=== PATIENT | female | born 1965 | race Two or more races ===

== ENCOUNTER 2021-08-06 06:59 | Emergency (ER) | payer OTHER, SELFPAY ==
--- NOTE | ~2021-08-06 | XR_ITS ---
EXAMINATION: XR CHEST CLINICAL INFORMATION: Cough and shortness of breath COMPARISON: Previous chest x-ray September 2017 TECHNIQUE: 2 views of the chest were obtained. FINDINGS: No significant abnormality is noted involving the heart, lungs, mediastinum, bony thorax or soft tissues. XR/XR chest 2V IMPRESSION: Unremarkable examination.
[2021-08-06 07:11] VITALS: BP 133/72; PULSE 100; RESP 18; TEMP 35.8; O2SAT 97
[2021-08-06 07:25] VITALS: BP 129/88; PULSE 112; RESP 21; TEMP 37.1; O2SAT 96; BMI 36.3
--- NOTE | 2021-08-06 07:28 | ED.GENADULT ---
HPI - General Adult General Chief complaint: General Medical Stated complaint: fever chills sore throat sob Time Seen by Provider: 08/06/21 07:28 Source: patient Mode of arrival: ambulatory Limitations: no limitations History of Present Illness HPI narrative: Cough, headache, myalgias for 3 days. Patient is not vaccinated. Onset (ago): day(s) Severity: mild Relieving factors: none Exacerbating factors: none Associated symptoms: chest pain, cough, fever/chills, malaise, shortness of breath and weakness Related Data Previous Rx's Medication Instructions Recorded arptsibpgfhzm-OM-ghcjflqxnvs 5 10 ml PO Q4H PRN #237 ml 08/06/21 mg-10 mg-100 mg/5 mL oral liquid Allergies Allergy/AdvReac Type Severity Reaction Status Date / Time No Known Allergies Allergy Unverified 05/21/20 17:53 [No Known Allergies*] Review of Systems Constitutional: Constitutional: Reports no additional constitutional complaints Eyes: Eyes: Reports no additional eye complaints ENT: Denies dizziness Cardiovascular: Cardiovascular: Reports no additional cardiovascular complaints Respiratory: Respiratory: Reports as per HPI Gastrointestinal: Gastrointestinal: Reports no additional gastrointestinal complaints Genitourinary: Genitourinary: Reports no additional female genitourinary complaints Musculoskeletal: Musculoskeletal: Reports no additional musculoskeletal complaints Integumentary/Breasts: Skin/Breast: Denies rash Neurologic: Reports system reviewed and no additional complaints, except as documented, Denies dizziness and Denies Sensory deficit (Neuro) Psychiatric: Psychiatric: Denies anxiety [facility] Social History Social History Advance Directives: No Advance Directives Information Provided: Yes Patient : No Physical Exam Vital Signs: Vital Signs: Last Vital Signs Temp 98.2 F 08/06/21 09:35 Pulse 84 08/06/21 09:35 Resp 15 08/06/21 09:35 BP 145/86 H 08/06/21 09:35 Pulse Ox 97 08/06/21 09:35 BMI result Body Mass Index 36.3 Const: Other: female looking uncomfortable, occaisional coughing Nutritional Appearance: obese Orientation/consciousness: oriented to person and patient oriented x3 Limitations: no limitations HENMT: Head: Yes normal to inspection Ears: external ears normal General nose exam: Normal external nose present Mouth: Normal oral and palatal mucosa present and oropharynx normal Throat: Yes posterior oropharynx normal Eyes: General: appearance normal, both eyes and all related structures Neck: Other: supple Neck: Yes normal visual inspection Chest: Chest palpation & inspection: normal inspection of the chest Resp: Auscultation: clear to auscultation bilaterally Cardio: Jugular venous distension: no JVD Rate: regular rate Rhythm: regular rhythm Heart sounds: S1 normal heart sound present and S2 normal heart sound present GI: Inspection: Yes normal to inspection Palpation (GI): Soft to palpation, nontender and No hepatosplenomegaly present Auscultation: normal bowel sounds : General: Yes no CVA tenderness Back/Spine/Pelvis: Back: no CVA tenderness Skin: General skin exam: no rashes or lesions noted Neuro: General: oriented to person and patient oriented x3 Cranial nerves: Yes CN's II-XII intact bilaterally Motor exam (neuro): 5/5 motor strength present throughout Sensory Exam: No Sensory deficit (Neuro) Extrem: General: Yes normal to inspection Psych: Appearance: grossly normal Course Reevaluation(s) Reevaluation #1: patinet with viral illness, will dc home Time: 10:44 Medical Decision Making Lab Data Result diagrams: 08/06/21 07:35 08/06/21 07:35 Labs: Lab Results 08/06/21 08/06/21 08/06/21 Range/Units 07:35 07:35 07:35 WBC 5.0 (4.8-10.8) X10*3/uL RBC 4.00 L (4.20-5.50) X10*6/uL Hgb 12.1 (12.0-16.0) g/dl Hct 35.6 L (37.0-47.0) % MCV 89.0 (80.0-98.0) fL MCH 30.3 (27.0-33.0) pg MCHC 34.0 (31.0-35.0) g/dl RDW 13.8 (11.0-16.0) % Plt Count 94 L (160-400) X10*3/uL MPV 11.8 (9.4-12.3) fL Immature Gran % (Auto) 0.6 H (0.0-0.4) % Neut % (Auto) 67.2 (45-73) % Lymph % (Auto) 17.8 L (20-40) % [place] % (Auto) 9.8 (2-11) % Eos % (Auto) 4.4 H (0-4) % Baso % (Auto) 0.2 (0-2) % Lymph # (Auto) 0.9 L (1.2-4.9) X10*3/uL [place] # (Auto) 0.5 (0.1-1.2) X10*3/uL Eos # (Auto) 0.2 (0.0-0.4) X10*3/uL Baso # (Auto) 0.0 (0.0-0.2) X10*3/uL Abs Immat Gran (auto) 0.03 (0.00-0.03) X10*3/uL Absolute Neuts (auto) 3.4 (2.0-8.3) x10*3/uL Absolute Nucleated RBC 0.000 (0.0-0.012) X10*3/uL Nucleated RBC % (auto) 0.0 (0.0-0.2) /100WBC Sodium 139 (135-145) mmol/L Potassium 3.9 (3.3-5.1) mmol/L Chloride 109 H (96-108) mmol/L Carbon Dioxide 25 (22-29) mmol/L Anion Gap 9 L (12-20) BUN 4 L (9-16) mg/dL Creatinine 0.67 (0.5-1.4) mg/dL Estim Creat Clear Calc 88.7 Estimated GFR > 60 Random Glucose 114 (60-115) mg/dL Calcium 8.4 (8.4-10.2) mg/dL Influenza Type A (PCR) NEGATIVE (Negative) Influenza Type B (PCR) NEGATIVE (Negative) RSV RNA Qual (PCR) NEGATIVE (Negative) SARS-CoV-2 RNA (RT-PCR) NEGATIVE (Negative) Imaging Data Chest x-ray: Attestation: I personally reviewed and interpreted this imaging study as follows: My impression: no infiltrate Discharge Plan Discharge Clinical Impression: Upper respiratory infection Qualifiers: URI type: unspecified viral URI Qualified Code(s): J06.9 - Acute upper respiratory infection, unspecified Patient Disposition: Home, Self-Care Instructions: Upper Respiratory Infection (ED), Viral Syndrome (ED) Prescriptions: New nirmdahcjwskw-TC-kmynthhyofd 5-10-100 mg/5 mL liquid 10 ml PO Q4H PRN (Reason: cough) Qty: 237 RF: 0 Referrals: Shanta Busch MD [Primary Care Provider] - 1 week
[2021-08-06] MEDS: 0.9 % Sodium Chloride 1,000 ML 999 ML IVCONT ×2 (07:36→09:30)
[2021-08-06 07:40] LABS: MANUAL DIFF FLAG NO
[2021-08-06 07:42] LABS: Basophils Percent Auto 0.2 % (0-2); Eosinophils Absolute Auto 0.2 X10*3/uL (0.0-0.4); Eosinophils Percent Auto 4.4 % (0-4); Hematocrit 35.6 % (37.0-47.0); Hemoglobin 12.1 g/dl (12.0-16.0); Imm Gran Abs Auto 0.03 X10*3/uL (0.00-0.03); Imm Gran Pct Auto 0.6 % (0.0-0.4); Lymphocytes Absolute Auto 0.9 X10*3/uL (1.2-4.9); Lymphocytes Percent Auto 17.8 % (20-40); Mean Corpuscular Hemoglobin 30.3 pg (27.0-33.0); Mean Platelet Volume 11.8 fL (9.4-12.3); Monocytes Absolute Auto 0.5 X10*3/uL (0.1-1.2); Monocytes Percent Auto 9.8 % (2-11); Neutrophils Absolute Auto 3.4 x10*3/uL (2.0-8.3); Neutrophils Percent Auto 67.2 % (45-73); Platelet Count 94 X10*3/uL (160-400); Red Cell Distribution Width 13.8 % (11.0-16.0)
[2021-08-06 07:59] LABS: Anion Gap 9 (12-20); Blood Urea Nitrogen 4 mg/dL (9-16); Calcium 8.4 mg/dL (8.4-10.2); Carbon Dioxide 25 mmol/L (22-29); Chloride 109 mmol/L (96-108); Creatinine Clr Calc Pharmacy 88.7; Estimated Glomerular Filt Rate > 60; Glucose Random 114 mg/dL (60-115); Potassium 3.9 mmol/L (3.3-5.1); Sodium 139 mmol/L (135-145)
[2021-08-06 08:27] LABS: Influenza A PCR NEGATIVE (Negative); Influenza B PCR NEGATIVE (Negative); Resp Syncy Virus RNA Qual PCR NEGATIVE (Negative); SARS COV2 PCR INHOUSE NEGATIVE (Negative)
[2021-08-06 09:35] VITALS: BP 145/86; PULSE 84; RESP 15; TEMP 36.8; O2SAT 97
== END 2021-08-06 11:20 | disposition home or self-care (01) ==
PROVIDERS: Emergency Provider Emergency Medicine; PCP Internal Medicine
DX: J06.9 Acute upper respiratory infection, unspecified (principal); Z20.822 Contact with and (suspected) exposure to COVID-19
CPT/HCPCS: 0241U; 36415; 71046; 80048; 85025; 96360; 99284

== ENCOUNTER 2021-09-09 11:27 | Outpatient (REF) | payer OTHER, SELFPAY ==
[2021-09-09 13:25] LABS: Binax Internal Control QC Valid; Binax Now Covid-19 Ag Negative (Negative)
== END 2021-09-09 11:28 | disposition home or self-care (01) ==
LOC: HO.LAB 11:27
PROVIDERS: Visit Provider Internal Medicine
DX: Z20.822 Contact with and (suspected) exposure to COVID-19 (principal)
CPT/HCPCS: 36415; C9803

== ENCOUNTER 2021-11-22 09:03 | Outpatient (REF) | payer OTHER, SELFPAY ==
[2021-11-22 09:32] LABS: COVID-19 Test Negative (Negative)
== END 2021-11-22 09:04 | disposition home or self-care (01) ==
LOC: HO.LAB 09:03
PROVIDERS: Visit Provider Internal Medicine
DX: Z20.822 Contact with and (suspected) exposure to COVID-19 (principal)
CPT/HCPCS: 87635; C9803

== ENCOUNTER 2023-02-02 06:07 | Emergency (ER) | payer OTHER, SELFPAY ==
--- NOTE | ~2023-02-02 | CT_ITS ---
EXAMINATION: CT ABDOMEN AND PELVIS WITH CONTRAST CLINICAL INFORMATION: Right lower quadrant pain COMPARISON: Abdominal MRI 07/04/2018, abdominal ultrasound 07/04/[address] chest chest, abdomen and pelvis 09/24/2017 TECHNIQUE: Multidetector volumetric images were obtained from the superior aspect of the liver through the pubic symphysis following administration 85 mL of Omnipaque 350 intravenous contrast. Sagittal and coronal reformatted images were obtained on the technologist's workstation. This CT examination was performed using dose optimization techniques as appropriate, variously including the following: *Automated exposure control *Adjustment of mA and/or kV according to patient size (this includes techniques or standardized protocols for targeted exams where dose is matched to indication/reason for exam; i.e. extremities or head) *Use of iterative reconstruction technique DLP: 546 mGy-cm FINDINGS: Visualized lung bases demonstrate mild dependent atelectasis. Cirrhotic appearing liver. Gallstones are noted within an otherwise unremarkable appearing gallbladder. The pancreas is normal in appearance. The spleen is again noted to be prominently enlarged. The adrenal glands are unremarkable. Symmetrically enhancing kidneys. There is no hydronephrosis of either kidney. The stomach is decompressed. Normal caliber loops of small and large bowel. Normal appendix. Mild colonic diverticulosis without CT evidence to suggest active diverticulitis. Normal caliber abdominal aorta. Extensive GE junction and splenic varices are noted.. Several prominent/mildly enlarged periportal lymph nodes again demonstrated. The bladder is normally distended. Similar prominent appearing uterus. There is no gross free pelvic fluid. No inguinal lymphadenopathy. Mild to moderate degenerative changes of the spine. CT/CT abdomen pelvis w IV con IMPRESSION: 1. Cirrhotic appearing liver with prominent splenomegaly and varices consistent with portal venous hypertension. 2. Cholelithiasis. 3. Mild colonic diverticulosis without CT evidence to suggest active diverticulitis. Fleischner guidelines were followed.
[2023-02-02 06:20] VITALS: BP 119/86; PULSE 119; RESP 20; TEMP 37.1; O2SAT 96; BMI 32.0
[2023-02-02 07:35] LABS: Appearance Urine Cloudy; Color Urine Dark Yellow; Glucose Urine UA Negative (Negative); Leukocyte Esterase Urine Moderate (2+) (Negative); Nitrite Urine Negative (Negative); Specific Gravity - Urine 1.025 (1.005-1.025); UMIC TRIGGER UACC YES; Urine Blood Negative (Negative); Urine Ketones 15 mg/dL (Negative); Urine Protein 30 (1+) mg/dL (Neg-Trace)
[2023-02-02 07:44] LABS: Bacteria Urine 4+ (None Seen); Hyaline Casts Urine 0-2 /LPF (0-2); RBC Urine 0-2 /HPF (0-2); Squamous Epithelial Cell Urine >20 /HPF (0-2); UACC Culture Trigger YES; WBC Urine >50 /HPF (0-5)
[2023-02-02 08:03] LABS: MANUAL DIFF FLAG NO
--- NOTE | 2023-02-02 08:18 | ED_ITS ---
HPI - Abdominal Pain General Chief Complaint: Abdominal Pain Stated Complaint: fever, stomach pain Time Seen by Provider: 02/02/23 07:39 Source: patient Mode of arrival: ambulatory Limitations: language barrier (Patient's 1st language is German, she speaks and understands some Indian, wilton weaver was used) History of Present Illness HPI narrative: 57-year-old female who presents emergency department for evaluation of abdominal pain, nausea, vomiting, diarrhea and fever. Patient states that yesterday she developed a fever as high as 101 degrees F. She also developed abdominal pain which she states came on gradually. She points to her right upper quadrant, epigastric and right lower quadrant area when asked to localize the pain. She describes the pain is an intermittent cramping sensation which is 8 to 9/10 at its worst. She states she had similar pain approximately 1 year prior and it was caused by Stokes liver problem cheese vague in describing the problem. She states that today she was scheduled for an endoscopy to evaluate her liver but was unable to go secondary to feeling ill. She states she has not been able to eat or drink over the past 2 days secondary to nausea and vomiting. Review of systems was positive for fever, chills, nausea, vomiting and diarrhea. She states she had greater than 10 episodes of diarrhea per day with no blood or dark black stool. Related Data Home Medications Medication Instructions Recorded Confirmed azathioprine 50 mg tablet 50 mg PO DAILY 09/17/21 04/22/22 omeprazole 20 mg capsule,delayed 40 mg PO DAILY 09/17/21 04/22/22 release Previous Rx's Medication Instructions Recorded nystatin 100,000 unit/gram topical 1 appl topical DAILY PRN 09/17/21 powder (Nystop) candidiasis #30 grams albuterol sulfate 90 mcg/actuation 2 puff inhalation Q6H PRN for 11/08/21 aerosol inhaler wheezing #8.5 ea naproxen 500 mg tablet 500 mg PO BID PRN pain #20 tabs 04/22/22 diclofenac sodium 1 % topical gel 2 g topical QID PRN pain #100 grams 05/17/22 (Arthritis Pain (diclofenac)) amitriptyline 10 mg tablet 10 mg PO BEDTIME #30 tabs 06/29/22 morphine 15 mg immediate release 15 mg PO Q4-6H PRN pain #10 tabs 02/02/23 tablet ondansetron 4 mg disintegrating 4 mg PO Q6-8H PRN nausea and 02/02/23 tablet vomiting #14 tabs Allergies Allergy/AdvReac Type Severity Reaction Status Date / Time trazadone AdvReac Mild Abdominal Uncoded 02/02/23 06:20 Pain Review of Systems Review of Systems Yes all other systems are reviewed and are negative [facility] Past Medical History [facility] Narrative: Past medical history: Sleep difficulty, anxiety, depression, liver disorder on azathioprine, chronic back pain, GERD, intermittent asthma. Past medical hi story: Ovarian cyst surgery. Social history: She denies tobacco, alcohol and drug use. Medical History Asthma Surgical History Hx of tubal ligation Family History Family History Mother Lung cancer Social History Social History Household Members: None Housing: House Alcohol intake: former Patient Tobacco Use Status: Former Tobacco user Tobacco use type: Cigarette e-Cigarette/Vaping Use: Never Used Advance Directives: No Advance Directives Information Provided: Yes service: No Current occupational status: disabled Current occupational exposures/hazards: No Cognitive needs: No Hearing needs: No Vision needs: Yes Physical Exam ED Vital Signs: Vital Signs - 24 hr 02/02/23 06:20 02/02/23 08:31 Temperature 98.8 F 99.1 F Pulse Rate 119 H 99 Respiratory Rate 20 16 Blood Pressure 119/86 133/79 Pulse Oximetry 96 96 Oxygen Delivery Method Room Air Room Air BMI result Body Mass Index 32.0 Const General: cooperative and no acute distress Orientation/consciousness: oriented to person and oriented to place Limitations: no limitations HENMT Head: Yes normal to inspection, Yes normocephalic and Yes atraumatic Ears: external ears normal General nose exam: Normal external nose present Face and sinus: Yes normal facial exam Mouth: Normal oral and palatal mucosa present Throat: Yes posterior oropharynx normal Eyes General: appearance normal, both eyes and all related structures Pupils: Equal, round and reactive pupils present Neck Neck: Yes normal visual inspection, Yes no lymphadenopathy, Yes trachea midline and Yes supple Chest Chest palpation & inspection: normal inspection of the chest and normal palpation of entire chest wall Resp Effort & Inspection: normal respiratory effort and able to speak in complete sentences Auscultation: clear to auscultation bilaterally Cardio Rate: regular rate Rhythm: regular rhythm Heart sounds: S1 normal heart sound present, S2 normal heart sound present and no murmurs GI Inspection: Yes normal to inspection Palpation (GI): Soft to palpation, Tenderness to palpation present (GI) in the epigastrum (My), in the RLQ (Moderate) and in the RUQ (Moderate) and no guarding Auscultation: normal bowel sounds General: Yes no CVA tenderness Back/Spine/Pelvis Back: no CVA tenderness Skin General skin exam: no rashes or lesions noted Neuro General: oriented to person and oriented to place Cranial nerves: Yes CN's II-XII intact bilaterally and Yes Equal, round and reactive pupils present Cognition (Neuro): normal cognition Motor exam (neuro): 5/5 motor strength present throughout Extrem General: Yes normal to inspection Psych Appearance: grossly normal Speech and movement: Normal speech and movement present Affect: normal affect Attitude: cooperative Thought process: Normal thought process present Thought content: Normal thought content present Medical Decision Making Medical Decision Making MDM Narrative: 57-year-old female who presents emergency department for evaluation of fever, abdominal pain, nausea, vomiting, diarrhea with poor food and fluid intake x2 days. Vital signs did reveal an elevated heart rate of 119. Patient does have right upper quadrant, right lower quadrant and epigastric tenderness on her exam. The patient states that she has a liver problem but cannot tell me her diagnosis which she takes azathroprine for. I did order an evaluation to CBC, BMP, liver panel, lipase, urinalysis, CT scan of the abdomen pelvis with IV contrast. Patient was ordered to get Toradol 15 mg IV, Zofran 4 mg IV and normal saline 1 L IV. 1025: My interpretation patient's laboratory evaluation as follows: WBC low 3700- chronic. CMP was normal except for bilirubin 1.5. Lipase was normal. Urinalysis was positive for leukocytes, microscopic revealed greater than 50 WBCs, 4+ bacteria and greater than 20 squamous cells. This is consistent with a non midstream catch, patient has no dysuria or frequent therefore I will not treat her for urinary tract infection at this time. CT scan of the abdomen pelvis did not reveal any acute findings. Patient has a cirrhotic appearing liver with splenomegaly and varices consistent with portal hypertension but she has known liver disease and is on immunosuppressant. Patient is feeling better after the above treatment. Patient most likely has a viral syndrome. Patient will be treated with Zofran and morphine. She was given printed and verbal instructions discharged home. Differential Diagnosis Differential diagnosis includes but is not limited to biliary disease, gastritis, appendicitis, C difficile colitis, viral syndrome, viral colitis Admission/Observation Consideration of admission/observation: Escalation of care including admission/observation considered Lab Data MDM Lab Attestation statement: I reviewed the patient's lab results. 02/02/23 07:14 02/02/23 07:14 Labs: Lab Results 02/02/23 02/02/23 02/02/23 Range/Units 07:14 07:14 07:27 WBC 3.7 L (4.8-10.8) X10*3/uL RBC 4.04 L (4.20-5.50) X10*6/uL Hgb 12.0 (12.0-16.0) g/dl Hct 35.6 L (37.0-47.0) % MCV 88.1 (80.0-98.0) fL MCH 29.7 (27.0-33.0) pg MCHC 33.7 (31.0-35.0) g/dl RDW 13.9 (11.0-16.0) % Plt Count 83 L (160-400) X10*3/uL MPV 12.0 (9.4-12.3) fL Immature Gran % (Auto) 0.3 (0.0-0.4) % Neut % (Auto) 67.3 (45-73) % Lymph % (Auto) 18.2 L (20-40) % [place] % (Auto) 13.1 H (2-11) % Eos % (Auto) 0.8 (0-4) % Baso % (Auto) 0.3 (0-2) % Lymph # (Auto) 0.7 L (1.2-4.9) X10*3/uL [place] # (Auto) 0.5 (0.1-1.2) X10*3/uL Eos # (Auto) 0.0 (0.0-0.4) X10*3/uL Baso # (Auto) 0.0 (0.0-0.2) X10*3/uL Abs Immat Gran (auto) 0.01 (0.00-0.03) X10*3/uL Absolute Neuts (auto) 2.5 (2.0-8.3) x10*3/uL Absolute Nucleated RBC 0.000 (0.0-0.012) X10*3/uL Nucleated RBC % (auto) 0.0 (0.0-0.2) /100WBC Sodium 137 (135-145) mmol/L Potassium 3.7 (3.3-5.1) mmol/L Chloride 107 (96-108) mmol/L Carbon Dioxide 24 (22-29) mmol/L Anion Gap 10 L (12-20) BUN 8 L (9-16) mg/dL Creatinine 0.66 (0.5-1.4) mg/dL Estim Creat Clear Calc 85.7 Estimated GFR > 60 Random Glucose 100 (60-115) mg/dL Calcium 8.4 (8.4-10.2) mg/dL Total Bilirubin 1.5 H (0.0-1.0) mg/dL Direct Bilirubin 0.5 (0.0-0.5) mg/dL AST 67 H (5-31) U/L ALT 30 (0-31) U/L Alkaline Phosphatase 95 (39-117) U/L Total Protein 7.3 (6.5-8.0) g/dL Albumin 2.9 L (3.5-5.0) g/dL Lipase 23 (8-78) U/L Urine Color Dark Yellow Urine Appearance Cloudy Urine pH 6.0 (5.0-9.0) Ur Specific [place] 1.025 (1.005-1.025) Urine Protein 30 (1+) H (Neg-Trace) mg/dL Urine Glucose (UA) Negative (Negative) mg/dL Urine Ketones 15 (Negative) mg/dL Urine Blood Negative (Negative) Urine Nitrite Negative (Negative) Ur Leukocyte Esterase Moderate (2+) H (Negative) Urine RBC 0-2 (0-2) /HPF Urine WBC >50 H (0-5) /HPF Ur Squamous Epith Cells >20 (0-2) /HPF Urine Bacteria 4+ (None Seen) Hyaline Casts 0-2 (0-2) /LPF Urine Yeast Present Radiology Impression Discussion of test interpretation with radiology: I have reviewed the radiologist's reading. Radiologist Impression: CT abdomen pelvis w IV con IMPRESSION: 1. Cirrhotic appearing liver with prominent splenomegaly and varices consistent with portal venous hypertension. 2. Cholelithiasis. 3. Mild colonic diverticulosis without CT evidence to suggest active diverticulitis. Fleischner guidelines were followed. Dictated By:Rich Brandon MD Medications Administered Discontinued Medications Generic Name Dose Route Start Last Admin Trade Name Freq PRN Reason Stop Dose Admin Sodium Chloride 1,000 mls @ 999 mls/hr 02/02/23 08:18 02/02/23 08:40 Ns IV 02/02/23 09:18 999 mls/hr .Q1H1M STA Administration Iohexol 100 ml 02/02/23 09:09 02/02/23 09:09 Iohexol 350 Mg/Ml 100 Ml Infus..Btl IV 02/02/23 09:10 85 ml ONCE ONE Administration Ketorolac Tromethamine 15 mg 02/02/23 08:18 02/02/23 08:40 Ketorolac Tromethamine 15 Mg/Ml Vial IVPUSH 02/02/23 08:19 15 mg ONCE STA Administration Ondansetron HCl 4 mg 02/02/23 08:18 02/02/23 08:40 Ondansetron Hcl 4 Mg/2 Ml Vial IVPUSH 02/02/23 08:19 4 mg ONCE ONE Administration Discharge Plan Discharge Clinical Impression: Viral syndrome Abdominal pain Qualifiers: Abdominal location: right upper quadrant Qualified Code(s): R10.11 - Right upper quadrant pain Vomiting Qualifiers: Vomiting type: unspecified Nausea presence: with nausea Qualified Code(s): R11.2 - Nausea with vomiting, unspecified Diarrhea Qualifiers: Diarrhea type: unspecified type Qualified Code(s): R19.7 - Diarrhea, unspecified Patient Disposition: Home, Self-Care Instructions: Viral Syndrome (ED) Additional Instructions: Your blood work was unremarkable. The CT scan of your abdomen pelvis did reveal cirrhosis of the liver with enlargement of your spleen-this is consistent with your chronic liver disease and does not explain your pain. Given your symptoms, I suspect that you have a viral infection. Take Zofran ODT 4 mg pills, 1 pill dissolved in your mouth every 8 hours as needed for nausea and vomiting. Rest, increase your fluid intake, stay on a basic diet (is bananas, rice, applesauce, tea and toast) until your able to eat regular food. Take morphine 15 mg pills, 1 pill every 6 hours as needed for pain. This is a narcotic medication and can be addicting. If you are concerned about addiction, do not get the prescription filled or you can ask the pharmacist for less pills than prescribed. This medication will make you sleepy, do not drive or work while taking this medication. Follow-up with your doctor in 2 days. Please return to the emergency department if your symptoms get worse or if you develop any symptoms that are concerning to you. Prescriptions: New morphine 15 mg tablet 15 mg PO Q4-6H PRN (Reason: pain) Qty: 10 0RF Rx Instructions: The patient may ask for partial fill; Partial Fill upon patient request. ondansetron 4 mg tablet,disintegrating 4 mg PO Q6-8H PRN (Reason: nausea and vomiting) Qty: 14 0RF No Action albuterol sulfate 90 mcg/actuation HFA aerosol inhaler 2 puff inhalation Q6H PRN (Reason: for wheezing) Qty: 8.5 1RF diclofenac sodium [Arthritis Pain (diclofenac)] 1 % gel 2 g topical QID PRN (Reason: pain) Qty: 100 0RF Rx Instructions: apply to single elbow, wrist or hand; for hand includes palm/fingers/back of hand amitriptyline 10 mg tablet 10 mg PO BEDTIME Qty: 30 0RF omeprazole 20 mg capsule,delayed release(DR/EC) 40 mg PO DAILY azathioprine 50 mg tablet 50 mg PO DAILY nystatin [Nystop] 100,000 unit/gram powder 1 appl topical DAILY PRN (Reason: candidiasis) Qty: 30 1RF naproxen 500 mg tablet 500 mg PO BID PRN (Reason: pain) Qty: 20 0RF Print Language: German
[2023-02-02 08:19] LABS: Basophils Percent Auto 0.3 % (0-2); Eosinophils Percent Auto 0.8 % (0-4); Hematocrit 35.6 % (37.0-47.0); Imm Gran Abs Auto 0.01 X10*3/uL (0.00-0.03); Imm Gran Pct Auto 0.3 % (0.0-0.4); Lymphocytes Absolute Auto 0.7 X10*3/uL (1.2-4.9); Lymphocytes Percent Auto 18.2 % (20-40); Mean Corpuscular HGB Conc 33.7 g/dl (31.0-35.0); Mean Corpuscular Hemoglobin 29.7 pg (27.0-33.0); Mean Corpuscular Volume 88.1 fL (80.0-98.0); Monocytes Absolute Auto 0.5 X10*3/uL (0.1-1.2); Monocytes Percent Auto 13.1 % (2-11); Neutrophils Absolute Auto 2.5 x10*3/uL (2.0-8.3); Neutrophils Percent Auto 67.3 % (45-73); Platelet Count 83 X10*3/uL (160-400); Red Blood Count 4.04 X10*6/uL (4.20-5.50); Red Cell Distribution Width 13.9 % (11.0-16.0); White Blood Count 3.7 X10*3/uL (4.8-10.8)
[2023-02-02 08:24] LABS: Alanine Aminotransferase 30 U/L (0-31); Albumin Level 2.9 g/dL (3.5-5.0); Alkaline Phosphatase 95 U/L (39-117); Anion Gap 10 (12-20); Aspartate Amino Transferase 67 U/L (5-31); Bilirubin Direct 0.5 mg/dL (0.0-0.5); Bilirubin Total 1.5 mg/dL (0.0-1.0); Blood Urea Nitrogen 8 mg/dL (9-16); Calcium 8.4 mg/dL (8.4-10.2); Carbon Dioxide 24 mmol/L (22-29); Chloride 107 mmol/L (96-108); Creatinine Clr Calc Pharmacy 85.7; Estimated Glomerular Filt Rate > 60; Glucose Random 100 mg/dL (60-115); Lipase 23 U/L (8-78); Potassium 3.7 mmol/L (3.3-5.1); Sodium 137 mmol/L (135-145); Total Protein 7.3 g/dL (6.5-8.0)
[2023-02-02 08:31] VITALS: BP 133/79; PULSE 99; RESP 16; TEMP 37.3; O2SAT 96
[2023-02-02] MEDS: 0.9 % Sodium Chloride 1,000 ML 999 ML IV (08:40)
[2023-02-02] MEDS: ondansetron HCL 4 MG/2 ML VIAL IVPUSH (08:40)
[2023-02-02] MEDS: Ketorolac Tromethamine 15 MG/ML VIAL IVPUSH (08:40)
[2023-02-02] MEDS: iohexoL 350 MG/ML 100 ML INFUS..BTL IV (09:09)
== END 2023-02-02 10:56 | disposition home or self-care (01) ==
PROVIDERS: Emergency Provider Emergency Medicine Emergency Medical Services
DX: B34.9 Viral infection, unspecified (principal); R50.9 Fever, unspecified; R10.13 Epigastric pain; R10.31 Right lower quadrant pain; R19.7 Diarrhea, unspecified; Z87.891 Personal history of nicotine dependence; Z20.822 Contact with and (suspected) exposure to COVID-19; Z20.828 Contact with and (suspected) exposure to other viral communicable diseases; Z79.899 Other long term (current) drug therapy
CPT/HCPCS: 36415; 74177; 80048; 80076; 81001; 83690; 85025; 87086; 96374; 96375; 99284; 99285; J1885; J2405; Q9967

== ENCOUNTER 2023-03-26 16:29 | Inpatient (IN) | payer OTHER, SELFPAY ==
--- NOTE | ~2023-03-26 | MR_ITS ---
EXAMINATION: MR ABDOMEN WITHOUT CONTRAST CLINICAL INFORMATION: Rule out pancreatic lesion COMPARISON: Ultrasound from 03/26/[address] scan of the abdomen from 02/02/2023. MRI of the abdomen from 07/04/2018. TECHNIQUE: MR abdomen is performed without gadolinium contrast utilizing MRCP technique FINDINGS: LUNG BASES: The visualized lung bases are unremarkable. LIVER, GALLBLADDER, AND BILIARY TREE: Liver demonstrate irregular nodular contour consistent with the appearance of cirrhotic liver without focal lesions identified on noncontrast MRI and of low signal intensity. Gallbladder is partially contracted with numerous small stones. No pericholecystic fluid collection in the wall is not thickened. CBD is nondilated and revealed no evidence of choledocholithiasis. PANCREAS: Pancreas is unremarkable without focal lesions and ductal dilatation is not seen. SPLEEN: The spleen is enlarged, measured 13.2 cm, stable since previous study ADRENAL GLANDS: There is no adrenomegaly or nodularity seen. KIDNEYS AND URETERS: The kidneys are normal in size and shape. No hydronephrosis. No perinephric stranding. GASTROINTESTINAL TRACT: No bowel obstruction. No ascites or fluid collection. ABDOMINAL WALL: No significant hernia is appreciated. LYMPH NODES: There is no obvious lymphadenopathy seen on noncontrast study. VASCULAR: There is stable varicosity surrounding gastric cardia and gastroesophageal junction. OSSEOUS STRUCTURES: Marrow signal normal. MR/MR MRCP IMPRESSION: 1. Cirrhotic liver without focal lesion identified on noncontrast MRI. 2. Cholelithiasis. 3. Stable splenomegaly. 4. Stable varicosity surrounding gastric cardia and gastroesophageal junction.
--- NOTE | ~2023-03-26 | US_ITS ---
EXAMINATION: US ABDOMEN LIMITED CLINICAL INFORMATION: Right upper quadrant pain, jaundice. COMPARISON: CT abdomen/pelvis 02/02/2023. TECHNIQUE: Real-time imaging of the right upper quadrant abdominal viscera. FINDINGS: PANCREAS: There is a 1.5 x 1.2 x 1.9 cm hypoechoic lesion adjacent to the pancreatic head, nonspecific but possibly associated with peripancreatic lymphadenopathy noted on CT from 02/02/2023. LIVER: Cirrhotic liver morphology. No discrete liver mass or intrahepatic biliary ductal dilatation. GALLBLADDER: Cholelithiasis. No significant wall thickening or pericholecystic free fluid. Negative Shea's sign. COMMON BILE DUCT: Normal in caliber measuring 0.3 cm in diameter. RIGHT KIDNEY: Trace pelvic fullness. No hydronephrosis. No renal calculi or focal parenchymal lesions. The kidney measures 10 cm in maximum dimension. FREE FLUID: None. US/US abdomen limited IMPRESSION: 1. Cholelithiasis but no sonographic evidence of acute cholecystitis. 2. Cirrhotic liver morphology. 3. Nonspecific hypoechoic lesion adjacent to the pancreatic head, possibly associated with peripancreatic lymphadenopathy noted on CT from 02/02/2023. Recommend a short-term follow-up ultrasound or MRI for reevaluation.
[2023-03-26 16:44] VITALS: BP 136/72; PULSE 101; RESP 17; TEMP 36.8; O2SAT 97; BMI 32.3
--- NOTE | 2023-03-26 16:45 | ED.ABDPAIN ---
HPI - Abdominal Pain General Chief Complaint: Abdominal Pain Stated Complaint: abdominal pain Time Seen by Provider: 03/26/23 18:06 Source: patient Mode of arrival: ambulatory Limitations: no limitations History of Present Illness HPI narrative: Patient comes emergency room complaining of right upper quadrant pain and jaundice/icterus for the last 2 days. Patient states that she has been unable to eat for 2 days due to pain. Patient denies nausea vomiting diarrhea. Patient states that she is known to have ?a liver condition? for which she takes azathioprine. Related Data Home Medications Medication Instructions Recorded Confirmed azathioprine 50 mg tablet 50 mg PO DAILY 09/17/21 04/22/22 omeprazole 20 mg capsule,delayed 40 mg PO DAILY 09/17/21 04/22/22 release Previous Rx's Medication Instructions Recorded nystatin 100,000 unit/gram topical 1 appl topical DAILY PRN 09/17/21 powder (Nystop) candidiasis #30 grams albuterol sulfate 90 mcg/actuation 2 puff inhalation Q6H PRN for 11/08/21 aerosol inhaler wheezing #8.5 ea naproxen 500 mg tablet 500 mg PO BID PRN pain #20 tabs 04/22/22 diclofenac sodium 1 % topical gel 2 g topical QID PRN pain #100 grams 05/17/22 (Arthritis Pain (diclofenac)) amitriptyline 10 mg tablet 10 mg PO BEDTIME #30 tabs 06/29/22 morphine 15 mg immediate release 15 mg PO Q4-6H PRN pain #10 tabs 02/02/23 tablet ondansetron 4 mg disintegrating 4 mg PO Q6-8H PRN nausea and 02/02/23 tablet vomiting #14 tabs Allergies Allergy/AdvReac Type Severity Reaction Status Date / Time trazadone AdvReac Mild Abdominal Uncoded 02/02/23 06:20 Pain Review of Systems Review of Systems Constitutional : No Weight loss, No Fever, No Chills, No Night Sweats, No Fatigue, No Malaise ENT/Mouth : No Hearing loss, No Ear Pain, No Nasal Congestion, No Sinus Pain, No Hoarseness, No sore throat, No Rhinorrhea, No Swallowing Difficulty Eyes: Complaining of icterus No Eye Pain, No Swelling, No Redness, No Foreign Body, No Discharge, No Vision Changes Cardiovascular : No Chest Pain, No SOB, No Dyspnea on Exertion, No Orthopnea, No Edema, No Palpitations Respiratory : No Cough, No Sputum, No Wheezing, No Smoke Exposure, No Dyspnea Gastrointestinal : No Nausea, No Vomiting, No Diarrhea, No Constipation, complaining of right upper quadrant pain Genitourinary : no irregular bleeding, No Dysuria, No Urinary Frequency, No Hematuria, No Urinary Incontinence, No Urgency, No Flank Pain, No Urinary Flow Changes, No Hesitancy Musculoskeletal : No joint pain, No Myalgias, No Joint Swelling Skin : Complaining of jaundice No Skin Lesions, No rash Neuro : No Weakness, No Numbness, No Paresthesias, No Loss of Consciousness, No Dizziness, No Headache Psych : No Anxiety/Panic, No Depression, No SI/HI/AH/VH, No Social Issues, Heme/Lymph: No Bruising, No Bleeding,No Lymphadenopathy Endocrine : No Polyuria, No Polydipsia, No Temperature Intolerance [facility] Past Medical History Medical History Asthma Surgical History Hx of tubal ligation Family History Family History Mother Lung cancer Social History Social History Household Members: None Housing: House Alcohol intake: never Patient Tobacco Use Status: Former Tobacco user Tobacco use type: Cigarette Smoked in Last 30 Days: No e-Cigarette/Vaping Use: Never Used Use of substances other than those prescribed or required for medical reasons: No Advance Directives: No Advance Directives Information Provided: No service: No Current occupational status: disabled Current occupational exposures/hazards: No Cognitive needs: No Hearing needs: No Vision needs: Yes Physical Exam ED Vital Signs: Vital Signs - 24 hr 03/26/23 16:44 03/26/23 18:52 Temperature 98.2 F 98.5 F Pulse Rate 101 H 91 Respiratory Rate 17 18 Blood Pressure 136/72 123/79 Pulse Oximetry 97 98 Oxygen Delivery Method Room Air Room Air BMI result Body Mass Index 32.3 Const Other: Appearance: Alert. Oriented X3. No acute distress. Eyes: Pupils equal, round and reactive to light. Sclerae icterus ENT: Pharynx normal. Neck: Normal inspection. Neck supple. No lymph nodes noted. No crepitus CVS: Normal heart rate and rhythm. Pulses normal. Normal S1 and S2 Respiratory: No respiratory distress. Breath sounds normal. No Wheezing. No rales Abdomen: Soft , pain to palpation the right upper quadrant No rigidity. No distention. Skin: Skin warm and dry. Patient has diffuse jaundice, Normal skin turgor. Extremities: No lower extremity edema. No Lacerations. No Rash Neuro: Oriented X 3. No motor deficit. No sensory deficit. Moving all extremities. No slurred speech. CN 2 through 12 grossly intact Psych: calm, cooperative, normal affect Course Course Course Narrative: This is an RME: Additional HPI, ROS, PE not included below will be deferred to primary provider. Patient is a 57-year-old female who presents emergency department for evaluation of right upper abdominal pain, yellowing of the eyes and skin, and nausea symptom onset 3 days ago. Denies vomiting, diarrhea, fevers, chills, genitourinary symptoms Plan: Labs, ultrasound Medical Decision Making Medical Decision Making [facility] Narrative: -my interpretation of labs, patient has markedly elevated LFTs. Patient has had elevation in LFTs in the past, but not this high. Patient does not know what her diagnosis is for her ?liver condition?. Patient states that she has been taking azathioprine for many years -unclear why patient's LFTs are very elevated this time, admission considered -I discussed the labs and imaging with Dr. Prabhakar. In the morning, patient will need an MRCP and an MRI. To be afforded CEA and CA 19-9, hepatitis panel pending. Patient has history of autoimmune hepatitis. Patient states that she has been compliant with azathioprine -I discussed the patient with Dr. Veloz, patient being admitted -patient initially unwilling to stay in the hospital, states she has a dog at home and would like to be discharged. Patient's daughter is at bedside, convinced the patient to stay. Differential Diagnosis Differential Diagnoses: The differential diagnosis associated with the presentation includes (Azathioprine hepatotoxicity, cholecystitis, choledocholithiasis, pancreatic mass. ) Admission/Observation Consideration of admission/observation: Escalation of care including admission/observation considered Consult Healthcare Provider Management of the patient was discussed with: Hospitalist and Labor Economist Lab Data [facility] Lab Attestation statement: I reviewed the patient's lab results. 03/26/23 17:06 07/23/23 17:06 Labs: Lab Results 03/26/23 03/26/23 03/26/23 Range/Units 17:06 17:06 17:06 WBC 3.0 L (4.8-10.8) X10*3/uL RBC 4.14 L (4.20-5.50) X10*6/uL Hgb 12.3 (12.0-16.0) g/dl Hct 36.5 L (37.0-47.0) % MCV 88.2 (80.0-98.0) fL MCH 29.7 (27.0-33.0) pg MCHC 33.7 (31.0-35.0) g/dl RDW 14.8 (11.0-16.0) % Plt Count 84 L (160-400) X10*3/uL MPV 12.1 (9.4-12.3) fL Immature Gran % (Auto) 0.3 (0.0-0.4) % Neut % (Auto) 53.0 (45-73) % Lymph % (Auto) 26.8 (20-40) % [place] % (Auto) 14.6 H (2-11) % Eos % (Auto) 5.0 H (0-4) % Baso % (Auto) 0.3 (0-2) % Lymph # (Auto) 0.8 L (1.2-4.9) X10*3/uL [place] # (Auto) 0.4 (0.1-1.2) X10*3/uL Eos # (Auto) 0.2 (0.0-0.4) X10*3/uL Baso # (Auto) 0.0 (0.0-0.2) X10*3/uL Abs Immat Gran (auto) 0.01 (0.00-0.03) X10*3/uL Absolute Neuts (auto) 1.6 L (2.0-8.3) x10*3/uL Absolute Nucleated RBC 0.000 (0.0-0.012) X10*3/uL Nucleated RBC % (auto) 0.0 (0.0-0.2) /100WBC Sodium 136 (135-145) mmol/L Potassium 3.5 (3.3-5.1) mmol/L Chloride 108 (96-108) mmol/L Carbon Dioxide 23 (22-29) mmol/L Anion Gap 9 L (12-20) BUN 5 L (9-16) mg/dL Creatinine 0.66 (0.5-1.4) mg/dL Estim Creat Clear Calc 82.5 Estimated GFR > 60 Random Glucose 100 (60-115) mg/dL Lactic Acid (0.5-2.0) mmol/L Calcium 8.5 (8.4-10.2) mg/dL Total Bilirubin 10.8 H (0.0-1.0) mg/dL Direct Bilirubin 8.2 H (0.0-0.5) mg/dL AST 1718 H (5-31) U/L ALT 662 H (0-31) U/L Alkaline Phosphatase 177 H (39-117) U/L Ammonia 69 H (13-55) umol/L Total Protein 8.0 (6.5-8.0) g/dL Albumin 2.6 L (3.5-5.0) g/dL Lipase 39 (8-78) U/L Urine Color Urine Appearance Urine pH (5.0-9.0) Ur Specific [place] (1.005-1.025) Urine Protein (Neg-Trace) mg/dL Urine Glucose (UA) (Negative) mg/dL Urine Ketones (Negative) mg/dL Urine Blood (Negative) Urine Nitrite (Negative) Ur Leukocyte Esterase (Negative) Urine RBC (0-2) /HPF Urine WBC (0-5) /HPF Ur Squamous Epith Cells (0-2) /HPF Urine Bacteria (None Seen) Hyaline Casts (0-2) /LPF 03/26/23 03/26/23 Range/Units 17:06 18:35 WBC (4.8-10.8) X10*3/uL RBC (4.20-5.50) X10*6/uL Hgb (12.0-16.0) g/dl Hct (37.0-47.0) % MCV (80.0-98.0) fL MCH (27.0-33.0) pg MCHC (31.0-35.0) g/dl RDW (11.0-16.0) % Plt Count (160-400) X10*3/uL MPV (9.4-12.3) fL Immature Gran % (Auto) (0.0-0.4) % Neut % (Auto) (45-73) % Lymph % (Auto) (20-40) % [place] % (Auto) (2-11) % Eos % (Auto) (0-4) % Baso % (Auto) (0-2) % Lymph # (Auto) (1.2-4.9) X10*3/uL [place] # (Auto) (0.1-1.2) X10*3/uL Eos # (Auto) (0.0-0.4) X10*3/uL Baso # (Auto) (0.0-0.2) X10*3/uL Abs Immat Gran (auto) (0.00-0.03) X10*3/uL Absolute Neuts (auto) (2.0-8.3) x10*3/uL Absolute Nucleated RBC (0.0-0.012) X10*3/uL Nucleated RBC % (auto) (0.0-0.2) /100WBC Sodium (135-145) mmol/L Potassium (3.3-5.1) mmol/L Chloride (96-108) mmol/L Carbon Dioxide (22-29) mmol/L Anion Gap (12-20) BUN (9-16) mg/dL Creatinine (0.5-1.4) mg/dL Estim Creat Clear Calc Estimated GFR Random Glucose (60-115) mg/dL Lactic Acid 1.1 (0.5-2.0) mmol/L Calcium (8.4-10.2) mg/dL Total Bilirubin (0.0-1.0) mg/dL Direct Bilirubin (0.0-0.5) mg/dL AST (5-31) U/L ALT (0-31) U/L Alkaline Phosphatase (39-117) U/L Ammonia (13-55) umol/L Total Protein (6.5-8.0) g/dL Albumin (3.5-5.0) g/dL Lipase (8-78) U/L Urine Color Dark Yellow Urine Appearance Clear Urine pH 6.0 (5.0-9.0) Ur Specific [place] 1.010 (1.005-1.025) Urine Protein Negative (Neg-Trace) mg/dL Urine Glucose (UA) Negative (Negative) mg/dL Urine Ketones Negative (Negative) mg/dL Urine Blood Negative (Negative) Urine Nitrite Negative (Negative) Ur Leukocyte Esterase Trace H (Negative) Urine RBC 0-2 (0-2) /HPF Urine WBC 0-5 (0-5) /HPF Ur Squamous Epith Cells 0-2 (0-2) /HPF Urine Bacteria None Seen (None Seen) Hyaline Casts 0-2 (0-2) /LPF Radiology Impression Discussion of test interpretation with radiology: I have reviewed the radiologist's reading. Radiologist Impression: FINDINGS: PANCREAS: There is a 1.5 x 1.2 x 1.9 cm hypoechoic lesion adjacent to the pancreatic head, nonspecific but possibly associated with peripancreatic lymphadenopathy noted on CT from 02/02/2023. LIVER: Cirrhotic liver morphology. No discrete liver mass or intrahepatic biliary ductal dilatation. GALLBLADDER: Cholelithiasis. No significant wall thickening or pericholecystic free fluid. Negative Shea's sign. COMMON BILE DUCT: Normal in caliber measuring 0.3 cm in diameter. RIGHT KIDNEY: Trace pelvic fullness. No hydronephrosis. No renal calculi or focal parenchymal lesions. The kidney measures 10 cm in maximum dimension. FREE FLUID: None. US/US abdomen limited IMPRESSION: 1.? Cholelithiasis but no sonographic evidence of acute cholecystitis. 2.? Cirrhotic liver morphology. 3.? Nonspecific hypoechoic lesion adjacent to the pancreatic head, possibly associated with peripancreatic lymphadenopathy noted on CT from 02/02/2023. Recommend a short-term follow-up ultrasound or MRI for reevaluation. ? Independent Historian Clinical information obtained from an independent historian. History obtained from or confirmed by: Other (Daughter) External Record Review External record reviewed: Prior outpatient labs Chronic Conditions Patient?s care impacted by: Other (Autoimmune hepatitis) Critical Care Time Critical Care Time Critical Care Time: Yes Total Critical Care Time: 60 Attestation: I have personally provided critical care time. Time includes review of lab data, radiology results, discussion with consultants, and monitoring for potential decompensation. Intervention performed as documented. Discharge Plan Discharge Clinical Impression: Autoimmune hepatitis Prescriptions: No Action albuterol sulfate 90 mcg/actuation HFA aerosol inhaler 2 puff inhalation Q6H PRN (Reason: for wheezing) Qty: 8.5 1RF diclofenac sodium [Arthritis Pain (diclofenac)] 1 % gel 2 g topical QID PRN (Reason: pain) Qty: 100 0RF Rx Instructions: apply to single elbow, wrist or hand; for hand includes palm/fingers/back of hand amitriptyline 10 mg tablet 10 mg PO BEDTIME Qty: 30 0RF morphine 15 mg tablet 15 mg PO Q4-6H PRN (Reason: pain) Qty: 10 0RF Rx Instructions: The patient may ask for partial fill; Partial Fill upon patient request. ondansetron 4 mg tablet,disintegrating 4 mg PO Q6-8H PRN (Reason: nausea and vomiting) Qty: 14 0RF omeprazole 20 mg capsule,delayed release(DR/EC) 40 mg PO DAILY azathioprine 50 mg tablet 50 mg PO DAILY nystatin [Nystop] 100,000 unit/gram powder 1 appl topical DAILY PRN (Reason: candidiasis) Qty: 30 1RF naproxen 500 mg tablet 500 mg PO BID PRN (Reason: pain) Qty: 20 0RF
[2023-03-26 17:11] LABS: MANUAL DIFF FLAG NO
[2023-03-26 17:13] LABS: Basophils Percent Auto 0.3 % (0-2); Eosinophils Absolute Auto 0.2 X10*3/uL (0.0-0.4); Hematocrit 36.5 % (37.0-47.0); Hemoglobin 12.3 g/dl (12.0-16.0); Imm Gran Abs Auto 0.01 X10*3/uL (0.00-0.03); Imm Gran Pct Auto 0.3 % (0.0-0.4); Lymphocytes Absolute Auto 0.8 X10*3/uL (1.2-4.9); Lymphocytes Percent Auto 26.8 % (20-40); Mean Corpuscular HGB Conc 33.7 g/dl (31.0-35.0); Mean Corpuscular Hemoglobin 29.7 pg (27.0-33.0); Mean Corpuscular Volume 88.2 fL (80.0-98.0); Mean Platelet Volume 12.1 fL (9.4-12.3); Monocytes Absolute Auto 0.4 X10*3/uL (0.1-1.2); Monocytes Percent Auto 14.6 % (2-11); Neutrophils Absolute Auto 1.6 x10*3/uL (2.0-8.3); Red Blood Count 4.14 X10*6/uL (4.20-5.50); Red Cell Distribution Width 14.8 % (11.0-16.0)
[2023-03-26 17:19] LABS: Ammonia 69 umol/L (13-55); Platelet Count 84 X10*3/uL (160-400)
[2023-03-26 17:22] LABS: Lactic Acid 1.1 mmol/L (0.5-2.0)
[2023-03-26 17:31] LABS: Alanine Aminotransferase 662 U/L (0-31); Albumin Level 2.6 g/dL (3.5-5.0); Alkaline Phosphatase 177 U/L (39-117); Anion Gap 9 (12-20); Aspartate Amino Transferase 1718 U/L (5-31); Bilirubin Total 10.8 mg/dL (0.0-1.0); Blood Urea Nitrogen 5 mg/dL (9-16); Calcium 8.5 mg/dL (8.4-10.2); Carbon Dioxide 23 mmol/L (22-29); Chloride 108 mmol/L (96-108); Creatinine Clr Calc Pharmacy 82.5; Estimated Glomerular Filt Rate > 60; Glucose Random 100 mg/dL (60-115); Lipase 39 U/L (8-78); Potassium 3.5 mmol/L (3.3-5.1); Sodium 136 mmol/L (135-145)
[2023-03-26 18:35] LABS: Bilirubin Direct 8.2 mg/dL (0.0-0.5)
[2023-03-26 18:41] LABS: Appearance Urine Clear; Color Urine Dark Yellow; Glucose Urine UA Negative (Negative); Leukocyte Esterase Urine Trace (Negative); Nitrite Urine Negative (Negative); UMIC TRIGGER UACC YES; Urine Blood Negative (Negative); Urine Ketones Negative (Negative); Urine Protein Negative (Neg-Trace)
[2023-03-26 18:52] VITALS: BP 123/79; PULSE 91; RESP 18; TEMP 36.9; O2SAT 98
[2023-03-26 19:01] LABS: Bacteria Urine None Seen (None Seen); Hyaline Casts Urine 0-2 /LPF (0-2); RBC Urine 0-2 /HPF (0-2); Squamous Epithelial Cell Urine 0-2 /HPF (0-2); WBC Urine 0-5 /HPF (0-5)
--- NOTE | 2023-03-26 21:49 | PM.IMHP ---
History of Present Illness Date of Service: 03/26/23 Chief Complaint: Abdominal pain This is a 57-year-old female with pertinent history of autoimmune hepatitis, mood disorder, gastroesophageal reflux disease who presents to the emergency department for evaluation of right-sided abdominal pain. Patient states it has been ongoing for the last 2 days, progressive in onset, nonradiating and constant. Patient is unable to tolerate p.o. intake due to the pain. She also noticed yellowing of eyes on the day of presentation. Patient denies fever, chills, nausea, vomiting or diarrhea. Denies history of cancer. Former smoker, quit 10 years ago. Patient denies chest discomfort, palpitations, shortness of breath, changes in urinary habits In the emergency department, imaging with possible mass adjacent to pancreatic head. GI was consulted who requested admission Review of Systems Constitutional: Constitutional: Reports fatigue, Reports lethargy and Reports malaise Cardiovascular: Cardiovascular: Reports no additional cardiovascular complaints Respiratory: Respiratory: Reports no additional respiratory complaints Gastrointestinal: Gastrointestinal: Reports abdominal pain Genitourinary: Genitourinary: Reports no additional female genitourinary complaints Endocrine: Endocrine: Reports fatigue PMFSH Medical History Anxiety and depression Asthma Autoimmune hepatitis Chronic low back pain GERD (gastroesophageal reflux disease) Family History Mother Lung cancer Surgical History Hx of tubal ligation Social History Household Members: None Housing: House Alcohol intake: never Patient Tobacco Use Status: Former Tobacco user Tobacco use type: Cigarette Smoked in Last 30 Days: No e-Cigarette/Vaping Use: Never Used Use of substances other than those prescribed or required for medical reasons: No Advance Directives: No Advance Directives Information Provided: No service: No Current occupational status: disabled Current occupational exposures/hazards: No Cognitive needs: No Hearing needs: No Vision needs: Yes Meds Allergies Allergy/AdvReac Type Severity Reaction Status Date / Time trazadone AdvReac Mild Abdominal Uncoded 02/02/23 06:20 Pain Active Medications: Current Medications Pharmacy Consult (Consult Rx Perform Med Rec) 1 each MISCELLANE ONCE PRN PRN Reason: Consult order Home Medications Medication Instructions Recorded Confirmed Last Taken Type azathioprine 50 mg tablet 50 mg PO DAILY 09/17/21 04/22/22 Unknown History omeprazole 20 mg capsule,delayed 40 mg PO DAILY 09/17/21 04/22/22 Unknown History release Physical Exam Vital Signs and Narrative: Vital Signs: Last Vital Signs Temp 98.5 F 03/26/23 18:52 Pulse 91 03/26/23 18:52 Resp 18 03/26/23 18:52 BP 123/79 03/26/23 18:52 Pulse Ox 98 03/26/23 18:52 O2 Del Method Room Air 03/26/23 18:52 BMI result Body Mass Index 32.3 Middle-aged female lying in bed in no distress Icterus present Regular rate and rhythm, S1-S2 heard Regular breath sounds bilaterally, no wheezing or crackles appreciated Abdomen with right upper quadrant tenderness on deep palpation, no guarding, no rebound tenderness, no rigidity Patient is awake, alert and oriented to self, place, time and person ; no focal motor deficit Psych: Normal mood No pedal edema Results Labs 03/26/23 17:06 03/26/23 17:06 Labs: Laboratory Results - last 24 hr 03/26/23 03/26/23 03/26/23 17:06 17:06 17:06 MCV 88.2 MCH 29.7 MCHC 33.7 RDW 14.8 Plt Count 84 L MPV 12.1 Immature Gran % (Auto) 0.3 Neut % (Auto) 53.0 Lymph % (Auto) 26.8 [place] % (Auto) 14.6 H Eos % (Auto) 5.0 H Baso % (Auto) 0.3 Lymph # (Auto) 0.8 L [place] # (Auto) 0.4 Eos # (Auto) 0.2 Baso # (Auto) 0.0 Abs Immat Gran (auto) 0.01 Absolute Neuts (auto) 1.6 L Absolute Nucleated RBC 0.000 Nucleated RBC % (auto) 0.0 Anion Gap 9 L Estim Creat Clear Calc 82.5 Estimated GFR > 60 Random Glucose 100 Lactic Acid Calcium 8.5 Total Bilirubin 10.8 H Direct Bilirubin 8.2 H AST 1718 H ALT 662 H Alkaline Phosphatase 177 H Ammonia 69 H Total Protein 8.0 Albumin 2.6 L Lipase 39 Urine Color Urine Appearance Urine pH Ur Specific [place] Urine Protein Urine Glucose (UA) Urine Ketones Urine Blood Urine Nitrite Ur Leukocyte Esterase Urine RBC Urine WBC Ur Squamous Epith Cells Urine Bacteria Hyaline Casts 03/26/23 03/26/23 17:06 18:35 MCV MCH MCHC RDW Plt Count MPV Immature Gran % (Auto) Neut % (Auto) Lymph % (Auto) [place] % (Auto) Eos % (Auto) Baso % (Auto) Lymph # (Auto) [place] # (Auto) Eos # (Auto) Baso # (Auto) Abs Immat Gran (auto) Absolute Neuts (auto) Absolute Nucleated RBC Nucleated RBC % (auto) Anion Gap Estim Creat Clear Calc Estimated GFR Random Glucose Lactic Acid 1.1 Calcium Total Bilirubin Direct Bilirubin AST ALT Alkaline Phosphatase Ammonia Total Protein Albumin Lipase Urine Color Dark Yellow Urine Appearance Clear Urine pH 6.0 Ur Specific [place] 1.010 Urine Protein Negative Urine Glucose (UA) Negative Urine Ketones Negative Urine Blood Negative Urine Nitrite Negative Ur Leukocyte Esterase Trace H Urine RBC 0-2 Urine WBC 0-5 Ur Squamous Epith Cells 0-2 Urine Bacteria None Seen Hyaline Casts 0-2 Imaging Radiologist's Impressions: Impressions Abdomen Ultrasound 03/26/23 18:02 IMPRESSION: 1. Cholelithiasis but no sonographic evidence of acute cholecystitis. 2. Cirrhotic liver morphology. 3. Nonspecific hypoechoic lesion adjacent to the pancreatic head, possibly associated with peripancreatic lymphadenopathy noted on CT from 02/02/2023. Recommend a short-term follow-up ultrasound or MRI for reevaluation. Assessment and Plan (1) Jaundice: Status: Acute Plan This is a 57-year-old female with pertinent history of autoimmune hepatitis, mood disorder, gastroesophageal reflux disease who presents to the emergency department for evaluation of right-sided abdominal pain. #. Possible peripancreatic mass with conjugated hyperbilirubinemia. Will admit patient and obtain MRCP. GI was consulted from the ER, appreciate assistance. P.r.n. analgesics for symptomatic treatment. Tumor markers pending #. Autoimmune hepatitis on azathioprine #. Mood disorder. Continue home mood stabilizers #. Gastroesophageal reflux disease: On PPI Med rec pending DVT prophylaxis: Mechanical Full code Time Spent With Patient Time: Total time managing care of this patient today ____ minutes. Quality Stroke Does the patient have a stroke diagnosis?: No VTE Prior VTE?: No VTE Risk Level:: Medical - moderate - high VTE Device Contraindication: N/A - Device Ordered VTE Drug Contraindication: Treatment Not Indicated
[2023-03-27 00:17] VITALS: BP 128/80; PULSE 97; RESP 16; TEMP 37; O2SAT 96
[2023-03-27] MEDS: Acetaminophen 325 MG TABLET 650 MG PO (00:27)
[2023-03-27] MEDS: 0.9 % Sodium Chloride Flush 3 ML SYRINGE IVFLUSH ×3 (01:30→16:16)
[2023-03-27 05:40] LABS: MANUAL DIFF FLAG NO
[2023-03-27 05:42] LABS: Basophils Percent Auto 0.4 % (0-2); Eosinophils Absolute Auto 0.2 X10*3/uL (0.0-0.4); Eosinophils Percent Auto 5.9 % (0-4); Hematocrit 35.4 % (37.0-47.0); Hemoglobin 11.7 g/dl (12.0-16.0); Imm Gran Abs Auto 0.01 X10*3/uL (0.00-0.03); Imm Gran Pct Auto 0.4 % (0.0-0.4); Lymphocytes Absolute Auto 0.8 X10*3/uL (1.2-4.9); Lymphocytes Percent Auto 27.6 % (20-40); Mean Corpuscular HGB Conc 33.1 g/dl (31.0-35.0); Mean Corpuscular Hemoglobin 29.3 pg (27.0-33.0); Mean Corpuscular Volume 88.7 fL (80.0-98.0); Mean Platelet Volume 12.3 fL (9.4-12.3); Monocytes Absolute Auto 0.5 X10*3/uL (0.1-1.2); Monocytes Percent Auto 17.3 % (2-11); Neutrophils Absolute Auto 1.3 x10*3/uL (2.0-8.3); Neutrophils Percent Auto 48.4 % (45-73); Red Blood Count 3.99 X10*6/uL (4.20-5.50); Red Cell Distribution Width 14.9 % (11.0-16.0); White Blood Count 2.7 X10*3/uL (4.8-10.8)
[2023-03-27 05:44] LABS: Platelet Count 75 X10*3/uL (160-400)
--- NOTE | 2023-03-27 05:59 | PC.NURSE ---
Patient alert and oriented. Daughter at bedside. Pt unsure if she wanted to be admitted as she was worried about her dog. PtT ultimately decided to agree to admission. VSS, skin warm pink and dry, yellow sclera noted. 22 gauge placed in right hand. Patient reports 9/10 pain administered Tylenol as per nov.
[2023-03-27 06:12] LABS: Alanine Aminotransferase 611 U/L (0-31); Albumin Level 2.4 g/dL (3.5-5.0); Alkaline Phosphatase 159 U/L (39-117); Anion Gap 10 (12-20); Aspartate Amino Transferase 1611 U/L (5-31); Bilirubin Total 11.2 mg/dL (0.0-1.0); Blood Urea Nitrogen 6 mg/dL (9-16); Calcium 8.3 mg/dL (8.4-10.2); Carbon Dioxide 22 mmol/L (22-29); Chloride 109 mmol/L (96-108); Creatinine Clr Calc Pharmacy 100.9; Estimated Glomerular Filt Rate > 60; Glucose Random 70 mg/dL (60-115); Sodium 137 mmol/L (135-145); Total Protein 7.5 g/dL (6.5-8.0)
--- NOTE | 2023-03-27 07:12 | PHA.MEDREC ---
Med rec complete, just missing name of a second inhaler, will call [facility] when open to see if there is history of another inhaler Pharmacy Consult ? Medication Reconciliation Pharmacy has completed the medication reconciliation.
--- NOTE | 2023-03-27 07:14 | P.PNIM_ITS ---
Subjective Subjective Date of Service: 03/27/23 Interval History: f/u on jaundice, peripancreatic mass, has 9/10 pain Physical Exam Vital Signs: Vital Signs: Last Vital Signs Temp 98.6 F 03/27/23 00:17 Pulse 97 03/27/23 00:17 Resp 16 03/27/23 00:17 BP 128/80 03/27/23 00:17 Pulse Ox 96 03/27/23 00:17 O2 Del Method Room Air 03/27/23 00:17 BMI result Body Mass Index 32.3 Const: Other: General: AO X 3, no acute distress sclera icteris Resp: CTA bilateral CVS: S1,S2,RRR GI: +BS, Tender, no distention Skin: No rash Neuro: motor grossly intact Psych: appropriate affect Objective Data Active Medications Acetaminophen (Acetaminophen Supp 650 Mg Supp.Rect) 650 mg [place] Q6H PRN PRN Reason: Pain, Mild (Pain Scale 1-3) Acetaminophen (Acetaminophen 325 Mg Tablet) 650 mg PO Q6H PRN PRN Reason: Pain, Mild (Pain Scale 1-3) Last Admin: 03/27/23 00:27 Dose: 650 mg Documented By: GHADA Melatonin (Melatonin 3 Mg Tablet) 6 mg PO BEDTIME PRN PRN Reason: Insomnia Ondansetron HCl (Ondansetron Hcl 4 Mg/2 Ml Vial) 4 mg IVPUSH Q8H PRN PRN Reason: Nausea and Vomiting Pharmacy Consult (Consult Rx Perform Med Rec) 1 each MISCELLANE ONCE PRN PRN Reason: Consult order Sodium Chloride (0.9 % Sodium Chloride Flush 3 Ml Syringe) 3 ml [facility] Last Admin: 03/27/23 01:30 Dose: 3 ml Documented By: GHADA Labs 03/27/23 05:30 03/27/23 05:30 Labs: Laboratory Results - last 24 hr 03/26/23 03/26/23 03/26/23 17:06 17:06 17:06 MCV 88.2 MCH 29.7 MCHC 33.7 RDW 14.8 Plt Count 84 L MPV 12.1 Immature Gran % (Auto) 0.3 Neut % (Auto) 53.0 Lymph % (Auto) 26.8 Isabella % (Auto) 14.6 H Eos % (Auto) 5.0 H Baso % (Auto) 0.3 Lymph # (Auto) 0.8 L Isabella # (Auto) 0.4 Eos # (Auto) 0.2 Baso # (Auto) 0.0 Abs Immat Gran (auto) 0.01 Absolute Neuts (auto) 1.6 L Absolute Nucleated RBC 0.000 Nucleated RBC % (auto) 0.0 Anion Gap 9 L Estim Creat Clear Calc 82.5 Estimated GFR > 60 Random Glucose 100 Lactic Acid Calcium 8.5 Total Bilirubin 10.8 H Direct Bilirubin 8.2 H AST 1718 H ALT 662 H Alkaline Phosphatase 177 H Ammonia 69 H Total Protein 8.0 Albumin 2.6 L Lipase 39 Carcinoembryonic Ag Urine Color Urine Appearance Urine pH Ur Specific [place] Urine Protein Urine Glucose (UA) Urine Ketones Urine Blood Urine Nitrite Ur Leukocyte Esterase Urine RBC Urine WBC Ur Squamous Epith Cells Urine Bacteria Hyaline Casts 03/26/23 03/26/23 03/26/23 17:06 18:35 22:25 MCV MCH MCHC RDW Plt Count MPV Immature Gran % (Auto) Neut % (Auto) Lymph % (Auto) Isabella % (Auto) Eos % (Auto) Baso % (Auto) Lymph # (Auto) Isabella # (Auto) Eos # (Auto) Baso # (Auto) Abs Immat Gran (auto) Absolute Neuts (auto) Absolute Nucleated RBC Nucleated RBC % (auto) Anion Gap Estim Creat Clear Calc Estimated GFR Random Glucose Lactic Acid 1.1 Calcium Total Bilirubin Direct Bilirubin AST ALT Alkaline Phosphatase Ammonia Total Protein Albumin Lipase Carcinoembryonic Ag 3.90 Urine Color Dark Yellow Urine Appearance Clear Urine pH 6.0 Ur Specific [place] 1.010 Urine Protein Negative Urine Glucose (UA) Negative Urine Ketones Negative Urine Blood Negative Urine Nitrite Negative Ur Leukocyte Esterase Trace H Urine RBC 0-2 Urine WBC 0-5 Ur Squamous Epith Cells 0-2 Urine Bacteria None Seen Hyaline Casts 0-2 03/27/23 03/27/23 05:30 05:30 MCV 88.7 MCH 29.3 MCHC 33.1 RDW 14.9 Plt Count 75 L MPV 12.3 Immature Gran % (Auto) 0.4 Neut % (Auto) 48.4 Lymph % (Auto) 27.6 Isabella % (Auto) 17.3 H Eos % (Auto) 5.9 H Baso % (Auto) 0.4 Lymph # (Auto) 0.8 L Isabella # (Auto) 0.5 Eos # (Auto) 0.2 Baso # (Auto) 0.0 Abs Immat Gran (auto) 0.01 Absolute Neuts (auto) 1.3 L Absolute Nucleated RBC 0.000 Nucleated RBC % (auto) 0.0 Anion Gap 10 L Estim Creat Clear Calc 100.9 Estimated GFR > 60 Random Glucose 70 Lactic Acid Calcium 8.3 L Total Bilirubin 11.2 H Direct Bilirubin AST 1611 H ALT 611 H Alkaline Phosphatase 159 H Ammonia Total Protein 7.5 Albumin 2.4 L Lipase Carcinoembryonic Ag Urine Color Urine Appearance Urine pH Ur Specific [place] Urine Protein Urine Glucose (UA) Urine Ketones Urine Blood Urine Nitrite Ur Leukocyte Esterase Urine RBC Urine WBC Ur Squamous Epith Cells Urine Bacteria Hyaline Casts Assessment and Plan (1) Jaundice: Status: Acute Plan This is a 57-year-old female with pertinent history of autoimmune hepatitis, mood disorder, gastroesophageal reflux disease who presents to the emergency department for evaluation of right-sided abdominal pain. #.? Possible peripancreatic mass with conjugated hyperbilirubinemia, tbili going up.? -Workup with MRCP, GI consult, check INR, follow LFTs. Morphine for pain #.? Autoimmune hepatitis on azathioprine, hold as can affect LFTs #.? Mood disorder.? Continue home mood stabilizers #.? Gastroesophageal reflux disease:? On PPI DVT prophylaxis:? Mechanical Full code Need for inpt: obstructive jaundice, peripancreatic mass Time Spent With Patient Time: Total time managing care of this patient today ____ minutes. Quality Stroke Does the patient have a stroke diagnosis?: No VTE Prior VTE?: No VTE Risk Level:: Medical - moderate - high VTE Device Contraindication: N/A - Device Ordered VTE Drug Contraindication: Treatment Not Indicated
[2023-03-27 07:23] VITALS: BP 112/63; PULSE 101; RESP 14; O2SAT 97
--- NOTE | 2023-03-27 07:28 | PC.NURSE ---
patient resting in bed, no signs of distress. patient resp equal and unlabored, MRI screening form completed with pt at bedside.
--- NOTE | 2023-03-27 07:52 | PM.GICN ---
History of Present Illness Data of Consult Service Date: 03/27/23 Requesting physician: Kunal Veloz Primary Care Provider: Unknown Physician HPI Reason for consult: Jaundice, elevated LFTs 57 year old Belgian-speaking female with autoimmune hepatitis, mood disorder, gastroesophageal reflux disease seen at [facility] on 03/26/23 for right-sided abdominal pain.? Patient stated it has been ongoing for the last 2 days, progressive in onset, nonradiating and constant.? Patient is unable to tolerate p.o. intake due to the pain.? Patient notes improvement in abdominal pain with IV pain medications. She also noticed yellowing of eyes on the day of presentation.? Pt reports symptoms of fatigue for the past few days. Pt denies starting any new medications. She takes Advil two tab (200 mg) prn for back pain and denies taking acetaminophen or Tylenol. Patient denies ETOH use and quitted smoking in 2008. Patient denies fever, chills, nausea, vomiting or diarrhea.? Denies history of cancer.? Former smoker, quit 10 years ago.? Patient denies chest discomfort, palpitations, shortness of breath, changes in urinary habits Pt reports she was diagnosed with Autoimmune Hepatitis and was followed by Dr Bobby and now sees DANICA Holley at [facility] Her last visit was in December, She being treated with Azathioprine 50 mg daily and reports she has been compliant in taking the medication. She was also taking prednisone which she dicontinued in December, after she ran out of the prescription. In the emergency department, imaging with possible mass adjacent to pancreatic head. Patient denies family history of liver disease, colon polyps or colon cancer. Her mom and maternal grandfather with lung cancer and a maternal aunt has stomach cancer. 03/26/23 ABD US SHOWED: 1.? Cholelithiasis but no sonographic evidence of acute cholecystitis. 2.? Cirrhotic liver morphology. 3.? Nonspecific hypoechoic lesion adjacent to the pancreatic head, possibly associated with peripancreatic lymphadenopathy noted on CT from 02/02/2023. Recommend a short-term follow-up ultrasound or MRI for reevaluation. 03/27/23 ABD MRI SHOWED: 1.? Cirrhotic liver without focal lesion identified on noncontrast MRI. 2.? Cholelithiasis. 3.? Stable splenomegaly. 4.? Stable varicosity surrounding gastric cardia and gastroesophageal junction. PAST MEDICAL HISTORY BY REVIEW OF MEDICAL RECORDS: Her last Gi clinic note was reviewed: Patient is followed in the GI clinic for autoimmune hepatitis, cirrhosis and GERD. Patient was advised to continue with azathioprine and schedule an EGD for follow-up of esophageal varices. EGD in Oct, 2019 showed gastric varices without bleeding. Labs revealed WBC 3.6, hemoglobin 12.7, hematocrit 39, platelet count 105. LFTs showed total bilirubin of 0.9, AST 83, ALT 46 and alkaline phosphatase 118, albumin 3.1 CRP was less than 0.29, ferritin 43 06/25 ABD US SHOWED; Cholelithiasis, hepatocellular disease, splenomegaly. Stable probable hemangioma of the liver Review of Systems Constitutional: Constitutional: Reports fatigue, Reports lethargy and Reports malaise Cardiovascular: Cardiovascular: Reports no additional cardiovascular complaints Respiratory: Respiratory: Reports no additional respiratory complaints Gastrointestinal: Gastrointestinal: Reports abdominal pain Genitourinary: Genitourinary: Reports no additional female genitourinary complaints Endocrine: Endocrine: Reports fatigue [facility] Past Medical History Medical History (Updated 09/04/23 @ 20:47 by DANICA Mcclellan) Gallstone pancreatitis GERD (gastroesophageal reflux disease) Cirrhosis of liver without ascites Jaundice Autoimmune hepatitis Anxiety and depression Chronic low back pain Asthma Family History Family History Mother Lung cancer Surgical History Surgical History (Updated 09/04/23 @ 20:46 by DANICA Mcclellan) S/P cholecystectomy Hx of tubal ligation Social History Social History Household Members: None Housing: Apartment Do you presently have visiting nurse or other home services: Yes Alcohol intake: never Patient Tobacco Use Status: Former Tobacco user Quit Date: 2009 Tobacco use type: Cigarette e-Cigarette/Vaping Use: Never Used service: No Current occupational status: disabled Current occupational exposures/hazards: No Cognitive needs: No Hearing needs: No Vision needs: Yes Meds Allergies Allergy/AdvReac Type Severity Reaction Status Date / Time trazadone AdvReac Mild Abdominal Uncoded 08/30/23 08:42 Pain Active Medications: Current Medications Acetaminophen (Acetaminophen Supp 650 Mg Supp.Rect) 650 mg [place] Q6H PRN PRN Reason: Pain, Mild (Pain Scale 1-3) Acetaminophen (Acetaminophen 325 Mg Tablet) 650 mg PO Q6H PRN PRN Reason: Pain, Mild (Pain Scale 1-3) Last Admin: 03/27/23 00:27 Dose: 650 mg Albuterol Sulfate (Albuterol Sulfate 90 Mcg 8 Gm Inhaler) 2 puff INHALE RQ6H PRN PRN Reason: for wheezing Amitriptyline HCl (Amitriptyline Hcl 10 Mg Tablet) 10 mg PO BEDTIME [facility] Melatonin (Melatonin 3 Mg Tablet) 6 mg PO BEDTIME PRN PRN Reason: Insomnia Omeprazole (Omeprazole 20 Mg Capsule.Dr) 20 mg PO DAILY@0630 [facility] Ondansetron HCl (Ondansetron Hcl 4 Mg/2 Ml Vial) 4 mg IVPUSH Q8H PRN PRN Reason: Nausea and Vomiting Pharmacy Consult (Consult Rx Perform Med Rec) 1 each MISCELLANE ONCE PRN PRN Reason: Consult order Sodium Chloride (0.9 % Sodium Chloride Flush 3 Ml Syringe) [facility] Last Admin: 03/27/23 01:30 Dose: 3 ml Physical Exam Vital Signs: Vital Signs: Last Vital Signs Temp 98.6 F 03/27/23 00:17 Pulse 101 H 03/27/23 07:23 Resp 14 03/27/23 07:23 BP 112/63 03/27/23 07:23 Pulse Ox 97 03/27/23 07:23 O2 Del Method Room Air 03/27/23 07:23 BMI result Body Mass Index 32.3 Const: General: healthy appearing and no acute distress Nutritional Appearance: obese Orientation/consciousness: patient oriented x3 Limitations: language barrier HEENT: Head: Yes normal to inspection Ears: hearing grossly normal bilaterally Mouth: Normal oral and palatal mucosa present Eyes: Sclerae: sclerae normal Pupils: Equal, round and reactive pupils present Neck: Neck: Yes normal visual inspection Chest: Chest palpation & inspection: normal inspection of the chest Resp: Effort & Inspection: normal respiratory effort Auscultation: clear to auscultation bilaterally Cardio: Palpation: normal PMI Rate: regular rate Rhythm: regular rhythm Heart sounds: S1 normal heart sound present, S2 normal heart sound present and no murmurs GI: Palpation (GI): Soft to palpation, Tenderness to palpation present (GI) (Mild RUQ tenderness without rebound) and No hepatosplenomegaly present Auscultation: normal bowel sounds Rectal Exam - Female: deferred Skin: General skin exam: no rashes or lesions noted and spider nevi (a few spider nevi on anterior chest) Neuro: General: patient oriented x3, gait normal and moves all extremities Cranial nerves: Yes Equal, round and reactive pupils present Psych: Appearance: grossly normal Mental Status: mental status grossly normal Results Labs 03/28/23 05:19 03/29/23 05:51 Labs: Short CBC 03/26/23 03/27/23 Range/Units 17:06 05:30 WBC 3.0 L 2.7 L (4.8-10.8) X10*3/uL Hgb 12.3 11.7 L (12.0-16.0) g/dl Hct 36.5 L 35.4 L (37.0-47.0) % Plt Count 84 L 75 L (160-400) X10*3/uL BMP 03/26/23 03/27/23 17:06 05:30 Sodium 136 137 Potassium 3.5 4.0 Chloride 108 109 H Carbon Dioxide 23 22 BUN 5 L 6 L Creatinine 0.66 0.54 Calcium 8.5 8.3 L Liver Function 03/26/23 03/27/23 Range/Units 17:06 05:30 Total Bilirubin 10.8 H 11.2 H (0.0-1.0) mg/dL Direct Bilirubin 8.2 H (0.0-0.5) mg/dL AST 1718 H 1611 H (5-31) U/L ALT 662 H 611 H (0-31) U/L Alkaline Phosphatase 177 H 159 H (39-117) U/L Albumin 2.6 L 2.4 L (3.5-5.0) g/dL Urine 03/26/23 Range/Units 18:35 Urine Color Dark Yellow Urine Appearance Clear Urine pH 6.0 (5.0-9.0) Ur Specific [place] 1.010 (1.005-1.025) Urine Protein Negative (Neg-Trace) mg/dL Urine Glucose (UA) Negative (Negative) mg/dL Assessment and Plan (1) Autoimmune hepatitis: Status: Acute (2) Cirrhosis of liver without ascites: Status: Acute (3) GERD (gastroesophageal reflux disease): Status: Acute (4) Jaundice: Status: Inactive Plan 57 year old Belgian-speaking female (understands and speaks some Congolese) with autoimmune hepatitis (diagnosed in 2015), mood disorder, gastroesophageal reflux disease seen at [facility] on 03/26/23 for right-sided abdominal pain.? She also noticed yellowing of eyes on the day of presentation.? She takes Advil two tab (200 mg) prn for back pain and denies taking acetaminophen or Tylenol. Patient denies ETOH use and quit did smoking in 2008. Pt reports she was diagnosed with Autoimmune Hepatitis in 2015 and treated with Azathioprine and Prednisone)- followed by Dr Bobby in the past and now sees DANICA Holley at [facility] ( last visit was in December,). She being treated with Azathioprine 50 mg daily and reports she has been compliant in taking the medication. She was also taking prednisone which she dicontinued in December, after she ran out of the prescription. Pt was diagnosed with Cirrhosis in 2017 - attributed to a combination of AIH and RAMIREZ. Labs showed elevated bilirubin and transaminase levels - likely due to flare of AIH and less likely superimposed viral hepatitis or drug induced hepatitis MELD score is 21. RECOMMENDATIONS: 1. Check autoimmune markers and CRP and Thiopurine metabolites (to rule out azathioprine toxicity) - added to am labs. 2. If Hep A, B and C serologies are negative, pt can be started on Prednisone 40 mg daily for AIH flare. She will need to have LFTs checked every week and ensure transaminases decrease by 50% in 4 weeks. To taper by 5 mg every week and then continue at 10 mg daily Azathioprine 50 mg can be added if labs do not reveal toxic levels Time Spent With Patient Time: Total time managing care of this patient today ____ minutes. Procedures Date of Service Date of Service: 09/14/23
[2023-03-27 08:00] VITALS: BP 112/56; PULSE 98; RESP 16; TEMP 36; O2SAT 96
[2023-03-27] MEDS: Morphine Sulfate 4 MG/ML CARTRIDGE 3 MG IVPUSH ×2 (08:39→19:28)
[2023-03-27 08:54] LABS: HBc Num1 0.89 S/CO (0.00-0.79); HBsAGNum1 0.52 S/CO (0.00-0.99); Hepatitis A Antibody IgM 0.18 Index (0-0.79); Hepatitis B Surface Antigen Negative (Negative); ~HepC Num1 0.41 S/CO (0.00-0.79); ~Hepatitis A Antibody IgM Nonreactive (Nonreactive); ~Hepatitis B Surface Antibody NONREACTIVE (Nonreactive); ~Hepatitis C Antibody Nonreactive (Nonreactive)
[2023-03-27 10:09] LABS: INTERNATIONAL NORM RATIO 1.7 (0.9-1.1)
[2023-03-27 10:15] LABS: HBc Num2 0.57 S/CO; HBc Num3 0.59 S/CO; Hepatitis B Core Antibody Nonreactive (Nonreactive)
--- NOTE | 2023-03-27 11:33 | MHC.CM.PN ---
pt lives alone has [employer] [address] herself home when dcd dc plan home with [employer]
[2023-03-27 11:57] VITALS: BP 106/67; PULSE 97; RESP 16; TEMP 36.3; O2SAT 97
--- NOTE | 2023-03-27 12:25 | MHC.CM.PN ---
pt now inpt imm placed on chart
[2023-03-27 15:27] VITALS: BP 118/62; PULSE 108; RESP 18; TEMP 36.1; O2SAT 95
[2023-03-27] MEDS: Lactated Ringers 1,000 ML 100 ML IVCONT (16:15)
[2023-03-27] MEDS: Amitriptyline HCl 10 MG TABLET PO (19:28)
[2023-03-27 20:00] VITALS: BP 119/68; PULSE 109; RESP 18; TEMP 36.2; O2SAT 95
[2023-03-28] MEDS: Lactated Ringers 1,000 ML 100 ML IVCONT ×2 (02:14→15:05)
[2023-03-28 04:00] VITALS: BP 116/59; PULSE 80; RESP 16; TEMP 36.3; O2SAT 94
[2023-03-28 05:41] LABS: Hematocrit 34.5 % (37.0-47.0); Hemoglobin 11.6 g/dl (12.0-16.0); Mean Corpuscular HGB Conc 33.6 g/dl (31.0-35.0); Mean Corpuscular Hemoglobin 29.4 pg (27.0-33.0); Mean Corpuscular Volume 87.3 fL (80.0-98.0); Mean Platelet Volume 12.4 fL (9.4-12.3); Red Blood Count 3.95 X10*6/uL (4.20-5.50); Red Cell Distribution Width 14.8 % (11.0-16.0); White Blood Count 3.2 X10*3/uL (4.8-10.8)
[2023-03-28 05:42] LABS: Platelet Count 95 X10*3/uL (160-400)
[2023-03-28] MEDS: Omeprazole 20 MG CAPSULE.DR PO (06:11)
[2023-03-28 06:40] LABS: Alanine Aminotransferase 542 U/L (0-31); Albumin Level 2.1 g/dL (3.5-5.0); Alkaline Phosphatase 125 U/L (39-117); Aspartate Amino Transferase 1363 U/L (5-31); Bilirubin Total 10.7 mg/dL (0.0-1.0); C Reactive Protein 0.86 mg/dL (< or = 0.50); Total Protein 6.9 g/dL (6.5-8.0)
[2023-03-28 07:37] VITALS: BP 112/64; PULSE 82; RESP 16; TEMP 36; O2SAT 96
[2023-03-28] MEDS: prednisoLONE sodium phosphate 15 MG/5 ML SOLUTION 40 MG PO (08:30)
[2023-03-28 08:37] VITALS: RESP 19
[2023-03-28] MEDS: Morphine Sulfate 4 MG/ML CARTRIDGE 3 MG IVPUSH (08:37)
--- NOTE | 2023-03-28 12:29 | P.PNIM_ITS ---
Subjective Subjective Date of Service: 03/28/23 Interval History: seen and vevaluated Feels better overall but still having pain LFT trending down No masses on MRCP tolerating diet Review of Systems Review of Systems: Yes all other systems are reviewed and are negative Physical Exam Vital Signs: Vital Signs: Last Vital Signs Temp 96.8 F 03/28/23 07:37 Pulse 82 03/28/23 07:37 Resp 19 03/28/23 08:37 BP 112/64 03/28/23 07:37 Pulse Ox 96 03/28/23 07:37 O2 Del Method Room Air 03/28/23 07:37 BMI result Body Mass Index 32.3 Const: Other: General: AO X 3, no acute distress sclera icteris Resp: CTA bilateral CVS: S1,S2,RRR GI: +BS, mildly RUQ Tender, no distention Skin: No rash Neuro: motor grossly intact Psych: appropriate affect Objective Data Active Medications Acetaminophen (Acetaminophen 325 Mg Tablet) 650 mg PO Q6H PRN PRN Reason: Pain, Mild (Pain Scale 1-3) Last Admin: 03/27/23 00:27 Dose: 650 mg Documented By: MONTEMILENA Albuterol Sulfate (Albuterol Sulfate 90 Mcg 8 Gm Inhaler) 2 puff INHALE RQ6H PRN PRN Reason: for wheezing Amitriptyline HCl (Amitriptyline Hcl 10 Mg Tablet) 10 mg PO BEDTIME [facility] Last Admin: 03/27/23 19:28 Dose: 10 mg Documented By: LIDIA Lactated Ringer's (Lr) 1,000 mls @ 100 mls/hr IVCONT .Q10H [facility] Stop: 03/28/23 16:00 Last Admin: 03/28/23 02:14 Dose: 100 mls/hr Documented By: LIDIA Melatonin (Melatonin 3 Mg Tablet) 6 mg PO BEDTIME PRN PRN Reason: Insomnia Morphine Sulfate (Morphine Sulfate 4 Mg/Ml Cartridge) 3 mg IVPUSH Q4H PRN; Protocol PRN Reason: Pain, Severe (Pain Scale 7-10) Last Admin: 03/28/23 08:37 Dose: 3 mg Documented By: COTEMA Omeprazole (Omeprazole 20 Mg Capsule.) 20 mg PO DAILY@0630 [facility] Last Admin: 03/28/23 06:11 Dose: 20 mg Documented By: LIDIA Ondansetron HCl (Ondansetron Hcl 4 Mg/2 Ml Vial) 4 mg IVPUSH Q8H PRN PRN Reason: Nausea and Vomiting Pharmacy Consult (Consult Rx Perform Med Rec) 1 each MISCELLANE ONCE PRN PRN Reason: Consult order Prednisolone Sodium Phosphate (Prednisolone Sodium Phosphate 15 Mg/5 Ml Solution) 40 mg PO DAILY [facility] Last Admin: 03/28/23 08:30 Dose: 40 mg Documented By: GABRIELLE Sodium Chloride (0.9 % Sodium Chloride Flush 3 Ml Syringe) 3 ml IVFLUSH QSHIFT [facility] Last Admin: 03/28/23 07:10 Dose: Not Given Documented By: COTEMA Non-Admin Reason: IV Running Labs 03/28/23 05:19 03/27/23 05:30 Labs: Laboratory Results - last 24 hr 03/28/23 03/28/23 05:19 05:19 MCV 87.3 MCH 29.4 MCHC 33.6 RDW 14.8 Plt Count 95 L D MPV 12.4 H Absolute Nucleated RBC 0.000 Nucleated RBC % (auto) 0.0 Total Bilirubin 10.7 H Direct Bilirubin 8.0 H AST 1363 H ALT 542 H Alkaline Phosphatase 125 H C-Reactive Protein 0.86 H Total Protein 6.9 Albumin 2.1 L Assessment and Plan (1) Cirrhosis of liver without ascites: Status: Acute (2) Jaundice: Status: Acute (3) Autoimmune hepatitis: Status: Acute Plan This is a 57-year-old female with pertinent history of autoimmune hepatitis, mood disorder, gastroesophageal reflux disease who presents to the emergency department for evaluation of right-sided abdominal pain. # Autoimmune hepatitis? Negative MRCP for masses, has GBS and cirrhosis GI input appreciated follow INR, LFTs. negative hepatitis screening pending autoimmune markers, CRP , level of azathioprine: can be restarted if within normal Morphine for pain Prednisone tapering dose by 5 mg weekly then continue with 10 mg daily follow LFT weekly # Mood disorder.? Continue home mood stabilizers # Gastroesophageal reflux disease On PPI DVT prophylaxis:? Mechanical Full code Need for inpt: jaundice, autoimmune hepatitis Time Spent With Patient Time: Total time managing care of this patient today ____ minutes. Quality Stroke Does the patient have a stroke diagnosis?: No VTE Prior VTE?: No VTE Risk Level:: Medical - moderate - high VTE Device Contraindication: N/A - Device Ordered VTE Drug Contraindication: Treatment Not Indicated
[2023-03-28 15:31] VITALS: BP 126/68; PULSE 80; RESP 18; TEMP 36; O2SAT 93
[2023-03-28 19:05] VITALS: BP 115/80; PULSE 78; RESP 16; TEMP 37; O2SAT 94
[2023-03-28] MEDS: 0.9 % Sodium Chloride Flush 3 ML SYRINGE IVFLUSH (20:29)
[2023-03-28] MEDS: Amitriptyline HCl 10 MG TABLET PO (20:29)
[2023-03-29 04:00] VITALS: BP 124/69; PULSE 68; RESP 14; TEMP 36.6; O2SAT 94
[2023-03-29] MEDS: Omeprazole 20 MG CAPSULE.DR PO (05:50)
[2023-03-29 06:48] LABS: Alanine Aminotransferase 466 U/L (0-31); Albumin Level 2.1 g/dL (3.5-5.0); Alkaline Phosphatase 119 U/L (39-117); Anion Gap 8 (12-20); Aspartate Amino Transferase 1001 U/L (5-31); Bilirubin Direct 7.4 mg/dL (0.0-0.5); Bilirubin Total 9.7 mg/dL (0.0-1.0); Blood Urea Nitrogen 3 mg/dL (9-16); Calcium 8.1 mg/dL (8.4-10.2); Carbon Dioxide 27 mmol/L (22-29); Chloride 110 mmol/L (96-108); Creatinine Clr Calc Pharmacy 97.2; Estimated Glomerular Filt Rate > 60; Glucose Random 85 mg/dL (60-115); Potassium 3.5 mmol/L (3.3-5.1); Sodium 141 mmol/L (135-145); Total Protein 6.9 g/dL (6.5-8.0)
[2023-03-29] MEDS: Morphine Sulfate 4 MG/ML CARTRIDGE 3 MG IVPUSH (07:37)
[2023-03-29] MEDS: 0.9 % Sodium Chloride Flush 3 ML SYRINGE IVFLUSH (07:37)
[2023-03-29] MEDS: prednisoLONE sodium phosphate 15 MG/5 ML SOLUTION 40 MG PO (07:40)
[2023-03-29 07:52] VITALS: BP 126/71; PULSE 73; RESP 16; TEMP 36.7; O2SAT 95
[2023-03-29 10:24] LABS: Carbohydrate Antigen 19-9 28 U/mL (<34)
--- NOTE | 2023-03-29 10:47 | MHC.CM.PN ---
pt dcd home no gisel has own ride home
[2023-03-29] MEDS: oxyCODONE HCl Immed Release 5 MG TABLET PO ×2 (11:17→14:49)
--- NOTE | 2023-03-29 11:18 | PM.DS ---
DS: Providers Provider Date of Service: 03/29/23 Date of admission: 03/27/23 11:26 Primary care physician: Unknown Physician Consults: 03/26/23 22:24 Consult to Gastroenterology Routine Consulting Provider: Kaylene Prabhakar Reason for consultation: conjugated jaundice DS: Diagnosis Discharge Diagnosis (1) Cirrhosis of liver without ascites: Status: Acute (2) Jaundice: Status: Acute (3) Autoimmune hepatitis: Status: Acute DS: Summary Hospital Course Hospital Course: Admission note HPI This is a 57-year-old female with pertinent history of autoimmune hepatitis, mood disorder, gastroesophageal reflux disease who presents to the emergency department for evaluation of right-sided abdominal pain.? Patient states it has been ongoing for the last 2 days, progressive in onset, nonradiating and constant.? Patient is unable to tolerate p.o. intake due to the pain.? She also noticed yellowing of eyes on the day of presentation.? Patient denies fever, chills, nausea, vomiting or diarrhea.? Denies history of cancer.? Former smoker, quit 10 years ago.? Patient denies chest discomfort, palpitations, shortness of breath, changes in urinary habits In the emergency department, imaging with possible mass adjacent to pancreatic head.? GI was consulted who requested admission Hospital course The patient was treated for presumed Autoimmune hepatitis?as studies including Negative MRCP for masses, showed GBS and cirrhosis with no obstruction. negative hepatitis profile. evaluated by GI dr Prabhakar who recommended tapering dose of steroid over the next two months. Prednisone tapering dose by 5 mg weekly then continue with 10 mg daily Still pending autoimmune markers, level of azathioprine: can be restarted if within normal by PCP\GI follow LFT weekly as outpatient. Continue Prednisone tapering dose as prescribed To stay on 10 mg Prednisolone daily after finishing the tapering course repeat Liver function test weekly To follow with GI as outpatient. Time Spent with Patient Time attestation: Total time managing care of this patient today ____ minutes. Discharge coordination time: Greater than 30 minutes Quality: Safe Use of Opioids Does Pt have an Active Cancer Diagnosis on the Problem List?: No Quality: Stroke Does the patient have a stroke diagnosis?: No Physical Exam Vital Signs: Vital Signs: Last Vital Signs Temp 98.1 F 03/29/23 07:52 Pulse 73 03/29/23 07:52 Resp 16 03/29/23 07:52 BP 126/71 03/29/23 07:52 Pulse Ox 95 03/29/23 07:52 O2 Del Method Room Air 03/29/23 07:52 BMI result Body Mass Index 32.3 Const: Other: General: AO X 3, no acute distress sclera icteris Resp: CTA bilateral CVS: S1,S2,RRR GI: +BS, no significant RUQ Tender, no distention Skin: No rash Neuro: motor grossly intact Psych: appropriate affect DS: Data Data Completed and Pending Labs on day of discharge: Laboratory Results - last 24 hr 03/26/23 03/29/23 03/29/23 22:25 05:51 05:51 Sodium 141 Potassium 3.5 Chloride 110 H Carbon Dioxide 27 Anion Gap 8 L BUN 3 L Creatinine 0.56 Estim Creat Clear Calc 97.2 Estimated GFR > 60 Random Glucose 85 Calcium 8.1 L Total Bilirubin 9.7 H Direct Bilirubin 7.4 H AST 1001 H ALT 466 H Alkaline Phosphatase 119 H Total Protein 6.9 Albumin 2.1 L CA 19-9 Antigen 28 Imaging MRI - abdomen: Radiologist's impression: ITS Impressions Abdomen Ultrasound 03/26/23 18:02 IMPRESSION: 1. Cholelithiasis but no sonographic evidence of acute cholecystitis. 2. Cirrhotic liver morphology. 3. Nonspecific hypoechoic lesion adjacent to the pancreatic head, possibly associated with peripancreatic lymphadenopathy noted on CT from 02/02/2023. Recommend a short-term follow-up ultrasound or MRI for reevaluation. Cholangiopancreatography MRI 03/27/23 08:13 IMPRESSION: 1. Cirrhotic liver without focal lesion identified on noncontrast MRI. 2. Cholelithiasis. 3. Stable splenomegaly. 4. Stable varicosity surrounding gastric cardia and gastroesophageal junction. Discharge Plan Discharge Anticipated Discharge Date/Time: 03/29/23 11:11 Patient Disposition: Home, Self-Care Discharge Diagnosis: Autoimmune hepatitis Referrals: Physician,Unknown J [Primary Care Provider] - 1 Week Discharge Medications: New oxycodone 5 mg Tablet 5 mg PO Q4H PRN (Reason: Pain, Severe (Pain Scale 7-10)) Qty: 12 0RF Rx Instructions: Partial Fill upon patient request. prednisolone 5 mg tablet See Taper PO DAILY Qty: 300 0RF Taper: Prednisone 40 mg daily for 7 Days and 0 Hour 35 mg daily for 7 Days and 0 Hour 30 mg daily for 7 Days and 0 Hour 25 mg daily for 7 Days and 0 Hour 20 mg daily for 7 Days 15 mg daily for 7 Days 10 mg daily for 30 Days Continued albuterol sulfate 90 mcg/actuation HFA aerosol inhaler 2 puff inhalation Q6H PRN (Reason: for wheezing) Qty: 8.5 1RF amitriptyline 10 mg tablet 10 mg PO BEDTIME Qty: 30 0RF omeprazole 20 mg capsule,delayed release(DR/EC) 20 mg PO DAILY Held azathioprine 50 mg tablet 50 mg PO DAILY Hold Instructions: Hold until drug level available. 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 Discharge Orders: Discharge Order (Routine); Ordered 03/29/23 Ordered By: Andres Zavala Diet: Low salt diet Activity on Discharge: As tolerated Stand Alone Forms: Patient Portal Discharge page Other Ambulatory Orders: Liver Panel (Routine) Timeframe: 1 Week Facility: [facility] - Location: Laboratory Ordered By: Andres Zavala Care Plan Goals: Read below Health Concerns: Read below Plan of Treatment: Read below Assessment: You were admitted for evaluation of abdominal pain and elevated liver enzymes. evaluated by gastroenterology as images did not show any masses but evidence of autoimmune hepatitis. started on treatment with steroids which will need to be tapered down as outpatient. Continue Prednisone tapering dose as prescribed To stay on 10 mg Prednisolone daily after finishing the tapering course repeat Liver function test weekly Hold Azathioprine until the drug level result is available, discuss when to restart with PCP\GI To follow with GI as outpatient. Discharge Date/Time: 03/29/23 14:51
[2023-03-30 22:58] LABS: Prot Elec - Albumin 2.5 g/dL (3.8-4.8); Prot Elec - Alpha1 0.2 g/dL (0.2-0.3); Prot Elec - Alpha2 0.5 g/dL (0.5-0.9); Prot Elec - Beta 1 0.3 g/dL (0.4-0.6); Prot Elec - Beta 2 0.3 g/dL (0.2-0.5); Prot Elec - Total Protein 6.8 g/dL (6.1-8.1)
[2023-04-04 10:38] LABS: Anti Nuclear Antibody Screen NEGATIVE (NEGATIVE)
[2023-04-04 15:09] LABS: DNAds, Crithidia Antibody Positive (Negative)
[2023-04-04 17:08] LABS: 6-MMPN 703 (<5700); 6-TGN 103 (235-400)
[2023-04-05 22:49] LABS: Smooth Muscle Antibody 67 U (<20)
== END 2023-03-29 14:51 | disposition home or self-care (01) | DRG 443 ==
LOC: HO.ED 19:00 → HO.EDOVER 22:36 → HO.S3 03-27 07:20
PROVIDERS: Internal Medicine; Internal Medicine Gastroenterology; Nurse Practitioner Family; Admitting Provider Student in an Organized Health Care Education/Training Program; Emergency Provider Emergency Medicine; Visit Provider Student in an Organized Health Care Education/Training Program
DX: K75.4 Autoimmune hepatitis (principal); K74.60 Unspecified cirrhosis of liver; E80.6 Other disorders of bilirubin metabolism; J45.909 Unspecified asthma, uncomplicated; K21.9 Gastro-esophageal reflux disease without esophagitis; F32.A Depression, unspecified; F41.9 Anxiety disorder, unspecified; Z87.891 Personal history of nicotine dependence; Z79.899 Other long term (current) drug therapy
CPT/HCPCS: 36415; 74181; 76705; 80048; 80053; 80076; 80299; 81001; 82140; 82248; 82378; 83605; 83690; 84165; 85025; 85027; 85610; 86015; 86038; 86140; 86255; 86301; 86704; 86706; 86709; 86803; 87340; 99285; J2270

== ENCOUNTER → 2023-03-26 21:47 | Outpatient (BNV) | payer OTHER, SELFPAY | PROVIDERS: Admitting Provider Student in an Organized Health Care Education/Training Program; Emergency Provider Emergency Medicine; Visit Provider Student in an Organized Health Care Education/Training Program | DX: K74.60 Unspecified cirrhosis of liver (principal); K75.4 Autoimmune hepatitis | CPT/HCPCS: 99222; 99232; 99239 ==

== ENCOUNTER → 2023-03-27 11:26 | Outpatient (BNV) | payer OTHER, SELFPAY | PROVIDERS: Admitting Provider Student in an Organized Health Care Education/Training Program; Emergency Provider Emergency Medicine; Visit Provider Internal Medicine Gastroenterology | DX: K75.4 Autoimmune hepatitis (principal); K74.60 Unspecified cirrhosis of liver; K21.9 Gastro-esophageal reflux disease without esophagitis | CPT/HCPCS: 99222 ==

== ENCOUNTER 2023-04-05 06:04 | Inpatient (IN) | payer OTHER, SELFPAY ==
--- NOTE | ~2023-04-05 | US_ITS ---
EXAMINATION: US ABDOMEN LIMITED CLINICAL INFORMATION: Abdominal pain, rule out gallbladder abnormality. COMPARISON: 03/26/[address] scan of the abdomen and pelvis performed earlier today. TECHNIQUE: Real-time imaging of the right upper quadrant abdominal viscera. FINDINGS: PANCREAS: Visualized portions unremarkable. LIVER: Hepatic cirrhosis without focal abnormality. GALLBLADDER: Multiple dependent gallstones are again seen within the gallbladder lumen. Mild mural thickening is seen with minimal pericholecystic fluid. Color Doppler showed mild increased vascularity. COMMON BILE DUCT: Normal in caliber measuring 0.4 cm in diameter. FREE FLUID: None. US/US abdomen limited IMPRESSION: Gallbladder findings coupled with earlier CT findings most consistent with acute cholecystitis. Cholelithiasis.
--- NOTE | ~2023-04-05 | CT_ITS ---
EXAMINATION: CT ABDOMEN AND PELVIS WITH CONTRAST CLINICAL INFORMATION: Epigastric and upper abdominal pain with elevated lipase COMPARISON: MRCP dated 03/27/[address] abdomen and pelvis dated 02/02/2023 TECHNIQUE: Multidetector volumetric images were obtained from the superior aspect of the liver through the pubic symphysis following administration 85 mL of Omnipaque 350 intravenous contrast. Sagittal and coronal reformatted images were obtained on the technologist's workstation. Oral contrast: No This CT examination was performed using dose optimization techniques as appropriate, variously including the following: *Automated exposure control *Adjustment of mA and/or kV according to patient size (this includes techniques or standardized protocols for targeted exams where dose is matched to indication/reason for exam; i.e. extremities or head) *Use of iterative reconstruction technique DLP: 619 mGy-cm FINDINGS: LUNG BASES: The visualized lung bases are unremarkable. LIVER, GALLBLADDER, AND BILIARY TREE: Mild hepatic steatosis. Cirrhotic appearing liver. No focal hepatic lesion. No intrahepatic biliary dilatation. Multiple gallstones with a fair amount of pericholecystic fluid. PANCREAS: Unremarkable. SPLEEN: Prominent spleen but no focal splenic lesions or perisplenic fluid. ADRENAL GLANDS: Unremarkable. KIDNEYS AND URETERS: The kidneys are normal in size, shape, and attenuation. No hydronephrosis, hydroureter, or calculi seen. No perinephric stranding. BLADDER: Unremarkable. GASTROINTESTINAL TRACT: Slight thickening of the distal esophagus. Decompressed thick walled stomach. No bowel obstruction or right or left lower quadrant inflammatory change. Appendix normal. ABDOMINAL WALL: Small fat-containing umbilical hernia. LYMPH NODES: Normal. VASCULAR: Aorta atherosclerotic but nonaneurysmal. Multiple varices are seen in the periesophageal, and perisplenic region compatible with portal venous hypertension. The portal vein still appears patent. PELVIC VISCERA: Prominent uterus. Trace ascites in the cul-de-sac. Adnexa unremarkable. OSSEOUS STRUCTURES: Degenerative change at the lumbosacral junction. CT/CT abdomen pelvis w IV con IMPRESSION: Cirrhotic liver. Splenomegaly. Gallstones with pericholecystic fluid. Sequela of portal venous hypertension. No significant peripancreatic inflammatory change. Fleischner guidelines were followed.
[2023-04-05 06:05] VITALS: BP 147/93; PULSE 116; RESP 20; TEMP 35.9; O2SAT 97; BMI 33.9
--- NOTE | 2023-04-05 06:23 | PC.NURSE ---
patient received in the unit in a standing position patient stated it hurts to sit or lay down patient stated the pain is hurting across the upper diaphragm area patient stated it all happened during the night patient vitals are stable at this time patient was changed into a gown and placed on the monitor patient was given a urine cup to give a specimen when able patient is waiting to see the doctor for pending orders patient will continue to be monitored for safety
--- NOTE | 2023-04-05 06:28 | ED_ITS ---
HPI - General Adult General Chief complaint: Abdominal Pain Stated complaint: Liver issues Time Seen by Provider: 04/05/23 06:27 Source: patient, RN notes reviewed and old records reviewed History of Present Illness HPI narrative: 57-year-old female past medical history of autoimmune hepatitis, mood disorder, GERD, recently discharged from our facility on 03/29/23 for cirrhosis, jaundice/autoimmune hepatitis currently on prednisone taper presenting to the ED today complaining epigastric abdominal pain radiating to RUQ with associated nausea worsening since night. pain described as tightening /knot with mild SOB. Reports pain was present upon prior admission however worsened last night. Denies fever/chills, vomiting, diarrhea, dysuria /hematuria Onset (ago): hour(s) Related Data Home Medications Medication Instructions Recorded Confirmed omeprazole 20 mg capsule,delayed 20 mg PO DAILY 09/17/21 04/05/23 release Previous Rx's Medication Instructions Recorded albuterol sulfate 90 mcg/actuation 2 puff inhalation Q6H PRN for 11/08/21 aerosol inhaler wheezing #8.5 ea amitriptyline 10 mg tablet 10 mg PO BEDTIME #30 tabs 06/29/22 prednisolone 5 mg tablet See Taper PO DAILY #300 tabs 03/29/23 Allergies Allergy/AdvReac Type Severity Reaction Status Date / Time trazadone AdvReac Mild Abdominal Uncoded 02/02/23 06:20 Pain Review of Systems Review of Systems: Constitutional: No Fever, No Chills, No Fatigue, No Malaise ENT/Mouth: No Ear Pain, No Nasal Congestion, No sore throat, No Rhinorrhea, No Swallowing Difficulty Eyes: No Eye Pain, No Swelling, No Redness, No Vision Changes Cardiovascular: + Chest Pain, + SOB, No Dyspnea on Exertion, No Palpitations Respiratory: No Cough, No Sputum, No Dyspnea Gastrointestinal: + Nausea, No Vomiting, No Diarrhea, No Constipation, + Abdominal pain Genitourinary: No irregular bleeding, No Dysuria, No Urinary Frequency, No Hematuria, No Flank Pain Musculoskeletal: No joint pain, No Myalgias, No Joint Swelling Skin: No Skin Lesions, No rash Neuro: No Weakness, No Loss of Consciousness, No Dizziness, No Headache Yes all other systems are reviewed and are negative Constitutional: Constitutional: Reports as per [facility] Past Medical History Attestation statement: The following information was validated with the patient. Source: old records reviewed Medical History Anxiety and depression Asthma Autoimmune hepatitis Chronic low back pain GERD (gastroesophageal reflux disease) Surgical History Hx of tubal ligation Family History Family History Mother Lung cancer Social History Social History Household Members: None Housing: Apartment Do you presently have visiting nurse or other home services: Yes ([employer]) Alcohol intake: never Patient Tobacco Use Status: Former Tobacco user Quit Date: 13 years Tobacco use type: Cigarette Smoked in Last 30 Days: No e-Cigarette/Vaping Use: Never Used Use of substances other than those prescribed or required for medical reasons: No Advance Directives: No Nutrition Risks: No Nutritional Risk Patient : No service: No Current occupational status: disabled Current occupational exposures/hazards: No Cognitive needs: No Hearing needs: No Vision needs: Yes Physical Exam ED Vital Signs: Vital Signs - 24 hr 04/05/23 06:05 04/05/23 06:55 04/05/23 08:21 Temperature 96.7 F L 98.3 F Pulse Rate 116 H 109 H Respiratory Rate 20 16 14 Blood Pressure 147/93 H 128/78 Pulse Oximetry 97 97 Oxygen Delivery Method Room Air Room Air BMI result Body Mass Index 33.9 Const Other: uncomfortably, tearful General: cooperative Orientation/consciousness: patient oriented x3 Limitations: no limitations HENMT Head: Yes normal to inspection and Yes atraumatic Ears: hearing grossly normal bilaterally General nose exam: Normal external nose present Face and sinus: Yes normal facial exam Eyes General: appearance normal, both eyes and all related structures EOM: EOMs intact bilaterally Neck Neck: Yes normal visual inspection and Yes no meningeal signs Resp Effort & Inspection: normal respiratory effort and no respiratory distress Auscultation: clear to auscultation bilaterally, no rhonchi and no wheezes Cardio Rate: regular rate Heart sounds: S1 normal heart sound present and S2 normal heart sound present GI Inspection: Yes normal to inspection Palpation (GI): Soft to palpation, Tenderness to palpation present (GI) in the epigastrum and in the RUQ; with no rebound tenderness, no guarding and not rigid General: Yes CVA tenderness on the right Back/Spine/Pelvis Back: CVA tenderness Skin Rashes: no rashes Wounds: no wounds Neuro General: patient oriented x3, tone normal and no meningeal signs Gait exam (Neuro): Normal gait present Extrem General: Yes normal to inspection Course Course Course Narrative: -741-- No leukocytosis. H&H stable. Chronic transaminitis, improved from prior admission. Lipase significantly elevated greater than 3000 > ultrasound c anceled and change to CT/AP 904--CT abdomen pelvis w IV con IMPRESSION: Cirrhotic liver. Splenomegaly. Gallstones with pericholecystic fluid. Sequela of portal venous hypertension. No significant peripancreatic inflammatory change. ? Fleischner guidelines were followed. > will obtain US to r/o acute cholecystitis 957--US abdomen limited IMPRESSION: Gallbladder findings coupled with earlier CT findings most consistent with acute cholecystitis. Cholelithiasis. > Will consult General surgery, Dr. Silverio > patient not surgical candidate, will admit to medicine for further management Medications Administered Generic Name Dose Route Start Last Admin Trade Name Freq PRN Reason Stop Dose Admin Dextrose/Lactated Ringer's 1,000 mls @ 125 mls/hr 04/05/23 12:00 04/05/23 1 2:59 D5lr IVCONT 04/09/23 11:59 125 mls/hr .Q8H HAFSA Administration Omeprazole 20 mg 04/05/23 12:00 04/05/23 13:00 Omeprazole 20 Mg Capsule. PO 20 mg DAILY@0630 HAFSA Administration Sodium Chloride 3 ml 04/05/23 16:00 04/05/23 15:22 0.9 % Sodium Chloride Flush 3 Ml Syringe IVFLUSH Not Given QSHIFT HAFSA Discontinued Medications Generic Name Dose Route Start Last Admin Trade Name Freq PRN Reason Stop Dose Admin Hydromorphone HCl 0.5 mg 04/05/23 11:48 04/05/23 13:00 Hydromorphone Hcl 0.5 Mg/0.5 Ml Syringe IVPUSH 0.5 mg Q4H PRN Administration Pain, Severe (Pain Scale 7-10) Protocol Sodium Chloride 1,000 mls @ 999 mls/hr 04/05/23 06:45 04/05/23 08:07 Ns IV 04/05/23 07:45 Infused .Q1H1M HAFSA Infusion Lactated Ringer's 1,000 mls @ 999 mls/hr 04/05/23 07:45 04/05/23 14:15 Lr IV 04/05/23 08:45 Infused .Q1H1M HAFSA Infusion Iohexol 100 ml 04/05/23 08:29 04/05/23 08:30 Iohexol 350 Mg/Ml 100 Ml Infus..Btl IV 04/05/23 08:30 85 ml ONCE ONE Administration Morphine Sulfate 2 mg 04/05/23 06:43 04/05/23 06:55 Morphine Sulfate 2 Mg/Ml Cartridge IVPUSH 04/05/23 06:44 2 mg ONCE ONE Administration Protocol Ondansetron HCl 4 mg 04/05/23 06:34 04/05/23 06:51 Ondansetron Hcl 4 Mg/2 Ml Vial IVPUSH 04/05/23 06:35 4 mg ONCE ONE Administration Medical Decision Making Medical Decision Making MDM Narrative: 57-year-old female past medical history of autoimmune hepatitis, mood disorder, GERD, recently discharged from our facility on 03/29/23 for cirrhosis, jaundice/autoimmune hepatitis currently on prednisone taper presenting to the ED today complaining epigastric abdominal pain radiating to RUQ with associated nausea worsening since night. Exam appears uncomfortable, tearful, tachycardic from pain, afebrile, abdomen soft with epigastric/ RUQ and right CVAT, no rebound or guarding. Concern for continued hepatitis vs pancreatitis vs acute cholecystitis/ lithiasis or renal stone. Lower suspicion for appendic itis/diverticulitis. rule out ACS. Lower suspicion for PE Upon lab review patient's JENNIFER titers positive for anti ds DNA titer plan: EKG, labs, UA, abdomen ultrasound, IVF, pain control Please refer to course for remaining clinical decision making, interpretation of labs/imaging results, and discussions with consultants and/or family members. Differential Diagnosis Differential Diagnoses: The differential diagnosis associated with the presentation includes As above Admission/Observation Consideration of admission/observation: Escalation of care including admission/observation considered Consult Healthcare Provider Management of the patient was discussed with: Hospitalist and Area Sales Manager ( general surgery) Lab Data MDM Lab Attestation statement: I reviewed the patient's lab results. 04/05/23 06:59 04/05/23 06:59 Labs: Lab Results 08/10/2704/05/23 04/05/23 Range/Units 06:59 06:59 06:59 WBC 6.2 (4.8-10.8) X10*3/uL RBC 4.56 (4.20-5.50) X10*6/uL Hgb 13.2 (12.0-16.0) g/dl Hct 40.4 (37.0-47.0) % MCV 88.6 (80.0-98.0) fL MCH 28.9 (27.0-33.0) pg MCHC 32.7 (31.0-35.0) g/dl RDW 15.9 (11.0-16.0) % Plt Count 120 L D (160-400) X10*3/uL MPV 12.7 H (9.4-12.3) fL Immature Gran % (Auto) 1.4 H (0.0-0.4) % Neut % (Auto) 71.0 (45-73) % Lymph % (Auto) 15.7 L (20-40) % Dickenson % (Auto) 9.8 (2-11) % Eos % (Auto) 1.8 (0-4) % Baso % (Auto) 0.3 (0-2) % Lymph # (Auto) 1.0 L (1.2-4.9) X10*3/uL Dickenson # (Auto) 0.6 (0.1-1.2) X10*3/uL Eos # (Auto) 0.1 (0.0-0.4) X10*3/uL Baso # (Auto) 0.0 (0.0-0.2) X10*3/uL Abs Immat Gran (auto) 0.09 H (0.00-0.03) X10*3/uL Absolute Neuts (auto) 4.4 (2.0-8.3) x10*3/uL Absolute Nucleated RBC 0.000 (0.0-0.012) X10*3/uL Nucleated RBC % (auto) 0.0 (0.0-0.2) /100WBC PT 15.1 H (11.1-13.3) SEC INR 1.2 H (0.9-1.1) Sodium 139 (135-145) mmol/L Potassium 3.4 (3.3-5.1) mmol/L Chloride 107 (96-108) mmol/L Carbon Dioxide 24 (22-29) mmol/L Anion Gap 11 L (12-20) BUN 5 L (9-16) mg/dL Creatinine 0.60 (0.5-1.4) mg/dL Estim Creat Clear Calc 93.2 Estimated GFR > 60 Random Glucose 105 (60-115) mg/dL Lactic Acid (0.5-2.0) mmol/L Calcium 8.2 L (8.4-10.2) mg/dL Magnesium 2.0 (1.6-2.6) mg/dL Total Bilirubin 10.3 H (0.0-1.0) mg/dL Direct Bilirubin 7.5 H (0.0-0.5) mg/dL AST 218 H (5-31) U/L ALT 180 H (0-31) U/L Alkaline Phosphatase 195 H (39-117) U/L Troponin I High Sens (<3.5-17.0) ng/L Total Protein 8.2 H (6.5-8.0) g/dL Albumin 2.7 L (3.5-5.0) g/dL Lipase > 3000 H (8-78) U/L Acetaminophen (<30) mcg/mL 04/05/23 04/05/23 04/05/23 Range/Units 06:59 06:59 06:59 WBC (4.8-10.8) X10*3/uL RBC (4.20-5.50) X10*6/uL Hgb (12.0-16.0) g/dl Hct (37.0-47.0) % MCV (80.0-98.0) fL MCH (27.0-33.0) pg MCHC (31.0-35.0) g/dl RDW (11.0-16.0) % Plt Count (160-400) X10*3/uL MPV (9.4-12.3) fL Immature Gran % (Auto) (0.0-0.4) % Neut % (Auto) (45-73) % Lymph % (Auto) (20-40) % Dickenson % (Auto) (2-11) % Eos % (Auto) (0-4) % Baso % (Auto) (0-2) % Lymph # (Auto) (1.2-4.9) X10*3/uL Dickenson # (Auto) (0.1-1.2) X10*3/uL Eos # (Auto) (0.0-0.4) X10*3/uL Baso # (Auto) (0.0-0.2) X10*3/uL Abs Immat Gran (auto) (0.00-0.03) X10*3/uL Absolute Neuts (auto) (2.0-8.3) x10*3/uL Absolute Nucleated RBC (0.0-0.012) X10*3/uL Nucleated RBC % (auto) (0.0-0.2) /100WBC PT (11.1-13.3) SEC INR (0.9-1.1) Sodium (135-145) mmol/L Potassium (3.3-5.1) mmol/L Chloride (96-108) mmol/L Carbon Dioxide (22-29) mmol/L Anion Gap (12-20) BUN (9-16) mg/dL Creatinine (0.5-1.4) mg/dL Estim Creat Clear Calc Estimated GFR Random Glucose (60-115) mg/dL Lactic Acid 1.5 (0.5-2.0) mmol/L Calcium (8.4-10.2) mg/dL Magnesium (1.6-2.6) mg/dL Total Bilirubin (0.0-1.0) mg/dL Direct Bilirubin (0.0-0.5) mg/dL AST (5-31) U/L ALT (0-31) U/L Alkaline Phosphatase (39-117) U/L Troponin I High Sens < 2.7 (<3.5-17.0) ng/L Total Protein (6.5-8.0) g/dL Albumin (3.5-5.0) g/dL Lipase (8-78) U/L Acetaminophen < 17 (<30) mcg/mL Independent Interpretation I performed an independent interpretation of an: EKG (EKG sinus tachycardia rate of 102, VT interval 120. QTC 461. No STEMI.) Radiology Impression Discussion of test interpretation with radiology: I have reviewed the radiologist's reading. External Record Review External record reviewed: Inpatient record, Office record, Outpatient record, Prior outpatient labs, Prior outpatient radiology, Primary care record and Outside ED record Tests considered The following testing was considered but not selected: As above Prescription Management I considered prescription management with: Pain Medication and Antibiotic Critical Care Time Critical Care Time Critical Care Time: Yes Total Critical Care Time: 35 Attestation: I have personally provided critical care time exclusive of time spent on separately billable procedures. Time includes review of lab data, radiology results, discussion with consultants, and monitoring for potential decompensation. Intervention performed as documented. Discharge Plan Discharge Clinical Impression: Acute cholecystitis, Acute pancreatitis Patient Disposition: Admitted As Inpatient
--- NOTE | 2023-04-05 06:35 | ECG_ITS ---
Test Reason : ABDOMINAL PAIN Blood Pressure : / mmHG Vent. Rate : 102 BPM Atrial Rate : 102 BPM P-R Int : 120 ms QRS Dur : 072 ms QT Int : 354 ms P-R-T Axes : 051 010 024 degrees QTc Int : 461 ms Sinus tachycardia Minimal voltage criteria for LVH, may be normal variant ( R in aVL ) Borderline ECG No previous ECGs available Referred By: Madelin Comer Electronically Signed By:CROW DOYLE
[2023-04-05] MEDS: ondansetron HCL 4 MG/2 ML VIAL IVPUSH (06:51)
[2023-04-05 06:55] VITALS: RESP 16
[2023-04-05] MEDS: 0.9 % Sodium Chloride 1,000 ML 999 ML IV (06:55)
[2023-04-05] MEDS: Morphine Sulfate 2 MG/ML CARTRIDGE IVPUSH (06:55)
[2023-04-05 07:04] LABS: MANUAL DIFF FLAG NO
[2023-04-05 07:14] LABS: INTERNATIONAL NORM RATIO 1.2 (0.9-1.1); Prothrombin Time 15.1 SEC (11.1-13.3)
[2023-04-05 07:16] LABS: Basophils Percent Auto 0.3 % (0-2); Eosinophils Absolute Auto 0.1 X10*3/uL (0.0-0.4); Eosinophils Percent Auto 1.8 % (0-4); Hematocrit 40.4 % (37.0-47.0); Hemoglobin 13.2 g/dl (12.0-16.0); Imm Gran Abs Auto 0.09 X10*3/uL (0.00-0.03); Imm Gran Pct Auto 1.4 % (0.0-0.4); Lactic Acid 1.5 mmol/L (0.5-2.0); Lymphocytes Percent Auto 15.7 % (20-40); Mean Corpuscular HGB Conc 32.7 g/dl (31.0-35.0); Mean Corpuscular Hemoglobin 28.9 pg (27.0-33.0); Mean Corpuscular Volume 88.6 fL (80.0-98.0); Mean Platelet Volume 12.7 fL (9.4-12.3); Monocytes Absolute Auto 0.6 X10*3/uL (0.1-1.2); Monocytes Percent Auto 9.8 % (2-11); Neutrophils Absolute Auto 4.4 x10*3/uL (2.0-8.3); Platelet Count 120 X10*3/uL (160-400); Red Blood Count 4.56 X10*6/uL (4.20-5.50); Red Cell Distribution Width 15.9 % (11.0-16.0); White Blood Count 6.2 X10*3/uL (4.8-10.8)
[2023-04-05 07:22] LABS: Acetaminophen LAB < 17 mcg/mL (<30)
[2023-04-05 07:30] LABS: Troponin-I High Sensitivity < 2.7 ng/L (<3.5-17.0)
[2023-04-05 07:31] LABS: Alanine Aminotransferase 180 U/L (0-31); Albumin Level 2.7 g/dL (3.5-5.0); Alkaline Phosphatase 195 U/L (39-117); Anion Gap 11 (12-20); Aspartate Amino Transferase 218 U/L (5-31); Bilirubin Direct 7.5 mg/dL (0.0-0.5); Bilirubin Total 10.3 mg/dL (0.0-1.0); Blood Urea Nitrogen 5 mg/dL (9-16); Calcium 8.2 mg/dL (8.4-10.2); Carbon Dioxide 24 mmol/L (22-29); Chloride 107 mmol/L (96-108); Creatinine Clr Calc Pharmacy 93.2; Estimated Glomerular Filt Rate > 60; Glucose Random 105 mg/dL (60-115); Potassium 3.4 mmol/L (3.3-5.1); Sodium 139 mmol/L (135-145); Total Protein 8.2 g/dL (6.5-8.0)
[2023-04-05 07:34] LABS: Lipase > 3000 U/L (8-78)
[2023-04-05] MEDS: Lactated Ringers 1,000 ML 999 ML IV (07:57)
--- NOTE | 2023-04-05 08:00 | PHA.MEDREC ---
Pharmacy Consult ? Medication Reconciliation Pharmacy has completed the medication reconciliation. spoke with patient to confirm medications. Patient reports finishing the oxycodone that was given from previous discharge. Azathioprine is still on hold and patient has not been taking. No medications were taken today.
--- NOTE | 2023-04-05 08:04 | PC.NURSE ---
PT A/O X 4 NO SOB/MARQUISE NOTED SPEAKS IN FULL SENTENCES. LUNGS - CTA. HEART SOUNDS - REGULAR. SKIN APPEARS JAUNDICE WARM & DRY. NO ABD SOFT 3/10 ABD PAIN. NO EDEMA NOTED. PT OFF TO CT SCAN. PT AWARE OF PLAN OF CARE FOR ADMISSION.
[2023-04-05 08:21] VITALS: BP 128/78; PULSE 109; RESP 14; TEMP 36.8; O2SAT 97
[2023-04-05] MEDS: iohexoL 350 MG/ML 100 ML INFUS..BTL IV (08:30)
--- NOTE | 2023-04-05 11:32 | PM.IMHP ---
History of Present Illness Date of Service: 04/05/23 Chief Complaint: Abdominal pain 57-year-old female with pertinent history of autoimmune hepatitis, mood disorder, gastroesophageal reflux disease, recent hospitalization from 03/26 to 03/29 for autoimmune hepatitis and was discharged with Prednisone jese. He presents today with severe epigastric pain 10/10 since last night, not assocated with food, has no fever and nausea or vomitting, only got partial relief with IV morphine in ED. Work up in ED with showed acute cholecytis by CT and US finding, acute gallstone pancreatitis with Lipase > 3000, LFTs since last hospitalization are trending down but tbili remains high. Review of Systems Review of Systems: Gen: no fever Resp: no sob, no cough CV: no chest, no BARNES, no leg edema GI: No n/v, + abd pain Neuro: No confusion Yes all other systems are reviewed and are negative [facility] Medical History Anxiety and depression Asthma Autoimmune hepatitis Chronic low back pain GERD (gastroesophageal reflux disease) Family History Mother Lung cancer Surgical History Hx of tubal ligation Social History Household Members: None Housing: Apartment Do you presently have visiting nurse or other home services: Yes ([employer]) Alcohol intake: never Patient Tobacco Use Status: Former Tobacco user Quit Date: 13 years Tobacco use type: Cigarette Smoked in Last 30 Days: No e-Cigarette/Vaping Use: Never Used Use of substances other than those prescribed or required for medical reasons: No Advance Directives: No Patient : No service: No Current occupational status: disabled Current occupational exposures/hazards: No Cognitive needs: No Hearing needs: No Vision needs: Yes Meds Allergies Allergy/AdvReac Type Severity Reaction Status Date / Time trazadone AdvReac Mild Abdominal Uncoded 02/02/23 06:20 Pain Home Medications Medication Instructions Recorded Confirmed Last Taken Type omeprazole 20 mg capsule,delayed 20 mg PO DAILY 09/17/21 04/05/23 03/26/23 History release Physical Exam Vital Signs and Narrative: Vital Signs: Last Vital Signs Temp 98.3 F 04/05/23 08:21 Pulse 109 H 04/05/23 08:21 Resp 14 04/05/23 08:21 BP 128/78 04/05/23 08:21 Pulse Ox 97 04/05/23 08:21 O2 Del Method Room Air 04/05/23 08:21 BMI result Body Mass Index 33.9 Const: Other: General: AO X 3, no acute distress HEENT: Sclera icteris Resp: CTA bilateral CVS: S1,S2,RRR GI: +BS, epigastric tenderness Skin: No rash, sings of jaundice Neuro: motor grossly intact Psych: appropriate affect Results Labs 04/05/23 06:59 04/05/23 06:59 Labs: Laboratory Results - last 24 hr 04/05/23 04/05/23 04/05/23 06:59 06:59 06:59 MCV 88.6 MCH 28.9 MCHC 32.7 RDW 15.9 Plt Count 120 L D MPV 12.7 H Immature Gran % (Auto) 1.4 H Neut % (Auto) 71.0 Lymph % (Auto) 15.7 L [place] % (Auto) 9.8 Eos % (Auto) 1.8 Baso % (Auto) 0.3 Lymph # (Auto) 1.0 L [place] # (Auto) 0.6 Eos # (Auto) 0.1 Baso # (Auto) 0.0 Abs Immat Gran (auto) 0.09 H Absolute Neuts (auto) 4.4 Absolute Nucleated RBC 0.000 Nucleated RBC % (auto) 0.0 PT 15.1 H INR 1.2 H Anion Gap 11 L Estim Creat Clear Calc 93.2 Estimated GFR > 60 Random Glucose 105 Lactic Acid Calcium 8.2 L Magnesium 2.0 Total Bilirubin 10.3 H Direct Bilirubin 7.5 H AST 218 H ALT 180 H Alkaline Phosphatase 195 H Total Protein 8.2 H Albumin 2.7 L Lipase > 3000 H Acetaminophen 04/05/23 04/05/23 06:59 06:59 MCV MCH MCHC RDW Plt Count MPV Immature Gran % (Auto) Neut % (Auto) Lymph % (Auto) [place] % (Auto) Eos % (Auto) Baso % (Auto) Lymph # (Auto) [place] # (Auto) Eos # (Auto) Baso # (Auto) Abs Immat Gran (auto) Absolute Neuts (auto) Absolute Nucleated RBC Nucleated RBC % (auto) PT INR Anion Gap Estim Creat Clear Calc Estimated GFR Random Glucose Lactic Acid 1.5 Calcium Magnesium Total Bilirubin Direct Bilirubin AST ALT Alkaline Phosphatase Total Protein Albumin Lipase Acetaminophen < 17 Imaging Radiologist's Impressions: Impressions Abdomen/Pelvis CT 04/05/23 08:28 IMPRESSION: Cirrhotic liver. Splenomegaly. Gallstones with pericholecystic fluid. Sequela of portal venous hypertension. No significant peripancreatic inflammatory change. Fleischner guidelines were followed. Abdomen Ultrasound 04/05/23 09:22 IMPRESSION: Gallbladder findings coupled with earlier CT findings most consistent with acute cholecystitis. Cholelithiasis. Assessment and Plan (1) Acute cholecystitis: Status: Acute (2) Acute pancreatitis: Status: Acute (3) Cirrhosis of liver without ascites: Status: Acute (4) Jaundice: Status: Acute Plan 57-year-old female with history of autoimmune hepatitis, mood disorder, gastroesophageal reflux disease, recent hospitalization from 03/26 to 03/29 for autoimmune hepatitis and was discharged with Prednisone jese here with acute cholycsystitis, gallstone pancreaitis. Acute cholecytisis--Treat with IV Ceftriaxone, Galstone pancreatitis, conservative management with Pain meds, IVF, NPO for now Surgery to asses for need for cholecystectomy Acute autoimmune hepatitis, continue prednisone, gi eval if not improving mood desorder--Elavil DVT prophylaxis: compression device given plat trendind sown, and possiblly might need intervention at least 2 midnight stay for acute cholecystitis that need IV Abx, and further work and or intervention Time Spent With Patient Time: Total time managing care of this patient today ____ minutes. Quality Stroke Does the patient have a stroke diagnosis?: No VTE Prior VTE?: No VTE Risk Level:: Medical - moderate - high VTE Device Contraindication: Treatment Not Indicated VTE Drug Contraindication: N/A - Med Ordered
--- NOTE | 2023-04-05 12:35 | P.CONGS_ITS ---
History of Present Illness Consult details Consult date: 04/05/23 Narrative: 57F here in the ED for epigastric and right sided abdominal pain. She says this started early last night and has been persistent. She describes this as sharp and severe. She was actually just discharged from the hospital on March 30, 2023 for autoimmune hepatitis on Imuran. She had similar abdominal pain at that time bt this had resolved prior to discharge. She describes being nauseous. She denies any fever or chills Review of Systems Constitutional: Constitutional: Denies chills and Denies fever(s) Cardiovascular: Cardiovascular: Denies chest pain and Denies chest pain at rest Respiratory: Respiratory: Denies cough Gastrointestinal: Gastrointestinal: Reports abdominal pain, Denies melena, Denies coffee ground emesis and Denies constipation Genitourinary: Genitourinary: Denies dysuria Musculoskeletal: Musculoskeletal: Denies abnormal gait and Reports back pain Neurologic: Denies abnormal gait PMFSH Past Medical History Medical History (Updated 04/06/23 @ 18:52 by Kaylene Prabhakar MD) Anxiety and depression Asthma Autoimmune hepatitis Chronic low back pain Cirrhosis of liver without ascites GERD (gastroesophageal reflux disease) Jaundice Family History Family History Mother Lung cancer Surgical History Surgical History Hx of tubal ligation Social History Social History Household Members: None Housing: Apartment Do you presently have visiting nurse or other home services: Yes ([employer] 22 hrs a week) Alcohol intake: never Patient Tobacco Use Status: Former Tobacco user Quit Date: 13 years Tobacco use type: Cigarette e-Cigarette/Vaping Use: Never Used service: No Current occupational status: disabled Current occupational exposures/hazards: No Cognitive needs: No Hearing needs: No Vision needs: Yes Meds Allergies Allergy/AdvReac Type Severity Reaction Status Date / Time trazadone AdvReac Mild Abdominal Uncoded 02/02/23 06:20 Pain Active Medications: Current Medications Albuterol Sulfate (Albuterol Sulfate 90 Mcg 8 Gm Inhaler) 2 puff INHALE RQ6H PRN PRN Reason: for wheezing Amitriptyline HCl (Amitriptyline Hcl 10 Mg Tablet) 10 mg PO BEDTIME [facility] Hydromorphone HCl (Hydromorphone Hcl 0.5 Mg/0.5 Ml Syringe) 0.5 mg IVPUSH Q4H PRN; Protocol PRN Reason: Pain, Severe (Pain Scale 7-10) Dextrose/Lactated Ringer's (D5lr) 1,000 mls @ 125 mls/hr IVCONT .Q8H [facility] Stop: 04/09/23 11:59 Magnesium Hydroxide (Milk Of Magnesia 30 Ml Oral.Susp) 30 ml PO DAILY PRN PRN Reason: Constipation Melatonin (Melatonin 3 Mg Tablet) 6 mg PO BEDTIME PRN PRN Reason: Insomnia Omeprazole (Omeprazole 20 Mg Capsule.Dr) 20 mg PO DAILY@0630 [facility] Ondansetron HCl (Ondansetron Hcl 4 Mg/2 Ml Vial) 4 mg IVPUSH Q8H PRN PRN Reason: Nausea and Vomiting Sodium Chloride (0.9 % Sodium Chloride Flush 3 Ml Syringe) 3 ml IVFLUSH QSHIFT [facility] Home Medications Medication Instructions Recorded Confirmed Last Taken Type omeprazole 20 mg capsule,delayed 20 mg PO DAILY 09/17/21 04/05/23 03/26/23 History release Physical Exam Vital Signs: Vital Signs: Last Vital Signs Temp 98.3 F 04/05/23 08:21 Pulse 109 H 04/05/23 08:21 Resp 14 04/05/23 08:21 BP 128/78 04/05/23 08:21 Pulse Ox 97 04/05/23 08:21 O2 Del Method Room Air 04/05/23 08:21 BMI result Body Mass Index 33.9 Const: Other: appears uncomfortable General: no acute distress Resp: Effort & Inspection: normal respiratory effort Cardio: Rhythm: regular rhythm GI: Other: tender on epigastric area and RUQ Palpation (GI): Soft to palpation, not firm, Tenderness to palpation present (GI) and no guarding Extrem: General: No no pedal edema Results Labs 04/05/23 06:59 04/05/23 06:59 Labs: Abnormal lab results 04/05/23 04/05/23 04/05/23 Range/Units 06:59 06:59 06:59 Plt Count 120 L D (160-400) X10*3/uL MPV 12.7 H (9.4-12.3) fL Immature Gran % (Auto) 1.4 H (0.0-0.4) % Lymph % (Auto) 15.7 L (20-40) % Lymph # (Auto) 1.0 L (1.2-4.9) X10*3/uL Abs Immat Gran (auto) 0.09 H (0.00-0.03) X10*3/uL PT 15.1 H (11.1-13.3) SEC INR 1.2 H (0.9-1.1) Anion Gap 11 L (12-20) BUN 5 L (9-16) mg/dL Calcium 8.2 L (8.4-10.2) mg/dL Total Bilirubin 10.3 H (0.0-1.0) mg/dL Direct Bilirubin 7.5 H (0.0-0.5) mg/dL AST 218 H (5-31) U/L ALT 180 H (0-31) U/L Alkaline Phosphatase 195 H (39-117) U/L Total Protein 8.2 H (6.5-8.0) g/dL Albumin 2.7 L (3.5-5.0) g/dL Lipase > 3000 H (8-78) U/L Short CBC 04/05/23 Range/Units 06:59 WBC 6.2 (4.8-10.8) X10*3/uL Hgb 13.2 (12.0-16.0) g/dl Hct 40.4 (37.0-47.0) % Plt Count 120 L D (160-400) X10*3/uL BMP 04/05/23 06:59 Sodium 139 Potassium 3.4 Chloride 107 Carbon Dioxide 24 BUN 5 L Creatinine 0.60 Calcium 8.2 L Liver Function 04/05/23 Range/Units 06:59 Total Bilirubin 10.3 H (0.0-1.0) mg/dL Direct Bilirubin 7.5 H (0.0-0.5) mg/dL AST 218 H (5-31) U/L ALT 180 H (0-31) U/L Alkaline Phosphatase 195 H (39-117) U/L Albumin 2.7 L (3.5-5.0) g/dL All other labs normal. Laboratory Results WBC 6.2 X10*3/uL (4.8-10.8) 04/05/23 06:59 RBC 4.56 X10*6/uL (4.20-5.50) 04/05/23 06:59 Hgb 13.2 g/dl (12.0-16.0) 04/05/23 06:59 Hct 40.4 % (37.0-47.0) 04/05/23 06:59 MCV 88.6 fL (80.0-98.0) 04/05/23 06:59 MCH 28.9 pg (27.0-33.0) 04/05/23 06:59 MCHC 32.7 g/dl (31.0-35.0) 04/05/23 06:59 RDW 15.9 % (11.0-16.0) 04/05/23 06:59 Plt Count 120 X10*3/uL (160-400) L D 04/05/23 06:59 MPV 12.7 fL (9.4-12.3) H 04/05/23 06:59 Immature Gran % (Auto) 1.4 % (0.0-0.4) H 04/05/23 06:59 Neut % (Auto) 71.0 % (45-73) 04/05/23 06:59 Lymph % (Auto) 15.7 % (20-40) L 04/05/23 06:59 [place] % (Auto) 9.8 % (2-11) 04/05/23 06:59 Eos % (Auto) 1.8 % (0-4) 04/05/23 06:59 Baso % (Auto) 0.3 % (0-2) 04/05/23 06:59 Lymph # (Auto) 1.0 X10*3/uL (1.2-4.9) L 04/05/23 06:59 [place] # (Auto) 0.6 X10*3/uL (0.1-1.2) 04/05/23 06:59 Eos # (Auto) 0.1 X10*3/uL (0.0-0.4) 04/05/23 06:59 Baso # (Auto) 0.0 X10*3/uL (0.0-0.2) 04/05/23 06:59 Abs Immat Gran (auto) 0.09 X10*3/uL (0.00-0.03) H 04/05/23 06:59 Absolute Neuts (auto) 4.4 x10*3/uL (2.0-8.3) 04/05/23 06:59 Absolute Nucleated RBC 0.000 X10*3/uL (0.0-0.012) 04/05/23 06:59 Nucleated RBC % (auto) 0.0 /100WBC (0.0-0.2) 04/05/23 06:59 PT 15.1 SEC (11.1-13.3) H 04/05/23 06:59 INR 1.2 (0.9-1.1) H 04/05/23 06:59 Sodium 139 mmol/L (135-145) 04/05/23 06:59 Potassium 3.4 mmol/L (3.3-5.1) 04/05/23 06:59 Chloride 107 mmol/L (96-108) 04/05/23 06:59 Carbon Dioxide 24 mmol/L (22-29) 04/05/23 06:59 Anion Gap 11 (12-20) L 04/05/23 06:59 BUN 5 mg/dL (9-16) L 04/05/23 06:59 Creatinine 0.60 mg/dL (0.5-1.4) 04/05/23 06:59 Estim Creat Clear Calc 93.2 04/05/23 06:59 Estimated GFR > 60 04/05/23 06:59 Random Glucose 105 mg/dL (60-115) 04/05/23 06:59 Lactic Acid 1.5 mmol/L (0.5-2.0) 04/05/23 06:59 Calcium 8.2 mg/dL (8.4-10.2) L 04/05/23 06:59 Magnesium 2.0 mg/dL (1.6-2.6) 04/05/23 06:59 Total Bilirubin 10.3 mg/dL (0.0-1.0) H 04/05/23 06:59 Direct Bilirubin 7.5 mg/dL (0.0-0.5) H 04/05/23 06:59 AST 218 U/L (5-31) H 04/05/23 06:59 ALT 180 U/L (0-31) H 04/05/23 06:59 Alkaline Phosphatase 195 U/L (39-117) H 04/05/23 06:59 Troponin I High Sens < 2.7 ng/L (<3.5-17.0) 04/05/23 06:59 Total Protein 8.2 g/dL (6.5-8.0) H 04/05/23 06:59 Albumin 2.7 g/dL (3.5-5.0) L 04/05/23 06:59 Lipase > 3000 U/L (8-78) H 04/05/23 06:59 Acetaminophen < 17 mcg/mL (<30) 04/05/23 06:59 Impressions Abdomen/Pelvis CT 04/05/23 08:28 IMPRESSION: Cirrhotic liver. Splenomegaly. Gallstones with pericholecystic fluid. Sequela of portal venous hypertension. No significant peripancreatic inflammatory change. Fleischner guidelines were followed. Abdomen Ultrasound 04/05/23 09:22 IMPRESSION: Gallbladder findings coupled with earlier CT findings most consistent with acute cholecystitis. Cholelithiasis. Assessment and Plan (1) Acute pancreatitis: Status: Acute She has markedly elevated lipase as well as bilirubin. I have reviewed her CT scan, and the GB wall appears thickened suggestive of cholecystitis. She has known cirrhosis and splenomegaly. She is not a surgical candidate at this time, especially with her baseline cirrhosis, and acute pancreatitis with markely elevated LFTs c/w acute hepatitis. I would recommend consulting for possible ERCP, although this may not be done at this acute phase. She does have some thickening of her GB wall along with RUQ tenderness. We may consider sending her for IR cholecystostomy for this. I will follow along closely and if she continues to have RUQ pain, I will arrange for this cholecystostomy. Bowel rest and pain management tutu be part of her management. She should be on empiric abx. (2) Acute cholecystitis: Status: Acute Time Spent With Patient Time: Total time managing care of this patient today ____ minutes. Procedures Date of Service Date of Service: 04/11/23
[2023-04-05] MEDS: Dextrose 5 % and Lactated Ring 1,000 ML 125 ML IVCONT ×2 (12:59→21:23)
[2023-04-05] MEDS: HYDROmorphone HCl 0.5 MG/0.5 ML SYRINGE IVPUSH ×2 (13:00→21:26)
[2023-04-05] MEDS: Omeprazole 20 MG CAPSULE.DR PO (13:00)
[2023-04-05 14:19] VITALS: BP 113/63; PULSE 82; RESP 16; TEMP 37.6; O2SAT 96
--- NOTE | 2023-04-05 14:33 | PC.NURSE ---
assumed care of pt at 1400, pt resting quietly with eyes closed, pt pending bed assignment.
--- NOTE | 2023-04-05 16:09 | PC.NURSE ---
attempted to call in report to S3, RN on break, will call back.
--- NOTE | 2023-04-05 16:33 | PM.EVENT ---
Event Note Date of Service: 04/05/23 Event Note: seen on afernoon rounds says she is feeling better much less pain - given Dilaudid abd soft, tender on epi and RUQ quadrant follow LFTs and lipase GI consult ordered will follow closely IV hydration Time Spent With Patient Time: Total time managing care of this patient today ____ minutes.
--- NOTE | 2023-04-05 16:56 | PC.NURSE ---
RN-RN report given to S3
[2023-04-05 17:41] VITALS: BP 131/61; PULSE 82; RESP 17; TEMP 36.3; O2SAT 97; BMI 34.2
[2023-04-05 20:00] VITALS: BP 158/79; PULSE 78; RESP 20; TEMP 36.6; O2SAT 98
[2023-04-05] MEDS: 0.9 % Sodium Chloride Flush 3 ML SYRINGE IVFLUSH (21:25)
[2023-04-05] MEDS: Amitriptyline HCl 10 MG TABLET PO ×2 (21:25→21:27)
[2023-04-06 04:00] VITALS: BP 142/72; PULSE 98; RESP 16; TEMP 37.1; O2SAT 93
[2023-04-06] MEDS: HYDROmorphone HCl 0.5 MG/0.5 ML SYRINGE IVPUSH ×3 (04:31→21:40)
[2023-04-06] MEDS: Dextrose 5 % and Lactated Ring 1,000 ML 125 ML IVCONT ×3 (04:32→21:33)
[2023-04-06] MEDS: Omeprazole 20 MG CAPSULE.DR PO (05:48)
[2023-04-06 07:14] VITALS: BP 140/77; PULSE 90; RESP 16; TEMP 37.8; O2SAT 95
[2023-04-06 08:23] LABS: Alanine Aminotransferase 129 U/L (0-31); Alkaline Phosphatase 124 U/L (39-117); Aspartate Amino Transferase 199 U/L (5-31); Bilirubin Direct 4.9 mg/dL (0.0-0.5); Bilirubin Total 6.7 mg/dL (0.0-1.0); Lipase 83 U/L (8-78); Total Protein 6.3 g/dL (6.5-8.0)
--- NOTE | 2023-04-06 09:54 | P.PNIM_ITS ---
Subjective Subjective Date of Service: 04/06/23 Interval History: Follow-up on gallstone pancreatitis. Seems to have passed stone, has no pain, LFTs are trending down and so his bilirubin, lipase is down from greater than 3000 to only 80 now Review of Systems No abdominal pain Physical Exam Vital Signs: Vital Signs: Last Vital Signs Temp 100.0 F 04/06/23 07:14 Pulse 90 04/06/23 07:14 Resp 16 04/06/23 07:14 BP 140/77 H 04/06/23 07:14 Pulse Ox 95 04/06/23 07:14 O2 Del Method Room Air 04/06/23 07:14 BMI result Body Mass Index 34.2 Objective Data Active Medications Albuterol Sulfate (Albuterol Sulfate 90 Mcg 8 Gm Inhaler) 2 puff INHALE RQ6H PRN PRN Reason: for wheezing Amitriptyline HCl (Amitriptyline Hcl 10 Mg Tablet) 10 mg PO BEDTIME [facility] Last Admin: 04/05/23 21:27 Dose: 10 mg Documented By: IRWIN Hydromorphone HCl (Hydromorphone Hcl 0.5 Mg/0.5 Ml Syringe) 0.5 mg IVPUSH Q3H PRN; Protocol PRN Reason: Pain, Severe (Pain Scale 7-10) Last Admin: 04/06/23 04:31 Dose: 0.5 mg Documented By: IRWIN Dextrose/Lactated Ringer's (D5lr) 1,000 mls @ 125 mls/hr IVCONT .Q8H [facility] Stop: 04/09/23 11:59 Last Admin: 04/06/23 04:32 Dose: 125 mls/hr Documented By: IRWIN Magnesium Hydroxide (Milk Of Magnesia 30 Ml Oral.Susp) 30 ml PO DAILY PRN PRN Reason: Constipation Melatonin (Melatonin 3 Mg Tablet) 6 mg PO BEDTIME PRN PRN Reason: Insomnia Omeprazole (Omeprazole 20 Mg Capsule.Dr) 20 mg PO DAILY@0630 [facility] Last Admin: 04/06/23 05:48 Dose: 20 mg Documented By: IRWIN Ondansetron HCl (Ondansetron Hcl 4 Mg/2 Ml Vial) 4 mg IVPUSH Q8H PRN PRN Reason: Nausea and Vomiting Sodium Chloride (0.9 % Sodium Chloride Flush 3 Ml Syringe) 3 ml IVFLUSH QSHIFT [facility] Last Admin: 04/06/23 09:05 Dose: Not Given Documented By: LORE Non-Admin Reason: IV Running Labs 04/05/23 06:59 04/05/23 06:59 Labs: Laboratory Results - last 24 hr 04/06/23 07:54 Total Bilirubin 6.7 H Direct Bilirubin 4.9 H AST 199 H ALT 129 H Alkaline Phosphatase 124 H Total Protein 6.3 L Albumin 2.0 L Lipase 83 H Microbiology Microbiology Results: Microbiology 04/05/23 06:59 Blood Culture - Preliminary Blood - Venous No growth after 24 hours. 04/05/23 06:59 Blood Culture - Preliminary Blood - Venous No growth after 24 hours. Assessment and Plan (1) Acute pancreatitis: Status: Acute Plan 57-year-old female with history of autoimmune hepatitis, mood disorder, gastroesophageal reflux disease, recent hospitalization from 03/26 to 03/29 for autoimmune hepatitis and was discharged with Prednisone jese here with acute cholycsystitis, gallstone pancreaitis.? Acute cholecytisis--Treat with IV Ceftriaxone, Galstone pancreatitis, no pain, marked drop in lipase and lfts and bili droping, clincal picture consistent with passed stone, she probably need CCY, start liquid diet if no ERCP planned Acute autoimmune hepatitis,? continue prednisone, gi eval if not improving mood desorder--Elavil DVT prophylaxis: compression device given plat trendind sown, and possiblly might need intervention at least 2 midnight stay for acute cholecystitis that need IV Abx, and further w ork and or intervention Time Spent With Patient Time: Total time managing care of this patient today ____ minutes. Quality Stroke Does the patient have a stroke diagnosis?: No VTE Prior VTE?: No VTE Risk Level:: Medical - moderate - high VTE Device Contraindication: Treatment Not Indicated VTE Drug Contraindication: N/A - Med Ordered
--- NOTE | 2023-04-06 11:41 | P.PNGS_ITS ---
Subjective Subjective Date of Service: 04/06/23 Interval history: Feels much better Says abdominal pain has improved significantly Hungry and wants to eat Physical Exam Vital Signs: Vital Signs: Last Vital Signs Temp 100.0 F 04/06/23 07:14 Pulse 90 04/06/23 07:14 Resp 16 04/06/23 07:14 BP 140/77 H 04/06/23 07:14 Pulse Ox 95 04/06/23 07:14 O2 Del Method Room Air 04/06/23 07:14 BMI result Body Mass Index 34.2 Const: General: comfortable and no acute distress Eyes: Other: Sclerae still icteric Resp: Effort & Inspection: normal respiratory effort GI: Other: Soft, distended, no guarding, no rebound, minimal tenderness on the epigastric area and right upper quadrant Objective Data Active Medications Albuterol Sulfate (Albuterol Sulfate 90 Mcg 8 Gm Inhaler) 2 puff INHALE RQ6H PRN PRN Reason: for wheezing Amitriptyline HCl (Amitriptyline Hcl 10 Mg Tablet) 10 mg PO BEDTIME [facility] Last Admin: 04/05/23 21:27 Dose: 10 mg Documented By: IRWIN Hydromorphone HCl (Hydromorphone Hcl 0.5 Mg/0.5 Ml Syringe) 0.5 mg IVPUSH Q3H PRN; Protocol PRN Reason: Pain, Severe (Pain Scale 7-10) Last Admin: 04/06/23 04:31 Dose: 0.5 mg Documented By: IRWIN Dextrose/Lactated Ringer's (D5lr) 1,000 mls @ 125 mls/hr IVCONT .Q8H [facility] Stop: 04/09/23 11:59 Last Admin: 04/06/23 04:32 Dose: 125 mls/hr Documented By: IRWIN Magnesium Hydroxide (Milk Of Magnesia 30 Ml Oral.Susp) 30 ml PO DAILY PRN PRN Reason: Constipation Melatonin (Melatonin 3 Mg Tablet) 6 mg PO BEDTIME PRN PRN Reason: Insomnia Omeprazole (Omeprazole 20 Mg Capsule.Dr) 20 mg PO DAILY@0630 [facility] Last Admin: 04/06/23 05:48 Dose: 20 mg Documented By: IRWIN Ondansetron HCl (Ondansetron Hcl 4 Mg/2 Ml Vial) 4 mg IVPUSH Q8H PRN PRN Reason: Nausea and Vomiting Sodium Chloride (0.9 % Sodium Chloride Flush 3 Ml Syringe) 3 ml IVFLUSH QSHIFT [facility] Last Admin: 04/06/23 09:05 Dose: Not Given Documented By: LORE Non-Admin Reason: IV Running Labs 04/05/23 06:59 04/05/23 06:59 Labs: Laboratory Results - last 24 hr 04/06/23 07:54 Total Bilirubin 6.7 H Direct Bilirubin 4.9 H AST 199 H ALT 129 H Alkaline Phosphatase 124 H Total Protein 6.3 L Albumin 2.0 L Lipase 83 H Microbiology Microbiology Results: Microbiology 04/05/23 06:59 Blood Culture - Preliminary Blood - Venous No growth after 24 hours. 04/05/23 06:59 Blood Culture - Preliminary Blood - Venous No growth after 24 hours. Procedures Date of Service Date of Service: 04/06/23 Progress Note: A&P Assessment and plan (1) Acute pancreatitis: Status: Acute Assessment and Plan: Lipase has gone down to normal Bilirubin still markedly limited although trending down Changes on the gallbladder wall may be related to her pancreatitis She does have gallstones She however has history of elevated liver tests with question of autoimmune hepatitis She has cirrhosis of the liver as well and splenic vein thrombosis I would recommend further workup for her liver because of this for any surgery She may benefit from referral to tertiary center cause of her perioperative risks for gallbladder surgery Her daughter says that she usually goes to [place] The understand the plan well Okay for clear liquids today Follow LFTs Time Spent With Patient Time: Total time managing care of this patient today ____ minutes. Quality Stroke Does the patient have a stroke diagnosis?: No VTE Prior VTE?: No VTE Risk Level:: Medical - moderate - high VTE Device Contraindication: Treatment Not Indicated VTE Drug Contraindication: N/A - Med Ordered
--- NOTE | 2023-04-06 14:20 | P.CNGI_ITS ---
History of Present Illness Data of Consult Service Date: 04/06/23 Requesting physician: Hank Valdes Primary Care Provider: Unknown Physician HPI Reason for consult: Gallstone pancreatitis, ERCP? 57 YF with autoimmune hepatitis, mood disorder, gastroesophageal reflux disease, hospitalized at [facility] from 03/26 to 03/29 for autoimmune hepatitis and was discharged with Prednisone jese. Pt presented to [facility] ED on 04/05/23 with severe epigastric pain? 10/10 since last night, not assocated with food, has no fever and nausea or vomitting, only got partial relief with IV morphine in ED. Work up in ED with showed acute cholecystitis by CT and US finding, acute gallstone pancreatitis with Lipase > 3000, LFTs since last hospitalization are trending down but tbili remains high. Pt reports she was diagnosed with Autoimmune Hepatitis and was followed by Dr Bobby and now sees DANICA Holley at [facility] Her last visit was in December, She being treated with Azathioprine 50 mg daily and reports she has been compliant in taking the medication. She was also taking prednisone which she dicontinued in December, after she ran out of the prescription. Patient denies family history of liver disease, colon polyps or colon cancer.? Her mom and maternal grandfather with lung cancer and a maternal aunt has stomach cancer. 04/05/[address] SCAN SHOWED: Cirrhotic liver. Splenomegaly. Gallstones with pericholecystic fluid. Sequela of portal venous hypertension. No significant peripancreatic inflammatory change. 04/05/23 ABD US SHOWED: PANCREAS: Visualized portions unremarkable. LIVER: Hepatic cirrhosis without focal abnormality. GALLBLADDER: Multiple dependent gallstones are again seen within the gallbladder lumen. Mild mural thickening is seen with minimal pericholecystic fluid. Color Doppler showed mild increased vascularity. COMMON BILE DUCT: Normal in caliber measuring 0.4 cm in diameter. Review of Systems 2 Review of Systems: Yes all other systems are reviewed and are negative [facility] Past Medical History Medical History (Updated 09/04/23 @ 20:47 by DANICA Mcclellan) Gallstone pancreatitis GERD (gastroesophageal reflux disease) Cirrhosis of liver without ascites Jaundice Autoimmune hepatitis Anxiety and depression Chronic low back pain Asthma Family History Family History Mother Lung cancer Surgical History Surgical History (Updated 09/04/23 @ 20:46 by DANICA Mcclellan) S/P cholecystectomy Hx of tubal ligation Social History Social History Household Members: None Housing: Apartment Do you presently have visiting nurse or other home services: Yes Alcohol intake: never Patient Tobacco Use Status: Former Tobacco user Quit Date: 2009 Tobacco use type: Cigarette e-Cigarette/Vaping Use: Never Used service: No Current occupational status: disabled Current occupational exposures/hazards: No Cognitive needs: No Hearing needs: No Vision needs: Yes Meds Allergies Allergy/AdvReac Type Severity Reaction Status Date / Time trazadone AdvReac Mild Abdominal Uncoded 08/30/23 08:42 Pain Active Medications: Current Medications Albuterol Sulfate (Albuterol Sulfate 90 Mcg 8 Gm Inhaler) 2 puff INHALE RQ6H PRN PRN Reason: for wheezing Amitriptyline HCl (Amitriptyline Hcl 10 Mg Tablet) 10 mg PO BEDTIME [facility] Last Admin: 04/05/23 21:27 Dose: 10 mg Hydromorphone HCl (Hydromorphone Hcl 0.5 Mg/0.5 Ml Syringe) 0.5 mg IVPUSH Q3H PRN; Protocol PRN Reason: Pain, Severe (Pain Scale 7-10) Last Admin: 04/06/23 13:30 Dose: 0.5 mg Dextrose/Lactated Ringer's (D5lr) 1,000 mls @ 125 mls/hr IVCONT .Q8H [facility] Stop: 04/09/23 11:59 Last Admin: 04/06/23 13:30 Dose: 125 mls/hr Magnesium Hydroxide (Milk Of Magnesia 30 Ml Oral.Susp) 30 ml PO DAILY PRN PRN Reason: Constipation Melatonin (Melatonin 3 Mg Tablet) 6 mg PO BEDTIME PRN PRN Reason: Insomnia Omeprazole (Omeprazole 20 Mg Capsule.Dr) 20 mg PO DAILY@0630 [facility] Last Admin: 04/06/23 05:48 Dose: 20 mg Ondansetron HCl (Ondansetron Hcl 4 Mg/2 Ml Vial) 4 mg IVPUSH Q8H PRN PRN Reason: Nausea and Vomiting Sodium Chloride (0.9 % Sodium Chloride Flush 3 Ml Syringe) 3 ml IVFLUSH QSHIFT [facility] Last Admin: 04/06/23 09:05 Dose: Not Given Physical Exam 2 Vital Signs: Vital Signs: Last Vital Signs Temp 100.0 F 04/06/23 07:14 Pulse 90 04/06/23 07:14 Resp 16 04/06/23 07:14 BP 140/77 H 04/06/23 07:14 Pulse Ox 95 04/06/23 07:14 O2 Del Method Room Air 04/06/23 07:14 BMI result Body Mass Index 34.2 Const: General: healthy appearing and no acute distress Nutritional Appearance: obese Orientation/consciousness: patient oriented x3 L imitations: language barrier HEENT: Head: Yes normal to inspection Ears: hearing grossly normal bilaterally Eyes: Sclerae: sclerae normal Pupils: Equal, round and reactive pupils present Neck: Neck: Yes normal visual inspection Chest: Chest palpation & inspection: normal inspection of the chest Resp: Effort & Inspection: normal respiratory effort Auscultation: clear to auscultation bilaterally Cardio: Palpation: normal PMI Rate: regular rate Rhythm: regular rhythm Heart sounds: S1 normal heart sound present, S2 normal heart sound present and no murmurs GI: Palpation (GI): Soft to palpation, nontender and No hepatosplenomegaly present Auscultation: normal bowel sounds Rectal Exam - Female: deferred Skin: General skin exam: no rashes or lesions noted Neuro: General: patient oriented x3, gait normal and moves all extremities Cranial nerves: Yes Equal, round and reactive pupils present Psych: Appearance: grossly normal Mental Status: mental status grossly normal Results Labs 04/05/23 06:59 04/05/23 06:59 Labs: Liver Function 04/06/23 Range/Units 07:54 Total Bilirubin 6.7 H (0.0-1.0) mg/dL Direct Bilirubin 4.9 H (0.0-0.5) mg/dL AST 199 H (5-31) U/L ALT 129 H (0-31) U/L Alkaline Phosphatase 124 H (39-117) U/L Albumin 2.0 L (3.5-5.0) g/dL Microbiology Microbiology Results: Microbiology 04/05/23 06:59 Blood - Venous Blood Culture - Preliminary No growth after 24 hours. 04/05/23 06:59 Blood - Venous Blood Culture - Preliminary No growth after 24 hours. Assessment and Plan (1) Acute pancreatitis: Status: Resolved (2) Autoimmune hepatitis: Status: Acute (3) Cirrhosis of liver without ascites: Status: Acute Plan 57 year old Yi-speaking female (understands and speaks some [place]) with autoimmune hepatitis (diagnosed in 2015), mood disorder, gastroesophageal reflux disease admitted to [facility] 04/05/23 with severe epigastric pain 10/10 since last night, not assocated with food, Jaundice and elevated LFTs.? Pt was hospitalized at [facility] from 03/26 to 03/29 for autoimmune hepatitis and was discharged with Prednisone jese. Work up in ED with showed acute cholecystitis by CT and US finding, acute gallstone pancreatitis with Lipase > 3000, Pt reports she was diagnosed with Autoimmune Hepatitis in 2015 and treated with Azathioprine and Prednisone)-? followed by Dr Bobby in the past and now sees DANICA Holley at [facility] ( last visit was in December,).? She being treated with Azathioprine 50 mg daily and reports she has been compliant in taking the medication. Thiopurine metabolites did not reveal azathioprine toxicity) Pt was diagnosed with Cirrhosis in 2017 - attributed to a combination of AIH and RAMIREZ) - MELD score is 21. Pt notes improvement in abdominal pain and FU labs today show a decrease in LFTs - likely due sludge/CBD stone which passed spontaneously RECOMMENDATIONS: 1.? Repeat LFTs in the am. If continued improvement in LFTs, pt can be re- evaluated for Lap phi to prevent future episodes of pancreatitis/biliary obstruction 2.? Pt can resume azathioprine 50 mg once a day for AIH since Thiopurine metabolites were not in the toxic range Time Spent With Patient Time: Total time managing care of this patient today ____ minutes. Procedures Date of Service Date of Service: 09/14/23
[2023-04-06 15:10] VITALS: BP 140/75; PULSE 74; RESP 16; TEMP 37.6; O2SAT 95
[2023-04-06] MEDS: predniSONE 20 MG TABLET 40 MG PO (15:51)
--- NOTE | 2023-04-06 16:24 | MHC.CM.PN ---
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
--- NOTE | 2023-04-06 17:50 | PC.NURSE ---
Md Toribio made aware pts temp 100.0 this AM, other VSS, no intervention at this time.
[2023-04-06 19:47] VITALS: BP 136/74; PULSE 88; RESP 16; TEMP 36.3; O2SAT 96
[2023-04-06] MEDS: Amitriptyline HCl 10 MG TABLET PO (21:32)
[2023-04-06] MEDS: 0.9 % Sodium Chloride Flush 3 ML SYRINGE IVFLUSH (21:33)
[2023-04-07 04:00] VITALS: BP 141/77; PULSE 71; RESP 16; TEMP 36.4; O2SAT 94
[2023-04-07] MEDS: Dextrose 5 % and Lactated Ring 1,000 ML 125 ML IVCONT (04:46)
[2023-04-07] MEDS: Omeprazole 20 MG CAPSULE.DR PO (06:03)
[2023-04-07 07:09] LABS: Alanine Aminotransferase 121 U/L (0-31); Alkaline Phosphatase 116 U/L (39-117); Aspartate Amino Transferase 196 U/L (5-31); Bilirubin Direct 4.1 mg/dL (0.0-0.5); Total Protein 6.5 g/dL (6.5-8.0)
[2023-04-07 07:20] LABS: Bilirubin Total 5.7 mg/dL (0.0-1.0)
[2023-04-07 07:33] VITALS: BP 131/59; PULSE 76; RESP 16; TEMP 36.4; O2SAT 96
[2023-04-07] MEDS: predniSONE 20 MG TABLET 40 MG PO (08:49)
[2023-04-07] MEDS: 0.9 % Sodium Chloride Flush 3 ML SYRINGE IVFLUSH (08:50)
--- NOTE | 2023-04-07 09:40 | PM.DS ---
DS: Providers Provider Date of Service: 04/07/23 Date of admission: 04/05/23 11:51 Primary care physician: Unknown Physician Consults: 04/05/23 11:47 Consult to General Surgery Routine Consulting Provider: [facility] Reason for consultation: acute gallstone pancreatitis, and cholecystitis Has provider been notified: No 04/05/23 16:16 Consult to Gastroenterology Routine Consulting Provider: Gary Yip Reason for consultation: elevated LFTs, pancreatitis, autoimmune hepatitis 04/06/23 07:52 Consult to Gastroenterology Routine Consulting Provider: Kaylene Prabhakar Reason for consultation: Gallstone pancreatitis, ERCP? Has provider been notified: No DS: Diagnosis Discharge Diagnosis (1) Acute pancreatitis: Status: Acute (2) Autoimmune hepatitis: Status: Acute (3) Cirrhosis of liver without ascites: Status: Acute DS: Summary Hospital Course Hospital Course: Chief Complaint: Abdominal pain 57-year-old female with pertinent history of autoimmune hepatitis, mood disorder, gastroesophageal reflux disease, recent hospitalization from 03/26 to 03/29 for autoimmune hepatitis and was discharged with Prednisone jese. He presents today with severe epigastric pain? 10/10 since last night, not assocated with food, has no fever and nausea or vomitting, only got partial relief with IV morphine in ED. Work up in ED with showed acute cholecytis by CT and US finding, acute gallstone pancreatitis with Lipase > 3000, LFTs since last hospitalization are trending down but tbili remains high. Hospital course: This patient with history of autoimmune hepatitis with recent hospitalization from 03/26 to 03/29 and discharged with Prednisone jese, she presented back again on 04/05 with abdominal elevated LFTs and bilirubin similar to when she was last discharged, however she had lipase level > 3000, CT and US suggest cholecystitis and cholelithias in addition and gallstone pancreatitis. She was admitted and made NPO, given IVF, the next day her lipase level dropped to 80, Tbili down to 6 from 10, AST and ALT both trending down, additionally her pain has resolved and started on liquid diet. Seen by GI with recommendation to continue Prednisone jese from prior hospitalization for autoimmune pancratitis. Seen by General Surgery and deemed high risk for surgery here and may need to have surgery to done but at a higher insitution, she is presently stable without pain and tolerating regular diet. Dr. Silverio will see in the off in a week, follow up with GI clinic and PCP Time Spent with Patient Time attestation: Total time managing care of this patient today ____ minutes. Discharge coordination time: Greater than 30 minutes Quality: Safe Use of Opioids Does Pt have an Active Cancer Diagnosis on the Problem List?: No Quality: Stroke Does the patient have a stroke diagnosis?: No Physical Exam Vital Signs: Vital Signs: Last Vital Signs Temp 97.6 F 04/07/23 07:33 Pulse 76 04/07/23 07:33 Resp 16 04/07/23 07:33 BP 131/59 L 04/07/23 07:33 Pulse Ox 96 04/07/23 07:33 O2 Del Method Room Air 04/07/23 07:33 BMI result Body Mass Index 34.2 Const: Other: General: AO X 3, no acute distress Resp: CTA bilateral CVS: S1,S2,RRR GI: +BS, NT, no distention Skin: No rash Neuro: motor grossly intact Psych: appropriate affect DS: Data Data Completed and Pending Labs on day of discharge: Laboratory Results - last 24 hr 04/07/23 05:42 Total Bilirubin 5.7 H Direct Bilirubin 4.1 H AST 196 H ALT 121 H Alkaline Phosphatase 116 Total Protein 6.5 Albumin 2.0 L Preliminary micro results at discharge 04/05/23 06:59 Blood Culture - Preliminary Blood - Venous No growth after 48 hours. 04/05/23 06:59 Blood Culture - Preliminary Blood - Venous No growth after 48 hours. Discharge Plan Discharge Anticipated Discharge Date/Time: 04/07/23 09:36 Patient Disposition: Home, Self-Care Discharge Diagnosis: Acute cholecystitis, gallstone pancreatis Referrals: Kaylene Prabhakar MD [Physician] - 1 Week Loyd Silverio MD [Physician] - 1 Week Physician,Unknown J [Primary Care Provider] - 1 Week Discharge Medications: New cefuroxime axetil 500 mg tablet 500 mg PO BID 5 Days Qty: 10 0RF Continued albuterol sulfate 90 mcg/actuation HFA aerosol inhaler 2 puff inhalation Q6H PRN (Reason: for wheezing) Qty: 8.5 1RF amitriptyline 10 mg tablet 10 mg PO BEDTIME Qty: 30 0RF prednisolone 5 mg tablet See Taper PO DAILY Qty: 300 0RF Taper: Prednisone 40 mg daily for 7 Days and 0 Hour 35 mg daily for 7 Days and 0 Hour 30 mg daily for 7 Days and 0 Hour 25 mg daily for 7 Days and 0 Hour 20 mg daily for 7 Days 15 mg daily for 7 Days 10 mg daily for 30 Days omeprazole 20 mg capsule,delayed release(DR/EC) 20 mg PO DAILY Discharge Orders: Discharge Order (Routine); Ordered 04/07/23 Ordered By: Hank Toribio Diet: Advance to usual diet Activity on Discharge: As tolerated Stand Alone Forms: Patient Portal Discharge page Other Ambulatory Orders: Liver Panel (Routine) Timeframe: 1 Week Facility: [facility] - Location: Laboratory Ordered By: Hank Toribio Care Plan Goals: Recovery from pancreatitis and Cholecystitis Health Concerns: Cholecytisitis, autoimmune hepatitis, cirhosis Plan of Treatment: Continue taking Prednisone as directed Take Ceftin for cholecystitis, follow up with your GI Doctor and Surgeon, you will eventually need your gallbladder taking out Follow up with Dr. Silverio , Dr. Prabhakar and your primary care provider Check liver labs in a week Assessment: as above
--- NOTE | 2023-04-07 13:54 | MHC.CM.PN ---
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
--- NOTE | 2023-04-07 14:24 | PM.PNGS ---
Subjective Subjective Date of Service: 04/07/23 Interval history: Continues to feel better Denies significant abdominal pain Tolerating oral intake Physical Exam Vital Signs: Vital Signs: Last Vital Signs Temp 97.6 F 04/07/23 07:33 Pulse 76 04/07/23 07:33 Resp 16 04/07/23 07:33 BP 131/59 L 04/07/23 07:33 Pulse Ox 96 04/07/23 07:33 O2 Del Method Room Air 04/07/23 07:33 BMI result Body Mass Index 34.2 Const: General: comfortable and no acute distress Resp: Effort & Inspection: normal respiratory effort Cardio: Rate: regular rate GI: Other: Minimal tenderness epigastric and right upper quadrant Palpation (GI): Soft to palpation, not firm and no guarding Objective Data Active Medications Albuterol Sulfate (Albuterol Sulfate 90 Mcg 8 Gm Inhaler) 2 puff INHALE RQ6H PRN PRN Reason: for wheezing Amitriptyline HCl (Amitriptyline Hcl 10 Mg Tablet) 10 mg PO BEDTIME [facility] Last Admin: 04/06/23 21:32 Dose: 10 mg Documented By: IRWIN Hydromorphone HCl (Hydromorphone Hcl 0.5 Mg/0.5 Ml Syringe) 0.5 mg IVPUSH Q3H PRN; Protocol PRN Reason: Pain, Severe (Pain Scale 7-10) Last Admin: 04/06/23 21:40 Dose: 0.5 mg Documented By: IRWIN Magnesium Hydroxide (Milk Of Magnesia 30 Ml Oral.Susp) 30 ml PO DAILY PRN PRN Reason: Constipation Melatonin (Melatonin 3 Mg Tablet) 6 mg PO BEDTIME PRN PRN Reason: Insomnia Omeprazole (Omeprazole 20 Mg Capsule.Dr) 20 mg PO DAILY@0630 [facility] Last Admin: 04/07/23 06:03 Dose: 20 mg Documented By: IRWIN Ondansetron HCl (Ondansetron Hcl 4 Mg/2 Ml Vial) 4 mg IVPUSH Q8H PRN PRN Reason: Nausea and Vomiting Prednisone (Prednisone 20 Mg Tablet) 40 mg PO DAILY [facility] Last Admin: 04/07/23 08:49 Dose: 40 mg Documented By: SANCHO Sodium Chloride (0.9 % Sodium Chloride Flush 3 Ml Syringe) 3 ml IVFLUSH QSHIFT [facility] Last Admin: 04/07/23 08:50 Dose: 3 ml Documented By: SANCHO Labs 04/05/23 06:59 04/05/23 06:59 Labs: Laboratory Results - last 24 hr 04/07/23 05:42 Total Bilirubin 5.7 H Direct Bilirubin 4.1 H AST 196 H ALT 121 H Alkaline Phosphatase 116 Total Protein 6.5 Albumin 2.0 L Microbiology Microbiology Results: Microbiology 04/05/23 06:59 Blood Culture - Preliminary Blood - Venous No growth after 48 hours. 04/05/23 06:59 Blood Culture - Preliminary Blood - Venous No growth after 48 hours. Procedures Date of Service Date of Service: 04/07/23 Progress Note: A&P Assessment and plan (1) Cirrhosis of liver without ascites: Status: Acute Assessment and Plan: Symptoms practically resolved Bilirubin still markedly elevated although has trended down LFTs elevated Diet as tolerated Follow LFTs Patient with significant cirrhosis - will hold off on cholecystectomy for now persistently elevated bilirubin The patient and her family are aware of plan and understands (2) Acute pancreatitis: Status: Acute Time Spent With Patient Time: Total time managing care of this patient today ____ minutes. Quality Stroke Does the patient have a stroke diagnosis?: No VTE Prior VTE?: No VTE Risk Level:: Medical - moderate - high VTE Device Contraindication: Treatment Not Indicated VTE Drug Contraindication: N/A - Med Ordered
== END 2023-04-07 15:00 | disposition home or self-care (01) | DRG 444 ==
LOC: HO.ED 10:46 → HO.EDOVER 12:00 → HO.S3 15:56
PROVIDERS: Physician Assistant; Admitting Provider Internal Medicine; Emergency Provider Emergency Medicine; PCP Nurse Practitioner Family; Visit Provider Internal Medicine
DX: K81.0 Acute cholecystitis (principal); K85.10 Biliary acute pancreatitis without necrosis or infection; I82.890 Acute embolism and thrombosis of other specified veins; K74.60 Unspecified cirrhosis of liver; K75.81 Nonalcoholic steatohepatitis (NASH); F41.9 Anxiety disorder, unspecified; F32.A Depression, unspecified; K75.4 Autoimmune hepatitis; K21.9 Gastro-esophageal reflux disease without esophagitis; Z87.891 Personal history of nicotine dependence; Z79.899 Other long term (current) drug therapy
CPT/HCPCS: 36415; 74177; 76705; 80048; 80076; 80143; 83605; 83690; 83735; 84484; 85025; 85610; 87040; 93005; 99285; J1170; J2270; J2405; Q9967

== ENCOUNTER → 2023-04-05 06:21 | Outpatient (BNV) | payer OTHER, SELFPAY | PROVIDERS: Emergency Provider Emergency Medicine; Visit Provider Internal Medicine | DX: K85.90 Acute pancreatitis without necrosis or infection, unspecified (principal); K75.4 Autoimmune hepatitis; K74.60 Unspecified cirrhosis of liver | CPT/HCPCS: 99222; 99232; 99239 ==

== ENCOUNTER → 2023-04-05 06:35 | Outpatient (BNV) | payer OTHER, SELFPAY | PROVIDERS: Admitting Provider Internal Medicine; Emergency Provider Emergency Medicine; Visit Provider Internal Medicine | DX: R00.0 Tachycardia, unspecified (principal) | CPT/HCPCS: 93010 ==

== ENCOUNTER → 2023-04-05 11:51 | Outpatient (BNV) | payer OTHER, SELFPAY | PROVIDERS: Admitting Provider Internal Medicine; Emergency Provider Emergency Medicine; Visit Provider Surgery | DX: K85.90 Acute pancreatitis without necrosis or infection, unspecified (principal); K81.0 Acute cholecystitis | CPT/HCPCS: 99222; 99232; 99499 ==

== ENCOUNTER → 2023-04-05 11:51 | Outpatient (BNV) | payer OTHER, SELFPAY | PROVIDERS: Admitting Provider Internal Medicine; Emergency Provider Emergency Medicine; PCP Nurse Practitioner Family; Visit Provider Internal Medicine Gastroenterology | DX: K85.90 Acute pancreatitis without necrosis or infection, unspecified (principal); K75.4 Autoimmune hepatitis; K74.60 Unspecified cirrhosis of liver | CPT/HCPCS: 99222 ==

== ENCOUNTER 2023-04-12 14:53 | Outpatient (AMB) | payer OTHER, SELFPAY ==
[2023-04-12 15:03] VITALS: BP 116/82; PULSE 119; O2SAT 97; BMI 33.0
--- NOTE | 2023-04-12 15:03 | MHC.PC.OV ---
Vital Signs 04/12/23 15:03 Height 4 ft 11 in Weight 74.162 kg BMI 33.0 BP 116/82 Blood Pressure Location Lt brachial Position Sitting Pulse 119 H Pulse Source Pulse Oximeter Pulse Oximetry (%) 97 Oxygen Delivery Method Room Air Intake Visit Reasons: [facility] 03[place]26 for abdominal pain Assistant Laboratory Director Required: No Accompanied by: Self / Same As Patient Allergies trazadone Adverse Reaction (Mild, Uncoded 02/02/23 06:20) Abdominal Pain Tobacco use date assessed: 04/12/23 Dental Screening Dental Screen Date: 04/12/23 Did you have a dental visit in the last 12 months?: No Did you have a dental problem in the last 6 months where you did not have access to dental care?: No Was dental information given to patient?: Patient has dentist HPI HPI Comments History of Present Illness Details 57-year-old female with history of autoimmune hepatitis, mood disorder, GERD presents to the office for hospital discharge follow-up. She was admitted from 03/23 3- for autoimmune hepatitis and was discharged with prednisone taper. She presented again to the ED on 04/05 with severe epigastric pain with poor p.o. intake. In the ED, workup showed acute cholecystitis by CT and ultrasound finding with acute gallstone pancreatitis with lipase greater than 3000. LFTs were noted to be trending down but total bili remained high. She was admitted and made NPO and given IV fluid resuscitation with great improvement in her lipase level to 80. Total bilirubin dropped to 6 from 10 an AST and ALT were both trending down. There is also great improvement in pain and she was able to tolerate diet. She was advised by Gastroenterology to continue prednisone taper. She was also evaluated by General surgery while admitted but deemed high risk for surgery here and felt to need surgery at a tertiary care facility. On discharge she was stable without pain and tolerating regular diet. She was advised to follow up with GI, General surgery and PCP. Today she was reporting your improvement in her pain there was having difficulty sleeping likely related to her prednisone. She is tolerating diet without nausea or vomiting. Total bilirubin on discharge was 5.7, direct bilirubin 4.1. 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 1. Little interest or pleasure in doing things: not at all ( 1 month ago) 2. Feeling down, depressed, or hopeless: not at all 3. Trouble falling or staying asleep, or sleeping too much: not at all 4. Feeling tired or having little energy: not at all 5. Poor appetite or overeating: not at all 6. Feeling bad about yourself - or that you are a failure or have let yourself or your family down: not at all 7. Trouble concentrating on things, such as reading the newspaper or watching television: not at all 8. Moving or speaking so slowly that other people could have noticed. Or the opposite - being so fidgety or restless that you have been moving around a lot more than usual: not at all 9. Thoughts that you would be better off or of hurting yourself in some way: not at all Total score: 0 Depression Screening Interpretation: Negative Source: Developed by Drs. Gary Luke, Sabina House, Jack Sprague and colleagues, with an educational sinan from [employer]. Thrive Questionnaire Date Thrive assessed: 04/12/23 I am a: Patient What is your living situation today?: I have a steady place to live Within the past 12 months, did the food you bought not last and you didn't have the money to get more?: Never true Within the past 12 months, did you worry whether your food would run out before you got money to buy more?: Never true Do you have trouble paying for medicines?: No Do you have trouble getting transportation to medical appointments?: No Do you have trouble paying your heating and electricity bill?: No Do you have trouble taking care of your child, family member or friend?: No Do you have trouble with day-to-day activities such as bathing, preparing meals, shopping, managing finances, etc.?: No Are you currently unemployed and looking for a job?: No Are you interested in more education?: No Please select the resources that you would like help with: None Currently or been in a relationship where the following occur: no concerns reported AUDIT C Alcohol Use Questionnaire (AUDIT-C) 1. How often do you have a drink containing alcohol?: Never Total Score: 0 Score Reviewed/Action Taken: No RUDI-7 AMB Questionnaire RUDI-7 Date RUDI - 7 assessed: 04/12/23 Feeling nervous, anxious, or on edge: 1 = Several days ( passed 1 month ago) Not being able to stop or control worryin = Several days Worrying too much about different things: 1 = Several days Trouble relaxin = Not at all Being so restless that it is hard to sit still: 0 = Not at all Becoming easily annoyed or irritable: 0 = Not at all Feeling afraid as if something awful might happen: 0 = Not at all Total RUDI-7 score (0-4 normal; 5-9 mild; 10-14 moderate; 15-21 severe): 3 Source: Developed by Drs. Gary Luke, Sabina House, Jack Sprague and colleagues, with an educational sinan from [employer]. RUDI-7 Assessment Billing RUDI-7 Assessment Tool: RUDI-7 Assessment 04238 Review of Systems Const All systems reviewed & are unremarkable except as noted in HPI and below Physical exam (Primary Care) Vital Signs: Last Vital Signs Pulse 119 H 04/12/23 15:03 BP 116/82 04/12/23 15:03 Pulse Ox 97 04/12/23 15:03 Oxygen Delivery Method Room Air 04/12/23 15:03 BMI result Body Mass Index 33.0 Tobacco/Smoking Status: Tobacco use Status Tobacco use date assessed 04/12/23 04/12/23 15:11 Patient Tobacco Use Status Former Tobacco user 04/12/23 15:11 Tobacco use type Cigarette 04/12/23 15:11 e-Cigarette/Vaping Use Never Used 04/12/23 15:11 PHQ-9: PHQ-9 Score PHQ-9: Total score 0 04/12/23 15:29 Depression Screening Interpretation: Negative Thrive Assessment: Date of Thrive Assessment Date Thrive assessed 04/12/23 04/12/23 15:11 Currently or been in a relationship where the following occur: no concerns reported Const Other: Constitutional - Awake and Alert, No apparent distress Eyes - PERRLA, EOMI Cardiovascular - S1S2, RRR, No edema Respiratory - Normal lung expansion, Normal respiratory effort, No respiratory distress, CTA bilaterally Gastrointestinal - NT / ND; +BS; No rebound or guarding Extremities - no calf tenderness bilaterally, no swelling Skin - Warm/Dry Neurological - Alert & oriented x3 Psychological - Appropriate affect Assessment and Plan Assessment & Plan (1) Gallstone pancreatitis: Code(s): K85.10 - Biliary acute pancreatitis without necrosis or infection Plan: Pt currently asymptomatic. Initial lipase greater than 3000 improved to 80 with conservative measures. Likely passed gallstone. However patient did have radiographic evidence on CT and ultrasound of gallstones and cholecystitis and is recommended for consideration for cholecystectomy at tertiary care facility given her high risk with autoimmune hepatitis and cirrhosis. As a result, will refer to [facility] general surgery for further evaluation and management. (2) Autoimmune hepatitis: Code(s): K75.4 - Autoimmune hepatitis Plan: Total bilirubin trending down. Continue prednisone taper. (3) Cirrhosis of liver without ascites: Code(s): K74.60 - Unspecified cirrhosis of liver Plan Non alcoholic related. LFTs trending down. Will continue monitoring LFTs. Avoid hepatotoxins. Orders: Orders PT Evaluation and Treatment 04/12/23 M54.50 - Low back pain, unspecified, G89.29 - Other chronic pain Liver Panel 04/12/23 K85.10 - Biliary acute pancreatitis without necrosis or infection, K75.4 - Autoimmune hepatitis Referrals Gastroenterology Referral K74.60 - Unspecified cirrhosis of liver, M54.50 - Low back pain, unspecified, G89.29 - Other chronic pain, K75.4 - Autoimmune hepatitis General Surgery Referral K85.10 - Biliary acute pancreatitis without necrosis or infection, K74.60 - Unspecified cirrhosis of liver, K75.4 - Autoimmune hepatitis Medications: New cyclobenzaprine 5 mg PO TID PRN 30 tabs 0RF muscle spasm nystatin 1 appl topical TID 60 grams 1RF Coding Level of Care Code Est Pt Level 4 (39835) Diagnoses Gallstone pancreatitis K85.10 Autoimmune hepatitis K75.4 Cirrhosis of liver without ascites K74.60 Additional Codes RUDI-7 Assessment Billing - RUDI-7 Assessment Tool: RUDI-7 Assessment 45503 ([id number]) PHQ-9 - 52998 - PHQ-9 Billing: Y ([id number])
== END 2023-04-12 15:49 | disposition home or self-care (01) ==
PROVIDERS: Visit Provider Physician Assistant
DX: K85.10 Biliary acute pancreatitis without necrosis or infection (principal); K75.4 Autoimmune hepatitis; K74.60 Unspecified cirrhosis of liver
CPT/HCPCS: 99214

== ENCOUNTER 2023-04-12 15:40 | Outpatient (REF) | payer OTHER, SELFPAY ==
[2023-04-12 17:12] LABS: Alanine Aminotransferase 91 U/L (0-31); Albumin Level 2.7 g/dL (3.5-5.0); Alkaline Phosphatase 208 U/L (39-117); Aspartate Amino Transferase 109 U/L (5-31); Bilirubin Direct 2.7 mg/dL (0.0-0.5); Bilirubin Total 3.7 mg/dL (0.0-1.0); Total Protein 7.6 g/dL (6.5-8.0)
== END 2023-04-12 15:41 | disposition home or self-care (01) ==
LOC: HO.LAB 15:40
PROVIDERS: PCP Nurse Practitioner Family; Visit Provider Physician Assistant
DX: K85.10 Biliary acute pancreatitis without necrosis or infection (principal); K75.4 Autoimmune hepatitis
CPT/HCPCS: 36415; 80076

== ENCOUNTER 2023-06-06 09:58 | Outpatient (REF) | payer OTHER, SELFPAY ==
[2023-06-06 12:46] LABS: Mean Corpuscular Volume 89.3 fL (80.0-98.0); Red Cell Distribution Width 13.7 % (11.0-16.0)
[2023-06-06 12:48] LABS: Hematocrit 38.4 % (37.0-47.0); Hemoglobin 12.5 g/dl (12.0-16.0); Mean Corpuscular HGB Conc 32.6 g/dl (31.0-35.0); Mean Corpuscular Hemoglobin 29.1 pg (27.0-33.0)
[2023-06-06 12:49] LABS: PLT ABN DIST 1
[2023-06-06 12:52] LABS: INTERNATIONAL NORM RATIO 1.2 (0.9-1.1)
[2023-06-06 13:30] LABS: Alanine Aminotransferase 284 U/L (0-31); Albumin Level 2.6 g/dL (3.5-5.0); Alkaline Phosphatase 143 U/L (39-117); Anion Gap 9 (12-20); Aspartate Amino Transferase 526 U/L (5-31); Bilirubin Total 2.2 mg/dL (0.0-1.0); Blood Urea Nitrogen 5 mg/dL (9-16); Calcium 8.8 mg/dL (8.4-10.2); Carbon Dioxide 27 mmol/L (22-29); Chloride 108 mmol/L (96-108); Estimated Glomerular Filt Rate > 60; Glucose Random 105 mg/dL (60-115); Potassium 3.7 mmol/L (3.3-5.1); Sodium 140 mmol/L (135-145); Total Protein 7.9 g/dL (6.5-8.0)
[2023-06-06 14:14] LABS: Platelet Count 83 X10*3/uL (160-400)
[2023-06-08 15:53] LABS: Immunoglobulin G 3033 mg/dL (600-1640)
[2023-06-17 17:42] LABS: TPMT Activity 14
== END 2023-06-06 09:59 | disposition home or self-care (01) ==
LOC: HO.LAB 09:58
PROVIDERS: PCP Nurse Practitioner Family; Visit Provider Internal Medicine
DX: K75.4 Autoimmune hepatitis (principal); K74.60 Unspecified cirrhosis of liver; K85.10 Biliary acute pancreatitis without necrosis or infection
CPT/HCPCS: 36415; 80053; 82784; 84433; 85027; 85610; 99212

== ENCOUNTER 2023-06-06 09:58 | Outpatient (AMB) | payer OTHER, SELFPAY ==
--- NOTE | 2023-06-06 10:00 | MHC.OFFVIS ---
Intake Vital Signs 06/06/23 10:03 Height 4 ft 11 in Weight 169 lb 12.095 oz BMI 34.3 BP 123/83 Blood Pressure Location Lt brachial Position Sitting Pulse 100 Intake Visit Reasons: Unspecified Cirrhosis of Liver Intake Note: Lyndsey presents in the office as a f/u for cirrhosis. CC: She states that she is here today for her Liver - she states that she has issues with her gall bladder and she has gall stones. Regional Clinical Director Required: Yes Regional Clinical Director Name: [id number] [place] Allergies trazadone Adverse Reaction (Mild, Uncoded 06/06/23 10:03) Abdominal Pain HPI HPI Comments History of Present Illness Details 57 y.o F with PMH of AIH that has led to cirrhosis with [facility] who is here for follow up. Seen with bilingual interpreter. Reports being diagnosed with AIH almost 8-10 years ago when she had developed painless jaundice. Has been under care of Dr Bobby since then and being managed with Azathioprine 50mg. Reports getting steroids initially at the time of diagnosis and then again recently. Does not recall having any liver biopsy. Disease progressed to cirrhosis around 2018 per previous documentation. Has never had any abdominal distention, rash, shortness of breath, confusion spells or GI bleeding per her report. Pt does not recall being referred to transplant center. No etOH use. No IVDU hx. Former smoker 2 PPD x 20 years. Quit . No fam hx of liver disease in first degree relatives. Currently, completed Pred taper from recent hospitalization and on week 2/4 of prednisone 5mg PO daily. Reports has NOT been taking Azathioprine since her hospital admission in Apr. Has been seen at [facility] [place] (Dr Moran) for consideration of lap phi after recent hospitalisations for biliary panc and cholecystitis. Awaiting completion of pred taper as well as pre-op med consultation before surgery can be scheduled. Last EGD in 2019: Dr Bobby. Gastric varices. Pt was supposed to return this year for follow up EGD but ended up getting admitted to hosp x 2. Last colo in 2019: Dr Bobby. Normal per pt's report, however reports was asked to do another colo this year along with the EGD?? Last US Abd 04/05/23: No focal liver lesion. 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) Alcohol intake: never Patient Tobacco Use Status: Former Tobacco user Quit Date: 13 years Tobacco use type: Cigarette e-Cigarette/Vaping Use: Never Used service: No Current occupational status: disabled Current occupational exposures/hazards: No Cognitive needs: No Hearing needs: No Vision needs: Yes Review of Systems Const All systems reviewed & are unremarkable except as noted in HPI and below Physical Exam Vital Signs: Last Vital Signs Pulse 100 06/06/23 10:03 BP 123/83 06/06/23 10:03 BMI result Body Mass Index 34.3 Gen Appear: NAD, well nourished HEENT: No scleral icterus Chest: CTA CVS: Regular S1/S2 no murmurs Abd: soft, nontender, nondistended, no shifting dullness to percussion, bowel sounds active Ext: No peripheral edema bilaterally Neuro: A/Ox3, no asterixis Derm: Scattered spider angioma on chest Assessment & Plan Assessment & Plan (1) Autoimmune hepatitis: Code(s): K75.4 - Autoimmune hepatitis (2) Cirrhosis of liver without ascites: Code(s): K74.60 - Unspecified cirrhosis of liver (3) Gallstone pancreatitis: Code(s): K85.10 - Biliary acute pancreatitis without necrosis or infection Plan AIH related compensated cirrhosis - MELD-Na 11 - Child Abarca Class B Prefers to switch Hepatology care to [facility]. Prev under care of Dr Bobby through [place]. From documentation appears to have been in remission prior to admission in March, which in turn seems to have been a combination of nonadherence to tx (as pt ran out of meds) as well as biliary pancreatitis both contributing to elevated LFTs. Currently undergoing eval for lap phi through [facility] surgery. Plan: - Check MELD labs and IgG - Resume Azathiopurine 50mg PO - If transaminases and IgG cont to improve, can complete taper as per schedule in 2 weeks - Since LFTs being confounded by gallstone disease, will recheck this after her surgery as well with low threshold to proceed with liver bx to monitor for any active inflammation. Limited role of continuing Azathiopurine if no active inflammation. - She is also due for an EGD. Will get records from [facility] to see if needs colo alongside it. - Next US due in Oct 2022. - No indication for referral to transplant center for now since low MELD and not decompensated. Follow up in 8 weeks - can be with Dr Prabhakar if this provider N/A. Orders: Orders Complete Blood Count no Diff Today K74.60 - Unspecified cirrhosis of liver Comprehensive Met. Panel Today K74.60 - Unspecified cirrhosis of liver Prothrombin Time INR Today K74.60 - Unspecified cirrhosis of liver Immunoglobulin G Today K74.60 - Unspecified cirrhosis of liver Thiopurine Methyltransferase Today K75.4 - Autoimmune hepatitis Coding Level of Care Code Est Pt Level 4 (27833) Diagnoses Autoimmune hepatitis K75.4 Cirrhosis of liver without ascites K74.60 Gallstone pancreatitis K85.10
[2023-06-06 10:03] VITALS: BP 123/83; PULSE 100; BMI 34.3
== END 2023-06-06 10:42 | disposition home or self-care (01) ==
PROVIDERS: PCP Nurse Practitioner Family; Visit Provider Internal Medicine
DX: K75.4 Autoimmune hepatitis (principal); K74.60 Unspecified cirrhosis of liver; K85.10 Biliary acute pancreatitis without necrosis or infection
CPT/HCPCS: 99214

== ENCOUNTER 2023-06-13 08:12 | Outpatient (AMB) | payer OTHER, SELFPAY ==
[2023-06-13 08:36] VITALS: BP 122/70; PULSE 97; O2SAT 99; BMI 35.1
--- NOTE | 2023-06-13 08:36 | MHC.PC.OV ---
Vital Signs 06/13/23 08:36 Height 4 ft 11 in Weight 174 lb 0.4 oz BMI 35.1 BP 122/70 Blood Pressure Location Lt brachial Position Sitting Pulse 97 Pulse Source Pulse Oximeter Temp Source Skin Pulse Oximetry (%) 99 Oxygen Delivery Method Room Air Intake Visit Reasons: 2 month f/u Intake Note: Patient is here to follow up Drafter Structural Required: No Allergies trazadone Adverse Reaction (Mild, Uncoded 06/13/23 08:43) Abdominal Pain Medication List - Last Reconciled 06/13/23 by AYUSH Jackson albuterol sulfate 90 mcg/actuation 2 puffs inhalation Q6H PRN amitriptyline 10 mg PO BEDTIME azathioprine 100 mg (2 x 50 mg) PO DAILY 90 days cyclobenzaprine 5 mg PO TID PRN miscellaneous medical supply 1 ea miscellaneous BID 30 days nystatin 1 appl topical TID omeprazole 20 mg PO DAILY prednisone 40 mg (2 x 20 mg) PO DAILY 4 weeks Tobacco use date assessed: 06/13/23 Dental Screening Dental Screen Date: 06/13/23 Did you have a dental visit in the last 12 months?: Yes Did you have a dental problem in the last 6 months where you did not have access to dental care?: No Was dental information given to patient?: Patient has dentist HPI 2 month f/u HPI Details Patient is a 57-year-old female who presents today for a follow-up, last time seen by this provider 04/2022. Medical history significant for intermittent asthma, sleeping difficulty, autoimmune hepatitis - followed by Dr. Garcia, anxiety, depression, chronic low back pain, cirrhosis of liver without ascites-followed by Dr. Garcia, and gallstone pancreatitis - patient reports that she is followed by Dr. Moran at [facility] [place]- possible plan for lap phi per pt. patient reports that cyclobenzaprine is not helping with her back pain, she also has lidocaine patches that she can use, patient reports history of low back injections in the past and the provider she was seeing in the past left the practice and she needs new referral now. Reports almost constant low back pain that radiate to bilateral lower extremities, no numbness or tingling. Has referral for physical therapy for back pain although was not seen yet, will follow-up on this. Reports taking amitriptyline p.r.n. for sleep. Asthma is stable. No shortness of breath or chest pain. Patient is a Cambodian-speaking and Romero was helping with interpretation. 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 How often do you have a drink containing alcohol?: Never Total Score: 0 Score Reviewed/Action Taken: No RUDI-7 AMB Questionnaire RUDI-7 Date RUDI - 7 assessed: 04/12/23 Source: Developed by Drs. Gary Luke, Sabina House, Jack Sprague and colleagues, with an educational sinan from [employer]. Review of Systems Const Denies body aches, Denies chills, Denies fever(s) and Denies headache(s) Eyes Denies change in vision ENT Denies dizziness, Denies otalgia, Denies headache(s), Denies nasal discharge, Denies sinus pain and Denies sore throat Card Denies chest pain, Denies edema, Denies lightheadedness and Denies dyspnea Resp Denies chest congestion, Denies cough and Denies dyspnea GI Denies abdominal pain Denies dysuria Musc Reports back pain, Denies myalgias, Denies arthralgias, Denies joint swelling, Denies numbness and Denies tingling Skin/Breast Denies lesions and Denies rash Neuro Denies dizziness, Denies headache(s), Denies numbness and Denies tingling Physical exam (Primary Care) Vital Signs: Last Vital Signs Pulse 97 06/13/23 08:36 BP 122/70 06/13/23 08:36 Pulse Ox 99 06/13/23 08:36 Oxygen Delivery Method Room Air 06/13/23 08:36 BMI result Body Mass Index 35.1 Tobacco/Smoking Status: Tobacco use Status Tobacco use date assessed 06/13/23 06/13/23 08:40 Patient Tobacco Use Status Former Tobacco user 06/13/23 08:40 Tobacco use type Cigarette 06/13/23 08:40 e-Cigarette/Vaping Use Never Used 06/13/23 08:40 Thrive Assessment: Date of Thrive Assessment Date Thrive assessed 04/12/23 06/13/23 08:40 Const Other: Ambulates with cane General: cooperative and no acute distress Orientation/consciousness: patient oriented x3 HENMT Head: Yes normocephalic and Yes atraumatic Face and sinus: Yes sinuses nontender Mouth: oropharynx normal and moist mucous membranes Throat: Yes posterior oropharynx normal Eyes General: appearance normal, both eyes and all related structures Neck Neck: Yes normal visual inspection, Yes full ROM and Yes no lymphadenopathy Resp Effort & Inspection: normal respiratory effort and able to speak in complete sentences Auscultation: clear to auscultation bilaterally, no crackles, no rales, no rhonchi and no wheezes Cardio Rate: regular rate Rhythm: regular rhythm Heart sounds: S1 normal heart sound present, S2 normal heart sound present and no murmurs GI Auscultation: normal bowel sounds Back/Spine/Pelvis Thoracic/Lumbar Spine: pain with thoraco-lumbar ROM, paraspinal muscle tenderness (Lumbar muscle aspect), No thoracic spinal tenderness and lumbar spinal tenderness Skin General skin exam: no rashes or lesions noted Neuro General: patient oriented x3 Gait exam (Neuro): Normal gait present Extrem General: Yes full ROM and No edema Office Procedures Flu Questionnaire Does the patient have a severe egg allergy?: No Does the patient have severe life threatening allergies?: No Does the patient have a fever or illness today?: No Has the patient ever had Guillain-Hereford Syndrome?: No Has the patient ever had any past reaction to a flu shot?: No Immunizations flu vacc [id number] 6mos up(PF) 60 mcg(15 mcgx4)/0.5 mL IM syringe Performing Provider: AYUSH Jackson [facility] Administered by: AYO Glez on 06/13/23 09:01 Dose Route Admin Location Dispensed Lot Number Expiration Date NDC Ivf Embryologist 0.5 mL IM Right Deltoid 0.5 mL [id number] 03/03/24 [id number] [employer] VIS Given Date VIS Provided VIS Publication Date 06/13/23 Single Vaccine 21 Eligibility Eligibility Date Funding Source Not [facility] Eligible 06/13/23 Private Assessment and Plan Assessment & Plan (1) Cirrhosis of liver without ascites: Code(s): K74.60 - Unspecified cirrhosis of liver Plan: Continue to follow-up with GI Dr. Garcia (2) Chronic low back pain: Code(s): M54.50 - Low back pain, unspecified; G89.29 - Other chronic pain Plan: Will follow-up on PT referral Pain management referral for an evaluation and treatment, patient reports history of back injections in the past Stop cyclobenzaprine Start baclofen 5 mg t.i.d. p.r.n.-educated about drowsiness Continue using lidocaine patches daily p.r.n. Patient also can try [id number] ibuprofen 400 mg every 8 hours as needed (3) Autoimmune hepatitis: Code(s): K75.4 - Autoimmune hepatitis Plan: Continue to follow-up with LUIS F Garcia (4) Sleeping difficulty: Code(s): G47.9 - Sleep disorder, unspecified Plan: Patient is on amitriptyline 10 mg at bedtime p.r.n. Sleep hygiene (5) Intermittent asthma: Code(s): J45.20 - Mild intermittent asthma, uncomplicated Plan: Stable Continue albuterol inhaler p.r.n. Plan Follow-up in 3 months for physical exam Orders: Orders Influenza [id number] Immunization Today Z23 - Encounter for immunization Referrals Pain Management Referral G89.29 - Other chronic pain, M54.50 - Low back pain, unspecified Medications: New baclofen 5 mg PO TID PRN 30 tabs 0RF muscle spasm G89.29 - Other chronic pain, M54.50 - Low back pain, unspecified Refilled amitriptyline 10 mg PO BEDTIME 30 tabs 0RF G47.9 - Sleep disorder, unspecified Discontinued cyclobenzaprine Discontinued Reason: Doctor's Order 5 mg PO TID PRN 30 tabs 0RF muscle spasm Coding Level of Care Code Est Pt Level 4 (42201) Diagnoses Cirrhosis of liver without ascites K74.60 Chronic low back pain M54.50; G89.29 Autoimmune hepatitis K75.4 Sleeping difficulty G47.9 Intermittent asthma J45.20
== END 2023-06-13 09:31 | disposition home or self-care (01) ==
PROVIDERS: PCP Nurse Practitioner Family; Visit Provider Nurse Practitioner Family
DX: K74.60 Unspecified cirrhosis of liver (principal); M54.50 Low back pain, unspecified; G89.29 Other chronic pain; K75.4 Autoimmune hepatitis; G47.9 Sleep disorder, unspecified; J45.20 Mild intermittent asthma, uncomplicated; Z23 Encounter for immunization
CPT/HCPCS: 90471; 90686; 99214

== ENCOUNTER 2023-06-20 21:02 | Inpatient (IN) | payer OTHER, SELFPAY ==
--- NOTE | 2023-06-20 | ECG_ITS ---
Test Reason : ABDOMINAL PAIN Blood Pressure : / mmHG Vent. Rate : 120 BPM Atrial Rate : 120 BPM P-R Int : 126 ms QRS Dur : 068 ms QT Int : 336 ms P-R-T Axes : 042 009 016 degrees QTc Int : 474 ms Poor data quality, interpretation may be adversely affected Sinus tachycardia Nonspecific T wave abnormality Minimal voltage criteria for LVH, may be normal variant ( R in aVL ) Borderline ECG When compared with ECG of 05-APR-2023 06:49, No significant change was found Referred By: Generic ED Physician Electronically Signed By:ANTONIO PENA MD
--- NOTE | ~2023-06-20 | US_ITS ---
EXAMINATION: US ABDOMEN LIMITED CLINICAL INFORMATION: Right upper quadrant pain. COMPARISON: CT abdomen 06/21/2023, ultrasound abdomen 04/05/2023 TECHNIQUE: Real-time imaging of the right upper quadrant abdominal viscera. FINDINGS: PANCREAS: The pancreas appears unremarkable, without masses or ductal dilatation, with the exception of the tail which is obscured by bowel gas. LIVER: The liver has a cirrhotic contour which is nodular and demonstrates heterogeneous echogenicity. No focal hepatic lesion. There is no intrahepatic biliary duct dilatation seen. GALLBLADDER: The gallbladder is distended with a thickened 6 mm wall which contains some fluid. Stones are present in the gallbladder with the question of a stone lodged in the cystic duct. There has been a similar appearance of the gallbladder on prior studies. Hsea's sign was negative, but the patient had been treated with pain medication. COMMON BILE DUCT: Normal in caliber measuring 0.5 cm in diameter. RIGHT KIDNEY: Normal. No hydronephrosis. No renal calculi or focal parenchymal lesions. The kidney measures 10.2 cm in maximum dimension. FREE FLUID: None. US/US abdomen limited IMPRESSION: 1. Cirrhotic appearing liver. 2. Abnormal gallbladder with gallstones and thickened wall containing fluid. Question of a stone lodged in the cystic duct. Although similar findings have been seen on prior studies, the correct clinical setting findings would be suspicious for cholecystitis. HIDA scan may be useful for further evaluation.
--- NOTE | ~2023-06-20 | CT_ITS ---
EXAMINATION: CT ABDOMEN AND PELVIS WITH CONTRAST CLINICAL INFORMATION: Abdominal pain, elevated lipase, elevated bilirubin COMPARISON: 04/05/2023 TECHNIQUE: Multidetector volumetric images were obtained from the superior aspect of the liver through the pubic symphysis following administration 85 mL of Omnipaque 350 intravenous contrast. Sagittal and coronal reformatted images were obtained on the technologist's workstation. Oral contrast: No This CT examination was performed using dose optimization techniques as appropriate, variously including the following: *Automated exposure control *Adjustment of mA and/or kV according to patient size (this includes techniques or standardized protocols for targeted exams where dose is matched to indication/reason for exam; i.e. extremities or head) *Use of iterative reconstruction technique DLP: 619 mGy-cm FINDINGS: LUNG BASES: Mild bibasilar atelectasis. LIVER, GALLBLADDER, AND BILIARY TREE: Nodular hepatic contour consistent with cirrhosis. No focal hepatic lesion or intrahepatic biliary ductal dilatation identified. Thick-walled appearance of the gallbladder, similar to prior containing multiple stones. PANCREAS: Mild stranding adjacent to the pancreas. SPLEEN: Borderline enlarged spleen. ADRENAL GLANDS: Unremarkable. KIDNEYS AND URETERS: Bilateral nephrograms are symmetric. No hydronephrosis or obstructing calculus identified. BLADDER: Unremarkable. GASTROINTESTINAL TRACT: No evidence of bowel obstruction or significant wall thickening. The appendix is unremarkable. No free fluid or free air is seen. ABDOMINAL WALL: No significant hernia is appreciated. LYMPH NODES: Normal. VASCULAR: Prominent varices adjacent to the distal esophagus, proximal stomach, and in the left upper quadrant with suspected spontaneous splenorenal shunt. Mild atherosclerotic calcification. PELVIC VISCERA: Prominent uterus with suggestion of underlying fibroids. OSSEOUS STRUCTURES: Degenerative change in the spine at L5-S1. CT/CT abdomen pelvis w IV con IMPRESSION: 1. Mild stranding adjacent to the pancreas, which could reflect pancreatitis in the proper clinical setting. 2. Thick-walled appearance of the gallbladder, similar to 04/05/2023. This could be secondary to chronic liver disease, though acute cholecystitis would be difficult to entirely exclude in the proper clinical setting. 3. Cirrhotic liver with sequela of portal hypertension including borderline splenomegaly and prominent varices. 4. Prominent uterus with suggestion of underlying fibroids, which could be further assessed with pelvic ultrasound.
[2023-06-20 21:02] VITALS: BP 129/90; PULSE 137; RESP 22; TEMP 37.1; O2SAT 95; BMI 33.2
[2023-06-20 21:47] VITALS: PULSE 118
[2023-06-20 22:12] LABS: MANUAL DIFF FLAG NO
[2023-06-20 22:17] LABS: Basophils Percent Auto 0.3 % (0-2); Eosinophils Percent Auto 0.3 % (0-4); Hematocrit 40.1 % (37.0-47.0); Hemoglobin 13.3 g/dl (12.0-16.0); Imm Gran Abs Auto 0.03 X10*3/uL (0.00-0.03); Imm Gran Pct Auto 0.4 % (0.0-0.4); Lymphocytes Absolute Auto 0.5 X10*3/uL (1.2-4.9); Lymphocytes Percent Auto 6.6 % (20-40); Mean Corpuscular HGB Conc 33.2 g/dl (31.0-35.0); Mean Corpuscular Hemoglobin 28.6 pg (27.0-33.0); Mean Corpuscular Volume 86.2 fL (80.0-98.0); Mean Platelet Volume 12.2 fL (9.4-12.3); Monocytes Absolute Auto 0.5 X10*3/uL (0.1-1.2); Neutrophils Absolute Auto 6.1 x10*3/uL (2.0-8.3); Neutrophils Percent Auto 85.4 % (45-73); Platelet Count 112 X10*3/uL (160-400); Red Blood Count 4.65 X10*6/uL (4.20-5.50); Red Cell Distribution Width 14.4 % (11.0-16.0); White Blood Count 7.2 X10*3/uL (4.8-10.8)
[2023-06-20 22:36] LABS: Alanine Aminotransferase 140 U/L (0-31); Alkaline Phosphatase 176 U/L (39-117); Anion Gap 12 (12-20); Aspartate Amino Transferase 269 U/L (5-31); Bilirubin Direct 2.3 mg/dL (0.0-0.5); Bilirubin Total 3.9 mg/dL (0.0-1.0); Blood Urea Nitrogen 7 mg/dL (9-16); Calcium 9.3 mg/dL (8.4-10.2); Carbon Dioxide 23 mmol/L (22-29); Chloride 109 mmol/L (96-108); Creatinine Clr Calc Pharmacy 97.7; Estimated Glomerular Filt Rate > 60; Glucose Random 134 mg/dL (60-115); Potassium 3.7 mmol/L (3.3-5.1); Sodium 140 mmol/L (135-145); Total Protein 8.6 g/dL (6.5-8.0)
[2023-06-20 22:46] LABS: Lipase > 3000 U/L (8-78)
[2023-06-21] VITALS (8 sets, daily range): BP systolic 123–143; BP diastolic 61–89; PULSE 62–114; RESP 14–24; TEMP 36.5–37; O2SAT 90–98
--- NOTE | 2023-06-21 00:15 | ED_ITS ---
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 No fevers no diarrhea. Has had this before. MD elicited complaint: abdominal pain Pertinent past history: other (gallstone pancreatitis) Onset (ago): day(s) (1) Pain Consistency: constant Location: RUQ Severity: severe Quality: stabbing Radiation: epigastric Migration to: no migration Exacerbating factors: eating and movement Relieving factors: nothing Context: history of similar episodes Associated symptoms: nausea, vomiting and chills Related Data Home Medications Medication Instructions Recorded Confirmed omeprazole 20 mg capsule,delayed 20 mg PO DAILY 09/17/21 06/13/23 release Previous Rx's Medication Instructions Recorded albuterol sulfate 90 mcg/actuation 2 puff inhalation Q6H PRN for 11/08/21 aerosol inhaler wheezing #8.5 ea nystatin 100,000 unit/gram topical 1 appl topical TID #60 grams 04/12/23 powder miscellaneous medical supply 1 ea miscellaneous BID 30 days #60 05/18/23 ea azathioprine 50 mg tablet 100 mg (2 x 50 mg) PO DAILY 90 06/08/23 days #180 tabs prednisone 20 mg tablet 40 mg (2 x 20 mg) PO DAILY 4 weeks 06/08/23 #56 tabs amitriptyline 10 mg tablet 10 mg PO BEDTIME #30 tabs 06/13/23 baclofen 5 mg tablet 5 mg PO TID PRN muscle spasm #30 06/13/23 tabs Allergies Allergy/AdvReac Type Severity Reaction Status Date / Time trazadone AdvReac Mild Abdominal Uncoded 06/13/23 08:43 Pain Review of Systems Review of Systems Constitutional : No Weight loss, No Fever, No Chills ENT/Mouth : No sore throat, No Rhinorrhea Eyes: No Swelling, No Redness Cardiovascular : No Chest Pain, No SOB, NoEdema Respiratory : No Cough, No Sputum, No Wheezing Gastrointestinal : Positive Nausea, Positive Vomiting, no Diarrhea, positive abdominal Pain, No Hematochezia, No Melena Genitourinary : No Dysuria, No Urinary Frequency, No Hematuria, No Urgency Musculoskeletal : No joint pain, No Myalgias, No Joint Swelling Skin : No Skin Lesions, No rash Neuro : No Weakness, No Numbness, No Dizziness, No Headache Psych : No Anxiety/Panic, No Depression Heme/Lymph: No Bruising, No Lymphadenopathy Endocrine : No Polyuria, No Polydipsia All other systems reviewed and are negative. 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) Alcohol intake: never Patient Tobacco Use Status: Former Tobacco user Quit Date: 13 years Tobacco use type: Cigarette Smoked in Last 30 Days: No e-Cigarette/Vaping Use: Never Used Use of substances other than those prescribed or required for medical reasons: No Advance Directives: No Advance Directives Information Provided: No service: No Current occupational status: disabled Current occupational exposures/hazards: No Cognitive needs: No Hearing needs: No Vision needs: Yes Physical Exam ED Vital Signs: Vital Signs - 24 hr 06/20/23 21:02 06/20/23 21:47 06/21/23 00:07 Temperature 98.7 F 97.9 F Pulse Rate 137 H 118 H 114 H Respiratory Rate 22 H 17 Blood Pressure 129/90 H 132/89 Pulse Oximetry 95 95 Oxygen Delivery Method Room Air Room Air 06/21/23 00:47 Temperature 98.6 F Pulse Rate 110 H Respiratory Rate 16 Blood Pressure 139/85 Pulse Oximetry 95 Oxygen Delivery Method Room Air BMI result Body Mass Index 33.2 Appearance: Alert. Oriented X3. No acute distress. Eyes: Pupils equal, round and reactive to light. scleral icterus ENT: Pharynx normal. Neck: Normal inspection. Neck supple. CVS: Normal heart rate and rhythm. Pulses normal. Respiratory: No respiratory distress. Breath sounds normal. Abdomen: Soft and moderate RUQ pain no rebound but very tender, slight distention Skin: Skin warm and dry. Normal skin color. Normal skin turgor. Extremities: No lower extremity edema. No calf ttp Neuro: Oriented X 3. No motor deficit. No sensory deficit. Medical Decision Making Medical Decision Making [facility] Narrative: 57 yo female with PMH of cirrhosis, autoimmune hepatitis, anxiety/depression, admission in april for gallstone pancreatitis treatment here with RUQ pain at this time labs, IVF< cultures, CT scan, IV empiric ceftriaxone, IV dilaudid for pain. Anticipate admission. Differential Diagnosis Differential Diagnoses: The differential diagnosis associated with the presentation includes pancreatitis, gallstone pancreatitis Admission/Observation Consideration of admission/observation: Escalation of care including admission/observation considered admit Consult Healthcare Provider Management of the patient was discussed with: Hospitalist (agrees to admit) and Clinical Studies Specialist Lab Data [facility] Lab Attestation statement: I reviewed the patient's lab results. 06/20/23 21:59 06/20/23 21:59 Labs: Lab Results 06/20/23 06/21/23 Range/Units 21:59 00:22 WBC 7.2 (4.8-10.8) X10*3/uL RBC 4.65 (4.20-5.50) X10*6/uL Hgb 13.3 (12.0-16.0) g/dl Hct 40.1 (37.0-47.0) % MCV 86.2 (80.0-98.0) fL MCH 28.6 (27.0-33.0) pg MCHC 33.2 (31.0-35.0) g/dl RDW 14.4 (11.0-16.0) % Plt Count 112 L D (160-400) X10*3/uL MPV 12.2 (9.4-12.3) fL Immature Gran % (Auto) 0.4 (0.0-0.4) % Neut % (Auto) 85.4 H (45-73) % Lymph % (Auto) 6.6 L (20-40) % [place] % (Auto) 7.0 (2-11) % Eos % (Auto) 0.3 (0-4) % Baso % (Auto) 0.3 (0-2) % Lymph # (Auto) 0.5 L (1.2-4.9) X10*3/uL [place] # (Auto) 0.5 (0.1-1.2) X10*3/uL Eos # (Auto) 0.0 (0.0-0.4) X10*3/uL Baso # (Auto) 0.0 (0.0-0.2) X10*3/uL Abs Immat Gran (auto) 0.03 (0.00-0.03) X10*3/uL Absolute Neuts (auto) 6.1 (2.0-8.3) x10*3/uL Absolute Nucleated RBC 0.000 (0.0-0.012) X10*3/uL Nucleated RBC % (auto) 0.0 (0.0-0.2) /100WBC PT 15.0 H (11.1-13.3) SEC INR 1.2 H (0.9-1.1) Sodium 140 (135-145) mmol/L Potassium 3.7 (3.3-5.1) mmol/L Chloride 109 H (96-108) mmol/L Carbon Dioxide 23 (22-29) mmol/L Anion Gap 12 (12-20) BUN 7 L (9-16) mg/dL Creatinine 0.59 (0.5-1.4) mg/dL Estim Creat Clear Calc 97.7 Estimated GFR > 60 Random Glucose 134 H (60-115) mg/dL Lactic Acid 1.1 (0.5-2.0) mmol/L Calcium 9.3 (8.4-10.2) mg/dL Magnesium 1.8 (1.6-2.6) mg/dL Total Bilirubin 3.9 H (0.0-1.0) mg/dL Direct Bilirubin 2.3 H (0.0-0.5) mg/dL AST 269 H (5-31) U/L ALT 140 H (0-31) U/L Alkaline Phosphatase 176 H (39-117) U/L Ammonia 57 H (13-55) umol/L Lactate Dehydrogenase 428 H (122-220) U/L Total Protein 8.6 H (6.5-8.0) g/dL Albumin 3.0 L (3.5-5.0) g/dL Lipase > 3000 H (8-78) U/L Independent Interpretation I performed an independent interpretation of an: CT Scan (pancreatitis) Radiology Impression Discussion of test interpretation with radiology: I have reviewed the radiologist's reading. External Record Review External record reviewed: Inpatient record Medications Administered Discontinued Medications Generic Name Dose Route Start Last Admin Trade Name Freq PRN Reason Stop Dose Admin Hydromorphone HCl 0.5 mg 06/21/23 00:10 06/21/23 00:48 Hydromorphone Hcl 0.5 Mg/0.5 Ml Syringe IVPUSH 06/21/23 00:11 0.5 mg ONCE ONE Administration Protocol Sodium Chloride 1,000 mls @ 999 mls/hr 06/21/23 00:15 06/21/23 00:49 Ns IVCONT 06/21/23 01:15 999 mls/hr .Q1H1M HAFSA Administration Ceftriaxone Sodium 2 gm/ 50 mls @ 100 mls/hr 06/21/23 00:32 06/21/23 00:58 Sodium Chloride IV 06/21/23 01:01 100 mls/hr ONCE ONE Administration Iohexol 85 ml 06/21/23 00:40 06/21/23 00:42 Iohexol 350 Mg/Ml 100 Ml Infus..Btl IV 06/21/23 00:41 85 ml ONCE ONE Administration Discharge Plan Discharge Clinical Impression: Elevated liver enzymes Acute pancreatitis Qualifiers: Pancreatitis type: unspecified pancreatitis type Acute pancreatitis complication: unspecified Qualified Code(s): K85.90 - Acute pancreatitis without necrosis or infection, unspecified Abdominal pain Qualifiers: Abdominal location: epigastric Qualified Code(s): R10.13 - Epigastric pain Patient Disposition: Admitted As Inpatient Prescriptions: No Action albuterol sulfate 90 mcg/actuation HFA aerosol inhaler 2 puff inhalation Q6H PRN (Reason: for wheezing) Qty: 8.5 1RF miscellaneous medical supply Misc 1 ea miscellaneous BID 30 Days Qty: 60 11RF Rx Instructions: disposable bed pad prednisone 20 mg tablet 40 mg PO DAILY 28 Days Qty: 56 0RF azathioprine 50 mg tablet 100 mg PO DAILY 90 Days Qty: 180 0RF omeprazole 20 mg capsule,delayed release(DR/EC) 20 mg PO DAILY nystatin 100,000 unit/gram powder 1 appl topical TID Qty: 60 1RF baclofen 5 mg tablet 5 mg PO TID PRN (Reason: muscle spasm) Qty: 30 0RF amitriptyline 10 mg tablet 10 mg PO BEDTIME Qty: 30 0RF
--- NOTE | 2023-06-21 00:20 | PC.NURSE ---
pt a&ox4. respirations even and unlabored. pt reports waking up this morning with right upper quadrants pain. pt reports 3 episodes of vomiting. denies diarrhea. pt reports hx of gallstones that she states feels similar to the pain. pt reports normal bowel movements and normal urination. pt abdomen soft but tender to touch in the right upper quadrant, hypoactive bowel sounds noted in all 4 quadrants. pt normal sinus on tele 86-90.
[2023-06-21 00:32] LABS: Lactate Dehydrogenase 428 U/L (122-220); Magnesium 1.8 mg/dL (1.6-2.6)
[2023-06-21] MEDS: iohexoL 350 MG/ML 100 ML INFUS..BTL 85 ML IV (00:42)
[2023-06-21 00:44] LABS: INTERNATIONAL NORM RATIO 1.2 (0.9-1.1); Lactic Acid 1.1 mmol/L (0.5-2.0)
[2023-06-21] MEDS: HYDROmorphone HCl 0.5 MG/0.5 ML SYRINGE IVPUSH (00:48)
[2023-06-21] MEDS: 0.9 % Sodium Chloride 1,000 ML 999 ML IVCONT (00:49)
[2023-06-21 00:56] LABS: Ammonia 57 umol/L (13-55)
[2023-06-21] MEDS: cefTRIAXone sodium 2 GM in 0.9 % Sodium Chloride 50 ML IV (00:58)
--- NOTE | 2023-06-21 01:07 | MHC.EDTECH ---
This tech assumed care of this pt upon arrival. pt changed into hospital gown and hospital sock. blood cultures and lactic sent to lab
--- NOTE | 2023-06-21 01:19 | PM.IMHP ---
History of Present Illness Date of Service: 06/21/23 Chief Complaint: Abdominal pain this is a 57-year-old female with pertinent history of autoimmune hepatitis, mood disorder, gastroesophageal reflux disease, cirrhosis of liver who presents to the emergency department for evaluation of abdominal discomfort. Patient states it started on the day of presentation. It is located in the right upper quadrant region, nonradiating, progressive and without any relieving factors. It is associated with nausea and vomiting. Patient denies fever or chills. No chest discomfort, palpitations, shortness of breath, changes in urinary or bowel habits. Of note, patient was recently admitted with acute gallstone pancreatitis and discharged on 04/07. Patient was deemed high risk for surgery during previous hospitalization and as she was stable and tolerating diet, she was discharged to follow-up surgery as an outpatient in the emergency department, imaging concerning for acute pancreatitis and lipase found to be elevated Review of Systems Constitutional: Constitutional: Reports no additional constitutional complaints Cardiovascular: Cardiovascular: Reports no additional cardiovascular complaints Respiratory: Respiratory: Reports no additional respiratory complaints Gastrointestinal: Gastrointestinal: Reports abdominal pain, Reports nausea and Reports vomiting Genitourinary: Genitourinary: Reports no additional female genitourinary complaints [facility] Medical History Cirrhosis of liver without ascites Jaundice Autoimmune hepatitis Anxiety and depression Chronic low back pain GERD (gastroesophageal reflux disease) Asthma Family History Mother Lung cancer Surgical History Hx of tubal ligation Social History Household Members: None Housing: Apartment Do you presently have visiting nurse or other home services: Yes ([employer]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) Alcohol intake: never Patient Tobacco Use Status: Former Tobacco user Quit Date: 13 years Tobacco use type: Cigarette Smoked in Last 30 Days: No e-Cigarette/Vaping Use: Never Used Use of substances other than those prescribed or required for medical reasons: No Advance Directives: No Advance Directives Information Provided: No service: No Current occupational status: disabled Current occupational exposures/hazards: No Cognitive needs: No Hearing needs: No Vision needs: Yes Meds Allergies Allergy/AdvReac Type Severity Reaction Status Date / Time trazadone AdvReac Mild Abdominal Uncoded 06/13/23 08:43 Pain Home Medications Medication Instructions Recorded Confirmed Last Taken Type omeprazole 20 mg capsule,delayed 20 mg PO DAILY 09/17/21 06/21/23 03/26/23 History release Physical Exam Vital Signs and Narrative: Vital Signs: Last Vital Signs Temp 98.6 F 06/21/23 00:47 Pulse 110 H 06/21/23 00:47 Resp 16 06/21/23 00:47 BP 139/85 06/21/23 00:47 Pulse Ox 95 06/21/23 00:47 O2 Del Method Room Air 06/21/23 00:47 BMI result Body Mass Index 33.2 Middle-aged female lying in bed in no distress Neck supple, no JVD Regular rate and rhythm, S1-S2 heard Regular breath sounds bilaterally, no wheezing or crackles appreciated Abdomen with right upper quadrant tenderness, no guarding, no rigidity, no rebound tenderness Patient is awake, alert and oriented to self, place, time and person ; no focal motor deficit Psych: Normal mood No pedal edema Results Labs 06/20/23 21:59 06/20/23 21:59 Labs: Laboratory Results - last 24 hr 06/20/23 06/21/23 21:59 00:22 MCV 86.2 MCH 28.6 MCHC 33.2 RDW 14.4 Plt Count 112 L D MPV 12.2 Immature Gran % (Auto) 0.4 Neut % (Auto) 85.4 H Lymph % (Auto) 6.6 L [place] % (Auto) 7.0 Eos % (Auto) 0.3 Baso % (Auto) 0.3 Lymph # (Auto) 0.5 L [place] # (Auto) 0.5 Eos # (Auto) 0.0 Baso # (Auto) 0.0 Abs Immat Gran (auto) 0.03 Absolute Neuts (auto) 6.1 Absolute Nucleated RBC 0.000 Nucleated RBC % (auto) 0.0 PT 15.0 H INR 1.2 H Anion Gap 12 Estim Creat Clear Calc 97.7 Estimated GFR > 60 Random Glucose 134 H Lactic Acid 1.1 Calcium 9.3 Magnesium 1.8 Total Bilirubin 3.9 H Direct Bilirubin 2.3 H AST 269 H ALT 140 H Alkaline Phosphatase 176 H Ammonia 57 H Lactate Dehydrogenase 428 H Total Protein 8.6 H Albumin 3.0 L Lipase > 3000 H Imaging Radiologist's Impressions: Impressions Abdomen/Pelvis CT 06/21/23 00:35 IMPRESSION: 1. Mild stranding adjacent to the pancreas, which could reflect pancreatitis in the proper clinical setting. 2. Thick-walled appearance of the gallbladder, similar to 04/05/2023. This could be secondary to chronic liver disease, though acute cholecystitis would be difficult to entirely exclude in the proper clinical setting. 3. Cirrhotic liver with sequela of portal hypertension including borderline splenomegaly and prominent varices. 4. Prominent uterus with suggestion of underlying fibroids, which could be further assessed with pelvic ultrasound. Assessment and Plan (1) Acute pancreatitis: Qualifiers: Acute pancreatitis complication: unspecified Pancreatitis type: unspecified pancreatitis type Qualified Code(s): K85.90 - Acute pancreatitis without necrosis or infection, unspecified Status: Acute (2) Elevated liver enzymes: Status: Acute Plan this is a 57-year-old female with pertinent history of autoimmune hepatitis, mood disorder, gastroesophageal reflux disease, cirrhosis of liver who presents to the emergency department for evaluation of abdominal discomfort. #. acute (?gallstone) pancreatitis #. elevated LFTs - will admit patient and continue IV crystalloid resuscitation. NPO for bowel rest. Will obtain ultrasound of the abdomen to closely look at the gallbladder and rule out cholecystitis. Initiating empiric IV antibiotics. Gastroenterology consulted, appreciate assistance. May need MRCP +/- general surgery consult based on ultrasound results #. autoimmune hepatitis: On azathioprine #. cirrhosis due to autoimmune hepatitis plus RAMIREZ #. mood disorder: Continue home mood stabilizers Med rec pending DVT prophylaxis: Mechanical until surgical evaluation Admit as inpatient and will require two night minimum hospital stay for IV antibiotics and IV crystalloid resuscitation Time Spent With Patient Time: Total time managing care of this patient today ____ minutes. Quality Stroke Does the patient have a stroke diagnosis?: No VTE Prior VTE?: No VTE Risk Level:: Medical - moderate - high VTE Device Contraindication: N/A - Device Ordered VTE Drug Contraindication: Treatment Not Indicated
[2023-06-21] MEDS: Piperacillin Sodium/Tazobactam 4.5 GM in 0.9 % Sodium Chloride 100 ML IV ×4 (01:54→18:50)
[2023-06-21] MEDS: Lactated Ringers 1,000 ML 100 ML IVCONT ×2 (02:21→14:22)
[2023-06-21 02:44] LABS: Procalcitonin 0.08 ng/mL
--- NOTE | 2023-06-21 02:56 | PC.NURSE ---
this rn informed pt that they are NPO. maintenance IV fluids running at this time.
[2023-06-21] MEDS: Morphine Sulfate 4 MG/ML CARTRIDGE IVPUSH ×4 (05:03→22:25)
--- NOTE | 2023-06-21 05:08 | PC.NURSE ---
pt reporting 10/10 abdominal pain, pt medicated per mar at this time.
[2023-06-21 06:09] LABS: Basophils Percent Auto 0.2 % (0-2); Hematocrit 36.4 % (37.0-47.0); Hemoglobin 12.1 g/dl (12.0-16.0); Imm Gran Abs Auto 0.04 X10*3/uL (0.00-0.03); Imm Gran Pct Auto 0.6 % (0.0-0.4); Lymphocytes Absolute Auto 0.7 X10*3/uL (1.2-4.9); Lymphocytes Percent Auto 11.1 % (20-40); MANUAL DIFF FLAG NO; Mean Corpuscular HGB Conc 33.2 g/dl (31.0-35.0); Mean Corpuscular Hemoglobin 28.9 pg (27.0-33.0); Mean Corpuscular Volume 86.9 fL (80.0-98.0); Monocytes Absolute Auto 0.2 X10*3/uL (0.1-1.2); Monocytes Percent Auto 2.4 % (2-11); Neutrophils Absolute Auto 5.4 x10*3/uL (2.0-8.3); Neutrophils Percent Auto 85.7 % (45-73); Red Blood Count 4.19 X10*6/uL (4.20-5.50); Red Cell Distribution Width 14.5 % (11.0-16.0); White Blood Count 6.2 X10*3/uL (4.8-10.8)
[2023-06-21 06:28] LABS: Platelet Count 89 X10*3/uL (160-400)
[2023-06-21 06:37] LABS: Alanine Aminotransferase 114 U/L (0-31); Albumin Level 2.6 g/dL (3.5-5.0); Alkaline Phosphatase 136 U/L (39-117); Anion Gap 9 (12-20); Aspartate Amino Transferase 208 U/L (5-31); Bilirubin Total 1.9 mg/dL (0.0-1.0); Blood Urea Nitrogen 7 mg/dL (9-16); Calcium 8.1 mg/dL (8.4-10.2); Carbon Dioxide 21 mmol/L (22-29); Chloride 112 mmol/L (96-108); Creatinine Clr Calc Pharmacy 99.4; Estimated Glomerular Filt Rate > 60; Glucose Random 156 mg/dL (60-115); Potassium 3.7 mmol/L (3.3-5.1); Sodium 138 mmol/L (135-145); Total Protein 7.4 g/dL (6.5-8.0)
[2023-06-21 06:48] LABS: Lipase 2716 U/L (8-78)
--- NOTE | 2023-06-21 07:29 | PC.NURSE ---
patient resting in bed, sonography in room with patient. morning ABX started, patient appears to be in no distress. respirations equal and unlabored
--- NOTE | 2023-06-21 08:05 | PHA.MEDREC ---
Pharmacy Consult ? Medication Reconciliation Pharmacy has completed the medication reconciliation. PHARMACY HAS REVIEWED MED REC DONE BY NURSING
--- NOTE | 2023-06-21 11:29 | MHC.CM.PN ---
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
--- NOTE | 2023-06-21 11:34 | PM.EVENT ---
Event Note Date of Service: 06/21/23 Event Note: Seen / examined, here with recurrent gallstone pancreatitis, known cirrhosis. She has been followed by Dr. Susan Moran at [facility] and is planned to have CCY in the near future. Awaiting for a call back from her to see if pt is to be transfered there for surgery. O/w A/P per H and P from this morning. Time Spent With Patient Time: Total time managing care of this patient today ____ minutes.
--- NOTE | 2023-06-21 13:30 | PC.NURSE ---
patient LR delayed due to 1st bag of LR running late. patient receiving iv abx, not compatible with LR infusion
--- NOTE | 2023-06-21 16:03 | PC.NURSE ---
patient ambulates with steady gait to bathroom, LR running per NOV. patient medicated for pain with prn morphine per nov.
[2023-06-21 16:30] LABS: Appearance Urine Clear; Color Urine Dark Yellow; Glucose Urine UA Negative (Negative); Leukocyte Esterase Urine Negative (Negative); Nitrite Urine Negative (Negative); PH 5.5 (5.0-9.0); Specific Gravity - Urine >= 1.030 (1.005-1.025); UMIC TRIGGER UACC YES; Urine Blood Trace (Negative); Urine Ketones Negative (Negative); Urine Protein Negative (Neg-Trace)
[2023-06-21 16:38] LABS: Bacteria Urine None Seen (None Seen); Hyaline Casts Urine 0-2 /LPF (0-2); WBC Urine 0-5 /HPF (0-5)
--- NOTE | 2023-06-21 20:40 | PC.NURSE ---
Ok for pt to have ice chips per Dr. Veloz
[2023-06-21] MEDS: Amitriptyline HCl 10 MG TABLET PO (20:41)
[2023-06-21] MEDS: Albuterol Sulfate 90 MCG 8 GM INHALER 2 PUFF INHALE (20:45)
[2023-06-22] MEDS: Lactated Ringers 1,000 ML 100 ML IVCONT ×3 (01:22→20:27)
[2023-06-22] MEDS: Piperacillin Sodium/Tazobactam 4.5 GM in 0.9 % Sodium Chloride 100 ML IV ×4 (01:22→19:46)
[2023-06-22] MEDS: Omeprazole 20 MG CAPSULE.DR PO (06:01)
[2023-06-22 07:51] VITALS: BP 124/69; PULSE 113; RESP 20; TEMP 37.1; O2SAT 96
[2023-06-22] MEDS: predniSONE 20 MG TABLET 40 MG PO (08:13)
[2023-06-22] MEDS: azaTHIOprine 50 MG TABLET 100 MG PO (08:13)
[2023-06-22] MEDS: Morphine Sulfate 4 MG/ML CARTRIDGE IVPUSH ×3 (08:19→19:58)
--- NOTE | 2023-06-22 08:23 | HO.PM.IMPN ---
Subjective Subjective Date of Service: 06/22/23 Interval History: f/u acute pancreatitis interval history: 02/11 pain Physical Exam Vital Signs: Vital Signs: Last Vital Signs Temp 98.8 F 06/22/23 07:51 Pulse 113 H 06/22/23 07:51 Resp 20 06/22/23 07:51 BP 124/69 06/22/23 07:51 Pulse Ox 96 06/22/23 07:51 O2 Del Method Room Air 06/22/23 07:51 BMI result Body Mass Index 33.2 Const: Other: General: AO X 3, no acute distress Resp: CTA bilateral CVS: S1,S2,RRR GI: +BS,mild epig tenderness, no distention Skin: No rash Neuro: motor grossly intact Psych: appropriate affect Objective Data Active Medications Albuterol Sulfate (Albuterol Sulfate 90 Mcg 8 Gm Inhaler) 2 puff INHALE Q6H PRN PRN Reason: for wheezing Last Admin: 06/21/23 20:45 Dose: 2 puff Documented By: GALE Amitriptyline HCl (Amitriptyline Hcl 10 Mg Tablet) 10 mg PO BEDTIME [facility] Last Admin: 06/21/23 20:41 Dose: 10 mg Documented By: MARCELL Azathioprine (Azathioprine 50 Mg Tablet) 100 mg PO DAILY [facility] Baclofen (Baclofen 10 Mg Tablet) 5 mg PO TID PRN PRN Reason: muscle spasm Piperacillin Sod/Tazobactam (Sod 4.5 gm/ Sodium Chloride) 100 mls @ 200 mls/hr IV Q6H [facility] Last Infusion: 06/22/23 01:53 Dose: Infused Documented By: GORGE Lactated Ringer's (Lr) 1,000 mls @ 100 mls/hr IVCONT .Q10H [facility] Last Infusion: 06/22/23 01:53 Dose: 100 mls/hr Documented By: GORGE Morphine Sulfate (Morphine Sulfate 4 Mg/Ml Cartridge) 4 mg IVPUSH Q4H PRN; Protocol PRN Reason: Pain, Severe (Pain Scale 7-10) Last Admin: 06/21/23 22:25 Dose: 4 mg Documented By: MARCELL Nystatin (Nystatin Powder 15 Gm Bottle) 1 appl TOPICAL TID [facility]; Protocol Last Admin: 06/21/23 20:41 Dose: Not Given Documented By: MARCELL Non-Admin Reason: not available pharmacy notified Omeprazole (Omeprazole 20 Mg ) 20 mg PO DAILY@0630 [facility] Last Admin: 06/22/23 06:01 Dose: 20 mg Documented By: GORGE Prednisone (Prednisone 20 Mg Tablet) 40 mg PO DAILY [facility] Sodium Chloride (0.9 % Sodium Chloride Flush 3 Ml Syringe) 3 ml IVFLUSH QSHIFT [facility] Last Admin: 06/22/23 00:06 Dose: Not Given Documented By: GORGE Non-Admin Reason: IV Running Labs 06/21/23 05:04 06/21/23 05:04 Labs: Laboratory Results - last 24 hr 06/21/23 16:10 Urine Color Dark Yellow Urine Appearance Clear Urine pH 5.5 Ur Specific [place] >= 1.030 H Urine Protein Negative Urine Glucose (UA) Negative Urine Ketones Negative Urine Blood Trace H Urine Nitrite Negative Ur Leukocyte Esterase Negative Urine RBC 3-5 H Urine WBC 0-5 Ur Squamous Epith Cells 3-5 Urine Bacteria None Seen Hyaline Casts 0-2 Microbiology Microbiology Results: Microbiology 06/21/23 00:55 Blood Culture - Preliminary Blood - Venous No growth after 24 hours. 06/21/23 00:22 Blood Culture - Preliminary Blood - Venous No growth after 24 hours. Assessment and Plan (1) Acute pancreatitis: Status: Acute (2) Elevated liver enzymes: Status: Acute Plan this is a 57-year-old female with pertinent history of autoimmune hepatitis, mood disorder, gastroesophageal reflux disease, cirrhosis of liver who presents to the emergency department for evaluation of abdominal discomfort and found to have acute pancreatitis recurrent acute (?gallstone) pancreatitis in setting of automimmune hepatitis -conservative management with pain control, hydration. -she sees Dr. Susan Moran (Surgoen) at [facility] who is planing to take out gallbladder once she recovers and steroid has been tappered down -IVF and advance diet as lisa -repeat LFTS, Lipase Cirrhosis/elevated LFTs d/t to automimmune hepatitis. Continue Prednisone, and Azathioprine mood disorder: Continue home mood stabilizers Med rec pending DVT prophylaxis: Mechanical until surgical evaluation Admit as inpatient and will require two night minimum hospital stay for IV antibiotics and IV crystalloid resuscitation Time Spent With Patient Time: Total time managing care of this patient today ____ minutes. Quality Stroke Does the patient have a stroke diagnosis?: No VTE Prior VTE?: No VTE Risk Level:: Medical - moderate - high VTE Device Contraindication: N/A - Device Ordered VTE Drug Contraindication: Treatment Not Indicated
[2023-06-22 09:46] LABS: Alanine Aminotransferase 103 U/L (0-31); Albumin Level 2.4 g/dL (3.5-5.0); Alkaline Phosphatase 101 U/L (39-117); Aspartate Amino Transferase 196 U/L (5-31); Bilirubin Direct 1.3 mg/dL (0.0-0.5); Bilirubin Total 2.3 mg/dL (0.0-1.0); Lipase 57 U/L (8-78)
--- NOTE | 2023-06-22 14:15 | PM.CNGS ---
History of Present Illness Consult details Consult date: 06/22/23 Narrative: 57F here in the hospital for acute pancreatitis. She is known to me as I had seen her last April 2023 for her gallstones. In view of her history, I had sent her for opinion in [facility]. she is being followed there by a surgeon and she was recommended to have good control of her autoimmune hepatitis that she be off of steroids prior to proceeding with cholecystectomy. She says she is supposed to see her surgeon again this July to be re-evaluated. Her, she was admitted for acute pancreatitis so as been asked to see her. Currently she denies significant pain and states that this has improved significantly. She has able to tolerate full liquids at this time. Review of Systems Constitutional: Constitutional: Denies chills and Denies fever(s) Cardiovascular: Cardiovascular: Denies chest pain, Denies dyspnea and Denies dyspnea on exertion Respiratory: Respiratory: Denies cough, Denies dyspnea and Denies dyspnea on exertion Gastrointestinal: Gastrointestinal: Denies hematochezia and Denies change in bowel habits Genitourinary: Genitourinary: Denies hematuria Musculoskeletal: Musculoskeletal: Denies back pain and Denies limited range of motion Neurologic: Denies focal weakness and Denies convulsions Psychiatric: Psychiatric: Denies depression and Denies mood swings PMFSH Past Medical History Medical History Cirrhosis of liver without ascites Jaundice Autoimmune hepatitis Anxiety and depression Chronic low back pain GERD (gastroesophageal reflux disease) Asthma Family History Family History Mother Lung cancer Surgical History Surgical History Hx of tubal ligation Social History Social History Household Members: None Housing: Apartment Do you presently have visiting nurse or other home services: Yes Alcohol intake: never Patient Tobacco Use Status: Former Tobacco user Quit Date: 2009 Tobacco use type: Cigarette e-Cigarette/Vaping Use: Never Used service: No Current occupational status: disabled Current occupational exposures/hazards: No Cognitive needs: No Hearing needs: No Vision needs: Yes Meds Allergies Allergy/AdvReac Type Severity Reaction Status Date / Time trazadone AdvReac Mild Abdominal Uncoded 06/13/23 08:43 Pain Active Medications: Current Medications Albuterol Sulfate (Albuterol Sulfate 90 Mcg 8 Gm Inhaler) 2 puff INHALE Q6H PRN PRN Reason: for wheezing Last Admin: 06/21/23 20:45 Dose: 2 puff Amitriptyline HCl (Amitriptyline Hcl 10 Mg Tablet) 10 mg PO BEDTIME [facility] Last Admin: 06/21/23 20:41 Dose: 10 mg Azathioprine (Azathioprine 50 Mg Tablet) 100 mg PO DAILY [facility] Last Admin: 06/22/23 08:13 Dose: 100 mg Baclofen (Baclofen 10 Mg Tablet) 5 mg PO TID PRN PRN Reason: muscle spasm Piperacillin Sod/Tazobactam (Sod 4.5 gm/ Sodium Chloride) 100 mls @ 200 mls/hr IV Q6H [facility] Last Admin: 06/22/23 14:01 Dose: 200 mls/hr Lactated Ringer's (Lr) 1,000 mls @ 100 mls/hr IVCONT .Q10H [facility] Last Admin: 06/22/23 11:19 Dose: 100 mls/hr Morphine Sulfate (Morphine Sulfate 4 Mg/Ml Cartridge) 4 mg IVPUSH Q4H PRN; Protocol PRN Reason: Pain, Severe (Pain Scale 7-10) Last Admin: 06/22/23 08:19 Dose: 4 mg Nystatin (Nystatin Powder 15 Gm Bottle) 1 appl TOPICAL TID [facility]; Protocol Last Admin: 06/22/23 14:02 Dose: Not Given Omeprazole (Omeprazole 20 Mg Capsule.) 20 mg PO DAILY@0630 [facility] Last Admin: 06/22/23 06:01 Dose: 20 mg Prednisone (Prednisone 20 Mg Tablet) 40 mg PO DAILY [facility] Last Admin: 06/22/23 08:13 Dose: 40 mg Sodium Chloride (0.9 % Sodium Chloride Flush 3 Ml Syringe) 3 ml IVFLUSH QSHIFT [facility] Last Admin: 06/22/23 09:22 Dose: Not Given Home Medications Medication Instructions Recorded Confirmed Last Taken Type omeprazole 20 mg capsule,delayed 20 mg PO DAILY 09/17/21 06/21/23 03/26/23 History release Physical Exam Vital Signs: Vital Signs: Last Vital Signs Temp 98.8 F 06/22/23 07:51 Pulse 113 H 06/22/23 07:51 Resp 20 06/22/23 07:51 BP 124/69 06/22/23 07:51 Pulse Ox 96 06/22/23 07:51 O2 Del Method Room Air 06/22/23 07:51 BMI result Body Mass Index 33.2 Const: General: comfortable and no acute distress Resp: Effort & Inspection: normal respiratory effort Cardio: Rate: regular rate GI: Other: she has very minimal tenderness at this time Palpation (GI): Soft to palpation, not firm, no guarding and not rigid Results Labs 06/21/23 05:04 06/21/23 05:04 Labs: Abnormal lab results 06/21/23 06/22/23 Range/Units 16:10 08:30 Total Bilirubin 2.3 H (0.0-1.0) mg/dL Direct Bilirubin 1.3 H (0.0-0.5) mg/dL AST 196 H (5-31) U/L ALT 103 H (0-31) U/L Albumin 2.4 L (3.5-5.0) g/dL Ur Specific [place] >= 1.030 H (1.005-1.025) Urine Blood Trace H (Negative) Urine RBC 3-5 H (0-2) /HPF Liver Function 06/22/23 Range/Units 08:30 Total Bilirubin 2.3 H (0.0-1.0) mg/dL Direct Bilirubin 1.3 H (0.0-0.5) mg/dL AST 196 H (5-31) U/L ALT 103 H (0-31) U/L Alkaline Phosphatase 101 (39-117) U/L Albumin 2.4 L (3.5-5.0) g/dL Urine 06/21/23 Range/Units 16:10 Urine Color Dark Yellow Urine Appearance Clear Urine pH 5.5 (5.0-9.0) Ur Specific [place] >= 1.030 H (1.005-1.025) Urine Protein Negative (Neg-Trace) mg/dL Urine Glucose (UA) Negative (Negative) mg/dL All other labs normal. Assessment and Plan (1) Acute pancreatitis: Qualifiers: Acute pancreatitis complication: unspecified Pancreatitis type: unspecified pancreatitis type Qualified Code(s): K85.90 - Acute pancreatitis without necrosis or infection, unspecified Status: Acute Her lipase levels have normalized from 2177 yesterday. She has minimal tenderness if at all and feels much improved She is actually being followed by a surgeon in [facility] for her gallstones. she had been told that he should be off of significant steroid treatment to having gallbladder surgery and to have good control of her on immune a petite is Agree with this plan at this time. In the meantime, she seems to be clinically improved. We can follow LFTs well as her lipase. She l appears comfortable at this time. Time Spent With Patient Time: Total time managing care of this patient today ____ minutes. Procedures Date of Service Date of Service: 06/27/23
[2023-06-22 15:47] VITALS: BP 137/77; PULSE 107; RESP 16; TEMP 36.4; O2SAT 95
[2023-06-22 19:58] VITALS: RESP 18
[2023-06-22] MEDS: Amitriptyline HCl 10 MG TABLET PO (20:01)
[2023-06-22] MEDS: Nystatin Powder 15 GM BOTTLE 1 APPL TOPICAL (20:05)
[2023-06-22 23:35] VITALS: BP 120/75; PULSE 90; RESP 18; TEMP 36.4; O2SAT 97
[2023-06-23] MEDS: Piperacillin Sodium/Tazobactam 4.5 GM in 0.9 % Sodium Chloride 100 ML IV ×4 (02:04→20:02)
[2023-06-23] MEDS: Omeprazole 20 MG CAPSULE.DR PO (05:30)
[2023-06-23 07:35] VITALS: BP 133/70; PULSE 80; RESP 16; TEMP 36.4; O2SAT 96
[2023-06-23] MEDS: predniSONE 20 MG TABLET 40 MG PO (08:15)
[2023-06-23] MEDS: 0.9 % Sodium Chloride Flush 3 ML SYRINGE IVFLUSH ×3 (08:17→20:02)
[2023-06-23] MEDS: Nystatin Powder 15 GM BOTTLE 1 APPL TOPICAL ×2 (08:25→20:08)
[2023-06-23] MEDS: azaTHIOprine 50 MG TABLET 100 MG PO (08:51)
--- NOTE | 2023-06-23 09:29 | P.PNIM_ITS ---
Subjective Subjective Date of Service: 06/23/23 Interval History: f/u on acute pancreatitis, pain is better Physical Exam 2 Vital Signs: Vital Signs: Last Vital Signs Temp 97.5 F 06/23/23 07:35 Pulse 80 06/23/23 07:35 Resp 16 06/23/23 07:35 BP 133/70 06/23/23 07:35 Pulse Ox 96 06/23/23 07:35 O2 Del Method Room Air 06/23/23 07:35 BMI result Body Mass Index 33.2 Const: Other: General: AO X 3, no acute distress Resp: CTA bilateral CVS: S1,S2,RRR GI: +BS, NT, no distention Skin: No rash Neuro: motor grossly intact Psych: appropriate affect Objective Data Active Medications Albuterol Sulfate (Albuterol Sulfate 90 Mcg 8 Gm Inhaler) 2 puff INHALE Q6H PRN PRN Reason: for wheezing Last Admin: 06/21/23 20:45 Dose: 2 puff Documented By: GALE Amitriptyline HCl (Amitriptyline Hcl 10 Mg Tablet) 10 mg PO BEDTIME [facility] Last Admin: 06/22/23 20:01 Dose: 10 mg Documented By: SHAYLA Azathioprine (Azathioprine 50 Mg Tablet) 100 mg PO DAILY [facility] Last Admin: 06/23/23 08:51 Dose: 100 mg Documented By: BRYN Baclofen (Baclofen 10 Mg Tablet) 5 mg PO TID PRN PRN Reason: muscle spasm Piperacillin Sod/Tazobactam (Sod 4.5 gm/ Sodium Chloride) 100 mls @ 200 mls/hr IV Q6H [facility] Last Infusion: 06/23/23 08:52 Dose: Infused Documented By: BRYN Morphine Sulfate (Morphine Sulfate 4 Mg/Ml Cartridge) 4 mg IVPUSH Q4H PRN; Protocol PRN Reason: Pain, Severe (Pain Scale 7-10) Last Admin: 06/22/23 19:58 Dose: 4 mg Documented By: SHAYLA Nystatin (Nystatin Powder 15 Gm Bottle) 1 appl TOPICAL TID [facility]; Protocol Last Admin: 06/23/23 08:25 Dose: 1 appl Documented By: BRYN Omeprazole (Omeprazole 20 Mg Capsule.Dr) 20 mg PO DAILY@0630 [facility] Last Admin: 06/23/23 05:30 Dose: 20 mg Documented By: SHAYLA Prednisone (Prednisone 20 Mg Tablet) 40 mg PO DAILY [facility] Last Admin: 06/23/23 08:15 Dose: 40 mg Documented By: BRYN Sodium Chloride (0.9 % Sodium Chloride Flush 3 Ml Syringe) 3 ml IVFLUSH QSHIFT [facility] Last Admin: 06/23/23 08:17 Dose: 3 ml Documented By: BRYN Labs 06/21/23 05:04 06/21/23 05:04 Labs: Laboratory Results - last 24 hr 06/22/23 08:30 Hold Purple Top SEE NOTE Total Bilirubin 2.3 H Direct Bilirubin 1.3 H AST 196 H ALT 103 H Alkaline Phosphatase 101 Total Protein 7.0 Albumin 2.4 L Lipase 57 Microbiology Microbiology Results: Microbiology 06/21/23 00:55 Blood Culture - Preliminary Blood - Venous No growth after 48 hours. 06/21/23 00:22 Blood Culture - Preliminary Blood - Venous No growth after 48 hours. Assessment and Plan (1) Acute pancreatitis: Status: Acute (2) Elevated liver enzymes: Status: Acute Plan this is a 57-year-old female with pertinent history of autoimmune hepatitis, mood disorder, gastroesophageal reflux disease, cirrhosis of liver who presents to the emergency department for evaluation of abdominal discomfort and found to have acute pancreatitis recurrent acute (?gallstone) pancreatitis in setting of automimmune hepatitis -conservative management with pain control, hydration. -she sees Dr. Susan Moran (Sur[place]) at [facility] who is planing to take out gallbladder once she recovers and steroid has been tappered down -advance diet, stop IVF -repeat LFTS, Lipase Cirrhosis/elevated LFTs d/t to automimmune hepatitis. Continue Prednisone, and Azathioprine mood disorder: Continue home mood stabilizers DVT prophylaxis: Mechanical until surgical evaluation Admit as inpatient and will require two night minimum hospital stay for IV antibiotics and IV crystalloid resuscitation DC today if tolerate diet Time Spent With Patient Time: Total time managing care of this patient today ____ minutes. Quality Stroke Does the patient have a stroke diagnosis?: No VTE Prior VTE?: No VTE Risk Level:: Medical - moderate - high VTE Device Contraindication: N/A - Device Ordered VTE Drug Contraindication: Treatment Not Indicated
--- NOTE | 2023-06-23 09:33 | P.DS_ITS ---
DS: Providers Provider Date of Service: 06/24/23 Date of admission: 06/21/23 01:18 Primary care physician: AYUSH Jackson Consults: 06/21/23 02:04 Consult to Gastroenterology Routine Consulting Provider: Anahi Garcia Reason for consultation: Gallstone pancreatitis 06/22/23 13:49 Consult to General Surgery Routine Consulting Provider: [facility] Reason for consultation: gallstone pancreatitis Has provider been notified: Yes DS: Diagnosis Discharge Diagnosis (1) Acute pancreatitis: Status: Acute (2) Elevated liver enzymes: Status: Acute DS: Summary Hospital Course Hospital Course: Admission HPI: Chief Complaint: Abdominal pain this is a 57-year-old female with pertinent history of autoimmune hepatitis, mood disorder, gastroesophageal reflux disease, cirrhosis of liver who presents to the emergency department for evaluation of abdominal discomfort. Patient states it started on the day of presentation. It is located in the right upper quadrant region, nonradiating, progressive and without any relieving factors. It is associated with nausea and vomiting. Patient denies fever or chills. No chest discomfort, palpitations, shortness of breath, changes in urinary or bowel habits. Of note, patient was recently admitted with acute gallstone pancreatitis and discharged on 04/07. Patient was deemed high risk for surgery during previous hospitalization and as she was stable and tolerating diet, she was discharged to follow-up surgery as an outpatient in the emergency department, imaging concerning for acute pancreatitis and lipase found to be elevated Hospital course: This patient with a known history of autoimmune hepatitis and gallstones, along with recurrent pancreatitis, had previously been assessed at [facility] for potential gallstone removal by Dr. Susan Moran. During this presentation, the patient complained of abdominal pain and was diagnosed with acute pancreatitis. Her lipase level exceeded 2000, and her liver function tests (LFTs) remained elevated, consistent with her previous medical history. Treatment for the patient included intravenous hydration and pain relief. Over time, serial LFTs and lipase levels have shown a declining trend, with the lipase level now returning to a normal range (15), suggesting that she may have passed a gallstone. A surgical evaluation was conducted at our facility by Dr. Silverio, who recommended that the patient continue her follow-up care with the surgeon at [facility], as previously arranged. Given the improvement in the patient's pain and her stable condition, she will be discharged to return home. It is crucial for her to adhere to the recommended post-discharge care and medical advice to address her underlying issues related to gallstones, recurrent pancreatitis, and autoimmune hepatitis. Time Spent with Patient Time attestation: Total time managing care of this patient today ____ minutes. Discharge coordination time: Greater than 30 minutes Quality: Safe Use of Opioids Does Pt have an Active Cancer Diagnosis on the Problem List?: No Quality: Stroke Does the patient have a stroke diagnosis?: No Physical Exam Vital Signs: Vital Signs: Selected Entries 06/24/23 07:33 Temperature 98.1 F Pulse Rate 78 Respiratory Rate 14 Blood Pressure 146/70 H Pulse Oximetry 95 Oxygen Delivery Me thod Room Air DS: Data Data Completed and Pending Labs on day of discharge: Laboratory Results - last 24 hr 06/22/23 08:30 Hold Purple Top SEE NOTE Total Bilirubin 2.3 H Direct Bilirubin 1.3 H AST 196 H ALT 103 H Alkaline Phosphatase 101 Total Protein 7.0 Albumin 2.4 L Lipase 57 Preliminary micro results at discharge 06/21/23 00:55 Blood Culture - Preliminary Blood - Venous No growth after 48 hours. 06/21/23 00:22 Blood Culture - Preliminary Blood - Venous No growth after 48 hours. Discharge Plan Discharge Anticipated Discharge Date/Time: 06/24/23 08:27 Patient Disposition: Home, Self-Care Discharge Diagnosis: Acute pancreatitis Referrals: Italia Kendall FNP [Primary Care Provider] - 1 Week Discharge Medications: New oxycodone 5 mg tablet 5 mg PO Q6H MDD pain PRN (Reason: pain (scale score 7-10)) Qty: 10 0RF Rx Instructions: Partial Fill upon patient request. Continued albuterol sulfate 90 mcg/actuation HFA aerosol inhaler 2 puff inhalation Q6H PRN (Reason: for wheezing) Qty: 8.5 1RF prednisone 20 mg tablet 40 mg PO DAILY 28 Days Qty: 56 0RF Rx Instructions: TAKE FOR 4 WEEKS STARTING 06/08/23 azathioprine 50 mg tablet 100 mg PO DAILY 90 Days Qty: 180 0RF omeprazole 20 mg capsule,delayed release(DR/EC) 20 mg PO DAILY nystatin 100,000 unit/gram powder 1 appl topical TID Qty: 60 1RF baclofen 5 mg tablet 5 mg PO TID PRN (Reason: muscle spasm) Qty: 30 0RF amitriptyline 10 mg tablet 10 mg PO BEDTIME Qty: 30 0RF Discharge Orders: Discharge Order (Routine); Ordered 06/24/23 Ordered By: Hank Toribio Diet: Advance to usual diet Activity on Discharge: As tolerated Stand Alone Forms: Patient Portal Discharge page Care Plan Goals: recovery from acute pancreatitis Health Concerns: autoimmune hapatitis acute pancreatitis Plan of Treatment: low fat diet take prednisone as directed follow up with your doctor in a week follow up with dr. Moran (Surgeon) at [facility]-- follow up with Dr. Garcia Assessment: as above
[2023-06-23 11:01] LABS: Alanine Aminotransferase 81 U/L (0-31); Albumin Level 2.2 g/dL (3.5-5.0); Alkaline Phosphatase 85 U/L (39-117); Aspartate Amino Transferase 134 U/L (5-31); Bilirubin Direct 0.8 mg/dL (0.0-0.5); Bilirubin Total 1.5 mg/dL (0.0-1.0); Lipase 50 U/L (8-78); Total Protein 6.2 g/dL (6.5-8.0)
[2023-06-23] MEDS: Morphine Sulfate 4 MG/ML CARTRIDGE IVPUSH ×2 (13:50→20:10)
--- NOTE | 2023-06-23 14:12 | PM.PNGS ---
Subjective Subjective Date of Service: 06/24/23 Interval history: Says she still has pain in through the mid back Was able to tolerate some oral intake Physical Exam Vital Signs: Vital Signs: Last Vital Signs Temp 97.5 F 06/23/23 07:35 Pulse 80 06/23/23 07:35 Resp 16 06/23/23 07:35 BP 133/70 06/23/23 07:35 Pulse Ox 96 06/23/23 07:35 O2 Del Method Room Air 06/23/23 07:35 BMI result Body Mass Index 33.2 Const: Other: Was asleep General: comfortable and no acute distress Resp: Effort & Inspection: normal respiratory effort Cardio: Rate: regular rate GI: Other: Mild tenderness upper abdomen Palpation (GI): Soft to palpation, not firm and no guarding Objective Data Active Medications Albuterol Sulfate (Albuterol Sulfate 90 Mcg 8 Gm Inhaler) 2 puff INHALE Q6H PRN PRN Reason: for wheezing Last Admin: 06/21/23 20:45 Dose: 2 puff Documented By: GALE Amitriptyline HCl (Amitriptyline Hcl 10 Mg Tablet) 10 mg PO BEDTIME [facility] Last Admin: 06/22/23 20:01 Dose: 10 mg Documented By: SHAYLA Azathioprine (Azathioprine 50 Mg Tablet) 100 mg PO DAILY [facility] Last Admin: 06/23/23 08:51 Dose: 100 mg Documented By: BRYN Baclofen (Baclofen 10 Mg Tablet) 5 mg PO TID PRN PRN Reason: muscle spasm Piperacillin Sod/Tazobactam (Sod 4.5 gm/ Sodium Chloride) 100 mls @ 200 mls/hr IV Q6H [facility] Last Infusion: 06/23/23 08:52 Dose: Infused Documented By: BRYN Morphine Sulfate (Morphine Sulfate 4 Mg/Ml Cartridge) 4 mg IVPUSH Q4H PRN; Protocol PRN Reason: Pain, Severe (Pain Scale 7-10) Last Admin: 06/23/23 13:50 Dose: 4 mg Documented By: JOVANY Nystatin (Nystatin Powder 15 Gm Bottle) 1 appl TOPICAL TID [facility]; Protocol Last Admin: 06/23/23 08:25 Dose: 1 appl Documented By: BRYN Omeprazole (Omeprazole 20 Mg Capsule.) 20 mg PO DAILY@0630 [facility] Last Admin: 06/23/23 05:30 Dose: 20 mg Documented By: SHAYLA Prednisone (Prednisone 20 Mg Tablet) 40 mg PO DAILY [facility] Last Admin: 06/23/23 08:15 Dose: 40 mg Documented By: BRYN Sodium Chloride (0.9 % Sodium Chloride Flush 3 Ml Syringe) 3 ml IVFLUSH QSHIFT [facility] Last Admin: 06/23/23 08:17 Dose: 3 ml Documented By: BRYN Labs 06/21/23 05:04 06/21/23 05:04 Labs: Laboratory Results - last 24 hr 06/23/23 10:00 Total Bilirubin 1.5 H Direct Bilirubin 0.8 H AST 134 H ALT 81 H Alkaline Phosphatase 85 Total Protein 6.2 L Albumin 2.2 L Lipase 50 Microbiology Microbiology Results: Microbiology 06/21/23 00:55 Blood Culture - Preliminary Blood - Venous No growth after 48 hours. 06/21/23 00:22 Blood Culture - Preliminary Blood - Venous No growth after 48 hours. Procedures Date of Service Date of Service: 06/24/23 Progress Note: A&P Assessment and plan (1) Acute pancreatitis: Status: Acute Assessment and Plan: Lipase is now normal LFTs better She says she has a surgeon in [facility] following her for her gallstones She is still on prednisone and an immunosuppressant for autoimmune hepatitis with cirrhosis Time Spent With Patient Time: Total time managing care of this patient today ____ minutes. Quality Stroke Does the patient have a stroke diagnosis?: No VTE Prior VTE?: No VTE Risk Level:: Medical - moderate - high VTE Device Contraindication: N/A - Device Ordered VTE Drug Contraindication: Treatment Not Indicated
[2023-06-23 15:10] VITALS: BP 147/75; PULSE 89; RESP 16; TEMP 36.5; O2SAT 95
--- NOTE | 2023-06-23 15:14 | MHC.CM.PN ---
pt being dcd home no servies
[2023-06-23] MEDS: Amitriptyline HCl 10 MG TABLET PO (20:01)
[2023-06-24] VITALS: BP 132/71; PULSE 83; RESP 16; TEMP 36.4; O2SAT 96
[2023-06-24] MEDS: Morphine Sulfate 4 MG/ML CARTRIDGE IVPUSH ×2 (00:35→07:55)
[2023-06-24] MEDS: Melatonin 3 MG TABLET 6 MG PO (00:49)
[2023-06-24] MEDS: Piperacillin Sodium/Tazobactam 4.5 GM in 0.9 % Sodium Chloride 100 ML IV ×2 (01:05→07:56)
--- NOTE | 2023-06-24 04:03 | PC.NURSE ---
Pt asked for sleep med, Dr. Veloz updated, Melatonin po given, pt sleep fairly after.
[2023-06-24] MEDS: Omeprazole 20 MG CAPSULE.DR PO (05:31)
[2023-06-24 07:33] VITALS: BP 146/70; PULSE 78; RESP 14; TEMP 36.7; O2SAT 95
[2023-06-24] MEDS: azaTHIOprine 50 MG TABLET 100 MG PO (07:55)
[2023-06-24] MEDS: predniSONE 20 MG TABLET 40 MG PO (07:55)
[2023-06-24] MEDS: Nystatin Powder 15 GM BOTTLE 1 APPL TOPICAL (07:57)
[2023-06-24] MEDS: 0.9 % Sodium Chloride Flush 3 ML SYRINGE IVFLUSH (08:00)
--- NOTE | 2023-06-24 09:24 | MHC.CM.PN ---
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
--- NOTE | 2023-06-24 10:06 | P.PNGS_ITS ---
Subjective Subjective Date of Service: 06/24/23 Interval history: Says she still has some periodic epigastric pain and back pain although better Tolerating diet Physical Exam 2 Vital Signs: Vital Signs: Last Vital Signs Temp 98.1 F 06/24/23 07:33 Pulse 78 06/24/23 07:33 Resp 14 06/24/23 07:33 BP 146/70 H 06/24/23 07:33 Pulse Ox 95 06/24/23 07:33 O2 Del Method Room Air 06/24/23 07:33 BMI result Body Mass Index 33.2 Const: General: comfortable and no acute distress Resp: Effort & Inspection: normal respiratory effort Cardio: Rate: regular rate GI: Palpation (GI): Soft to palpation, not firm, Tenderness to palpation present (GI) (Mild tenderness in the epigastric area) and no guarding Objective Data Active Medications Albuterol Sulfate (Albuterol Sulfate 90 Mcg 8 Gm Inhaler) 2 puff INHALE Q6H PRN PRN Reason: for wheezing Last Admin: 06/21/23 20:45 Dose: 2 puff Documented By: GALE Amitriptyline HCl (Amitriptyline Hcl 10 Mg Tablet) 10 mg PO BEDTIME [facility] Last Admin: 06/23/23 20:01 Dose: 10 mg Documented By: EDDIE Azathioprine (Azathioprine 50 Mg Tablet) 100 mg PO DAILY [facility] Last Admin: 06/24/23 07:55 Dose: 100 mg Documented By: MARK Baclofen (Baclofen 10 Mg Tablet) 5 mg PO TID PRN PRN Reason: muscle spasm Piperacillin Sod/Tazobactam (Sod 4.5 gm/ Sodium Chloride) 100 mls @ 200 mls/hr IV Q6H [facility] Last Infusion: 06/24/23 08:33 Dose: Infused Documented By: MARK Melatonin (Melatonin 3 Mg Tablet) 6 mg PO BEDTIME PRN PRN Reason: Insomnia Last Admin: 06/24/23 00:49 Dose: 6 mg Documented By: EDDIE Morphine Sulfate (Morphine Sulfate 4 Mg/Ml Cartridge) 4 mg IVPUSH Q4H PRN; Protocol PRN Reason: Pain, Severe (Pain Scale 7-10) Last Admin: 06/24/23 07:55 Dose: 4 mg Documented By: MARK Nystatin (Nystatin Powder 15 Gm Bottle) 1 appl TOPICAL TID [facility]; Protocol Last Admin: 06/24/23 07:57 Dose: 1 appl Documented By: MARK Omeprazole (Omeprazole 20 Mg Capsule.) 20 mg PO DAILY@0630 [facility] Last Admin: 06/24/23 05:31 Dose: 20 mg Documented By: CASTILM Prednisone (Prednisone 20 Mg Tablet) 40 mg PO DAILY [facility] Last Admin: 06/24/23 07:55 Dose: 40 mg Documented By: MARK Sodium Chloride (0.9 % Sodium Chloride Flush 3 Ml Syringe) 3 ml IVFLUSH QSHIFT [facility] Last Admin: 06/24/23 08:00 Dose: 3 ml Documented By: MARK Labs 06/21/23 05:04 06/21/23 05:04 Labs: Laboratory Results - last 24 hr 06/23/23 10:00 Total Bilirubin 1.5 H Direct Bilirubin 0.8 H AST 134 H ALT 81 H Alkaline Phosphatase 85 Total Protein 6.2 L Albumin 2.2 L Lipase 50 Procedures Date of Service Date of Service: 06/24/23 Progress Note: A&P Assessment and plan (1) Acute pancreatitis: Status: Acute Assessment and Plan: Clinically looks well Abdomen soft and benign Diet as tolerated She still has pain although better She says she has a follow-up with her surgeon in [facility] for her gallstones Time Spent With Patient Time: Total time managing care of this patient today ____ minutes. Quality Stroke Does the patient have a stroke diagnosis?: No VTE Prior VTE?: No VTE Risk Level:: Medical - moderate - high VTE Device Contraindication: N/A - Device Ordered VTE Drug Contraindication: Treatment Not Indicated
== END 2023-06-24 13:27 | disposition home or self-care (01) | DRG 440 ==
LOC: HO.ED 06-21 01:18 → HO.EDOVER 06-21 01:21 → HO.S3 06-21 17:19
PROVIDERS: Admitting Provider Student in an Organized Health Care Education/Training Program; Emergency Provider Emergency Medicine; PCP Nurse Practitioner Family; Visit Provider Internal Medicine
DX: K85.10 Biliary acute pancreatitis without necrosis or infection (principal); K75.4 Autoimmune hepatitis; F39 Unspecified mood [affective] disorder; K74.69 Other cirrhosis of liver; K75.81 Nonalcoholic steatohepatitis (NASH); Z79.899 Other long term (current) drug therapy
CPT/HCPCS: 36415; 74177; 76705; 80048; 80053; 80076; 81001; 82140; 83605; 83615; 83690; 83735; 84145; 85025; 85610; 87040; 93005; 94640; 99285; J0696; J1170; J2270; J2543; Q9967

== ENCOUNTER → 2023-06-21 01:18 | Outpatient (BNV) | payer OTHER, SELFPAY | PROVIDERS: Admitting Provider Student in an Organized Health Care Education/Training Program; Emergency Provider Emergency Medicine; PCP Nurse Practitioner Family; Visit Provider Student in an Organized Health Care Education/Training Program | DX: K85.90 Acute pancreatitis without necrosis or infection, unspecified (principal); R74.8 Abnormal levels of other serum enzymes | CPT/HCPCS: 99222; 99232; 99239; 99499 ==

== ENCOUNTER → 2023-06-21 01:18 | Outpatient (BNV) | payer OTHER, SELFPAY | PROVIDERS: Admitting Provider Student in an Organized Health Care Education/Training Program; Emergency Provider Emergency Medicine; PCP Nurse Practitioner Family; Visit Provider Surgery | DX: K85.90 Acute pancreatitis without necrosis or infection, unspecified (principal) | CPT/HCPCS: 99222; 99232 ==

== ENCOUNTER 2023-07-06 09:40 | Outpatient (REF) | payer OTHER, SELFPAY ==
[2023-07-06 10:54] LABS: Hematocrit 37.7 % (37.0-47.0); Hemoglobin 12.5 g/dl (12.0-16.0); Mean Corpuscular HGB Conc 33.2 g/dl (31.0-35.0); Mean Corpuscular Hemoglobin 28.9 pg (27.0-33.0); Mean Corpuscular Volume 87.1 fL (80.0-98.0); Platelet Count 126 X10*3/uL (160-400); Red Blood Count 4.33 X10*6/uL (4.20-5.50); Red Cell Distribution Width 15.4 % (11.0-16.0); White Blood Count 7.7 X10*3/uL (4.8-10.8)
[2023-07-06 11:28] LABS: Alanine Aminotransferase 33 U/L (0-31); Alkaline Phosphatase 132 U/L (39-117); Aspartate Amino Transferase 53 U/L (5-31); Bilirubin Direct 0.5 mg/dL (0.0-0.5); Bilirubin Total 1.2 mg/dL (0.0-1.0); Total Protein 7.4 g/dL (6.5-8.0)
[2023-07-07 17:34] LABS: Immunoglobulin G 2301 mg/dL (600-1640)
== END 2023-07-06 09:41 | disposition home or self-care (01) ==
LOC: HO.LAB 09:40
PROVIDERS: PCP Nurse Practitioner Family; Visit Provider Internal Medicine
DX: K75.4 Autoimmune hepatitis (principal)
CPT/HCPCS: 36415; 80076; 82784; 85027

== ENCOUNTER 2023-07-28 11:36 | Outpatient (REF) | payer OTHER, SELFPAY ==
[2023-07-28 12:10] LABS: Hematocrit 36.5 % (37.0-47.0); Hemoglobin 12.4 g/dl (12.0-16.0); Mean Corpuscular Hemoglobin 30.9 pg (27.0-33.0); Mean Platelet Volume 12.1 fL (9.4-12.3); Platelet Count 123 X10*3/uL (160-400); Red Blood Count 4.01 X10*6/uL (4.20-5.50); Red Cell Distribution Width 16.9 % (11.0-16.0); White Blood Count 5.6 X10*3/uL (4.8-10.8)
[2023-07-28 12:31] LABS: Alanine Aminotransferase 26 U/L (0-31); Albumin Level 2.9 g/dL (3.5-5.0); Alkaline Phosphatase 113 U/L (39-117); Aspartate Amino Transferase 43 U/L (5-31); Bilirubin Direct 0.4 mg/dL (0.0-0.5); Bilirubin Total 0.9 mg/dL (0.0-1.0); Total Protein 6.6 g/dL (6.5-8.0)
[2023-07-31 13:02] LABS: Immunoglobulin G 1595 mg/dL (600-1640)
== END 2023-07-28 11:37 | disposition home or self-care (01) ==
LOC: HO.LAB 11:36
PROVIDERS: PCP Nurse Practitioner Family; Visit Provider Internal Medicine
DX: K75.4 Autoimmune hepatitis (principal)
CPT/HCPCS: 36415; 80076; 82784; 85027

== ENCOUNTER 2023-08-17 07:58 | Outpatient (AMB) | payer OTHER, SELFPAY ==
--- NOTE | 2023-08-17 08:17 | A.OFFVIS_ITS ---
Intake Vital Signs 08/17/23 08:18 Height 5 ft Weight 168 lb BMI 32.8 BP 130/77 Blood Pressure Location Lt brachial Position Sitting Pulse 82 Intake Visit Reasons: follow up, AI Hepatitis Intake Note: Patient follow up forHCV and lab results. Patient denies any GI issues. Log Inspector Required: Yes Accompanied by: Self / Same As Patient Allergies trazadone Adverse Reaction (Mild, Uncoded 08/30/23 08:42) Abdominal Pain HPI follow up HPI Details GI clinic visit for this 57 year old [place]ese speaking femal for follow- up of autoimmune hepatitis with compensated cirrhosis LABS IN [place] : Reviewed IMAGING STUDIES: 06/21/[address] SCAN SHOWED: 1. Mild stranding adjacent to the pancr eas, which could reflect pancreatitis in the proper clinical setting. 2. Thick-walled appearance of the gallb ladder, similar to 04/05/2023. This could be secondary to chronic liver disease, though acute cholecystitis would be difficult to entirely exclude in the proper clinical setting. 3. Cirrhotic liver with sequela of port al hypertension including borderline splenomegaly and prominent varices. 4. Prominent uterus with suggestion of underlying fibroids, which could be further assessed with pelvic ultrasound. 06/21 23 ABD US SHOWED: 1. Cirrhotic appearing liver. 2. Abnormal gallbladder with gallstones and thickened wall containing fluid. Question of a stone lodged in the cystic duct. Although similar findings have been seen on prior studies, the correct clinical setting findings would be suspicious for cholecystitis. HIDA scan may be useful for further evaluation. 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 Intermittent heartburn and takes Omeprazole - denies dysphagia Patient denies change in appetite and has gained weight due to prednisone Denies recent change in bowel habits, constipation, diarrhea, black stools or rectal bleeding. Patient denies major cardiac or pulmonary problems, loud snoring or sleep apnea Denies problems with anesthesia in the past. Denies being on chronic anticoagulation. Patient denies known family history of colon polyps, colon cancer or other GI malignancies. PAST EGD/COLONOSCOPY: Pt had an EGD and a colonoscopy at [facility] in the past - will obtain records Pt reports she was diagnosed with Autoimmune Hepatitis and was followed by Dr oBbby and now sees DANICA Holley at [facility] Her last visit was in December, She being treated with Azathioprine 50 mg daily and reports she has been compliant in taking the medication. She was also taking prednisone which she discontinued in December, after she ran out of the prescription. Patient denies family history of liver disease, colon polyps or colon cancer. Her mom and maternal grandfather with lung cancer and a maternal aunt has stomach cancer. PAST GI HISTORY BY REVIEW OF MEDICAL RECORDS: 06/06/23 PT WAS SEEN BY DR LIND: AIH related compensated cirrhosis - MELD-Na 11 - Child Abarca Class B Prefers to switch Hepatology care to [facility]. Prev under care of Dr Bobby through [place]. From documentation appears to have been in remission prior to admission in March, which in turn seems to have been a combination of nonadherence to tx (as pt ran out of meds) as well as biliary pancreatitis both contributing to elevated LFTs. Currently undergoing eval for lap phi through [facility] surgery. Plan: - Check MELD labs and IgG - Resume Azathiopurine 50mg PO - If transaminases and IgG cont to impro ve, can complete taper as per schedule in 2 weeks - Since LFTs being confounded by gallsto ne disease, will recheck this after her surgery as well with low threshold to proceed with liver bx to monitor for any active inflammation. Limited role of continuing Azathiopurine if no active inflammation. - She is also due for an EGD. Will get hai gold from [place] to see if needs colo alongside it. - Next US due in Oct 2022. - No indication for referral to [facility] for now since low MELD and not decompensated. Follow up in 8 weeks [facility] Medical History (Updated 09/04/23 @ 20:47 by DANICA Mcclellan) Gallstone pancreatitis GERD (gastroesophageal reflux disease) Cirrhosis of liver without ascites Jaundice Autoimmune hepatitis Anxiety and depression Chronic low back pain Asthma Surgical History (Updated 09/04/23 @ 20:46 by DANICA Mcclellan) S/P cholecystectomy Hx of tubal ligation Family History Mother Lung cancer Social History Household Members: None Housing: Apartment Do you presently have visiting nurse or other home services: Yes Alcohol intake: never Patient Tobacco Use Status: Former Tobacco user Quit Date: 2009 Tobacco use type: Cigarette e-Cigarette/Vaping Use: Never Used service: No Current occupational status: disabled Current occupational exposures/hazards: No Cognitive needs: No Hearing needs: No Vision needs: Yes Physical Exam Vital Signs: Last Vital Signs Pulse 82 08/17/23 08:18 BP 130/77 08/17/23 08:18 BMI result Body Mass Index 32.8 Const General: healthy appearing and no acute distress Nutritional Appearance: obese Orientation/consciousness: patient oriented x3 Limitations: language barrier HEENT Head: Yes normal to inspection Ears: hearing grossly normal bilaterally Eyes Sclerae: sclerae normal Pupils: Equal, round and reactive pupils present Neck Neck: Yes normal visual inspection Chest Chest palpation & inspection: normal inspection of the chest Resp Effort & Inspection: normal respiratory effort Auscultation: clear to auscultation bilaterally Cardio Palpation: normal PMI Rate: regular rate Rhythm: regular rhythm Heart sounds: S1 normal heart sound present, S2 normal heart sound present and no murmurs GI Palpation (GI): Soft to palpation, nontender and No hepatosplenomegaly present Auscultation: normal bowel sounds Rectal Exam - Female: deferred Skin General skin exam: no rashes or lesions noted Neuro General: patient oriented x3, gait normal and moves all extremities Cranial nerves: Yes Equal, round and reactive pupils present Psych Appearance: grossly normal Mental Status: mental status grossly normal Assessment & Plan Assessment & Plan (1) Autoimmune hepatitis: Code(s): K75.4 - Autoimmune hepatitis Plan 57 year old [place]ese-speaking female (understands and speaks some Turkish) with autoimmune hepatitis (diagnosed in 2015), mood disorder, gastroesophageal reflux disease seen for FU of autoimmune hepatitis. Pt was admitted to [facility] 04/05/23 with severe epigastric pain, Jaundice and elevated LFTs and acute cholecystitis by CT and US finding, acute gallstone pancreatitis with Lipase > 3000.? Pt was hospitalized at [facility] from 03/26 to 03/29 for autoimmune hepatitis and was discharged on Prednisone taper. Pt reports she was diagnosed with Autoimmune Hepatitis in 2015 and treated with Azathioprine and Prednisone)-? followed by Dr Bobby ([facility]) in the past and now sees DANICA Holley at [facility] (last visit was in December,).? Pt was diagnosed with Cirrhosis in 2017 - attributed to a combination of AIH and RAMIREZ). She being treated with Azathioprine 50 mg daily and reports she had been compl iant in taking the medication. From documentation appears to have been in remission prior to admission in March, which in turn seems to have been a combination of non-adherence to tx (as pt ran out of meds) as well as biliary pancreatitis both contributing to elevated LFTs. Thiopurine metabolites did not reveal azathioprine toxicity PT switched her Hepatology care to Dr Lind [facility] since 06/2023. Pt had a lap phi on 07/13/[address] Alcala ([facility] surgery). Plan: - Check MELD labs and IgG - Increase Azathiopurine to 100 mg and continue Prednisone 10 mg daily - She is also due for an EGD. Will get records from [place] to see if needs a same day colonoscopy. - Next US due in Oct 2022. - Referral to Liver transplant is not indicated since patient has a low MELD of 8 and is not decompensated. Follow up in 4 weeks Orders: Orders Hepatitis A IgG 10/04/23 K75.4 - Autoimmune hepatitis Patient Instructions: Please have lab tests after Sep 04 Coding Level of Care Code Est Pt Level 4 (85765) Diagnoses Autoimmune hepatitis K75.4 Time Spent (min) 23
[2023-08-17 08:18] VITALS: BP 130/77; PULSE 82; BMI 32.8
== END 2023-08-17 09:14 | disposition home or self-care (01) ==
PROVIDERS: PCP Nurse Practitioner Family; Visit Provider Internal Medicine Gastroenterology
DX: K75.4 Autoimmune hepatitis (principal)
CPT/HCPCS: 99214

== ENCOUNTER → 2023-08-17 07:58 | Outpatient (BNVA) | payer OTHER, SELFPAY | PROVIDERS: PCP Nurse Practitioner Family; Visit Provider Internal Medicine Gastroenterology | DX: K75.4 Autoimmune hepatitis (principal) | CPT/HCPCS: 99212 ==

== ENCOUNTER 2023-08-30 08:40 | Outpatient (AMB) | payer OTHER, SELFPAY ==
[2023-08-30 08:41] VITALS: BP 138/80; PULSE 86; O2SAT 98; BMI 33.4
--- NOTE | 2023-08-30 08:41 | A.OFFPC_ITS ---
Vital Signs 08/30/23 08:41 Height 5 ft Weight 77.564 kg BMI 33.4 BP 138/80 Blood Pressure Location Lt brachial Position Sitting Pulse 86 Pulse Source Pulse Oximeter Pulse Oximetry (%) 98 Oxygen Delivery Method Room Air Intake Visit Reasons: [facility] 07/13-07/15 gallbladder surgery Intake Note: Patient is here to follow-up after a visit the emergency department at [facility] 07/13-07/15 Meat Inspector Required: No Allergies trazadone Adverse Reaction (Mild, Uncoded 08/30/23 08:42) Abdominal Pain Tobacco use date assessed: 08/30/23 HPI HPI Comments History of Present Illness Details 57-year-old female with history of autoi mmune hepatitis on chronic presnisone, hepatic cirrhosis, gallstone pancreatitis presents to the office today for hospital discharge follow-up. 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 Following an episode of gallstone pancreatitis in 04/2023, the patient had been referred to [facility] for cholecystectomy. She was admitted to [facility] from 07/13-07/15 for laparoscopic cholecystectomy which was performed on 07/13. Hospital course was complicated by persistent tachycardia requiring metoprolol in the setting of significant pain. Stress dose steroids were administered perioperatively. Pain improved with steroids and prn oxycodone. Diet was successfully advanced with resumption of bowel function. Hospital course was otherwise uncomplicated and discharged home without services. Today she reports full resolution of abd pain. No n/v/d. Tolerating diet. SHe is complaining of chronic low back pain, requesting a refill of baclofen. She also had significant ble edema which she states is chronic but can he painful. Discharge medications reviewed and reconciled [facility] Medical History (Updated 09/04/23 @ 20:47 by DANICA Mcclellan) Gallstone pancreatitis GERD (gastroesophageal reflux disease) Cirrhosis of liver without ascites Jaundice Autoimmune hepatitis Anxiety and depression Chronic low back pain Asthma Surgical History (Updated 09/04/23 @ 20:46 by DANICA Mcclellan) S/P cholecystectomy Hx of tubal ligation Family History Mother Lung cancer Social History Household Members: None Housing: Apartment Do you presently have visiting nurse or other home services: Yes Alcohol intake: never Patient Tobacco Use Status: Former Tobacco user Quit Date: 2009 Tobacco use type: Cigarette e-Cigarette/Vaping Use: Never Used service: No Current occupational status: disabled Current occupational exposures/hazards: No Cognitive needs: No Hearing needs: No Vision needs: Yes Questionnaire Thrive Questionnaire Date Thrive assessed: 06/21/23 AUDIT C Alcohol Use Questionnaire (AUDIT-C) 1. How often do you have a drink containing alcohol?: Never Total Score: 0 Score Reviewed/Action Taken: No RUDI-7 AMB Questionnaire RUDI-7 Date RUDI - 7 assessed: 04/12/23 Source: Developed by Drs. Gary Luke, Sabina House, Jack Sprague and colleagues, with an educational sinan from [employer]. Physical exam (Primary Care) Vital Signs: Last Vital Signs Pulse 86 08/30/23 08:41 BP 138/80 08/30/23 08:41 Pulse Ox 98 08/30/23 08:41 Oxygen Delivery Method Room Air 08/30/23 08:41 BMI result Body Mass Index 33.4 Tobacco/Smoking Status: Tobacco use Status Tobacco use date assessed 08/30/23 08/30/23 08:43 Patient Tobacco Use Status Former Tobacco user 08/30/23 08:43 Tobacco use type Cigarette 08/30/23 08:43 e-Cigarette/Vaping Use Never Used 08/30/23 08:43 Thrive Assessment: Date of Thrive Assessment Date Thrive assessed 06/21/23 08/30/23 08:43 Const Other: Constitutional - Awake and Alert, No apparent distress Eyes - PERRLA, EOMI Cardiovascular - S1S2, RRR, 3+ ble edema Respiratory - Normal lung expansion, Normal respiratory effort, No respiratory distress, CTA bilaterally Gastrointestinal - NT / ND; +BS; No rebound or guarding Extremities - no calf tenderness bilaterally, no swelling Skin - Warm/Dry Neurological - Alert & oriented x3 Psychological - Appropriate affect Results Reviewed Results Reviewed: cbc, bmp, op report, discharge summary. Also reviewed [facility] discharge from 04/2023 with gallstone pancreatitis and general surgery consultation Assessment and Plan Assessment & Plan (1) Gallstone pancreatitis: Comment: s/p cholocystectomy 07/13/2023 Code(s): K85.10 - Biliary acute pancreatitis without necrosis or infection Plan: Resolved s/p cholecystectomy on 07/13 at [facility]. Procedure uncomplicated. Postoperative tachycardia like it is secondary to uncontrolled pain levels. Now asymptomatic. Follow-up with General surgery as scheduled. (2) Cirrhosis of liver without ascites: Code(s): K74.60 - Unspecified cirrhosis of liver Plan: Compensated. She does have bilateral lower extremity edema which may be secondary to her cirrhosis versus recent prednisone use. Will prescribe Lasix 20 mg daily. She should repeat BMP in 1 weeks time to check renal function and electrolyte levels. Can use compression stockings and recommend leg elevation as well as low-sodium diet. Not a liver transplant candidate due to compensation and low meld score. Follow-up with Dr. Garcia as scheduled. Continue treating autoimmune hepatitis with prednisone as prescribed. (3) Chronic low back pain: Code(s): M54.50 - Low back pain, unspecified; G89.29 - Other chronic pain Plan: Refill of baclofen prescribed. She is advised follow-up with primary care provider for further management of chronic low back pain. (4) Autoimmune hepatitis: Code(s): K75.4 - Autoimmune hepatitis Plan: Continue prednisone daily as prescribed. Follow-up with GI as scheduled. Orders: Orders Basic Metabolic Panel 08/30/23 K74.60 - Unspecified cirrhosis of liver Medications: New furosemide 20 mg PO DAILY 30 tabs 2RF Refilled baclofen 5 mg PO TID PRN 30 tabs 0RF muscle spasm G89.29 - Other chronic pain, M54.50 - Low back pain, unspecified Discontinued oxycodone Partial Fill upon patient request. Discontinued Reason: None 5 mg PO Q6H PRN 10 tabs 0RF pain (scale score 7- 10) MDD pain Coding Level of Care Code Est Pt Level 5 (96902) Diagnoses Gallstone pancreatitis K85.10 Cirrhosis of liver without ascites K74.60 Chronic low back pain M54.50; G89.29 Autoimmune hepatitis K75.4 Time Spent (min) 42 Comment time spent reviewing as above, interviewing patient with interpretor, and documentation
== END 2023-08-30 10:08 | disposition home or self-care (01) ==
PROVIDERS: PCP Nurse Practitioner Family; Visit Provider Physician Assistant
DX: K85.10 Biliary acute pancreatitis without necrosis or infection (principal); K74.60 Unspecified cirrhosis of liver; K75.4 Autoimmune hepatitis; M54.50 Low back pain, unspecified
CPT/HCPCS: 99215

== ENCOUNTER 2023-09-06 10:41 | Outpatient (RCR) | payer OTHER, SELFPAY ==
--- NOTE | 2023-09-06 11:51 | MHC.PT.EP ---
[facility] [place] Office [place] Office [place] Office [address] Lee Flynn [address] [phone] F: [phone] F: [phone] F: [phone] F: [phone] Physical Therapy Plan of Care Date of Evaluation: 09/06/23 Date of Surgery: Diagnosis: chronic LBP Assessment: 57 y/o female referred to PT with chronic LBP. 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 Examination shows decreased lumbar AROM, decreased core/LE strength, inctact sensation, poor ability to tolerance supine/ hooklying/ unsupported sitting positions and impaired gait pattern. Pt states she has had PT in the past and it made it worse; she also states she does not want to attend PT at this time. Educated pt why PT may be beneficial, however pt declines at this time. Recommend pt f/u with PCP then. Will keep chart open for 30 days in case pt elects to trial PT. Frequency and Duration: The patient will be seen Short Term Goals: Hand Marker Goals: no goals at this time - pt declines PT Treatment Plan: Modalities to reduce pain, spasms and effusion. Manual therapy to restore motion and function. Therapeutic exercise to improve strength and flexibility. Neuromuscular re-education for posture and balance. Therapeutic activities to return to functional activities of daily living. Electronically signed by: Oly Chaidez PT Please sign and return to therapist. Thank you for your referral.
--- NOTE | 2023-10-16 06:56 | MHC.PT.DC ---
[facility] [place] Office [place] Office [place] Office [address] Lee Flynn [address] [phone] F: [phone] F: [phone] F: [phone] F: [phone] Physical Therapy Discharge Report Diagnosis: chronic LBP Date of Surgery: Date of Evaluation: 09/06/23 Date of Discharge: 10/16/23 Treatments to Date: 1 Cancellations to Date: 0 No Shows to Date: Discharge Status: Patient Elected to Stop Discharge Summary: Pt attended initial evaluation and at that time pt states she has had PT in the past and it made it worse; she also states she does not want to attend PT at this time. Educated pt why PT may be beneficial, however pt declines at this time. Recommend pt f/u with PCP then. Have kept chart open for 30 days in case pt elects to trial PT in this period and now will close chart. Electronically signed by: Oly Chaidez PT Please sign and return to therapist. Thank you for your referral.
== END 2023-10-16 06:57 | disposition home or self-care (01) ==
LOC: HO.PT 10:41
PROVIDERS: PCP Nurse Practitioner Family; Visit Provider Physician Assistant
DX: M54.50 Low back pain, unspecified (principal); G89.29 Other chronic pain
CPT/HCPCS: 97162

== ENCOUNTER 2023-09-15 07:17 | Outpatient (REF) | payer OTHER, SELFPAY ==
[2023-09-15 08:51] LABS: Hematocrit 36.5 % (37.0-47.0); Hemoglobin 12.1 g/dl (12.0-16.0); Mean Corpuscular HGB Conc 33.2 g/dl (31.0-35.0); Mean Corpuscular Hemoglobin 30.3 pg (27.0-33.0); Mean Corpuscular Volume 91.5 fL (80.0-98.0); Mean Platelet Volume 11.6 fL (9.4-12.3); Platelet Count 103 X10*3/uL (160-400); Red Blood Count 3.99 X10*6/uL (4.20-5.50); Red Cell Distribution Width 14.6 % (11.0-16.0); White Blood Count 3.7 X10*3/uL (4.8-10.8)
[2023-09-15 08:55] LABS: INTERNATIONAL NORM RATIO 1.1 (0.9-1.1); Prothrombin Time 13.1 SEC (11.1-13.3)
[2023-09-15 09:36] LABS: Alanine Aminotransferase 10 U/L (0-31); Albumin Level 3.1 g/dL (3.5-5.0); Alkaline Phosphatase 101 U/L (39-117); Aspartate Amino Transferase 32 U/L (5-31); Bilirubin Direct 0.4 mg/dL (0.0-0.5); Bilirubin Total 1.1 mg/dL (0.0-1.0); Estimated Glomerular Filt Rate > 60; Total Protein 6.8 g/dL (6.5-8.0)
[2023-09-15 09:51] LABS: Hepatitis A Antibody IgG REACTIVE (Nonreactive); ~Hepatitis A Antibody IgG 11.29 S/CO (0.00-0.99)
[2023-09-18 15:49] LABS: Immunoglobulin G 1656 mg/dL (600-1640)
== END 2023-09-15 07:18 | disposition home or self-care (01) ==
LOC: HO.LAB 07:17
PROVIDERS: PCP Nurse Practitioner Family; Visit Provider Internal Medicine Gastroenterology
DX: K74.60 Unspecified cirrhosis of liver (principal); K75.4 Autoimmune hepatitis; K21.9 Gastro-esophageal reflux disease without esophagitis
CPT/HCPCS: 36415; 80076; 82565; 82784; 85027; 85610; 86708; 99212

== ENCOUNTER 2023-09-15 07:17 | Outpatient (AMB) | payer OTHER, SELFPAY ==
[2023-09-15 07:23] VITALS: BP 113/63; PULSE 90; BMI 33.2
--- NOTE | 2023-09-15 07:23 | MHC.OFFVIS ---
Intake Vital Signs 09/15/23 07:23 Height 5 ft Weight 170 lb BMI 33.2 BP 113/63 Blood Pressure Location Lt brachial Position Sitting Pulse 90 Intake Visit Reasons: HCV Intake Note: Patient follow up for autoimmune hepatitis Patient cc: acid reflex on and off and denies any other GI issues. Maintenance Director Required: Yes Maintenance Director Name: Mary [id number] Allergies trazadone Adverse Reaction (Mild, Uncoded 10/24/23 08:11) Abdominal Pain Medication List - Last Reconciled 09/15/23 by Kaylene Prabhakar MD albuterol sulfate 90 mcg/actuation 2 puffs inhalation Q6H PRN amitriptyline 10 mg PO BEDTIME azathioprine 100 mg (2 x 50 mg) PO DAILY baclofen 5 mg PO TID PRN furosemide 20 mg PO DAILY nystatin 1 appl topical TID omeprazole 20 mg PO DAILY prednisone 10 mg PO DAILY 30 days HPI HCV HPI Details GI clinic visit for this 57 year old [place] Islander speaking female for follow-up of autoimmune hepatitis with compensated cirrhosis LABS IN [facility] : Reviewed IMAGING STUDIES: 06/21/[address] SCAN SHOWED: 1. Mild stranding adjacent to the pancreas, which could reflectpancreatitis in the proper clinical setting. 2. Thick-walled appearance of the gallbladder, similar to 04/05/2023.This could be secondary to chronic liver disease, though acute cholecystitis would be difficult to entirely exclude in the proper clinical setting. 3. Cirrhotic liver with sequela of portal hypertension includingborderline splenomegaly and prominent varices. 4. Prominent uterus with suggestion of underlying fibroids, whichcould be further assessed with pelvic ultrasound. 06/21 23 ABD US SHOWED: 1. Cirrhotic appearing liver. 2. Abnormal gallbladder with gallstones and thickened wall containingfluid. Question of a stone lodged in the cystic duct. Although similar findings have been seen on prior studies, the correct clinical setting findings would be suspicious for cholecystitis. HIDA scan may be useful for further evaluation. 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 Patient denies major cardiac or pulmonary problems, loud snoring or sleep apnea Denies problems with anesthesia in the past. Denies being on chronic anticoagulation. Patient denies known family history of colon polyps, colon cancer or other GI malignancies. PAST EGD/COLONOSCOPY: Pt had an EGD and a colonoscopy at [facility] in the past - will obtain records Pt reports she was diagnosed with Autoimmune Hepatitis and was followed by Dr Bobby and now sees DANICA Holley at [facility] Her last visit was in December, She being treated with Azathioprine 50 mg daily and reports she has been compliant in taking the medication. She was also taking prednisone which she discontinued in December, after she ran out of the prescription. Patient denies family history of liver disease, colon polyps or colon cancer. Her mom and maternal grandfather with lung cancer and a maternal aunt has stomach cancer. PAST GI HISTORY BY REVIEW OF MEDICAL RECORDS: 06/06/23 PT WAS SEEN BY DR LIND:AIH related compensated cirrhosis - MELD-Na 11 - Child Abarca Class B Prefers to switch Hepatology care to [facility]. Prev under care of Dr Bobby through [place]. From documentation appears to have been in remission prior to admission in March, which in turn seems to have been a combination of nonadherence to tx (as pt ran out of meds) as well as biliary pancreatitis both contributing to elevated LFTs. Currently undergoing eval for lap phi through [facility] surgery. Plan: - Check MELD labs and IgG - Resume Azathiopurine 50mg PO - If transaminases and IgG cont to improve, can complete taper as per schedule in 2 weeks - Since LFTs being confounded by gallstone disease, will recheck this after her surgery as well with low threshold to proceed with liver bx to monitor for any active inflammation. Limited role of continuing Azathiopurine if no active inflammation. - She is also due for an EGD. Will get records from [place] to see if needs colo alongside it. - Next US due in Oct 2022. - No indication for referral to transplant center for now since low MELD and not decompensated. Follow up in [address] [place] [address] Medical History Gallstone pancreatitis GERD (gastroesophageal reflux disease) Cirrhosis of liver without ascites Jaundice Autoimmune hepatitis Anxiety and depression Chronic low back pain Asthma Surgical History S/P cholecystectomy Hx of tubal ligation Family History Mother Lung cancer Social History Household Members: Spouse Housing: Apartment Do you presently have visiting nurse or other home services: Yes Alcohol intake: former Patient Tobacco Use Status: Former Tobacco user Quit Date: 2009 Tobacco use type: Cigarette e-Cigarette/Vaping Use: Never Used service: No Current occupational status: disabled Current occupational exposures/hazards: No Sexual orientation: Straight/Heterosexual Gender identity: Female Cognitive needs: No Hearing needs: No Vision needs: Yes Review of Systems Const All systems reviewed & are unremarkable except as noted in HPI and below Physical Exam Vital Signs: Last Vital Signs Pulse 90 09/15/23 07:23 BP 113/63 09/15/23 07:23 BMI result Body Mass Index 33.2 Const General: healthy appearing and no acute distress Nutritional Appearance: obese Orientation/consciousness: patient oriented x3 Limitations: language barrier HEENT Head: Yes normal to inspection Ears: hearing grossly normal bilaterally Mouth: Normal oral and palatal mucosa present Eyes Sclerae: sclerae normal Pupils: Equal, round and reactive pupils present Neck Neck: Yes normal visual inspection Chest Chest palpation & inspection: normal inspection of the chest Resp Effort & Inspection: normal respiratory effort Auscultation: clear to auscultation bilaterally Cardio Palpation: normal PMI Rate: regular rate Rhythm: regular rhythm Heart sounds: S1 normal heart sound present, S2 normal heart sound present and no murmurs GI Palpation (GI): Soft to palpation, nontender and No hepatosplenomegaly present Auscultation: normal bowel sounds Rectal Exam - Female: deferred Skin General skin exam: no rashes or lesions noted Neuro General: patient oriented x3, gait normal and moves all extremities Cranial nerves: Yes Equal, round and reactive pupils present Psych Appearance: grossly normal Mental Status: mental status grossly normal Assessment & Plan Assessment & Plan (1) GERD (gastroesophageal reflux disease): Code(s): K21.9 - Gastro-esophageal reflux disease without esophagitis (2) Cirrhosis of liver without ascites: Code(s): K74.60 - Unspecified cirrhosis of liver (3) Autoimmune hepatitis: Code(s): K75.4 - Autoimmune hepatitis Plan 57 year old [place] Islander-speaking female (understands and speaks some Estonian) with autoimmune hepatitis (diagnosed in 2015), mood disorder, gastroesophageal reflux disease seen for FU of autoimmune hepatitis. Pt was admitted to [facility] 04/05/23 with severe epigastric pain, Jaundice and elevated LFTs and acute cholecystitis by CT and US finding, acute gallstone pancreatitis with Lipase > 3000.? Pt was hospitalized at [facility] from 03/26 to 03/29 for autoimmune hepatitis and was discharged on Prednisone taper. Pt reports she was diagnosed with Autoimmune Hepatitis in 2015 and treated with Azathioprine and Prednisone)-? followed by Dr Bobby ([facility]) in the past and now sees DANICA Holley at [facility] (last visit was in December,).? Pt was diagnosed with Cirrhosis in 2018 - attributed to a combination of AIH and RAMIREZ). She being treated with Azathioprine 50 mg daily and reports she had been compliant in taking the medication. From documentation appears to have been in remission prior to admission in March, which in turn seems to have been a combination of non-adherence to tx (as pt ran out of meds) as well as biliary pancreatitis both contributing to elevated LFTs. Thiopurine metabolites did not reveal azathioprine toxicity PT switched her Hepatology care to Dr Lind [facility] since 06/2023. Pt had a lap phi on 07/13/[address] Alcala ([facility] surgery). Plan: - Check MELD labs and IgG - Increase Azathiopurine to 100 mg and continue Prednisone 10 mg daily - She is also due for an EGD. Will get records from [place] to see if needs a same day colonoscopy. - Next US due in Oct 2022. - Referral to Liver transplant is not indicated since patient has a low MELD of 8 and is not decompensated. Follow up in 8 weeks Orders: Orders Complete Blood Count no Diff 09/15/23 K75.4 - Autoimmune hepatitis Prothrombin Time INR 09/15/23 K75.4 - Autoimmune hepatitis Hepatitis A IgG 09/15/23 K75.4 - Autoimmune hepatitis Liver Panel 09/15/23 K75.4 - Autoimmune hepatitis Creatinine 09/15/23 K74.60 - Unspecified cirrhosis of liver, K75.4 - Autoimmune hepatitis Immunoglobulin G 09/15/23 K75.4 - Autoimmune hepatitis Medications: Refilled prednisone 10 mg PO DAILY 30 tabs 1RF 30 days K75.4 - Autoimmune hepatitis azathioprine 100 mg (2 x 50 mg) PO DAILY 180 tabs 0RF Coding Level of Care Code Est Pt Level 4 (00675) Diagnoses GERD (gastroesophageal reflux disease) K21.9 Cirrhosis of liver without ascites K74.60 Autoimmune hepatitis K75.4 Time Spent (min) 20
== END 2023-09-15 08:25 | disposition home or self-care (01) ==
PROVIDERS: PCP Nurse Practitioner Family; Visit Provider Internal Medicine Gastroenterology
DX: K21.9 Gastro-esophageal reflux disease without esophagitis (principal); K74.60 Unspecified cirrhosis of liver; K75.4 Autoimmune hepatitis
CPT/HCPCS: 99214

== ENCOUNTER 2023-10-05 14:55 | Outpatient (AMB) | payer OTHER, SELFPAY ==
[2023-10-05 15:07] VITALS: BP 130/72; BMI 34.2
--- NOTE | 2023-10-05 15:07 | A.OFFPC_ITS ---
Vital Signs 10/05/23 15:07 Height 5 ft Weight 175 lb BMI 34.2 BP 130/72 Blood Pressure Location Lt brachial Position Sitting Intake Visit Reasons: medication follow up Intake Note: Patient here for medication follow up Nurse Transitional Required: No Accompanied by: Self / Same As Patient Allergies trazadone Adverse Reaction (Mild, Uncoded 10/05/23 15:29) Abdominal Pain Medication List - Last Reconciled 10/05/23 by Geraldine Linn MD albuterol sulfate 90 mcg/actuation 2 puffs inhalation Q6H PRN amitriptyline 10 mg PO BEDTIME azathioprine 100 mg (2 x 50 mg) PO DAILY baclofen 5 mg PO TID PRN furosemide 20 mg PO DAILY nystatin 1 appl topical TID omeprazole 20 mg PO DAILY prednisone 10 mg PO DAILY 30 days Tobacco use date assessed: 10/05/23 Dental Screening Dental Screen Date: 10/05/23 Did you have a dental visit in the last 12 months?: No Did you have a dental problem in the last 6 months where you did not have access to dental care?: No Was dental information given to patient?: Patient has dentist HPI HPI Comments History of Present Illness Details This is a 57-year-old female with mild major depression, insomnia, GERD, autoimmune hepatitis and compensated cirrhosis with ascites that comes today complaining of insomnia even though she is taking 3 tablets of amitr iptyline 10 mg at bedtime. I will increase amitriptyline to 50 mg. GERD has been stable with PPIs. On azathioprine for autoimmune hepatitis which she used to follow with [facility]. Had an episode in March 2023 which she had to go to [facility] due to jaundice and right upper quadrant abdominal pain that was found to have transaminitis because she stopped taking azathioprine in December 2022 due to running out of the medication. Also has compensated cirrhosis that is follow by Gastroenterology Dr. Prabhakar and at the moment she does not need to be referred to liver transplant. [facility] Medical History (Updated 10/07/23 @ 09:25 by Geraldine Linn MD) Gallstone pancreatitis GERD (gastroesophageal reflux disease) Cirrhosis of liver without ascites Jaundice Autoimmune hepatitis Anxiety and depression Chronic low back pain Asthma Surgical History S/P cholecystectomy Hx of tubal ligation Family History (Updated 10/05/23 @ 15:09 by AYO Duckworth) Mother Lung cancer Social History (Updated 10/05/23 @ 15:31 by Geraldine Linn MD) Household Members: None Housing: Apartment Do you presently have visiting nurse or other home services: Yes Alcohol intake: former Patient Tobacco Use Status: Former Tobacco user Quit Date: 2009 Tobacco use type: Cigarette e-Cigarette/Vaping Use: Never Used service: No Current occupational status: disabled Current occupational exposures/hazards: No Cognitive needs: No Hearing needs: No Vision needs: Yes Questionnaire PHQ-9 Over the last 2 weeks, how often have you been bothered by any of the following problems? 1. Little interest or pleasure in doing things: not at all 2. Feeling down, depressed, or hopeless: not at all 3. Trouble falling or staying asleep, or sleeping too much: not at all 4. Feeling tired or having little energy: not at all 5. Poor appetite or overeating: not at all 6. Feeling bad about yourself - or that you are a failure or have let yourself or your family down: not at all 7. Trouble concentrating on things, such as reading the newspaper or watching television: not at all 8. Moving or speaking so slowly that other people could have noticed. Or the opposite - being so fidgety or restless that you have been moving around a lot more than usual: not at all 9. Thoughts that you would be better off or of hurting yourself in some way: not at all Total score: 0 Depression Screening Interpretation: Negative Depression Screening Done: Yes 60754 - PHQ-9 Billing: Yes Source: Developed by Drs. Gary Luke, Sabina House, Jack Sprague and colleagues, with an educational sinan from [employer]. Thrive Questionnaire Date Thrive assessed: 10/05/23 I am a: Patient What is your living situation today?: I have a steady place to live Within the past 12 months, did the food you bought not last and you didn't have the money to get more?: Never true Within the past 12 months, did you worry whether your food would run out before you got money to buy more?: Never true Do you have trouble paying for medicines?: No Do you have trouble getting transportation to medical appointments?: No Do you have trouble paying your heating and electricity bill?: No Do you have trouble taking care of your child, family member or friend?: No Do you have trouble with day-to-day activities such as bathing, preparing meals, shopping, managing finances, etc.?: No Are you currently unemployed and looking for a job?: No Are you interested in more education?: No Please select the resources that you would like help with: None Currently or been in a relationship where the following occur: no concerns reported THRIVE Score: 0 AUDIT C Alcohol Use Questionnaire (AUDIT-C) 1. How often do you have a drink containing alcohol?: Never Total Score: 0 RUDI-7 AMB Questionnaire RUDI-7 Date RUDI - 7 assessed: 10/05/23 Feeling nervous, anxious, or on edge: 1 = Several days Not being able to stop or control worryin = Not at all Worrying too much about different things: 0 = Not at all Trouble relaxin = Not at all Being so restless that it is hard to sit still: 0 = Not at all Becoming easily annoyed or irritable: 0 = Not at all Feeling afraid as if something awful might happen: 0 = Not at all Total RUDI-7 score (0-4 normal; 5-9 mild; 10-14 moderate; 15-21 severe): 1 Source: Developed by Drs. Gary Luke, Sabina House, Jack Sprague and colleagues, with an educational sinan from [employer]. RUDI-7 Assessment Billing RUDI-7 Assessment Tool: RUDI-7 Assessment 19356 Review of Systems Const All systems reviewed & are unremarkable except as noted in HPI and below Eyes Reports no additional complaints, Denies change in vision and Denies other visual disturbances Card Denies chest pain at rest, Denies chest pain with activity, Denies edema, Denies irregular heart rhythm, Denies claudication, Denies dyspnea, Denies dyspnea on exertion, Denies orthopnea, Denies paroxysmal nocturnal dyspnea and Denies slow heart rate Resp Denies cough, Denies dyspnea and Denies dyspnea on exertion GI Denies abdominal pain, Denies change in bowel habits, Denies excessive flatus, Denies nausea and Denies vomiting Denies urinary incontinence, Denies urinary hesitancy and Denies urinary urgency Musc Denies abnormal gait, Denies atrophy, Denies deformity and Denies limited range of motion Skin/Breast Denies bleeding lesions, Denies changing lesions and Denies rash Neuro Denies abnormal gait, Denies behavioral changes, Denies confusion and Denies lack of coordination Psych Denies behavioral changes and Denies confusion Physical exam (Primary Care) Vital Signs: Last Vital Signs BP 130/72 10/05/23 15:07 BMI result Body Mass Index 34.2 Tobacco/Smoking Status: Tobacco use Status Tobacco use date assessed 10/05/23 10/05/23 15:11 Patient Tobacco Use Status Former Tobacco user 10/05/23 15:31 Tobacco use type Cigarette 10/05/23 15:31 e-Cigarette/Vaping Use Never Used 10/05/23 15:31 PHQ-9: PHQ-9 Score PHQ-9: Total score 0 10/05/23 17:10 Depression Screening Interpretation: Negative Thrive Assessment: Date of Thrive Assessment Date Thrive assessed 10/05/23 10/05/23 15:11 Currently or been in a relationship where the following occur: no concerns reported Const General: No confusion Orientation/consciousness: patient oriented x3 and No confusion Eyes General: appearance normal, both eyes and all related structures Eyelids: Yes eyelids normal Conjunctivae: conjunctivae normal Neck Neck: Yes normal visual inspection and Yes supple Resp Effort & Inspection: normal respiratory effort Auscultation: clear to auscultation bilaterally Cardio Jugular venous distension: no JVD Rate: regular rate Rhythm: regular rhythm Heart sounds: S1 normal heart sound present and S2 normal heart sound present Neuro General: patient oriented x3, no focal motor deficits and No confusion Extrem General: Yes full ROM Psych Appearance: grossly normal Assessment and Plan Assessment & Plan (1) GERD (gastroesophageal reflux disease): Code(s): K21.9 - Gastro-esophageal reflux disease without esophagitis Plan: Continue PPIs. (2) Cirrhosis of liver without ascites: Code(s): K74.60 - Unspecified cirrhosis of liver Plan: Follow-up with Gastroenterology. Monitor MELD-Na. (3) Autoimmune hepatitis: Code(s): K75.4 - Autoimmune hepatitis Plan: Continue azathioprine. Follow-up with Gastroenterology. (4) Insomnia: Code(s): G47.00 - Insomnia, unspecified Plan: Increase amitriptyline to 50 mg at bedtime. (5) Mild major depression: Code(s): F32.0 - Major depressive disorder, single episode, mild Plan: Increase amitriptyline to 50 mg at bedtime. Orders: Orders Complete Blood Count Auto Diff 10/05/23 K21.9 - Gastro-esophageal reflux disease without esophagitis Comprehensive [place]. Panel Fast 10/05/23 K21.9 - Gastro-esophageal reflux disease without esophagitis Lipid Panel 10/05/23 E66.9 - Obesity, unspecified Medications: New amitriptyline 50 mg PO BEDTIME 30 days 30 tabs 0RF Refilled baclofen 5 mg PO TID PRN 30 tabs 0RF muscle spasm G89.29 - Other chronic pain, M54.50 - Low back pain, unspecified Discontinued amitriptyline Discontinued Reason: Patient Completed Course 10 mg PO BEDTIME 30 tabs 0RF G47.9 - Sleep disorder, unspecified Coding Level of Care Code Est Pt Level 4 (46444) Diagnoses GERD (gastroesophageal reflux disease) K21.9 Cirrhosis of liver without ascites K74.60 Autoimmune hepatitis K75.4 Insomnia G47.00 Mild major depression F32.0 Additional Codes RUDI-7 Assessment Billing - RUDI-7 Assessment Tool: RUDI-7 Assessment 75127 ([id number]) Time Spent (min) 23
== END 2023-10-05 15:38 | disposition home or self-care (01) ==
PROVIDERS: PCP Internal Medicine; Visit Provider Internal Medicine
DX: K21.9 Gastro-esophageal reflux disease without esophagitis (principal); K74.60 Unspecified cirrhosis of liver; F32.0 Major depressive disorder, single episode, mild; K75.4 Autoimmune hepatitis; G47.00 Insomnia, unspecified
CPT/HCPCS: 99214

== ENCOUNTER 2023-10-24 07:53 | Outpatient (AMB) | payer OTHER, SELFPAY ==
[2023-10-24 08:08] VITALS: BP 126/74; BMI 34.0
--- NOTE | 2023-10-24 08:08 | A.OFFVIS_ITS ---
Intake Vital Signs 10/24/23 08:08 Height 5 ft Weight 174 lb 2.643 oz BMI 34.0 BP 126/74 Intake Visit Reasons: PMB/PCP referral Intake Note: post coital bleeding Forest Fire Fighter Required: Yes Forest Fire Fighter Language: Skilled Nursing Professional Name: Priyanka ROLLINS Information Interpreted: non-clinical & clinical Car Groomer: Car Groomer Present (Priyanka ROLLINS) Accompanied by: Self / Same As Patient Allergies trazadone Adverse Reaction (Mild, Uncoded 10/24/23 08:11) Abdominal Pain Post menopausal: Yes HPI HPI Comments History of Present Illness Details Presenting complaining of postcoital bleeding over the last 2 months. Last co testing was 2 years ago at [facility], according to patient was normal, records not available. [facility] Medical History Gallstone pancreatitis GERD (gastroesophageal reflux disease) Cirrhosis of liver without ascites Jaundice Autoimmune hepatitis Anxiety and depression Chronic low back pain Asthma Surgical History S/P cholecystectomy Hx of tubal ligation Family History Mother Lung cancer Social History Household Members: Spouse Housing: Apartment Do you presently have visiting nurse or other home services: Yes Alcohol intake: former Patient Tobacco Use Status: Former Tobacco user Quit Date: 2009 Tobacco use type: Cigarette e-Cigarette/Vaping Use: Never Used service: No Current occupational status: disabled Current occupational exposures/hazards: No Sexual orientation: Straight/Heterosexual Gender identity: Female Cognitive needs: No Hearing needs: No Vision needs: Yes Female Reproductive History Menstrual Menopause type: natural Total pregnancies: 2 Full term: 2 Number of Living Children: 2 Review of Systems Const All systems reviewed & are unremarkable except as noted in HPI and below Physical Exam General: Yes no CVA tenderness External Female Exam: normal external appearance and normal appearance of the urethra Speculum Exam - Vagina: normal appearance of the vagina, normal palpation, no lesions and no masses Speculum Exam - Cervix: normal appearance of the cervix, normal palpation, no lesions, no masses, nontender and Other cervical findings present (2 cm endocervical polyp) Bimanual exam- vagina & uterus: normal bimanual exam, normal palpation, uterine size normal, normal palpation, uterine shape normal, No Cervical tenderness present and non-tender Bimanual Exam- Adnexa, other: normal adnexae Back/Spine/Pelvis Back: no CVA tenderness Office Procedures CAR FERRY CAPTAIN Biopsy Before the procedure was started, discussed with the patient the procedure technique, alternatives & all the risks associated with the procedure including but not limited to: bleeding , infection, uterine perforation, injury to bladder, vessels, bowels, possible need for transfusion with all its risks, and others. All questions were answered, the patient verbalized understanding and signed the consent. Urine test done in the office was negative Using a long Shirin Clamp the endocervical polyp was grasped and twisted around till it came off, hemostasis was secured using pressure. The patient tolerated the procedure well. Instructions were given to the patient to call if bleeding, temp>100.4 occur. The patient verbalized understanding and agreed with the plan. This note was generated with a voice recognition program. Some errors may have been overlooked during the review of this note. Sometimes these errors may affect the content or meaning of a given sentence. [id number] of Cervix Procedure code (CPT) selection complete Assessment & Plan Assessment & Plan (1) Postcoital bleeding: Code(s): N93.0 - Postcoital and contact bleeding Plan: Discussed with the patient differential diagnosis of postcoital bleeding including but not limited to endocervical infection, dysplasia/malignancy, endometrial pathology including hyperplasia or malignancy, or others. The workup includes GC/CT, co testing, recommended ultrasound to measure the endometrial stripe; discussed with the patient that if the endometrial thickness is 4 mm or less the negative predictive value of endometrial pathology is 99%, otherwise If endometrial thickness is more than 4 mm will proceed with endometrial sampling versus hysteroscopy D&C polypectomy depending on the ultrasound findings. Since the patient had bleeding from the polypectomy, Instructed the patient to schedule a follow-up appointment in 2 weeks for GC/CT, co testing and follow-up ultrasound appointment with possible ECC/EMB versus preop visit for hysteroscopy D&C polypectomy/ECC depending on the findings and the patient preference. All questions answered, the patient verbalized understanding and agreed with the plan. (2) Endometrial polyp: Code(s): N84.0 - Polyp of corpus uteri Plan: Discussed with the patient the finding on pelvic exam showing endocervical polyp, recommend polypectomy. Polypectomy done, see procedure note Orders: Orders AMB CAR FERRY CAPTAIN Biopsy Today N84.0 - Polyp of corpus uteri Surgical Today N84.1 - Polyp of cervix uteri Coding Level of Care Code New Pt Level 3 (90269) Procedure Only Diagnoses Postcoital bleeding N93.0 Endometrial polyp N84.0 CPT Codes CAR FERRY CAPTAIN Biopsy - CPT: 63646-Qvklpf of Cervix ([id number])
== END 2023-10-24 08:39 | disposition home or self-care (01) ==
PROVIDERS: PCP Internal Medicine; Visit Provider Obstetrics & Gynecology
DX: N93.0 Postcoital and contact bleeding (principal); N84.0 Polyp of corpus uteri
CPT/HCPCS: 57500; 99203

== ENCOUNTER 2023-10-24 07:53 | Outpatient (REF) | payer OTHER, SELFPAY | END 2023-10-24 07:54 | disposition home or self-care (01) | LOC: HO.LNP 07:53 | PROVIDERS: PCP Internal Medicine; Visit Provider Obstetrics & Gynecology | DX: N84.1 Polyp of cervix uteri (principal); N84.0 Polyp of corpus uteri; N39.0 Urinary tract infection, site not specified | CPT/HCPCS: 57500; 88305; 99202 ==

== ENCOUNTER 2023-11-22 13:09 | Outpatient (REF) | payer OTHER, SELFPAY ==
--- NOTE | ~2023-11-22 | US_ITS ---
EXAM: Pelvic Ultrasound CLINICAL INDICATION: Follow-up COMPARISON: CT abdomen pelvis 06/21/2023 and abdominal ultrasound 04/13/2011 TECHNIQUE: The pelvis was evaluated using transabdominal and transvaginal imaging. FINDINGS: The uterus measures 9.6 x 5.8 x 6.6 cm in longitudinal by AP by transverse dimension. The uterus demonstrates an overall heterogeneous echotexture with some tiny cystic changes. A well-defined uterine mass is not identified. The endometrial stripe is not thickened and measures 0.4 cm. There is a trace amount of fluid within the endometrial canal. The cervix measures approximately 2.2 cm in length. Nabothian cysts are noted. The right ovary measures approximately 2.1 x 1.0 x 1.7 cm and is unremarkable. The left ovary was not clearly visualized. Prominent vasculature noted within the left adnexa, nonspecific. There is trace free fluid in the pelvis. US/US pelvic and transvaginal IMPRESSION: 1. The uterus demonstrates a heterogeneous echotexture with some tiny cystic changes. A well-defined uterine mass is not identified. Adenomyosis is suspected. The endometrium is normal in thickness. There is a trace amount of fluid within the endometrial canal. 2. Prominent vasculature of the left adnexa. This is a nonspecific finding but may represent a retroperitoneal venous malformation. This can be further evaluated with pelvic MRI if clinically indicated.
== END 2023-11-22 13:10 | disposition home or self-care (01) ==
LOC: HO.US 13:09
PROVIDERS: PCP Internal Medicine; Visit Provider Obstetrics & Gynecology
DX: N84.0 Polyp of corpus uteri (principal); N93.0 Postcoital and contact bleeding
CPT/HCPCS: 76830; 76856

== ENCOUNTER 2023-11-28 15:35 | Outpatient (AMB) | payer OTHER, SELFPAY ==
[2023-11-28 15:45] VITALS: BP 142/78; PULSE 101; TEMP 36.9; O2SAT 98; BMI 34.2
--- NOTE | 2023-11-28 15:45 | MHC.OFFWIV ---
Intake Vital Signs 11/28/23 15:45 11/28/23 16:07 Height 5 ft Weight 175 lb 2 oz BMI 34.2 BP 142/78 H Blood Pressure Location Rt brachial Position Sitting Pulse 101 H 90 Pulse Source Pulse Oximeter Auscultation Temp 98.5 F Temp Source Oral Pulse Oximetry (%) 98 Oxygen Delivery Method Room Air Intake Visit Reasons: EP Bump on back of head/Headache Intake Note: Pt presents to the office today for c/o a bump on the back of her head. Pt states she noticed the bump a few months ago but she states it started becoming painful about 2 weeks ago. Pt denies any injury to her head. Patient Tobacco Use Status: Former Tobacco user Quit Date: 2009 Allergies trazadone Adverse Reaction (Mild, Uncoded 11/28/23 15:48) Abdominal Pain HPI HPI Comments History of Present Illness Details Patient is a 58-year-old female in today for sick visit. She has a past medical history significant for hypertension, GERD, cirrhosis of the liver, chronic lower back pain, insomnia. Patient states that several months ago she developed a small bump on the back of her head that has gotten progressively bigger. Patient states that over the past 2 weeks it is increased in size significantly. Tender to touch. Patient has not used any medication for relief. Denies fever, numbness, dizziness, chest pain, shortness a breath. [facility] Medical History Gallstone pancreatitis GERD (gastroesophageal reflux disease) Cirrhosis of liver without ascites Jaundice Autoimmune hepatitis Anxiety and depression Chronic low back pain Asthma Surgical History S/P cholecystectomy Hx of tubal ligation Family History Mother Lung cancer Social History Household Members: Spouse Housing: Apartment Do you presently have visiting nurse or other home services: Yes Alcohol intake: former Patient Tobacco Use Status: Former Tobacco user Quit Date: 2009 Tobacco use type: Cigarette e-Cigarette/Vaping Use: Never Used service: No Current occupational status: disabled Current occupational exposures/hazards: No Sexual orientation: Straight/Heterosexual Gender identity: Female Cognitive needs: No Hearing needs: No Vision needs: Yes Review of Systems Const All systems reviewed & are unremarkable except as noted in HPI and below Denies headache(s) ENT Denies dizziness and Denies headache(s) Musc Denies tingling Skin/Breast Reports other (Bump on the back of head) Neuro Denies dizziness, Denies headache(s) and Denies tingling Physical Exam Vital Signs: Last Vital Signs Temp 98.5 F 11/28/23 15:45 Pulse 101 H 11/28/23 15:45 BP 142/78 H 11/28/23 15:45 Pulse Ox 98 11/28/23 15:45 Oxygen Delivery Method Room Air 11/28/23 15:45 BMI result Body Mass Index 34.2 Const Other: Appearance: Alert.? Oriented X3.? No acute distress.? Head: Normocephalic, atraumatic, no step-offs or deformities Neck: Normal inspection.? Neck supple.? CVS: Normal heart rate and rhythm.? Pulses normal.? Respiratory: No respiratory distress.? Breath sounds normal.? Skin: Patient has 1 inch cystic nodule on back of neck, at base of hairline. Moveable and tender. Neuro: Oriented X 3.? No motor deficit.? No sensory deficit. CN 2-12 intact Assessment & Plan Assessment & Plan (1) Sebaceous cyst: Comment: On the back of neck near the hairline. Patient will be given doxycycline to be taken as prescribed. Code(s): L72.3 - Sebaceous cyst Plan: Take your medications as prescribed. If you were prescribed antibiotics today, it is important that you take your medication to their entirety, do not skip any doses, do not finish them early. Follow-up with your primary care provider this week. Return to the emergency department with new or worsening symptoms. Such as fevers, chills, chest pain, shortness of breath, nausea, vomiting, dizziness, headache, vision changes, lethargy In case of emergency call 911 Plan If problem does not improve patient instructed to return back to walk-in clinic or to return to emergency room. Medications: New doxycycline hyclate 100 mg PO BID 14 tabs 0RF Coding Level of Care Code Est Pt Level 3 (95239) Diagnoses Sebaceous cyst L72.3 Time Spent (min) 22
[2023-11-28 16:07] VITALS: PULSE 90
== END 2023-11-28 16:24 | disposition home or self-care (01) ==
PROVIDERS: PCP Internal Medicine; Visit Provider Nurse Practitioner Primary Care
DX: L72.3 Sebaceous cyst (principal)
CPT/HCPCS: 99213

== ENCOUNTER 2023-12-11 07:47 | Outpatient (REF) | payer OTHER, SELFPAY ==
[2023-12-11 18:48] LABS: CT PCR NOT DETECTED (Not Detect.); NG PCR NOT DETECTED (Not Detect.)
== END 2023-12-11 07:48 | disposition home or self-care (01) ==
LOC: HO.LAB 07:47
PROVIDERS: Absent Provider Internal Medicine; PCP Internal Medicine; Referring Provider Internal Medicine Gastroenterology; Visit Provider Obstetrics & Gynecology
DX: Z12.4 Encounter for screening for malignant neoplasm of cervix (principal); Z11.51 Encounter for screening for human papillomavirus (HPV); N93.0 Postcoital and contact bleeding
CPT/HCPCS: 0353U; 57500; 87624; 88142; 88305

== ENCOUNTER 2023-12-11 07:47 | Outpatient (AMB) | payer OTHER, SELFPAY ==
--- NOTE | 2023-12-11 07:49 | MHC.OFFVIS ---
Intake Vital Signs 12/11/23 07:50 Height 5 ft Weight 175 lb BMI 34.2 BP 110/68 Intake Visit Reasons: EMB/PAP/ECC Database Administration Manager Required: Yes Database Administration Manager Language: Fire Alarm Inspector Name: Chance [id number] Information Interpreted: non-clinical & clinical Independent Freight Agent: Independent Freight Agent Present (Cathleen) Allergies trazadone Adverse Reaction (Mild, Uncoded 12/11/23 07:50) Abdominal Pain HPI HPI Comments History of Present Illness Details Presenting for ultrasound follow-up for possible EMB, co testing, GC/CT and ECC for postcoital bleeding. [facility] Medical History Gallstone pancreatitis GERD (gastroesophageal reflux disease) Cirrhosis of liver without ascites Jaundice Autoimmune hepatitis Anxiety and depression Chronic low back pain Asthma Surgical History S/P cholecystectomy Hx of tubal ligation Family History Mother Lung cancer Social History Household Members: Spouse Housing: Apartment Do you presently have visiting nurse or other home services: Yes Alcohol intake: former Patient Tobacco Use Status: Former Tobacco user Quit Date: 2009 Tobacco use type: Cigarette e-Cigarette/Vaping Use: Never Used service: No Current occupational status: disabled Current occupational exposures/hazards: No Sexual orientation: Straight/Heterosexual Gender identity: Female Cognitive needs: No Hearing needs: No Vision needs: Yes Physical Exam Vital Signs: Last Vital Signs BP 110/68 12/11/23 07:50 BMI result Body Mass Index 34.2 Office Procedures OPERATIONS FORESTER Biopsy Before the procedure was started discussed with the patient the procedure, alternatives & all the risks associated with the procedure (bleeding, infection, injury to vagina, bladder, vessels, possible need for transfusion with all its risks) then patient signed the consent Speculum inserted ECC done . Monsel solution used for hemostasis. The patient tolerated well . At the end the patient was instructed to call if temp>100.4, abdominal pain, n/v, bleeding; The patient was given the following instructions: nothing per vagina, no intercourse or bath tub use. All questions answered the patient verbalized understanding. Instructed the patient to make an appointment in 2 weeks for follow-up This note was generated with a voice recognition program. Some errors may have been overlooked during the review of this note. Sometimes these errors may affect the content or meaning of a given sentence. [id number] of Cervix Procedure code (CPT) selection complete Assessment & Plan Assessment & Plan (1) Postcoital bleeding: Code(s): N93.0 - Postcoital and contact bleeding Plan: Discussed with the patient the results of the pelvic ultrasound showing an endometrial stripe thickness of 4 mm. Explained to the patient with an endometrial stripe of 4 mm &/or less, there is a high negative predictive value in detecting endometrial pathology including endometrial hyperplasia, polyps or malignancy. Therefore, there is no indication for endometrial sampling. Discussed with the patient the sensitivity, specificity, and positive and the negative predictive value of using ultrasound in detecting endometrial pathology. The patient was instructed to call if bleeding recurs, will proceed with endometrial sampling out endometrial pathology. Co testing, GC/CT done ECC done, see procedure Orders: Orders AMB OPERATIONS FORESTER Biopsy Today N93.0 - Postcoital and contact bleeding Coding Level of Care Code Est Pt Level 3 (66761) Procedure Only Diagnoses Postcoital bleeding N93.0 CPT Codes OPERATIONS FORESTER Biopsy - CPT: 67468-Djmtqh of Cervix ([id number]) Comment ECC done not cervical biopsy
[2023-12-11 07:50] VITALS: BP 110/68; BMI 34.2
== END 2023-12-11 08:32 | disposition home or self-care (01) ==
PROVIDERS: PCP Internal Medicine; Visit Provider Obstetrics & Gynecology
DX: N93.0 Postcoital and contact bleeding (principal)
CPT/HCPCS: 57500

== ENCOUNTER 2023-12-11 08:13 | Outpatient (REF) | payer OTHER, SELFPAY ==
[2023-12-15 21:08] LABS: HPV mRNA E6/E7 rflx Not Detected (Not Detected)
== END 2023-12-11 08:14 | disposition home or self-care (01) ==
LOC: HO.LNP 08:13
PROVIDERS: Visit Provider Obstetrics & Gynecology
DX: Z13.89 Encounter for screening for other disorder (principal)
CPT/HCPCS: 87624; 88142

== ENCOUNTER 2024-01-01 17:08 | Outpatient (AMB) | payer OTHER, SELFPAY ==
[2024-01-01 17:11] VITALS: BP 124/82; BMI 34.4
--- NOTE | 2024-01-01 17:11 | MHC.PC.OV ---
Vital Signs 01/01/24 17:11 Height 5 ft Weight 176 lb BMI 34.4 BP 124/82 Blood Pressure Location Lt brachial Position Sitting Intake Visit Reasons: Annual PE Intake Note: Patient here for an annual physical exam Mobile Solutions Architect Required: No Accompanied by: Self / Same As Patient Allergies trazadone Adverse Reaction (Mild, Uncoded 01/01/24 17:29) Abdominal Pain Medication List - Last Reconciled 01/01/24 by Geraldine Linn MD albuterol sulfate 90 mcg/actuation 2 puffs inhalation Q6H PRN amitriptyline 50 mg PO BEDTIME 30 days azathioprine 100 mg (2 x 50 mg) PO DAILY 90 days baclofen 5 mg PO TID PRN doxycycline hyclate 100 mg PO BID furosemide 20 mg PO DAILY nystatin 1 appl topical TID omeprazole 20 mg PO DAILY prednisone 10 mg PO DAILY 30 days Tobacco use date assessed: 10/05/23 Dental Screening Dental Screen Date: 10/05/23 HPI HPI Comments History of Present Illness Details This is a 58-year-old female with mild major depression, cirrhosis of the liver without ascites and autoimmune hepatitis that comes for her physical exam. Depression stable with amitriptyline at bedtime. Cirrhosis of the liver and autoimmune hepatitis are follow by Gastroenterology. On azathioprine for her autoimmune hepatitis. Last mammogram was over a year ago and will be order. Last Pap smear was December 2023. Colonoscopy was done at [facility] but does not recall when and as per patient was normal. [facility] Medical History (Updated 01/01/24 @ 20:49 by Geraldine Linn MD) Gallstone pancreatitis GERD (gastroesophageal reflux disease) Cirrhosis of liver without ascites Jaundice Autoimmune hepatitis Anxiety and depression Chronic low back pain Asthma Surgical History S/P cholecystectomy Hx of tubal ligation Family History Mother Lung cancer Father No problems noted. Social History Household Members: Spouse Housing: Apartment Do you presently have visiting nurse or other home services: Yes Alcohol intake: former Patient Tobacco Use Status: Former Tobacco user Quit Date: 2009 Tobacco use type: Cigarette e-Cigarette/Vaping Use: Never Used Second Hand Smoke Exposure: No service: No Current occupational status: disabled Current occupational exposures/hazards: No Sexual orientation: Straight/Heterosexual Gender identity: Female Cognitive needs: No Hearing needs: No Vision needs: Yes Questionnaire Thrive Questionnaire Date Thrive assessed: 10/05/23 RUDI-7 AMB Questionnaire RUDI-7 Date RUDI - 7 assessed: 10/05/23 Source: Developed by Drs. Gary Luke, Sabina House, Jack Sprague and colleagues, with an educational sinan from [employer]. Review of Systems Const All systems reviewed & are unremarkable except as noted in HPI and below Eyes Reports no additional complaints, Denies change in vision and Denies other visual disturbances Card Denies chest pain at rest, Denies chest pain with activity, Denies edema, Denies irregular heart rhythm, Denies claudication, Denies dyspnea, Denies dyspnea on exertion, Denies orthopnea, Denies paroxysmal nocturnal dyspnea and Denies slow heart rate Resp Denies cough, Denies dyspnea and Denies dyspnea on exertion GI Denies abdominal pain, Denies change in bowel habits, Denies excessive flatus, Denies nausea and Denies vomiting Denies urinary incontinence, Denies urinary hesitancy and Denies urinary urgency Physical exam (Primary Care) Vital Signs: Last Vital Signs BP 124/82 01/01/24 17:11 BMI result Body Mass Index 34.4 Tobacco/Smoking Status: Tobacco use Status Tobacco use date assessed 10/05/23 01/01/24 17:15 Patient Tobacco Use Status Former Tobacco user 01/01/24 17:15 Tobacco use type Cigarette 01/01/24 17:15 e-Cigarette/Vaping Use Never Used 01/01/24 17:15 Thrive Assessment: Date of Thrive Assessment Date Thrive assessed 10/05/23 01/01/24 17:15 Const Orientation/consciousness: patient oriented x3 HENMT Head: Yes normal to inspection, Yes normocephalic and Yes atraumatic Ears: external ears normal Eyes General: appearance normal, both eyes and all related structures Eyelids: Yes eyelids normal Conjunctivae: conjunctivae normal Neck Neck: Yes normal visual inspection and Yes supple Resp Effort & Inspection: normal respiratory effort Auscultation: clear to auscultation bilaterally Cardio Jugular venous distension: no JVD Rate: regular rate Rhythm: regular rhythm Heart sounds: S1 normal heart sound present and S2 normal heart sound present GI Inspection: Yes normal to inspection Palpation (GI): Soft to palpation and nontender Auscultation: normal bowel sounds Skin General skin exam: no rashes or lesions noted Neuro General: patient oriented x3 and no focal motor deficits Extrem General: Yes full ROM Psych Appearance: grossly normal Assessment and Plan Assessment & Plan (1) Physical exam: Code(s): Z00.00 - Encounter for general adult medical examination without abnormal findings Plan: Repeat in a year. (2) Autoimmune hepatitis: Code(s): K75.4 - Autoimmune hepatitis Plan: Continue azathioprine. (3) Cirrhosis of liver without ascites: Code(s): K74.60 - Unspecified cirrhosis of liver Plan: Follow-up with Gastroenterology. (4) Mild major depression: Code(s): F32.0 - Major depressive disorder, single episode, mild Plan: Continue amitriptyline. Medications: New baclofen 10 mg PO TID PRN 90 tabs 0RF muscle spasm 30 days Discontinued doxycycline hyclate Discontinued Reason: Patient Completed Course 100 mg PO BID 14 tabs 0RF baclofen Discontinued Reason: Patient Completed Course 5 mg PO TID PRN 30 tabs 0RF muscle spasm G89.29 - Other chronic pain, M54.50 - Low back pain, unspecified Coding Level of Care Code Est Pt Prev Care 40-64y(58784) Diagnoses Physical exam Z00.00 Autoimmune hepatitis K75.4 Cirrhosis of liver without ascites K74.60 Mild major depression F32.0 Time Spent (min) 35
== END 2024-01-01 17:43 | disposition home or self-care (01) ==
PROVIDERS: PCP Internal Medicine; Visit Provider Internal Medicine
DX: Z00.00 Encounter for general adult medical examination without abnormal findings (principal); K75.4 Autoimmune hepatitis; K74.60 Unspecified cirrhosis of liver; F32.0 Major depressive disorder, single episode, mild
CPT/HCPCS: 99396

== ENCOUNTER 2024-01-03 08:42 | Outpatient (AMB) | payer OTHER, SELFPAY ==
--- NOTE | 2024-01-03 08:45 | MHC.OFFVIS ---
Vital Signs 01/03/24 08:47 Height 5 ft Weight 174 lb 2.643 oz BMI 34.0 BP 110/72 Intake Visit Reasons: ECC follow up Highway Maintenance Crew Worker Required: Yes Highway Maintenance Crew Worker Language: Registration Scheduling Specialist Name: Priyanka ROLLINS Information Interpreted: non-clinical & clinical Accompanied by: Self / Same As Patient Allergies trazadone Adverse Reaction (Mild, Uncoded 01/03/24 08:47) Abdominal Pain Post menopausal: Yes HPI Comments Details: Presenting for follow-up regarding postcoital bleeding. The following workup was done: Pelvic ultrasound showed endometrial stripe of 4 mm Co testing was negative ECC pathology showed the following: 'Endocervix, curettage: Superficial fragments of benign endocervical and squamous epithelium; rare strips of benign endometrial epithelium PFSH Medical History Gallstone pancreatitis GERD (gastroesophageal reflux disease) Cirrhosis of liver without ascites Jaundice Autoimmune hepatitis Anxiety and depression Chronic low back pain Asthma Surgical History S/P cholecystectomy Hx of tubal ligation Family History Mother Lung cancer Father No problems noted. Social History Household Members: Spouse Housing: Apartment Do you presently have visiting nurse or other home services: Yes Alcohol intake: former Patient Tobacco Use Status: Former Tobacco user Quit Date: 2009 Tobacco use type: Cigarette e-Cigarette/Vaping Use: Never Used Second Hand Smoke Exposure: No service: No Current occupational status: disabled Current occupational exposures/hazards: No Sexual orientation: Straight/Heterosexual Gender identity: Female Cognitive needs: No Hearing needs: No Vision needs: Yes Review of Systems Const All systems reviewed & are unremarkable except as noted in HPI and below Reports as per HPI and Reports no additional complaints GI Reports no additional complaints Reports no additional complaints Physical Exam Vital Signs: Last Vital Signs BP 110/72 01/03/24 08:47 BMI result Body Mass Index 34.0 Assessment & Plan Assessment & Plan (1) Postcoital bleeding: Code(s): N93.0 - Postcoital and contact bleeding Category: Medical Plan: Discussed with the patient the workup done including GC and chlamydia negative, co testing negative, endocervical curettage pathology negative for malignancy and or hyperplasia. Discussed with the patient the results of the pelvic ultrasound showing an endometrial stripe thickness of 4 mm. Explained to the patient with an endometrial stripe of 4 mm &/or less, there is a high negative predictive value in detecting endometrial pathology including endometrial hyperplasia, polyps or malignancy. Therefore, there is no indication for endometrial sampling. Discussed with the patient the sensitivity, specificity, and positive and the negative predictive value of using ultrasound in detecting endometrial pathology. The patient was instructed to call if bleeding recurs, will proceed with endometrial sampling out endometrial pathology. All questions were answered and the patient verbalized understanding and agreed with the plan. Coding Level of Care Code Est Pt Level 3 (32663) Diagnoses Postcoital bleeding N93.0
[2024-01-03 08:47] VITALS: BP 110/72; BMI 34.0
== END 2024-01-03 11:31 | disposition home or self-care (01) ==
PROVIDERS: PCP Internal Medicine; Visit Provider Obstetrics & Gynecology
DX: N93.0 Postcoital and contact bleeding (principal)
CPT/HCPCS: 99213

== ENCOUNTER → 2024-01-03 08:42 | Outpatient (BNVA) | payer OTHER, SELFPAY | PROVIDERS: PCP Internal Medicine; Visit Provider Obstetrics & Gynecology | DX: N93.0 Postcoital and contact bleeding (principal) | CPT/HCPCS: 99212 ==

== ENCOUNTER 2024-03-19 07:48 | Outpatient (AMB) | payer OTHER, SELFPAY ==
[2024-03-19 08:18] VITALS: BMI 34.0
--- NOTE | 2024-03-19 08:18 | MHC.OFFVIS ---
Vital Signs 03/19/24 08:18 Height 5 ft Weight 174 lb 2.643 oz BMI 34.0 Intake Visit Reasons: Vaginal cyst Anodic Operator Required: Yes Anodic Operator Language: Shade Hanger Services: Anodic Operator Present (in person) Anodic Operator Name: Priyanka ROLLINS Information Interpreted: non-clinical & clinical Graphic Engineer: Graphic Engineer Present (Priyanka ROLLINS) Accompanied by: Self / Same As Patient Allergies trazadone Adverse Reaction (Mild, Uncoded 03/19/24 08:23) Abdominal Pain Post menopausal: Yes HPI Comments Details: Presenting complaining of right vulvar swelling that started a week ago and is getting worse, in addition started having discharge, no fever or chills. [facility] Medical History Gallstone pancreatitis GERD (gastroesophageal reflux disease) Cirrhosis of liver without ascites Jaundice Autoimmune hepatitis Anxiety and depression Chronic low back pain Asthma Surgical History S/P cholecystectomy Hx of tubal ligation Family History Mother Lung cancer Father No problems noted. Social History Household Members: Spouse Housing: Apartment Do you presently have visiting nurse or other home services: Yes Alcohol intake: former Patient Tobacco Use Status: Former Tobacco user Tobacco use type: Cigarette e-Cigarette/Vaping Use: Never Used Second Hand Smoke Exposure: No service: No Current occupational status: disabled Current occupational exposures/hazards: No Sexual orientation: Straight/Heterosexual Gender identity: Female Cognitive needs: No Hearing needs: No Vision needs: Yes Review of Systems Const All systems reviewed & are unremarkable except as noted in HPI and below Physical Exam Vital Signs: BMI result Body Mass Index 34.0 General: Yes no CVA tenderness External Female Exam: No normal external appearance (Right labia majora abscess and right posterior fourchette abscess) and normal appearance of the urethra Speculum Exam - Vagina: normal appearance of the vagina, normal palpation, no lesions and no masses Speculum Exam - Cervix: normal appearance of the cervix, normal palpation, no lesions, no masses and nontender Bimanual exam- vagina & uterus: normal bimanual exam, normal palpation, uterine size normal, normal palpation, uterine shape normal, No Cervical tenderness present and non-tender Bimanual Exam- Adnexa, other: normal adnexae Back/Spine/Pelvis Back: no CVA tenderness Office Procedures Incision/Drainage TRANSITIONAL KINDERGARTEN TEACHER Incision/Drainage TRANSITIONAL KINDERGARTEN TEACHER Details: Before the procedure was started d/w patient the procedure, alternatives (do nothing, medical rx), & all the risks associated with the procedure ( bleeding , infection, vulvar scarring, painful intercourse, injury to vessels, possible need for transfusion with all its risks) then patient signed the consent. Preoperative diagnosis: Right labia majora and right posterior fourchette abscess Operation: Right labia majora and right posterior fourchette I & D Post-operative diagnosis: Same Anesthesia: Lidocaine 1% 3cc used Procedure: The skin was prepped with Betadine, palpation was used for guidance, 11-blade was used to incise the skin contiguous with the abscess cavity of Right labia majora and right posterior fourchette . This yielded total of 5 cc of purulent fluid &substantially decompressed the swelling in both area, a clean dressing was used at the end. The patient tolerated the procedure well. Separate Cultures were sent from different locations. The patient was sent home in stable condition. Discharge Instructions: The patient was instructed to call if temp>100.4, abdominal pain, nausea/vomiting. This note was generated with a voice recognition program. Some errors may have been overlooked during the review of this note. Sometimes these errors may affect the content or meaning of a given sentence. 76805-K&D of vulva/perineum All charges added?: Procedure code (CPT) selection complete Assessment & Plan Assessment & Plan (1) Labial abscess: Comment: Right labia majora and right posterior fourchette Code(s): N76.4 - Abscess of vulva Category: Medical Plan: Discussed with the patient the finding on pelvic exam showing right labia majora and right posterior fourchette abscess, recommended I& D. I&D done, culture sent, see procedure note Orders: Orders Incision & Drainage TRANSITIONAL KINDERGARTEN TEACHER Today N76.4 - Abscess of vulva Coding Level of Care Code Est Pt Level 3 (97451) Procedure Only Diagnoses Labial abscess N76.4 CPT Codes Incision/Drainage TRANSITIONAL KINDERGARTEN TEACHER - IDGYN 1: 17871-H&D of vulva/perineum ([id number])
== END 2024-03-19 09:33 | disposition home or self-care (01) ==
PROVIDERS: PCP Internal Medicine; Visit Provider Obstetrics & Gynecology
DX: N76.4 Abscess of vulva (principal)
CPT/HCPCS: 56405

== ENCOUNTER 2024-03-19 07:48 | Outpatient (REF) | payer OTHER, SELFPAY | END 2024-03-19 07:49 | disposition home or self-care (01) | LOC: HO.LNP 07:48 | PROVIDERS: PCP Internal Medicine; Visit Provider Obstetrics & Gynecology | DX: N76.4 Abscess of vulva (principal) | CPT/HCPCS: 56405; 87070; 87077; 87186; 87205 ==

== ENCOUNTER 2024-03-21 08:13 | Outpatient (REF) | payer OTHER, SELFPAY ==
[2024-03-21 09:16] LABS: MANUAL DIFF FLAG NO
[2024-03-21 09:42] LABS: Basophils Percent Auto 0.2 % (0-2); Eosinophils Absolute Auto 0.4 X10*3/uL (0.0-0.4); Eosinophils Percent Auto 7.4 % (0-4); Hemoglobin 12.6 g/dl (12.0-16.0); Imm Gran Abs Auto 0.02 X10*3/uL (0.00-0.03); Imm Gran Pct Auto 0.4 % (0.0-0.4); Lymphocytes Absolute Auto 1.1 X10*3/uL (1.2-4.9); Lymphocytes Percent Auto 20.8 % (20-40); Mean Corpuscular Hemoglobin 32.5 pg (27.0-33.0); Mean Corpuscular Volume 92.8 fL (80.0-98.0); Mean Platelet Volume 12.1 fL (9.4-12.3); Monocytes Absolute Auto 0.5 X10*3/uL (0.1-1.2); Monocytes Percent Auto 10.3 % (2-11); Neutrophils Absolute Auto 3.1 x10*3/uL (2.0-8.3); Neutrophils Percent Auto 60.9 % (45-73); Platelet Count 118 X10*3/uL (160-400); Red Blood Count 3.88 X10*6/uL (4.20-5.50); White Blood Count 5.2 X10*3/uL (4.8-10.8)
[2024-03-21 09:51] LABS: INTERNATIONAL NORM RATIO 1.1 (0.9-1.1); Prothrombin Time 13.4 SEC (11.1-13.3)
[2024-03-21 10:11] LABS: Alanine Aminotransferase 6 U/L (0-31); Albumin Level 3.3 g/dL (3.5-5.0); Alkaline Phosphatase 94 U/L (39-117); Aspartate Amino Transferase 26 U/L (5-31); Bilirubin Direct 0.4 mg/dL (0.0-0.5); Bilirubin Total 0.9 mg/dL (0.0-1.0); Estimated Glomerular Filt Rate > 60; Total Protein 7.1 g/dL (6.5-8.0)
[2024-03-21 10:31] LABS: Hepatitis A Antibody IgG REACTIVE (Nonreactive); ~Hepatitis A Antibody IgG 11.06 S/CO (0.00-0.99)
[2024-03-22 23:02] LABS: Immunoglobulin G 1923 mg/dL (600-1640)
== END 2024-03-21 08:14 | disposition home or self-care (01) ==
LOC: HO.LAB 08:13
PROVIDERS: PCP Internal Medicine; Visit Provider Internal Medicine Gastroenterology
DX: K85.10 Biliary acute pancreatitis without necrosis or infection (principal); K75.4 Autoimmune hepatitis; K74.60 Unspecified cirrhosis of liver; K21.9 Gastro-esophageal reflux disease without esophagitis
CPT/HCPCS: 36415; 80076; 82565; 82784; 85025; 85610; 86708; 99212

== ENCOUNTER 2024-03-21 08:13 | Outpatient (AMB) | payer OTHER, SELFPAY ==
--- NOTE | 2024-03-21 08:22 | A.OFFVIS_ITS ---
Vital Signs 03/21/24 08:32 Height 5 ft Weight 173 lb BMI 33.8 BP 119/80 Blood Pressure Location Lt brachial Position Sitting Pulse 93 Intake Visit Reasons: [facility] Intake Note: Patient follow up for [facility] Patient cc: some abdominal pain on and off, also she is crying because she have a cyst on her private part and is really painful for her. Exterior Interior Specialist Required: Yes Exterior Interior Specialist Name: [facility] Accompanied by: Self / Same As Patient Allergies trazadone Adverse Reaction (Mild, Uncoded 03/19/24 08:23) Abdominal Pain Medication List - Last Reconciled 03/21/24 by Kaylene Prabhakar MD albuterol sulfate 90 mcg/actuation 2 puffs inhalation Q6H PRN amitriptyline 50 mg PO BEDTIME 30 days azathioprine 100 mg (2 x 50 mg) PO DAILY 90 days baclofen 10 mg PO TID PRN 30 days furosemide 20 mg PO DAILY nystatin 1 appl topical TID omeprazole 20 mg PO DAILY prednisone 10 mg PO DAILY 30 days HPI HPI C: Details: GI clinic visit for this 57 year old Israeli speaking female for follow-up of autoimmune hepatitis with compensated cirrhosis [facility] Reviewed IMAGING STUDIES: 06/21/[address] SCAN SHOWED: 1. Mild stranding adjacent to the pancreas, which could reflectpancreatitis in the proper clinical setting. 2. Thick-walled appearance of the gallbladder, similar to 04/05/2023.This could be secondary to chronic liver disease, though acutecholecystitis would be difficult to entirely exclude in the proper clinical setting. 3. Cirrhotic liver with sequela of portal hypertension includingborderline splenomegaly and prominent varices. 4. Prominent uterus with suggestion of underlying fibroids, whichcould be further assessed with pelvic ultrasound. 06/21 23 ABD US SHOWED: 1. Cirrhotic appearing liver. 2. Abnormal gallbladder with gallstones and thickened wall containingfluid. Question of a stone lodged in the cystic duct. Although similarfindings have been seen on prior studies, the correct clinical setting findings would be suspicious for cholecystitis. HIDA scan may be useful for further evaluation. 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 TODAY'S VISIT: [facility] lining marker, Gilles Pt is tearful due to pain in the vulvar area (labial abscess) Unable to sleep due to pain. Has been taking Tylenol, motrin and Ibuprofen without relief Has been taking Prednisone 10 mg and azathioprine 100 mg daily. Taking Omerpazole 20 mg daily and continues to have burning pain in the retroste rnal area. Advised to increase to twice a day. PAST VISITS: Intermittent heartburn when she forgets to take Omeprazole - denies dysphagia Patient denies change in appetite and has gained weight due to prednisone Denies recent change in bowel habits, constipation, diarrhea, black stools or rectal bleeding. Patient denies major cardiac or pulmonary problems, loud snoring or sleep apnea Denies problems with anesthesia in the past. Denies being on chronic anticoagulation. Patient denies known family history of colon polyps, colon cancer or other GI malignancies. PAST EGD/COLONOSCOPY: [place] [facility] [place] - will obtain records Pt reports she was diagnosed with Autoimmune Hepatitis and was followed by Dr Bobby and now sees DANICA Holley at [facility] Her last visit was in December, She being treated with Azathioprine 50 mg daily and reports she has been compliant in taking the medication. She was also taking prednisone which she discontinued in December, after she ran out of the prescription. Patient denies family history of liver disease, colon polyps or colon cancer. Her mom and maternal grandfather with lung cancer and a maternal aunt has stomach cancer. PAST GI HISTORY BY REVIEW OF MEDICAL RECORDS: 06/06/23 PT WAS SEEN BY DR LIND:AIH related compensated cirrhosis - MELD-Na 11 - Child Abarca Class B Prefers to switch Hepatology care to [facility]. Prev under care of Dr Bobby through [place]. From documentation appears to have been in remission prior to admission in March, which in turn seems to have been a combination of nonadherence to tx (as pt ran out of meds) as well as biliary pancreatitis both contributing to elevated LFTs. Currently undergoing eval for lap phi [place] [facility] [place]. Plan: - Check MELD labs and IgG - Resume Azathiopurine 50mg PO - If transaminases and IgG cont to improve, can complete taper as per schedule in 2 weeks - Since LFTs being confounded by gallstone disease, will recheck this after her surgery as well with low threshold to proceed with liver bx to monitor for any active inflammation. Limited role of continuing Azathiopurine if no active inflammation. - She is also due for an EGD. Will get records from [place] to see if needs colo alongside it. - Next US due in Oct 2022. - No indication for referral to transplant center for now since low MELD and not decompensated. Follow up in 8 weeks [facility] Medical History Gallstone pancreatitis GERD (gastroesophageal reflux disease) Cirrhosis of liver without ascites Jaundice Autoimmune hepatitis Anxiety and depression Chronic low back pain Asthma Surgical History S/P cholecystectomy Hx of tubal ligation Family History Mother Lung cancer Father No problems noted. Social History Household Members: Spouse Housing: Apartment Do you presently have visiting nurse or other home services: Yes Alcohol intake: former Patient Tobacco Use Status: Former Tobacco user Tobacco use type: Cigarette e-Cigarette/Vaping Use: Never Used Second Hand Smoke Exposure: No service: No Current occupational status: disabled Current occupational exposures/hazards: No Sexual orientation: Straight/Heterosexual Gender identity: Female Cognitive needs: No Hearing needs: No Vision needs: Yes Review of Systems Const All systems reviewed & are unremarkable except as noted in HPI and below Physical Exam Vital Signs: Last Vital Signs Pulse 93 03/21/24 08:32 BP 119/80 03/21/24 08:32 BMI result Body Mass Index 33.8 Const General: healthy appearing and in distress (due to pain due to labial abscess) Nutritional Appearance: average body habitus Orientation/consciousness: patient oriented x3 Limitations: language barrier HEENT Head: Yes normal to inspection Ears: hearing grossly normal bilaterally Eyes Sclerae: sclerae normal Pupils: Equal, round and reactive pupils present Neck Neck: Yes normal visual inspection Chest Chest palpation & inspection: normal inspection of the chest Resp Effort & Inspection: normal respiratory effort Auscultation: clear to auscultation bilaterally Cardio Palpation: normal PMI Rate: regular rate Rhythm: regular rhythm Heart sounds: S1 normal heart sound present, S2 normal heart sound present and no murmurs GI Palpation (GI): Soft to palpation, nontender and No hepatosplenomegaly present Auscultation: normal bowel sounds Rectal Exam - Female: deferred Skin General skin exam: no rashes or lesions noted Neuro General: patient oriented x3, gait normal and moves all extremities Cranial nerves: Yes Equal, round and reactive pupils present Psych Appearance: grossly normal Mental Status: mental status grossly normal Assessment & Plan Assessment & Plan (1) Gallstone pancreatitis: Comment: s/p cholocystectomy 07/13/2023 Code(s): K85.10 - Biliary acute pancreatitis without necrosis or infection Category: Medical (2) GERD (gastroesophageal reflux disease): Code(s): K21.9 - Gastro-esophageal reflux disease without esophagitis Category: Medical (3) Cirrhosis of liver without ascites: Code(s): K74.60 - Unspecified cirrhosis of liver Category: Medical (4) Autoimmune hepatitis: Code(s): K75.4 - Autoimmune hepatitis Category: Medical Plan 57 year old Israeli-speaking female (understands and speaks some Romanian) with autoimmune hepatitis (diagnosed in 2015), mood disorder, gastroesophageal reflux disease seen for FU of autoimmune hepatitis. Pt was admitted to [facility] 04/05/23 with severe epigastric pain, Jaundice and elevated LFTs and acute cholecystitis by CT and US finding, acute gallstone pancreatitis with Lipase > 3000.? Pt was hospitalized at [facility] from 03/26 to 03/29 for autoimmune hepatitis and was discharged on Prednisone taper. Pt reports she was diagnosed with Autoimmune Hepatitis in 2015 and treated with Azathioprine and Prednisone)-? followed by Dr Bobby ([facility]) in the past and now sees DANICA Holley at [facility] (last visit was in December,).? Pt was diagnosed with Cirrhosis in 2018 - attributed to a combination of AIH and RAMIREZ). She being treated with Azathioprine 50 mg daily and reports she had been compliant in taking the medication. From documentation appears to have been in remission prior to admission in March, which in turn seems to have been a combination of non-adherence to tx (as pt ran out of meds) as well as biliary pancreatitis both contributing to elevated LFTs. Thiopurine metabolites did not reveal azathioprine toxicity PT switched her Hepatology care to Dr Lind [facility] since 06/2023. Pt had a lap phi on 07/13/[address] Alcala [place] [place] Plan: - Check MELD labs and IgG - Increase Azathiopurine to 100 mg and continue Prednisone 10 mg daily - She is also due for an EGD. Will get records from [place] to see if needs a same day colonoscopy. - Next US due in Oct 2022. - Referral to Liver transplant is not indicated since patient has a low MELD of 8 and is not decompensated. 03/21/24 Has been taking Prednisone 10 mg and azathioprine 100 mg daily. Taking Omerpazole 20 mg daily and continues to have burning pain in the retrosternal area. Advised to increase to twice a day. Follow up in 12 weeks Orders: Orders Prothrombin Time INR Today K75.4 - Autoimmune hepatitis Complete Blood Count Auto Diff Today K75.4 - Autoimmune hepatitis Creatinine Today K75.4 - Autoimmune hepatitis Liver Panel Today K75.4 - Autoimmune hepatitis Immunoglobulin G Today K75.4 - Autoimmune hepatitis Medications: New oxycodone-acetaminophen 5-325 mg (Percocet) 1 tab PO BID 10 days PRN 20 tabs 0RF pain (scale score 4-6) N76.4 - Abscess of vulva Changed From omeprazole 20 mg PO DAILY 30 caps 1RF K21.9 - Gastro-esophageal reflux disease without esophagitis To omeprazole 20 mg PO BID 60 days 120 caps 3RF K21.9 - Gastro-esophageal reflux disease without esophagitis Refilled furosemide 20 mg PO DAILY 30 tabs 2RF Coding Level of Care Code Est Pt Level 4 (99302) Diagnoses Gallstone pancreatitis K85.10 GERD (gastroesophageal reflux disease) K21.9 Cirrhosis of liver without ascites K74.60 Autoimmune hepatitis K75.4 Time Spent (min) 26
[2024-03-21 08:32] VITALS: BP 119/80; PULSE 93; BMI 33.8
== END 2024-03-21 09:25 | disposition home or self-care (01) ==
PROVIDERS: PCP Internal Medicine; Visit Provider Internal Medicine Gastroenterology
DX: K85.10 Biliary acute pancreatitis without necrosis or infection (principal); K21.9 Gastro-esophageal reflux disease without esophagitis; K74.60 Unspecified cirrhosis of liver; K75.4 Autoimmune hepatitis
CPT/HCPCS: 99214

== ENCOUNTER 2024-04-15 14:47 | Outpatient (AMB) | payer OTHER, SELFPAY ==
[2024-04-15 14:54] VITALS: BMI 33.6
--- NOTE | 2024-04-15 14:54 | A.OFFVIS_ITS ---
Vital Signs 04/15/24 14:54 Height 5 ft Weight 171 lb 15.369 oz BMI 33.6 Intake Visit Reasons: vaginal cyst Broadcaster Required: Yes Broadcaster Language: Wash Tank Tender Services: Broadcaster Present (in person) Broadcaster Name: Priyanka ROLLINS Information Interpreted: non-clinical & clinical Database Management System Specialist: Database Management System Specialist Present (Priyanka ROLLINS) Accompanied by: Self / Same As Patient Allergies trazadone Adverse Reaction (Mild, Uncoded 04/15/24 14:56) Abdominal Pain Post menopausal: Yes HPI Comments Details: Presenting complaining of left buttock abscess tender swelling that started 5 days ago it is getting worse the patient had recently a right vulvar abscess that was drained and is completely resolved [facility] Medical History Gallstone pancreatitis GERD (gastroesophageal reflux disease) Cirrhosis of liver without ascites Jaundice Anxiety and depression Chronic low back pain Asthma Surgical History S/P cholecystectomy Hx of tubal ligation Family History Mother Lung cancer Father No problems noted. Social History Household Members: Spouse Housing: Apartment Do you presently have visiting nurse or other home services: Yes Alcohol intake: former Patient Tobacco Use Status: Former Tobacco user Tobacco use type: Cigarette e-Cigarette/Vaping Use: Never Used Second Hand Smoke Exposure: No service: No Current occupational status: disabled Current occupational exposures/hazards: No Sexual orientation: Straight/Heterosexual Gender identity: Female Cognitive needs: No Hearing needs: No Vision needs: Yes Review of Systems Const All systems reviewed & are unremarkable except as noted in HPI and below Physical Exam Vital Signs: BMI result Body Mass Index 33.6 Other: Left buttock 4 x 3 cm abscess, 2 cm deep General: Yes no CVA tenderness External Female Exam: normal external appearance and normal appearance of the urethra Speculum Exam - Vagina: normal appearance of the vagina, normal palpation, no lesions and no masses Speculum Exam - Cervix: normal appearance of the cervix, normal palpation, no lesions, no masses and nontender Bimanual exam- vagina & uterus: normal bimanual exam, normal palpation, uterine size normal, normal palpation, uterine shape normal, No Cervical tenderness present and non-tender Bimanual Exam- Adnexa, other: normal adnexae Back/Spine/Pelvis Back: no CVA tenderness Assessment & Plan Assessment & Plan (1) Abscess: Comment: Of the left buttock Code(s): L02.91 - Cutaneous abscess, unspecified Category: Medical Plan: Discussed with the patient the finding on physical exam large 4 x 3 cm left buttock abscess with 1-2 cm deep, with no evidence of cellulitis, will refer to general surgery for I&D Orders: Referrals General Surgery Referral L02.91 - Cutaneous abscess, unspecified Coding Level of Care Code Est Pt Level 3 (39942) Diagnoses Abscess L02.91
== END 2024-04-15 15:54 | disposition home or self-care (01) ==
LOC: HO.HWS 14:47
PROVIDERS: PCP Internal Medicine; Visit Provider Obstetrics & Gynecology
DX: L02.91 Cutaneous abscess, unspecified (principal)
CPT/HCPCS: 99213

== ENCOUNTER → 2024-04-15 14:47 | Outpatient (BNVA) | payer OTHER, SELFPAY | PROVIDERS: PCP Internal Medicine; Visit Provider Obstetrics & Gynecology | DX: L02.31 Cutaneous abscess of buttock (principal) | CPT/HCPCS: 99212 ==

== ENCOUNTER 2024-04-16 08:45 | Outpatient (REF) | payer OTHER, SELFPAY | END 2024-04-16 08:46 | disposition home or self-care (01) | LOC: HO.LAB 08:45 | PROVIDERS: PCP Internal Medicine; Visit Provider Surgery | DX: N76.4 Abscess of vulva (principal); L02.215 Cutaneous abscess of perineum; R87.5 Abnormal microbiological findings in specimens from female genital organs | CPT/HCPCS: 10060; 87070; 87077; 87186; 87205; 99202 ==

== ENCOUNTER 2024-04-16 08:45 | Outpatient (AMB) | payer OTHER, SELFPAY ==
--- NOTE | 2024-04-16 09:01 | MHC.OFFVIS ---
Vital Signs 04/16/24 09:09 Height 5 ft Weight 177 lb BMI 34.6 BP 143/80 H Blood Pressure Location Lt brachial Position Sitting Pulse 85 Intake Visit Reasons: 4 by 5 cyst on (L) Buttock Intake Note: Patient scheduled as urgent visit for inflamed cyst on Lt buttock X6days. Patient c/o: pain, red, inflamed. Not improved with warm soaks. Hx of inflamed cysts on axilla, buttock, groin. Tool Crib Supervisor Required: Yes Tool Crib Supervisor Name: Ermelidna ROLLINS Accompanied by: Self / Same As Patient Allergies trazadone Adverse Reaction (Mild, Uncoded 04/16/24 09:07) Abdominal Pain Medication List - Last Reconciled 04/16/24 by Stewart Quiroz MD albuterol sulfate 90 mcg/actuation 2 puffs inhalation Q6H PRN amitriptyline 50 mg PO BEDTIME 30 days azathioprine 100 mg (2 x 50 mg) PO DAILY 90 days baclofen 10 mg PO TID PRN 30 days cephalexin 500 mg PO TID furosemide 20 mg PO DAILY hydrocodone-acetaminophen 5-325 mg 1 tab PO Q4-6H PRN nystatin 1 appl topical TID omeprazole 20 mg PO BID 60 days prednisone 10 mg PO DAILY 30 days HPI Comments Details: Patient was into the proximal week history of left perineal/perineal pain with to painful areas causing her symptoms. She has had a variety of carbuncles in the past and this is similar but because of progression of symptoms, presents here for further evaluation. Chart was reviewed and patient evaluated [facility] Medical History Gallstone pancreatitis GERD (gastroesophageal reflux disease) Cirrhosis of liver without ascites Jaundice Anxiety and depression Chronic low back pain Asthma Surgical History S/P cholecystectomy Hx of tubal ligation Family History Mother Lung cancer Father No problems noted. Social History Household Members: Spouse Housing: Apartment Do you presently have visiting nurse or other home services: Yes Alcohol intake: former Patient Tobacco Use Status: Former Tobacco user Tobacco use type: Cigarette e-Cigarette/Vaping Use: Never Used Second Hand Smoke Exposure: No service: No Current occupational status: disabled Current occupational exposures/hazards: No Sexual orientation: Straight/Heterosexual Gender identity: Female Cognitive needs: No Hearing needs: No Vision needs: Yes Physical Exam Vital Signs: Last Vital Signs Pulse 85 04/16/24 09:09 BP 143/80 H 04/16/24 09:09 BMI result Body Mass Index 34.6 Other: Patient has a proximally 4 x 1 cm left para EBL abscess and a proximally 2 x 1 cm left suprapubic abscess. Office Procedures I&D Drain Details: Risks, benefits, alternatives of incision and drainage of perineal and paralabral abscess (abscess x2) were reviewed the patient and included but not limited to bleeding, infection, recurrence, numbness, pain, scarring the patient wished to proceed. Patient was appropriate position underwent 1% lidocaine and Betadine prep. Proximally 4 x 1 cm left para labial abscess in the proximally 3 x 2 cm suprapubic abscess were incised and drained. Cultures were obtained. Wounds were irrigated, secured hemostasis, packed, and dressings applied. Patient tolerated procedure well. 43153-Zimjdzbm of Skin Abscess, complex All charges added?: Procedure code (CPT) selection complete Assessment & Plan Assessment & Plan (1) Abscess of multiple sites of perineum: Code(s): L02.215 - Cutaneous abscess of perineum Category: Surgical Plan: Patient has been given antibiotics, analgesics, coordinating with [place] office nurse regarding local wound care, and will follow-up with me in a proximally 1 week's time or p.r.n.. All questions answered. Orders: Orders AMB Incision & Drainage Today L02.215 - Cutaneous abscess of perineum Routine Culture w Gram Stain Today L02.91 - Cutaneous abscess, unspecified, N76.4 - Abscess of vulva Medications: New cephalexin 500 mg PO TID 30 caps 0RF hydrocodone-acetaminophen 5-325 mg Partial Fill upon patient request. 1 tab PO Q4-6H PRN 30 tabs 0RF pain Coding Level of Care Code New Pt Level 5 (97018) Diagnoses Abscess of multiple sites of perineum L02.215 CPT Codes I&D Drain - Drain 2: 49941-Egazkari of Skin Abscess, complex ([id number])
[2024-04-16 09:09] VITALS: BP 143/80; PULSE 85; BMI 34.6
== END 2024-04-16 09:39 | disposition home or self-care (01) ==
PROVIDERS: PCP Internal Medicine; Visit Provider Surgery
DX: L02.215 Cutaneous abscess of perineum (principal)
CPT/HCPCS: 10060; 99204

== ENCOUNTER → 2024-04-17 08:40 | Outpatient (BNVA) | payer OTHER, SELFPAY | PROVIDERS: PCP Internal Medicine; Visit Provider Surgery | DX: Z48.01 Encounter for change or removal of surgical wound dressing (principal) | CPT/HCPCS: 99211 ==

== ENCOUNTER → 2024-04-18 08:56 | Outpatient (BNVA) | payer OTHER, SELFPAY | PROVIDERS: PCP Internal Medicine; Visit Provider Surgery ==

== ENCOUNTER → 2024-04-19 09:01 | Outpatient (BNVA) | payer OTHER, SELFPAY | PROVIDERS: PCP Internal Medicine; Visit Provider Surgery | DX: Z48.1 Encounter for planned postprocedural wound closure (principal) | CPT/HCPCS: 99211 ==

== ENCOUNTER → 2024-04-22 09:00 | Outpatient (BNVA) | payer OTHER, SELFPAY | PROVIDERS: PCP Internal Medicine; Visit Provider Surgery | DX: Z48.00 Encounter for change or removal of nonsurgical wound dressing (principal) | CPT/HCPCS: 99211 ==

== ENCOUNTER 2024-04-29 09:45 | Outpatient (AMB) | payer OTHER, SELFPAY ==
[2024-04-29 09:52] VITALS: BP 134/84; PULSE 86; BMI 34.2
--- NOTE | 2024-04-29 09:52 | MHC.OFFVIS ---
Vital Signs 04/29/24 09:52 Height 5 ft Weight 175 lb BMI 34.2 BP 134/84 Blood Pressure Location Rt brachial Position Sitting Pulse 86 Intake Visit Reasons: Wound Check Intake Note: Patient here for wound check abscess on Lt buttock. Reports improvement. Site feels itchy. Patient c/o: finished cephalexin course. No longer taking rx pain meds. It Quality Assurance Analyst Required: No Accompanied by: Self / Same As Patient Allergies trazadone Adverse Reaction (Mild, Uncoded 04/29/24 09:53) Abdominal Pain HPI Comments Details: Patient presents for follow-up. Marked improvement of peritoneal wounds. Patient states things are healing well. [facility] Medical History Gallstone pancreatitis GERD (gastroesophageal reflux disease) Cirrhosis of liver without ascites Jaundice Anxiety and depression Chronic low back pain Asthma Surgical History S/P cholecystectomy Hx of tubal ligation Family History Mother Lung cancer Father No problems noted. Social History Household Members: Spouse Housing: Apartment Do you presently have visiting nurse or other home services: Yes Alcohol intake: former Patient Tobacco Use Status: Former Tobacco user Tobacco use type: Cigarette e-Cigarette/Vaping Use: Never Used Second Hand Smoke Exposure: No service: No Current occupational status: disabled Current occupational exposures/hazards: No Sexual orientation: Straight/Heterosexual Gender identity: Female Cognitive needs: No Hearing needs: No Vision needs: Yes Physical Exam Vital Signs: Last Vital Signs Pulse 86 04/29/24 09:52 BP 134/84 04/29/24 09:52 BMI result Body Mass Index 34.2 Other: Left perineal wounds healing uneventfully. Almost completely healed. Assessment & Plan Assessment & Plan (1) Status post incision and drainage: Code(s): Z98.890 - Other specified postprocedural states Category: Medical Plan Patient was been given local instructions and will otherwise follow-up p.r.n.. All questions answered. Coding Level of Care Code Global (79776) Diagnoses Status post incision and drainage Z98.890
== END 2024-04-29 10:03 | disposition home or self-care (01) ==
PROVIDERS: PCP Internal Medicine; Visit Provider Surgery
DX: Z98.890 Other specified postprocedural states (principal)
CPT/HCPCS: 99024

== ENCOUNTER → 2024-04-29 09:45 | Outpatient (BNVA) | payer OTHER, SELFPAY | PROVIDERS: PCP Internal Medicine; Visit Provider Surgery | DX: Z09 Encounter for follow-up examination after completed treatment for conditions other than malignant neoplasm (principal); Z98.890 Other specified postprocedural states | CPT/HCPCS: 99212 ==

== ENCOUNTER 2024-06-11 09:03 | Outpatient (AMB) | payer OTHER, SELFPAY ==
--- NOTE | 2024-06-11 09:08 | A.OFFVIS_ITS ---
Vital Signs 06/11/24 09:19 Height 5 ft Weight 169 lb BMI 33.0 BP 145/82 H Blood Pressure Location Rt brachial Position Sitting Pulse 87 Intake Visit Reasons: multiple cyst Intake Note: Patient here c/o abscess on bilateral axilla. C/o painful cyst on Lt lat breast. Unable to wear bra due to pressure. Linoleum Tile Layer Required: Yes Linoleum Tile Layer Name: Ermelinda Artis TOANTeagan. Accompanied by: Self / Same As Patient Allergies trazadone Adverse Reaction (Mild, Uncoded 06/11/24 09:19) Abdominal Pain Medication List - Last Reconciled 06/11/24 by Stewart Quiroz MD albuterol sulfate 90 mcg/actuation 2 puffs inhalation Q6H PRN amitriptyline 50 mg PO BEDTIME 30 days azathioprine 100 mg (2 x 50 mg) PO DAILY 90 days baclofen 10 mg PO TID PRN 30 days furosemide 20 mg PO DAILY 90 days nystatin 1 appl topical TID omeprazole 20 mg PO BID 60 days prednisone 10 mg PO DAILY 60 days sulfamethoxazole-trimethoprim 400-80 mg (Bactrim) 1 tab PO BID HPI Comments Details: Patient presents for evaluation of several skin lesions involving bilateral axilla and left flank. She has never had these before. She is applying warm compresses and some has spontaneously open/drained. Patient does not recall any sick contacts or any other family or friends with similar infections recently. Chart was reviewed and patient evaluated [facility] Medical History Gallstone pancreatitis GERD (gastroesophageal reflux disease) Cirrhosis of liver without ascites Jaundice Anxiety and depression Chronic low back pain Asthma Surgical History S/P cholecystectomy Hx of tubal ligation Family History Mother Lung cancer Father No problems noted. Social History Household Members: Spouse Housing: Apartment Do you presently have visiting nurse or other home services: Yes Alcohol intake: former Patient Tobacco Use Status: Former Tobacco user Tobacco use type: Cigarette e-Cigarette/Vaping Use: Never Used Second Hand Smoke Exposure: No service: No Current occupational status: disabled Current occupational exposures/hazards: No Sexual orientation: Straight/Heterosexual Gender identity: Female Cognitive needs: No Hearing needs: No Vision needs: Yes Physical Exam Vital Signs: Last Vital Signs Pulse 87 06/11/24 09:19 BP 145/82 H 06/11/24 09:19 BMI result Body Mass Index 33.0 Skin Other: Patient has several small, uncles involving bilateral axillae and left flank. Some have spontaneously open/drained. At present no large enough abscess that requires I&D Assessment & Plan Assessment & Plan (1) Carbuncle and furuncle of upper arm and forearm: Code(s): L02.439 - Carbuncle of limb, unspecified; L02.429 - Furuncle of limb, unspecified Category: Surgical (2) Carbuncle and furuncle of trunk: Code(s): L02.239 - Carbuncle of trunk, unspecified; L02.229 - Furuncle of trunk, unspecified Category: Surgical Plan Current plan is to prescribe patient antibiotics as well this to encourage warm compresses to the area and she will see me in few days' time for follow-up or p.r.n. to re- assess. All questions answered. Medications: New sulfamethoxazole-trimethoprim 400-80 mg (Bactrim) 1 tab PO BID 14 tabs 0RF sulfamethoxazole-trimethoprim 400-80 mg (Bactrim) 1 tab PO BID 14 tabs 0RF Coding Level of Care Code New Pt Level 3 (62612) Diagnoses Carbuncle and furuncle of upper arm and forearm L02.439; L02.429 Carbuncle and furuncle of trunk L02.239; L02.229
[2024-06-11 09:19] VITALS: BP 145/82; PULSE 87; BMI 33.0
== END 2024-06-11 09:22 | disposition home or self-care (01) ==
PROVIDERS: PCP Internal Medicine; Visit Provider Surgery
DX: L02.439 Carbuncle of limb, unspecified (principal); L02.429 Furuncle of limb, unspecified; L02.239 Carbuncle of trunk, unspecified; L02.229 Furuncle of trunk, unspecified
CPT/HCPCS: 99214

== ENCOUNTER → 2024-06-11 09:03 | Outpatient (BNVA) | payer OTHER, SELFPAY | PROVIDERS: PCP Internal Medicine; Visit Provider Surgery | DX: L02.432 Carbuncle of left axilla (principal); L02.431 Carbuncle of right axilla; L02.231 Carbuncle of abdominal wall | CPT/HCPCS: 99212 ==

== ENCOUNTER 2024-06-13 18:08 | Emergency (ER) | payer OTHER, SELFPAY ==
[2024-06-13 18:24] VITALS: BP 145/82; PULSE 88; RESP 20; TEMP 36.9; O2SAT 96; BMI 33.5
--- NOTE | 2024-06-13 18:24 | ED_ITS ---
HPI - General Adult General Chief complaint: Skin/Abscess/Foreign Body Stated complaint: left side pimple/boil leaking and painful Time Seen by Provider: 06/13/24 21:51 Source: patient Mode of arrival: ambulatory Limitations: no limitations History of Present Illness ED Provider: laura GARCIA narrative: Patient's history of recurrent abscess comes here for 7 days of abscess in the left lateral side of the chest for last 1 week started on Bactrim 2 days ago by PCP still complaining of pain and redness also has small abscesses in the axillary area does have history of hydradenitis suppurativa Related Data Previous Rx's ?Medication ?Instructions ?Recorded albuterol sulfate 90 mcg/actuation 2 puff inhalation Q6H PRN for 11/08/21 aerosol inhaler wheezing #8.5 ea nystatin 100,000 unit/gram topical 1 appl topical TID #60 grams 04/12/23 powder azathioprine 50 mg tablet 100 mg (2 x 50 mg) PO DAILY 90 12/11/23 days #180 tabs baclofen 10 mg tablet 10 mg PO TID PRN muscle spasm 30 04/01/24 days #90 tabs furosemide 20 mg tablet 20 mg PO DAILY 90 days #90 tabs 04/17/24 prednisone 10 mg tablet 10 mg PO DAILY 60 days #60 tabs 04/28/24 amitriptyline 50 mg tablet 50 mg PO BEDTIME 30 days #30 tabs 05/13/24 sulfamethoxazole 400 1 tab PO BID #14 tabs 06/11/24 mg-trimethoprim 80 mg tablet (Bactrim) sulfamethoxazole 400 1 tab PO BID #14 tabs 06/11/24 mg-trimethoprim 80 mg tablet (Bactrim) doxycycline hyclate 100 mg tablet 100 mg PO BID #20 tabs 06/13/24 ibuprofen 600 mg tablet 600 mg PO Q6H PRN fever or pain 06/13/24 #30 tabs omeprazole 20 mg capsule,delayed 20 mg PO BID 60 days #120 caps 06/13/24 release Allergies Allergy/AdvReac Type Severity Reaction Status Date / Time trazadone AdvReac Mild Abdominal Uncoded 06/13/24 18:27 Pain Review of Systems 2 Review of Systems: Yes all other systems are reviewed and are negative PMFSH Past Medical History Medical History Gallstone pancreatitis GERD (gastroesophageal reflux disease) Cirrhosis of liver without ascites Jaundice Anxiety and depression Chronic low back pain Asthma Surgical History S/P cholecystectomy Hx of tubal ligation Family History Family History Mother Lung cancer Father No problems noted. Social History Social History Household Members: Spouse Housing: Apartment Do you presently have visiting nurse or other home services: Yes Alcohol intake: former Patient Tobacco Use Status: Former Tobacco user Tobacco use type: Cigarette e-Cigarette/Vaping Use: Never Used Second Hand Smoke Exposure: No Advance Directives: No Advance Directives Information Provided: Yes service: No Current occupational status: disabled Current occupational exposures/hazards: No Sexual orientation: Straight/Heterosexual Gender identity: Female Cognitive needs: No Hearing needs: No Vision needs: Yes Physical Exam ED Vital Signs: Vital Signs - 24 hr 06/13/24 18:24 06/13/24 22:16 06/14/24 00:15 Temperature 98.4 F 98.5 F 98.5 F Pulse Rate 88 83 83 Respiratory Rate 20 16 16 Blood Pressure 145/82 H 107/63 107/63 Pulse Oximetry 96 98 98 Oxygen Delivery Method Room Air Room Air Room Air BMI result Body Mass Index 33.5 Appearance: Alert. Oriented X3. No acute distress. Eyes: No pallor or icterus ENT: Pharynx normal. Oral Mucosa moist Neck: Normal inspection. Neck supple. CVS: Normal heart rate and rhythm. Pulses normal. Respiratory: No respiratory distress. Equal air entry bilateral, no wheezing/rales/rhonchi Abdomen: Soft and nontender. Bowel sounds are present, no mass palpable, no CVA tenderness Skin: Skin warm and dry. Abscess in left side of chest infra axillary area Extremities: No lower extremity edema. No calf tenderness Neuro: Oriented X 3. No motor deficit. Course Course Course Narrative: This is a rapid medical exam performed by Bree Rebollar NP: Additional HPI, ROS, PE not included below will be deferred to primary provider. Patient is a 58-year-old female presenting with complaint of fever x 2 days, multiple abscesses to left breast, left axilla. Saw PCP Monday who prescribed Bactrim. States pain is worsening, unable to sleep. Unsure if area has been draining. Plan: may need I&D, will check labs Medications Administered Discontinued Medications Generic Name Dose Route Start Last Admin Trade Name Mary PRN Reason Stop Dose Admin Doxycycline Monohydrate 100 mg 06/13/24 22:04 06/13/24 23:29 Doxycycline Monohydrate 100 Mg Capsule PO 06/13/24 22:05 100 mg ONCE ONE Administration Lidocaine HCl 5 ml 06/13/24 22:02 06/13/24 22:50 Lidocaine Hcl 1 % Mpf 5 Ml Vial INFILTRATI 06/13/24 22:03 5 ml ONCE ONE Administration Oxycodone HCl 5 mg 06/13/24 22:51 06/13/24 23:29 Oxycodone Hcl Immed Release 5 Mg Tablet PO 06/13/24 22:52 5 mg ONCE ONE Administration Procedures Abscess I/D Site: chest Side (if applicable): left Local Anesthetic: lidocaine 1% Amount of anesthesia used (mL): 5 Technique: incised with blade Amount of fluid expressed (mL): 2 Sent for culture/gram staining?: Yes Irrigation: Yes Packing used?: none Medical Decision Making Lab Data 06/13/24 18:48 06/13/24 18:48 Labs: Lab Results 06/13/24 Range/Units 18:48 WBC 6.2 (4.8-10.8) X10*3/uL RBC 3.76 L (4.20-5.50) X10*6/uL Hgb 12.2 (12.0-16.0) g/dl Hct 34.1 L (37.0-47.0) % MCV 90.7 (80.0-98.0) fL MCH 32.4 (27.0-33.0) pg MCHC 35.8 H (31.0-35.0) g/dl RDW 14.5 (11.0-16.0) % Plt Count 100 L (160-400) X10*3/uL MPV 12.5 H (9.4-12.3) fL Immature Gran % (Auto) 0.5 H (0.0-0.4) % Neut % (Auto) 73.4 H (45-73) % Lymph % (Auto) 14.7 L (20-40) % Dillon % (Auto) 9.1 (2-11) % Eos % (Auto) 2.1 (0-4) % Baso % (Auto) 0.2 (0-2) % Lymph # (Auto) 0.9 L (1.2-4.9) X10*3/uL Dillon # (Auto) 0.6 (0.1-1.2) X10*3/uL Eos # (Auto) 0.1 (0.0-0.4) X10*3/uL Baso # (Auto) 0.0 (0.0-0.2) X10*3/uL Abs Immat Gran (auto) 0.03 (0.00-0.03) X10*3/uL Absolute Neuts (auto) 4.5 (2.0-8.3) x10*3/uL Absolute Nucleated RBC 0.000 (0.0-0.012) X10*3/uL Nucleated RBC % (auto) 0.0 (0.0-0.2) /100WBC Smear Tech's Comments VERIFIED ESR 44 H (0-20) MM/HR Sodium 140 (135-145) mmol/L Potassium 3.6 (3.3-5.1) mmol/L Chloride 106 (96-108) mmol/L Carbon Dioxide 27 (22-29) mmol/L Anion Gap 11 L (12-20) BUN 5 L (9-16) mg/dL Creatinine 0.75 (0.5-1.4) mg/dL Estim Creat Clear Calc 73.2 Estimated GFR > 60 Random Glucose 184 H (60-115) mg/dL Calcium 9.0 D (8.4-10.2) mg/dL Total Bilirubin 1.3 H (0.0-1.0) mg/dL AST 21 (5-31) U/L ALT 6 (0-31) U/L Alkaline Phosphatase 79 (39-117) U/L C-Reactive Protein 1.53 H (< or = 0.50) mg/dL Total Protein 7.1 (6.5-8.0) g/dL Albumin 3.3 L (3.5-5.0) g/dL Discharge Plan Discharge Clinical Impression: Abscess Patient Disposition: Home, Self-Care Instructions: Abscess Incision and Drainage (DC) Additional Instructions: Local care as advised Start taking doxycycline also along with the antibiotics which was given by your PCP Follow up with PCP if not better Prescriptions: New ibuprofen 600 mg tablet 600 mg PO Q6H PRN (Reason: fever or pain) Qty: 30 0RF doxycycline hyclate 100 mg tablet 100 mg PO BID Qty: 20 0RF No Action albuterol sulfate 90 mcg/actuation HFA aerosol inhaler 2 puff inhalation Q6H PRN (Reason: for wheezing) Qty: 8.5 1RF azathioprine 50 mg tablet 100 mg PO DAILY 90 Days Qty: 180 1RF baclofen 10 mg tablet 10 mg PO TID PRN (Reason: muscle spasm) 30 Days Qty: 90 0RF furosemide 20 mg tablet 20 mg PO DAILY 90 Days Qty: 90 1RF prednisone 10 mg tablet 10 mg PO DAILY 60 Days Qty: 60 2RF amitriptyline 50 mg tablet 50 mg PO BEDTIME 30 Days Qty: 30 0RF omeprazole 20 mg capsule,delayed release(DR/EC) 20 mg PO BID 60 Days Qty: 120 1RF nystatin 100,000 unit/gram powder 1 appl topical TID Qty: 60 1RF sulfamethoxazole-trimethoprim [Bactrim] 400-80 mg tablet 1 tab PO BID Qty: 14 0RF sulfamethoxazole-trimethoprim [Bactrim] 400-80 mg tablet 1 tab PO BID Qty: 14 0RF Interventions: ED Discharge Assessment Last Done: 06/14/24 00:15 Discharge Date/Time: 06/14/24 00:15 Print Language: [place]ican
[2024-06-13 19:14] LABS: Alanine Aminotransferase 6 U/L (0-31); Albumin Level 3.3 g/dL (3.5-5.0); Alkaline Phosphatase 79 U/L (39-117); Anion Gap 11 (12-20); Aspartate Amino Transferase 21 U/L (5-31); Bilirubin Total 1.3 mg/dL (0.0-1.0); Blood Urea Nitrogen 5 mg/dL (9-16); C Reactive Protein 1.53 mg/dL (< or = 0.50); Carbon Dioxide 27 mmol/L (22-29); Chloride 106 mmol/L (96-108); Creatinine Clr Calc Pharmacy 73.2; Estimated Glomerular Filt Rate > 60; Glucose Random 184 mg/dL (60-115); Potassium 3.6 mmol/L (3.3-5.1); Sodium 140 mmol/L (135-145); Total Protein 7.1 g/dL (6.5-8.0)
[2024-06-13 19:16] LABS: Basophils Percent Auto 0.2 % (0-2); Hematocrit 34.1 % (37.0-47.0); Hemoglobin 12.2 g/dl (12.0-16.0); Mean Corpuscular HGB Conc 35.8 g/dl (31.0-35.0); Mean Corpuscular Hemoglobin 32.4 pg (27.0-33.0); Mean Corpuscular Volume 90.7 fL (80.0-98.0); PLT CLUMP 1; Red Blood Count 3.76 X10*6/uL (4.20-5.50); SCAN SMEAR FLAG 1
[2024-06-13 19:18] LABS: Eosinophils Absolute Auto 0.1 X10*3/uL (0.0-0.4); Eosinophils Percent Auto 2.1 % (0-4); Imm Gran Abs Auto 0.03 X10*3/uL (0.00-0.03); Imm Gran Pct Auto 0.5 % (0.0-0.4); Lymphocytes Absolute Auto 0.9 X10*3/uL (1.2-4.9); Lymphocytes Percent Auto 14.7 % (20-40); MANUAL DIFF FLAG SCAN; Mean Platelet Volume 12.5 fL (9.4-12.3); Monocytes Absolute Auto 0.6 X10*3/uL (0.1-1.2); Monocytes Percent Auto 9.1 % (2-11); Neutrophils Absolute Auto 4.5 x10*3/uL (2.0-8.3); Neutrophils Percent Auto 73.4 % (45-73); Red Cell Distribution Width 14.5 % (11.0-16.0)
[2024-06-13 19:22] LABS: Platelet Count 100 X10*3/uL (160-400); White Blood Count 6.2 X10*3/uL (4.8-10.8)
[2024-06-13 19:44] LABS: Erythrocyte Sedimentation Rate 44 MM/HR (0-20)
[2024-06-13 19:45] LABS: SLIDE REVIEW VERIFIED
[2024-06-13 22:16] VITALS: BP 107/63; PULSE 83; RESP 16; TEMP 36.9; O2SAT 98
[2024-06-13] MEDS: Lidocaine HCl 1 % MPF 5 ML VIAL INFILTRATI (22:50)
--- NOTE | 2024-06-13 22:59 | PC.NURSE ---
Assumed care of pt. Preparing for discharge.
[2024-06-13] MEDS: Doxycycline Monohydrate 100 MG CAPSULE PO (23:29)
[2024-06-13] MEDS: oxyCODONE HCl Immed Release 5 MG TABLET PO (23:29)
[2024-06-14 00:15] VITALS: BP 107/63; PULSE 83; RESP 16; TEMP 36.9; O2SAT 98
== END 2024-06-14 00:15 | disposition home or self-care (01) ==
PROVIDERS: Registered Nurse Emergency; Emergency Provider Internal Medicine; PCP Internal Medicine
DX: L02.412 Cutaneous abscess of left axilla (principal); R07.89 Other chest pain; R50.9 Fever, unspecified; Z79.899 Other long term (current) drug therapy
CPT/HCPCS: 10060; 36415; 80053; 85025; 85652; 86140; 87070; 87077; 87186; 87205; 99283; 99284; J2003

== ENCOUNTER 2024-06-18 10:09 | Outpatient (AMB) | payer OTHER, SELFPAY ==
--- NOTE | 2024-06-18 10:25 | MHC.OFFVIS ---
Intake Visit Reasons: carbuncle follow up Intake Note: Patient here to follow up lt axilla abscess. On Bactrim course. Was seen at Emergency department on 06-13-24. Diagnosed with MRSA. Prescribed doxycycline. Patient c/o: tenderness to touch. Industrial Property Appraiser Required: Yes Industrial Property Appraiser Name: Ermelinda ROLLINS Accompanied by: Self / Same As Patient Allergies trazadone Adverse Reaction (Mild, Uncoded 06/18/24 10:30) Abdominal Pain Medication List - Last Reconciled 06/18/24 by Stewart Quiroz MD albuterol sulfate 90 mcg/actuation 2 puffs inhalation Q6H PRN amitriptyline 50 mg PO BEDTIME 30 days azathioprine 100 mg (2 x 50 mg) PO DAILY 90 days baclofen 10 mg PO TID PRN 30 days doxycycline hyclate 100 mg PO BID furosemide 20 mg PO DAILY 90 days ibuprofen 600 mg PO Q6H PRN nystatin 1 appl topical TID omeprazole 20 mg PO BID 60 days prednisone 10 mg PO DAILY 60 days sulfamethoxazole-trimethoprim 400-80 mg (Bactrim) 1 tab PO BID sulfamethoxazole-trimethoprim 400-80 mg (Bactrim) 1 tab PO BID HPI Comments Details: The weekend where she underwent an I and D of the left axillary abscess. She is still having significant pain. She was given antibiotics. Cultures suggest MRSA PFSH Medical History Gallstone pancreatitis GERD (gastroesophageal reflux disease) Cirrhosis of liver without ascites Jaundice Anxiety and depression Chronic low back pain Asthma Surgical History S/P cholecystectomy Hx of tubal ligation Family History Mother Lung cancer Father No problems noted. Social History Household Members: Spouse Housing: Apartment Do you presently have visiting nurse or other home services: Yes Alcohol intake: former Patient Tobacco Use Status: Former Tobacco user Tobacco use type: Cigarette e-Cigarette/Vaping Use: Never Used Second Hand Smoke Exposure: No service: No Current occupational status: disabled Current occupational exposures/hazards: No Sexual orientation: Straight/Heterosexual Gender identity: Female Cognitive needs: No Hearing needs: No Vision needs: Yes Physical Exam Extrem Other: Patient has a partially drained left axillary abscess. Subtle small little carbuncle surrounding this. She has marked tenderness over the area. Unfortunately this has been incompletely incised and drained and will require further intervention. Office Procedures I&D Drain Details: Risks, benefits, and alternatives of I&D of left axillary abscess reviewed the patient which included but not limited to bleeding, recurrence, numbness, pain, scarring the patient wished to proceed. All questions answered. After appropriate positioning, patient underwent 1% lidocaine and Betadine prepped in further extension of the ER incision and drainage were the multiloculated collections were broken down with a clamp and digitally. Permanent serial retrieved. Wound was irrigated, secured hemostasis, packed, and dressing applied. Patient tolerated procedure well. [id number]-Unybrbeu of Skin Abscess, complex All charges added?: Procedure code (CPT) selection complete Assessment & Plan Assessment & Plan (1) Axillary abscess: Code(s): L02.419 - Cutaneous abscess of limb, unspecified Category: Surgical Plan: Patient was to continue antibiotics, she has been in his care for analgesics, VNA services with Terry in the office and will see me as directed or p.r.n.. All questions answered. Orders: Orders AMB Incision & Drainage Today L02.419 - Cutaneous abscess of limb, unspecified Medications: New hydrocodone-acetaminophen 5-325 mg Partial Fill upon patient request. 1 tab PO Q4-6H PRN 30 tabs 0RF pain Coding Level of Care Code Est Pt Level 5 (73759) Diagnoses Axillary abscess L02.419 CPT Codes I&D Drain - Drain 2: [id number] of Skin Abscess, complex ([id number])
== END 2024-06-18 11:01 | disposition home or self-care (01) ==
PROVIDERS: PCP Internal Medicine; Visit Provider Surgery
DX: L02.412 Cutaneous abscess of left axilla (principal)
CPT/HCPCS: 10061; 99214

== ENCOUNTER → 2024-06-18 10:09 | Outpatient (BNVA) | payer OTHER, SELFPAY | PROVIDERS: PCP Internal Medicine; Visit Provider Surgery | DX: L02.412 Cutaneous abscess of left axilla (principal); L02.838 Carbuncle of other sites | CPT/HCPCS: 10061; 99212 ==

== ENCOUNTER → 2024-06-19 09:49 | Outpatient (BNVA) | payer OTHER, SELFPAY | PROVIDERS: PCP Internal Medicine; Visit Provider Surgery | DX: Z48.01 Encounter for change or removal of surgical wound dressing (principal) | CPT/HCPCS: 99211 ==

== ENCOUNTER 2024-06-20 08:33 | Outpatient (AMB) | payer OTHER, SELFPAY ==
--- NOTE | 2024-06-20 08:36 | A.OFFVIS_ITS ---
Vital Signs 06/20/24 08:43 Height 4 ft 11 in Weight 166 lb BMI 33.5 BP 109/59 L Blood Pressure Location Lt brachial Position Sitting Pulse 83 Intake Visit Reasons: 3 month follow up Intake Note: Patient 3 month follow up for Autoimmune hepatitis and lab results. Patient cc: acid reflex on and off. Denies any other GI issues. Patient went to the ED last week due an abscess. Laboratory Secretary Required: Yes Laboratory Secretary Name: [facility] Interpeter Accompanied by: Self / Same As Patient Allergies trazadone Adverse Reaction (Mild, Uncoded 06/18/24 10:30) Abdominal Pain Medication List - Last Reconciled 06/20/24 by Kaylene Prabhakar MD albuterol sulfate 90 mcg/actuation 2 puffs inhalation Q6H PRN amitriptyline 50 mg PO BEDTIME 30 days azathioprine 100 mg (2 x 50 mg) PO DAILY 90 days baclofen 10 mg PO TID PRN 30 days doxycycline hyclate 100 mg PO BID furosemide 20 mg PO DAILY 90 days hydrocodone-acetaminophen 5-325 mg 1 tab PO Q4-6H PRN ibuprofen 600 mg PO Q6H PRN nystatin 1 appl topical TID omeprazole 20 mg PO BID 60 days prednisone 10 mg PO DAILY 60 days sulfamethoxazole-trimethoprim 400-80 mg (Bactrim) 1 tab PO BID sulfamethoxazole-trimethoprim 400-80 mg (Bactrim) 1 tab PO BID HPI HPI 3 month follow up: Details: GI clinic visit for this 57 year old Australian speaking female for follow-up of a utoimmune hepatitis with compensated cirrhosis TODAY'S VISIT: [facility] translator interpreterMabel Patient 3 month follow up for Autoimmune hepatitis and lab results. Lab results were reviewed with the patient Pt had recent I & D of abscesses of multiple sites - axilla, labia and buttock PAST VISITS: Patient cc: acid reflex on and off. Denies any other GI issues. Patient went to the ED last week due an abscess. Pt is tearful due to pain in the vulvar area (labial abscess) Unable to sleep due to pain. Has been taking Tylenol, motrin and Ibuprofen without relief Has been taking Prednisone 10 mg and azathioprine 100 mg daily. Taking Omerpazole 20 mg daily and continues to have burning pain in the retrosternal area. Advised to increase to twice a day. Intermittent heartburn when she forgets to take Omeprazole - denies dysphagia Patient denies change in appetite and has gained weight due to prednisone Denies recent change in bowel habits, constipation, diarrhea, black stools or rectal bleeding. Patient denies major cardiac or pulmonary problems, loud snoring or sleep apnea Denies problems with anesthesia in the past. Denies being on chronic anticoagulation. Patient denies known family history of colon polyps, colon cancer or other GI malignancies. PAST EGD/COLONOSCOPY: [place]GD and [place] [facility] [place] - will obtain records Pt reports she was diagnosed with Autoimmune Hepatitis and was followed by Dr Bobby and now sees DANICA Holley at [facility] Her last visit was in December, She being treated with Azathioprine 50 mg daily and reports she has been compliant in taking the medication. She was also taking prednisone which she discontinued in December, after she ran out of the prescription. Patient denies family history of liver disease, colon polyps or colon cancer. Her mom and maternal grandfather with lung cancer and a maternal aunt has stomach cancer. LABS IN [place] : Reviewed IMAGING STUDIES: 06/21/[address] SCAN SHOWED: 1. Mild stranding adjacent to the pancreas, which could reflectpancreatitis in the proper clinical setting. 2. Thick-walled appearance of the gallbladder, similar to 04/05/2023.This could be secondary to chronic liver disease, though acutecholecystitis would be dif ficult to entirely exclude in the proper clinical setting. 3. Cirrhotic liver with sequela of portal hypertension includingborderline splenomegaly and prominent varices. 4. Prominent uterus with suggestion of underlying fibroids, whichcould be further assessed with pelvic ultrasound. 06/21 23 ABD US SHOWED: 1. Cirrhotic appearing liver. 2. Abnormal gallbladder with gallstones and thickened wall containingfluid. Question of a stone lodged in the cystic duct. Although similarfindings have been seen on prior studies, the correct clinical setting findings would be suspicious for cholecystitis. HIDA scan may be useful for further evaluation. ENDOSCOPIC STUDIES: Oct 2019 Pt had an EGD at [facility]: Type 1 isolated nonbleeding gastric varices in the gastric fundus (IGV1) Pt is due for a FU EGD this year. PAST GI HISTORY BY REVIEW OF MEDICAL RECORDS: 06/06/23 PT WAS SEEN BY DR LIND: AIH related compensated cirrhosis - MELD-Na 11 - Child Abarca Class B Prefers to switch Hepatology care to [facility]. Prev under care of Dr Bobby through [facility]. From documentation appears to have been in remission prior to admission in March, which in turn seems to have been a combination of nonadherence to tx (as pt ran out of meds) as well as biliary pancreatitis both contributing to elevated LFTs. Currently undergoing eval for lap phi through [facility] surgery. Plan: - Check MELD labs and IgG - Resume Azathiopurine 50mg PO - If transaminases and IgG cont to improve, can complete taper as per schedule in 2 weeks - Since LFTs being confounded by gallstone disease, will recheck this after her surgery as well with low threshold to proceed with liver bx to monitor for any active inflammation. Limited role of continuing Azathiopurine if no active inflammation. - She is also due for an EGD. Will get records from [facility] to see if needs colo alongside it. - Next US due in Oct 2022. - No indication for referral to transplant center for now since low MELD and not decompensated. Follow up in 8 weeks [facility] Medical History Gallstone pancreatitis GERD (gastroesophageal reflux disease) Cirrhosis of liver without ascites Jaundice Anxiety and depression Chronic low back pain Asthma Surgical History S/P cholecystectomy Hx of tubal ligation Family History Mother Lung cancer Father No problems noted. Social History Household Members: Spouse Housing: Apartment Do you presently have visiting nurse or other home services: Yes Alcohol intake: former Patient Tobacco Use Status: Former Tobacco user Tobacco use type: Cigarette e-Cigarette/Vaping Use: Never Used Second Hand Smoke Exposure: No service: No Current occupational status: disabled Current occupational exposures/hazards: No Sexual orientation: Straight/Heterosexual Gender identity: Female Cognitive needs: No Hearing needs: No Vision needs: Yes Review of Systems Const All systems reviewed & are unremarkable except as noted in HPI and below Physical Exam Vital Signs: Last Vital Signs Pulse 83 06/20/24 08:43 BP 109/59 L 06/20/24 08:43 BMI result Body Mass Index 33.5 Const General: no acute distress Nutritional Appearance: obese Orientation/consciousness: patient oriented x3 Limitations: language barrier HEENT Head: Yes normal to inspection Ears: hearing grossly normal bilaterally Eyes Sclerae: sclerae normal Pupils: Equal, round and reactive pupils present Neck Neck: Yes normal visual inspection Chest Chest palpation & inspection: normal inspection of the chest Resp Effort & Inspection: normal respiratory effort Auscultation: clear to auscultation bilaterally Cardio Palpation: normal PMI Rate: regular rate Rhythm: regular rhythm Heart sounds: S1 normal heart sound present, S2 normal heart sound present and no murmurs GI Palpation (GI): Soft to palpation, nontender and No hepatosplenomegaly present Auscultation: normal bowel sounds Rectal Exam - Female: deferred Skin General skin exam: no rashes or lesions noted Neuro General: patient oriented x3, gait normal and moves all extremities Cranial nerves: Yes Equal, round and reactive pupils present Psych Appearance: grossly normal Mental Status: mental status grossly normal Assessment & Plan Assessment & Plan (1) GERD (gastroesophageal reflux disease): Code(s): K21.9 - Gastro-esophageal reflux disease without esophagitis Category: Medical (2) Autoimmune hepatitis: Code(s): K75.4 - Autoimmune hepatitis Category: Medical (3) Cirrhosis of liver without ascites: Code(s): K74.60 - Unspecified cirrhosis of liver Category: Medical (4) Gallstone pancreatitis: Comment: s/p cholocystectomy 07/13/2023 Code(s): K85.10 - Biliary acute pancreatitis without necrosis or infection Category: Medical Plan 58 year old Australian-speaking female (understands and speaks some Yoruba) with autoimmune hepatitis (diagnosed in 2015), mood disorder, gastroesophageal reflux disease seen for FU of autoimmune hepatitis. Pt was admitted to [facility] 04/05[place]23 with severe epigastric pain, Jaundice and elevated LFTs and acute cholecystitis by CT and US finding, acute gallstone pancreatitis with Lipase > 3000.? Pt was hospitalized at [facility] from 03/26 to 03/29/23 for autoimmune hepatitis and was discharged on Prednisone taper. Pt reports she was diagnosed with Autoimmune Hepatitis in 2015 and treated with Azathioprine and Prednisone)-? followed by Dr Bobby ([facility]) in the past and now sees DANICA Holley at [facility] (last visit was in December,).? Pt was diagnosed with Cirrhosis in 2017 - attributed to a combination of AIH and RAMIREZ). She being treated with Azathioprine 50 mg daily and reports she had been compliant in taking the medication. From documentation appears to have been in remission prior to admission in March, which in turn seems to have been a combination of non-adherence to tx (as pt ran out of meds) as well as biliary pancreatitis both contributing to elevated LFTs. Thiopurine metabolites did not reveal azathioprine toxicity PT switched her Hepatology care to Dr Lind [facility] since 06/2023. Pt had a lap phi on 07/13/[address] Alcala ([facility] [place] Plan: - Check MELD labs and IgG - Increase Azathiopurine to 100 mg and continue Prednisone 10 mg daily - She is also due for an EGD. Will get records from [facility] to see if needs a same day colonoscopy. - Next US due in Oct 2022. - Referral to Liver transplant is not indicated since patient has a low MELD of 8 and is not decompensated. 03/21/24 Has been taking Prednisone 10 mg and azathioprine 100 mg daily. Taking Omerpazole 20 mg daily and continues to have burning pain in the retrosternal area. Advised to increase to twice a day. 06/20/24 Pt advised to decrease prednisone to 7.5 mg daily and continue azathioprine at 100 mg daily If pt remains in remission, prednisone will be tapered off slowly. Follow up in 8 weeks with repeat labs Orders: Orders Liver Panel 08/04/24 K75.4 - Autoimmune hepatitis Immunoglobulin G 08/04/24 K75.4 - Autoimmune hepatitis Medications: New prednisone Stop taking Prednisone 10 mg daily and take 7.5 mg daily instead 7.5 mg (1.5 x 5 mg) PO DAILY 30 days 45 tabs 3RF K75.4 - Autoimmune hepatitis Refilled prednisone 10 mg PO DAILY 60 days 60 tabs 2RF K75.4 - Autoimmune hepatitis Coding Level of Care Code Est Pt Level 4 (83505) Diagnoses GERD (gastroesophageal reflux disease) K21.9 Autoimmune hepatitis K75.4 Cirrhosis of liver without ascites K74.60 Gallstone pancreatitis K85.10 Time Spent (min) 22
[2024-06-20 08:43] VITALS: BP 109/59; PULSE 83; BMI 33.5
== END 2024-06-20 09:18 | disposition home or self-care (01) ==
PROVIDERS: PCP Internal Medicine; Visit Provider Internal Medicine Gastroenterology
DX: K21.9 Gastro-esophageal reflux disease without esophagitis (principal); K75.4 Autoimmune hepatitis; K74.60 Unspecified cirrhosis of liver; K85.10 Biliary acute pancreatitis without necrosis or infection
CPT/HCPCS: 99214

== ENCOUNTER → 2024-06-20 08:33 | Outpatient (BNVA) | payer OTHER, SELFPAY | PROVIDERS: PCP Internal Medicine; Visit Provider Internal Medicine Gastroenterology | DX: K21.9 Gastro-esophageal reflux disease without esophagitis (principal); K75.4 Autoimmune hepatitis; K74.60 Unspecified cirrhosis of liver; K85.10 Biliary acute pancreatitis without necrosis or infection | CPT/HCPCS: 99212 ==

== ENCOUNTER 2024-07-03 08:25 | Outpatient (AMB) | payer OTHER, SELFPAY ==
--- NOTE | 2024-07-03 08:32 | A.OFFPC_ITS ---
Vital Signs 3 07/03/24 08:33 Height 4 ft 11 in Weight 166 lb BMI 33.5 BP 112/72 Blood Pressure Location Lt brachial Position Sitting Pulse 79 Pulse Source Pulse Oximeter Pulse Oximetry (%) 98 Oxygen Delivery Method Room Air Intake Visit Reasons: [facility] 06/14 abscess Gi Technician Required: Yes Gi Technician Language: Office Automation Technician Name: Annalise [id number] Accompanied by: Self / Same As Patient Allergies trazadone Adverse Reaction (Mild, Uncoded 07/03/24 08:33) Abdominal Pain Tobacco use date assessed: 10/05/23 Dental Screening Dental Screen Date: 10/05/23 HPI HPI Comments 2 History of Present Illness0 Details 58 y/o female patient who presents to [facility] clinic today for EDF. Pt was admitted at [facility] on 06/13/24 for Abscess left lateral chest that was Surgically drained in the ED. She was discharged home to continue on Abx. C&S returned 3+ Gram MRSA. Today she does c/o new abscess starting to form right Axilla. She has completed her Abx ~ 1 week ago. Denies fevers, chills, nausea or vomiting. Pt asking for a new Neb Machine, her old machine broke. Will have MA send a new Rx to medical supply store. Pt c/o small lesion left Dorsal Hand. Reports bleeding sometimes. [facility] Medical History Gallstone pancreatitis GERD (gastroesophageal reflux disease) Cirrhosis of liver without ascites Jaundice Anxiety and depression Chronic low back pain Asthma Surgical History S/P cholecystectomy Hx of tubal ligation Family History Mother Lung cancer Father No problems noted. Social History Household Members: Spouse Housing: Apartment Do you presently have visiting nurse or other home services: Yes Alcohol intake: former Patient Tobacco Use Status: Former Tobacco user Tobacco use type: Cigarette e-Cigarette/Vaping Use: Never Used Second Hand Smoke Exposure: No service: No Current occupational status: disabled Current occupational exposures/hazards: No Sexual orientation: Straight/Heterosexual Gender identity: Female Cognitive needs: No Hearing needs: No Vision needs: Yes Questionnaire Thrive Questionnaire Date Thrive assessed: 10/05/23 RUDI-7 AMB Questionnaire RUDI-7 Date RUDI - 7 assessed: 10/05/23 Source: Developed by Drs. Gary Luke, Sabina House, Jack Sprague and colleagues, with an educational sinan from [employer]. Review of Systems Const All systems reviewed & are unremarkable except as noted in HPI and below Physical exam (Primary Care) Vital Signs: Last Vital Signs Pulse 79 07/03/24 08:33 BP 112/72 07/03/24 08:33 Pulse Ox 98 07/03/24 08:33 Oxygen Delivery Method Room Air 07/03/24 08:33 BMI result Body Mass Index 33.5 Tobacco/Smoking Status: Tobacco use Status Tobacco use date assessed 10/05/23 07/03/24 08:39 Patient Tobacco Use Status Former Tobacco user 07/03/24 08:39 Tobacco use type Cigarette 07/03/24 08:39 e-Cigarette/Vaping Use Never Used 07/03/24 08:39 Thrive Assessment: Date of Thrive Assessment Date Thrive assessed 10/05/23 07/03/24 08:39 Const General: cooperative and no acute distress Nutritional Appearance: overweight Orientation/consciousness: patient oriented x3 Limitations: language barrier Chest Chest/axillae images: 2 1. Left Axilla wounds, healing well. Skin red but dry and clean. Mild tenderness to touch. 2. New Small abscess size of Dime right Axilla, red no drainage. Skin Wounds: wounds noted Neuro General: patient oriented x3, gait normal and moves all extremities Extrem Hand/finger images: 2 1. Small lesion/growth, raised soft and round. Non tender. Psych Speech and movement: Normal speech and movement present Coding Level of Care Code Est Pt Level 4 (59475) Diagnoses Axillary abscess L02.419 Time Spent (min) 20 Comment SPENT REVIEWING HOPSITAL NOTES AND PATIENT EDUCATION. Assessment & Plan Assessment & Plan (1) Axillary abscess: Code(s): L02.419 - Cutaneous abscess of limb, unspecified Category: Surgical Plan: Ordered Bactrim x 5 days. She seemed to have a new abscess forming right Axilla. Advised Pt to watch for new signs of fevers or chills. Will have MA fax order for new Neb machine. Advised Pt to schedule f/u Appointment with PCP to discuss new Lesion dorsal hand. Medications: New 2 sulfamethoxazole-trimethoprim 800-160 mg (Bactrim DS) 1 tab PO Q12H 5 days 10 tabs 0RF L02.419 - Cutaneous abscess of limb, unspecified
[2024-07-03 08:33] VITALS: BP 112/72; PULSE 79; O2SAT 98; BMI 33.5
== END 2024-07-03 08:51 | disposition home or self-care (01) ==
LOC: HO.HMCH 08:25
PROVIDERS: PCP Internal Medicine; Visit Provider Nurse Practitioner Family
DX: L02.419 Cutaneous abscess of limb, unspecified (principal)

== ENCOUNTER → 2024-07-03 08:25 | Outpatient (BNVA) | payer OTHER, SELFPAY | PROVIDERS: PCP Internal Medicine; Visit Provider Nurse Practitioner Family | DX: L02.411 Cutaneous abscess of right axilla (principal) | CPT/HCPCS: 99212 ==

== ENCOUNTER 2024-07-04 09:53 | Outpatient (AMB) | payer OTHER, SELFPAY ==
--- NOTE | 2024-07-04 09:56 | MHC.PC.OV ---
Vital Signs 07/04/24 09:57 Height 4 ft 11 in Weight 165 lb 5.547 oz BMI 33.4 BP 130/80 Blood Pressure Location Lt brachial Position Sitting Intake Visit Reasons: asthma, weight Intake Note: Patient here for a follow up asthma, weight Union Laborer Required: No Accompanied by: Self / Same As Patient Allergies trazadone Adverse Reaction (Mild, Uncoded 07/04/24 10:11) Abdominal Pain Medication List - Last Reconciled 07/04/24 by Geraldine Linn MD albuterol sulfate 90 mcg/actuation 2 puffs inhalation Q6H PRN amitriptyline 50 mg PO BEDTIME 30 days azathioprine 100 mg (2 x 50 mg) PO DAILY 90 days baclofen 10 mg PO TID PRN 30 days furosemide 20 mg PO DAILY 90 days hydrocodone-acetaminophen 5-325 mg 1 tab PO Q4-6H PRN ibuprofen 600 mg PO Q6H PRN nystatin 1 appl topical TID omeprazole 20 mg PO BID 60 days prednisone 7.5 mg (1.5 x 5 mg) PO DAILY 30 days prednisone 10 mg PO DAILY 60 days sulfamethoxazole-trimethoprim 800-160 mg (Bactrim DS) 1 tab PO Q12H 5 days Tobacco use date assessed: 10/05/23 Dental Screening Dental Screen Date: 10/05/23 HPI HPI Comments History of Present Illness Details This is a 58-year-old female with autoimmune hepatitis, cirrhosis without ascites, mild major depression and asthma that comes today complaining of low back pain radiating to both legs and associated with bilateral leg numbness that has been present for months. I will refer her to pain management. No fever, bowel or bladder incontinence. She also complains of using inhaler few times a month and I will start her on long-acting inhaler. She also has multiple abscesses and now has an axillary abscess and was recently prescribed Bactrim which she is still using. Autoimmune hepatitis and cirrhosis are follow by Gastroenterology. Denies any jaundice. [facility] Medical History (Updated 07/04/24 @ 11:47 by Geraldine Linn MD) Gallstone pancreatitis GERD (gastroesophageal reflux disease) Cirrhosis of liver without ascites Jaundice Anxiety and depression Chronic low back pain Asthma Surgical History S/P cholecystectomy Hx of tubal ligation Family History Mother Lung cancer Father No problems noted. Social History Household Members: Spouse Housing: Apartment Do you presently have visiting nurse or other home services: Yes Alcohol intake: former Patient Tobacco Use Status: Former Tobacco user Tobacco use type: Cigarette e-Cigarette/Vaping Use: Never Used Second Hand Smoke Exposure: No service: No Current occupational status: disabled Current occupational exposures/hazards: No Sexual orientation: Straight/Heterosexual Gender identity: Female Cognitive needs: No Hearing needs: No Vision needs: Yes Questionnaire Thrive Questionnaire Date Thrive assessed: 10/05/23 RUDI-7 AMB Questionnaire RUDI-7 Date RUDI - 7 assessed: 10/05/23 Source: Developed by Drs. Gary Luke, Sabina House, Jack Sprague and colleagues, with an educational sinan from [employer]. Review of Systems Const All systems reviewed & are unremarkable except as noted in HPI and below Card Denies chest pain at rest, Denies chest pain with activity, Denies edema, Denies irregular heart rhythm, Denies claudication, Denies dyspnea, Denies dyspnea on exertion, Denies orthopnea, Denies paroxysmal nocturnal dyspnea and Denies slow heart rate Resp Denies cough, Denies dyspnea and Denies dyspnea on exertion GI Denies abdominal pain, Denies change in bowel habits, Denies excessive flatus, Denies nausea and Denies vomiting Musc Reports back pain Neuro Denies lack of coordination Physical exam (Primary Care) Vital Signs: Last Vital Signs BP 130/80 07/04/24 09:57 BMI result Body Mass Index 33.4 BMI Assessment/Plan discussion: High BMI High, discussed plan: lifestyle, weight reduction, dietary and physical activity Tobacco/Smoking Status: Tobacco use Status Tobacco use date assessed 10/05/23 07/04/24 10:00 Patient Tobacco Use Status Former Tobacco user 07/04/24 10:00 Tobacco use type Cigarette 07/04/24 10:00 e-Cigarette/Vaping Use Never Used 07/04/24 10:00 Thrive Assessment: Date of Thrive Assessment Date Thrive assessed 10/05/23 07/04/24 10:00 Resp Effort & Inspection: normal respiratory effort Auscultation: clear to auscultation bilaterally Cardio Jugular venous distension: no JVD Rate: regular rate Rhythm: regular rhythm Heart sounds: S1 normal heart sound present and S2 normal heart sound present Back/Spine/Pelvis Thoracic/Lumbar Spine: straight leg raise positive bilateral at 40 degrees Extrem General: Yes full ROM Office Procedures Flu Questionnaire Does the patient have a severe egg allergy?: No Does the patient have severe life threatening allergies?: No Does the patient have a fever or illness today?: No Has the patient ever had Guillain-Challenge Syndrome?: No Has the patient ever had any past reaction to a flu shot?: No Immunizations Fluarix Triv 3307-0600 (PF) 45 mcg (15 mcg x 3)/0.5 mL IM syringe Performing Provider: Geraldine Linn MD [facility] Administered by: AYO Duckworth on 07/04/24 10:30 Dose Route Admin Location Dispensed Lot Number Expiration Date [facility] Railway [employer] 0.5 mL IM Left Deltoid 0.5 mL [id number] 03/03/25 [id number] Study Edge VIS Given Date VIS Provided VIS Publication Date 07/04/24 Single Vaccine 21 Eligibility Eligibility Date Funding Source Not [facility] Eligible 07/04/24 Private Coding Level of Care Code Est Pt Level 4 (68313) Complex EM visit Add On G2211 Diagnoses Moderate persistent asthma without complication J45.40 Asthma severity: moderate Asthma persistence: persistent Asthma complication type: uncomplicated Bilateral sciatica M54.31; M54.32 Mild major depression F32.0 Autoimmune hepatitis K75.4 Cirrhosis of liver without ascites, unspecified hepatic cirrhosis type K74.60 Hepatic cirrhosis type: unspecified hepatic cirrhosis Axillary abscess L02.419 Time Spent (min) 22 Assessment & Plan Assessment & Plan (1) Asthma: Code(s): J45.909 - Unspecified asthma, uncomplicated Category: Medical Qualifiers: Asthma severity: moderate Asthma persistence: persistent Asthma complication type: uncomplicated Qualified Code(s): J45.40 - Moderate persistent asthma, uncomplicated Plan: Start long-acting inhaler. Use rescue inhaler as needed. (2) Bilateral sciatica: Code(s): M54.31 - Sciatica, right side; M54.32 - Sciatica, left side Category: Medical Plan: Referred to pain management. (3) Mild major depression: Code(s): F32.0 - Major depressive disorder, single episode, mild Category: Medical Plan: Continue amitriptyline. (4) Autoimmune hepatitis: Code(s): K75.4 - Autoimmune hepatitis Category: Medical Plan: Continue azathioprine. Follow-up with Gastroenterology. (5) Cirrhosis of liver without ascites: Code(s): K74.60 - Unspecified cirrhosis of liver Category: Medical Qualifiers: Hepatic cirrhosis type: unspecified hepatic cirrhosis Qualified Code(s): K74.60 - Unspecified cirrhosis of liver Plan: Follow-up with Gastroenterology. (6) Axillary abscess: Code(s): L02.419 - Cutaneous abscess of limb, unspecified Category: Surgical Plan: Continue Bactrim. Orders: Orders MM tomosynthesis screening BI Today Z12.31 - Encounter for screening mammogram for malignant neoplasm of breast Lipid Panel 7 Months E78.5 - Hyperlipidemia, unspecified Influenza [id number] Immunization Today Z23 - Encounter for immunization Comprehensive [place]. Panel Fast 7 Months M54.31 - Sciatica, right side, M54.32 - Sciatica, left side Referrals Pain Management Referral M54.31 - Sciatica, right side, M54.32 - Sciatica, left side Medications: New umeclidinium-vilanterol 62.5-25 mcg/actuation (Anoro Ellipta) 1 inh inhalation DAILY 60 ea 3RF 30 days J45.909 - Unspecified asthma, uncomplicated gabapentin 300 mg PO TID 90 caps 1RF 30 days nebulizers (AeroEclipse II Nebulizer) As directed 1 ea 0RF J45.909 - Unspecified asthma, uncomplicated Discontinued baclofen Discontinued Reason: Patient Refused 10 mg PO TID 30 days PRN 90 tabs 0RF muscle spasm
[2024-07-04 09:57] VITALS: BP 130/80; BMI 33.4
== END 2024-07-04 10:22 | disposition home or self-care (01) ==
LOC: HO.HMCH 09:54
PROVIDERS: PCP Internal Medicine; Visit Provider Internal Medicine
DX: J45.40 Moderate persistent asthma, uncomplicated (principal); F32.0 Major depressive disorder, single episode, mild; K75.4 Autoimmune hepatitis; K74.60 Unspecified cirrhosis of liver; M54.31 Sciatica, right side; M54.32 Sciatica, left side; L02.419 Cutaneous abscess of limb, unspecified

== ENCOUNTER → 2024-07-04 09:53 | Outpatient (BNVA) | payer OTHER, SELFPAY | PROVIDERS: PCP Internal Medicine; Visit Provider Internal Medicine | DX: Z23 Encounter for immunization (principal); J45.40 Moderate persistent asthma, uncomplicated; M54.32 Sciatica, left side; M54.31 Sciatica, right side; F32.0 Major depressive disorder, single episode, mild; K75.4 Autoimmune hepatitis; K74.60 Unspecified cirrhosis of liver | CPT/HCPCS: 90471; 90656; 99212 ==

== ENCOUNTER 2024-07-12 13:35 | Outpatient (AMB) | payer OTHER, SELFPAY ==
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
[2024-07-12 13:45] VITALS: BP 130/74; PULSE 82; O2SAT 99; BMI 33.7
== END 2024-07-12 14:06 | disposition home or self-care (01) ==
PROVIDERS: PCP Internal Medicine; Referring Provider Internal Medicine; Visit Provider Nurse Practitioner Family
DX: M54.50 Low back pain, unspecified (principal); G89.29 Other chronic pain; M54.16 Radiculopathy, lumbar region; M53.3 Sacrococcygeal disorders, not elsewhere classified; M51.369 Other intervertebral disc degeneration, lumbar region without mention of lumbar back pain or lower extremity pain; M47.817 Spondylosis without myelopathy or radiculopathy, lumbosacral region
CPT/HCPCS: 99204; G2211

== ENCOUNTER → 2024-07-12 13:35 | Outpatient (BNVA) | payer OTHER, SELFPAY | PROVIDERS: PCP Internal Medicine; Referring Provider Internal Medicine; Visit Provider Nurse Practitioner Family | DX: M47.817 Spondylosis without myelopathy or radiculopathy, lumbosacral region (principal); M51.369 Other intervertebral disc degeneration, lumbar region without mention of lumbar back pain or lower extremity pain; M53.3 Sacrococcygeal disorders, not elsewhere classified; M54.16 Radiculopathy, lumbar region; M54.50 Low back pain, unspecified; G89.29 Other chronic pain | CPT/HCPCS: 99202 ==

== ENCOUNTER 2024-07-15 08:48 | Outpatient (REF) | payer OTHER, SELFPAY ==
[2024-07-15 09:14] LABS: MANUAL DIFF FLAG NO
[2024-07-15 09:51] LABS: Eosinophils Absolute Auto 0.3 X10*3/uL (0.0-0.4); Eosinophils Percent Auto 9.7 % (0-4); Hematocrit 35.5 % (37.0-47.0); Hemoglobin 12.5 g/dl (12.0-16.0); Imm Gran Abs Auto 0.01 X10*3/uL (0.00-0.03); Imm Gran Pct Auto 0.3 % (0.0-0.4); Lymphocytes Absolute Auto 0.9 X10*3/uL (1.2-4.9); Lymphocytes Percent Auto 25.4 % (20-40); Mean Corpuscular HGB Conc 35.2 g/dl (31.0-35.0); Mean Corpuscular Hemoglobin 32.4 pg (27.0-33.0); Mean Platelet Volume 11.5 fL (9.4-12.3); Monocytes Absolute Auto 0.3 X10*3/uL (0.1-1.2); Monocytes Percent Auto 7.7 % (2-11); Neutrophils Absolute Auto 1.9 x10*3/uL (2.0-8.3); Neutrophils Percent Auto 56.9 % (45-73); Platelet Count 104 X10*3/uL (160-400); Red Blood Count 3.86 X10*6/uL (4.20-5.50); Red Cell Distribution Width 15.1 % (11.0-16.0); White Blood Count 3.4 X10*3/uL (4.8-10.8)
[2024-07-15 10:29] LABS: Alanine Aminotransferase < 6 U/L (0-31); Albumin Level 3.4 g/dL (3.5-5.0); Alkaline Phosphatase 94 U/L (39-117); Anion Gap 9 (12-20); Aspartate Amino Transferase 33 U/L (5-31); Bilirubin Direct 0.4 mg/dL (0.0-0.5); Bilirubin Total 1.3 mg/dL (0.0-1.0); Blood Urea Nitrogen 5 mg/dL (9-16); Carbon Dioxide 28 mmol/L (22-29); Chloride 108 mmol/L (96-108); Cholesterol 120 mg/dL (<200); Estimated Glomerular Filt Rate > 60; Glucose Fasting 109 mg/dL (60-99); HDL Cholesterol 53 mg/dL (>40); LDL Cholesterol Calculated 55 mg/dL (<100); Sodium 141 mmol/L (135-145); Total Protein 7.2 g/dL (6.5-8.0); Triglycerides 60 mg/dL (<150)
[2024-07-16 08:19] LABS: Immunoglobulin G 1865 mg/dL (600-1640)
== END 2024-07-15 08:49 | disposition home or self-care (01) ==
LOC: HO.LAB 08:48
PROVIDERS: Absent Provider Internal Medicine; PCP Internal Medicine; Referring Provider Nurse Practitioner Family; Visit Provider Internal Medicine Gastroenterology
DX: Z00.00 Encounter for general adult medical examination without abnormal findings (principal); M54.50 Low back pain, unspecified; K21.9 Gastro-esophageal reflux disease without esophagitis; E78.5 Hyperlipidemia, unspecified; K75.4 Autoimmune hepatitis; M53.3 Sacrococcygeal disorders, not elsewhere classified; G89.29 Other chronic pain; M54.31 Sciatica, right side; M54.32 Sciatica, left side; M54.16 Radiculopathy, lumbar region
CPT/HCPCS: 36415; 72114; 72202; 80053; 80061; 80076; 82248; 82784; 85025

== ENCOUNTER 2024-08-05 11:08 | Outpatient (REF) | payer OTHER, SELFPAY | END 2024-08-05 11:09 | disposition home or self-care (01) | LOC: HO.LAB 11:08 | PROVIDERS: PCP Internal Medicine; Visit Provider Surgery | DX: L02.411 Cutaneous abscess of right axilla (principal) | CPT/HCPCS: 10060; 87070; 87077; 87186; 87205; 99212; J2004 ==

== ENCOUNTER 2024-08-05 11:08 | Outpatient (AMB) | payer OTHER, SELFPAY ==
--- NOTE | 2024-08-05 11:08 | A.OFFVIS_ITS ---
Vital Signs 08/05/24 11:16 Height 4 ft 11 in Weight 165 lb BMI 33.3 BP 161/78 H Blood Pressure Location Lt brachial Position Sitting Pulse 97 Intake Visit Reasons: ? infection, painful abscess Intake Note: Patient being seen today for urgent appointment. Patient c/o abscess on rt axilla. States there are 2 areas. One recently opened and drained on its own. Superior abscess very painful. Patient requesting stronger antibiotics. Taking tylenol as needed. Business Rules Developer Required: Yes Business Rules Developer Services: Business Rules Developer Present Business Rules Developer Name: Ermelinda ROLLINS Emergency Planner: Emergency Planner Present Accompanied by: Self / Same As Patient Allergies trazodone Allergy (Unknown, Verified 08/05/24 11:16) Abdominal Pain Medication List - Last Reconciled 08/05/24 by Stewart Quiroz MD albuterol sulfate 90 mcg/actuation 2 puffs inhalation Q6H PRN amitriptyline 50 mg PO BEDTIME 30 days azathioprine 100 mg (2 x 50 mg) PO DAILY 90 days furosemide 20 mg PO DAILY 90 days gabapentin 300 mg PO TID 30 days hydrocodone-acetaminophen 5-325 mg 1 tab PO Q4-6H PRN ibuprofen 600 mg PO Q6H PRN nebulizers (AeroEclipse II Nebulizer) As directed nystatin 1 appl topical TID omeprazole 20 mg PO BID 60 days prednisone 7.5 mg (1.5 x 5 mg) PO DAILY 30 days prednisone 10 mg PO DAILY 60 days sulfamethoxazole-trimethoprim 800-160 mg (Bactrim DS) 1 tab PO Q12H 5 days umeclidinium-vilanterol 62.5-25 mcg/actuation (Anoro Ellipta) 1 inh inhalation DAILY 30 days HPI Comments Details: Patient whom I know from the past who now presents with a right axillary abscess. She had a similar abscess in the left axilla. She has had this several days time. It is increasing in size, become more symptomatic. Chart was reviewed and patient evaluated [facility] Medical History (Updated 07/13/24 @ 19:52 by AYUSH Sanchez) Gallstone pancreatitis GERD (gastroesophageal reflux disease) Cirrhosis of liver without ascites Jaundice Anxiety and depression Chronic low back pain Asthma Surgical History (Updated 08/05/24 @ 11:33 by Stewart Quiroz MD) S/P cholecystectomy Hx of tubal ligation Family History Mother Lung cancer Father No problems noted. Social History Household Members: Spouse Housing: Apartment Do you presently have visiting nurse or other home services: Yes Alcohol intake: former Patient Tobacco Use Status: Former Tobacco user Tobacco use type: Cigarette e-Cigarette/Vaping Use: Never Used Second Hand Smoke Exposure: No service: No Current occupational status: disabled Current occupational exposures/hazards: No Sexual orientation: Straight/Heterosexual Gender identity: Female Cognitive needs: No Hearing needs: No Vision needs: Yes Physical Exam Vital Signs: Last Vital Signs Pulse 97 08/05/24 11:16 BP 161/78 H 08/05/24 11:16 BMI result Body Mass Index 33.3 Extrem Other: Patient has chronic findings of what appears to be hidradenitis suppurativa with the right axilla. She has a large roughly 4 x 3 cm abscess of the right axilla. Office Procedures I&D Drain Details: Risks, benefits, alternatives of incision drainage of complex right axillary abscess were reviewed with the patient and included but not limited to bleeding, infection, recurrence, numbness, pain, scarring the patient wished to proceed. After appropriate positioning, Patient underwent 1% lidocaine and Betadine prep and uneventfully transverse incision of the large abscess cavity. Loculations broken up and cultures obtained. Wound was irrigated, secured hemostasis, packed, and dressing applied. Patient tolerated procedure well. 50385-[id number] of Skin Abscess, complex All charges added?: Procedure code (CPT) selection complete Office Meds lidocaine 1 %-epinephrine 1:100,000 injection solution Performing Provider: Stewart Quiroz MD Performing Location: [facility] [place] [facility] Administered by: Stewart Quiroz MD on 08/05/24 11:32 Dose Route Admin Location Dispensed Lot Number Expiration Date [facility] Vamp Stitcher 10 mL Infiltration 10 mL Assessment & Plan Assessment & Plan (1) Abscess of right axilla: Code(s): L02.411 - Cutaneous abscess of right axilla Category: Surgical Plan: Patient will arrange with the [facility] for local wound packing care. In the meantime, patient will be given a script for antibiotics and analgesics and will see me as directed or p.r.n.. All questions answered. Orders: Orders Routine Culture w Gram Stain Today L02.419 - Cutaneous abscess of limb, unspecified AMB Incision & Drainage Today L02.411 - Cutaneous abscess of right axilla Medications: New cephalexin 500 mg PO TID 30 caps 0RF hydrocodone-acetaminophen 5-325 mg Partial Fill upon patient request. 1 tab PO Q4-6H PRN 30 tabs 0RF pain lidocaine-epinephrine 1 %-1:100,000 10 mL Infiltration ONCE 10 mL 0RF L02.411 - Cutaneous abscess of right axilla Coding Level of Care Code Est Pt Level 5 (71457) Diagnoses Abscess of right axilla L02.411 CPT Codes I&D Drain - Drain 2: 84310-Hocjjwpt of Skin Abscess, complex ([id number])
[2024-08-05 11:16] VITALS: BP 161/78; PULSE 97; BMI 33.3
== END 2024-08-05 11:35 | disposition home or self-care (01) ==
PROVIDERS: PCP Internal Medicine; Visit Provider Surgery
DX: L02.411 Cutaneous abscess of right axilla (principal)
CPT/HCPCS: 10060; 99214

== ENCOUNTER → 2024-08-06 08:35 | Outpatient (BNVA) | payer OTHER, SELFPAY | PROVIDERS: PCP Internal Medicine; Visit Provider Surgery | DX: Z48.01 Encounter for change or removal of surgical wound dressing (principal) | CPT/HCPCS: 99211 ==

== ENCOUNTER → 2024-08-07 08:41 | Outpatient (BNVA) | payer OTHER, SELFPAY | PROVIDERS: PCP Internal Medicine; Visit Provider Surgery | DX: Z48.00 Encounter for change or removal of nonsurgical wound dressing (principal); K80.20 Calculus of gallbladder without cholecystitis without obstruction | CPT/HCPCS: 99211 ==

== ENCOUNTER → 2024-08-08 08:58 | Outpatient (BNVA) | payer OTHER, SELFPAY | PROVIDERS: PCP Internal Medicine; Visit Provider Surgery | DX: Z48.00 Encounter for change or removal of nonsurgical wound dressing (principal); K80.20 Calculus of gallbladder without cholecystitis without obstruction | CPT/HCPCS: 99211 ==

== ENCOUNTER 2024-08-20 08:20 | Outpatient (REF) | payer OTHER, SELFPAY | END 2024-08-20 08:21 | disposition home or self-care (01) | LOC: HO.MAMMO 08:20 | PROVIDERS: PCP Internal Medicine; Visit Provider Internal Medicine | DX: Z12.31 Encounter for screening mammogram for malignant neoplasm of breast (principal) | CPT/HCPCS: 77063; 77067 ==

== ENCOUNTER → 2024-08-20 08:45 | Outpatient (BNV) | payer OTHER, SELFPAY | PROVIDERS: PCP Internal Medicine; Visit Provider Internal Medicine | DX: Z12.31 Encounter for screening mammogram for malignant neoplasm of breast (principal) | CPT/HCPCS: 77063; 77067 ==

== ENCOUNTER 2024-08-22 06:02 | Outpatient (REF) | payer OTHER, SELFPAY ==
--- NOTE | ~2024-08-22 | FL_ITS ---
EXAMINATION: FLUORO GUIDANCE IN TREATMENT ROOM CLINICAL INFORMATION: Spondylosis without myelopathy or radiculopathy, lumbosacral region. COMPARISON: None available. TECHNIQUE: Fluoroscopy supervised by: Dr. Laith Mccabe. Fluoroscopy time: 0.0 minutes. Cumulative Dose: 1.40 mGy. DAP: 0.0210 mGy-m2 (milligray-meter squared). Images: 1. FINDINGS: Fluoroscopic guidance was provided for this procedure. Image demonstrates needle at level of lower lumbar spine. Please see procedure report for detailed evaluation. FL/FL guidance in treatment room IMPRESSION: Fluoroscopy during procedure. Please see procedure report for additional information. Electronically signed by: Karyn Eason MD 09/10/2024 11:46 AM [facility]
== END 2024-08-22 06:03 | disposition home or self-care (01) ==
LOC: CF 06:02
PROVIDERS: Visit Provider Internal Medicine
DX: M47.817 Spondylosis without myelopathy or radiculopathy, lumbosacral region (principal)
CPT/HCPCS: 64493; 64494; J2003; J2795; Q9967

== ENCOUNTER 2024-08-22 10:32 | Outpatient (AMB) | payer OTHER, SELFPAY ==
[2024-08-22 10:42] VITALS: BP 127/75; PULSE 77; O2SAT 100
--- NOTE | 2024-08-22 10:42 | A.OFFVIS_ITS ---
Vital Signs 08/22/24 10:42 08/22/24 11:32 BP 127/75 176/106 H Blood Pressure Location Lt brachial Rt brachial Position Sitting Sitting Pulse 77 94 Pulse Source Pulse Oximeter Pulse Oximeter Pulse Oximetry (%) 100 97 Oxygen Delivery Method Room Air Room Air Intake Visit Reasons: Alfonzo Dx L3-L4-DR-L5 MBB Allergies trazodone Allergy (Unknown, Verified 08/05/24 11:16) Abdominal Pain HPI HPI Alfonzo Dx L3-L4-DR-L5 MBB: Details: Patient presents for scheduled procedure. Denies any recent cough, cold, infection, fever or other significant changes in medical history since last office visit. [facility] Medical History (Updated 07/13/24 @ 19:52 by AYUSH Sanchez) Gallstone pancreatitis GERD (gastroesophageal reflux disease) Cirrhosis of liver without ascites Jaundice Anxiety and depression Chronic low back pain Asthma Surgical History (Updated 08/05/24 @ 11:33 by Stewart Quiroz MD) S/P cholecystectomy Hx of tubal ligation Family History Mother Lung cancer Father No problems noted. Social History Household Members: Spouse Housing: Apartment Do you presently have visiting nurse or other home services: Yes Alcohol intake: former Patient Tobacco Use Status: Former Tobacco user Tobacco use type: Cigarette e-Cigarette/Vaping Use: Never Used Second Hand Smoke Exposure: No service: No Current occupational status: disabled Current occupational exposures/hazards: No Sexual orientation: Straight/Heterosexual Gender identity: Female Cognitive needs: No Hearing needs: No Vision needs: Yes Physical Exam Vital Signs: Last Vital Signs Pulse 94 08/22/24 11:32 BP 176/106 H 08/22/24 11:32 Pulse Ox 97 08/22/24 11:32 Oxygen Delivery Method Room Air 08/22/24 11:32 Office Procedures Lumbar/Sacral Facet Inj Details: ABORTED - Lumbar Medial Branch Block, BILATERAL L3, L4 medial branches and L5 Dorsal Ramus (2 levels, 3 nerves) After obtaining written consent, pre-procedure blood pressure and pulse were recorded and are in the nursing record for review. The patient was placed in a prone position. The respective lumbosacral area was prepped with chloraprep and draped in sterile fashion. The skin over the target medial branch nerves was anesthetized with 0.5% lidocaine. At this point, the patient indicated that she was unable to tolerate further intervention and requested the procedure be aborted. The procedure was aborted and the patient was taken off the procedure table. Time Out: Immediately prior to the procedure, the following was verbally confirmed that there is a signed consent form and that the correct patient, planned procedure, site and side are consistent with documentation and that necessary equipment and/or blood products are available prior to the start of the case. Complications: none EBL: <5 cc Additional procedure code (CPT) needed Assessment & Plan Assessment & Plan (1) Lumbosacral spondylosis: Code(s): M47.817 - Spondylosis without myelopathy or radiculopathy, lumbosacral region Category: Medical Plan Patient is status post attempted bilateral lower lumbar medial branch blocks. Patient tolerated procedure well and was discharged home in stable condition with discharge instructions. All questions were answered. We will follow-up via telephone or in clinic to assess response to therapy. A follow-up appointment was made during today's visit. Orders: Orders FL guidance in treatment room Today M47.817 - Spondylosis without myelopathy or radiculopathy, lumbosacral region Coding Level of Care Code Procedure Only Diagnoses Lumbosacral spondylosis M47.817
[2024-08-22 11:32] VITALS: BP 176/106; PULSE 94; O2SAT 97
== END 2024-08-22 11:33 | disposition home or self-care (01) ==
LOC: HO.PMCPRC 10:32
PROVIDERS: PCP Internal Medicine; Visit Provider Internal Medicine
DX: M47.817 Spondylosis without myelopathy or radiculopathy, lumbosacral region (principal)
CPT/HCPCS: 64493; 64494

== ENCOUNTER 2024-08-26 10:21 | Outpatient (AMB) | payer OTHER, SELFPAY ==
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
[2024-08-26 10:32] VITALS: BP 128/74; PULSE 84; O2SAT 97; BMI 33.3
== END 2024-08-26 10:41 | disposition home or self-care (01) ==
PROVIDERS: PCP Internal Medicine; Visit Provider Nurse Practitioner Family
DX: M54.50 Low back pain, unspecified (principal); G89.29 Other chronic pain; M53.3 Sacrococcygeal disorders, not elsewhere classified; M51.369 Other intervertebral disc degeneration, lumbar region without mention of lumbar back pain or lower extremity pain; M47.817 Spondylosis without myelopathy or radiculopathy, lumbosacral region
CPT/HCPCS: 99213; G2211

== ENCOUNTER → 2024-08-26 10:21 | Outpatient (BNVA) | payer OTHER, SELFPAY | PROVIDERS: PCP Internal Medicine; Visit Provider Nurse Practitioner Family | DX: M54.50 Low back pain, unspecified (principal); M53.3 Sacrococcygeal disorders, not elsewhere classified; M51.369 Other intervertebral disc degeneration, lumbar region without mention of lumbar back pain or lower extremity pain; M47.817 Spondylosis without myelopathy or radiculopathy, lumbosacral region; G89.29 Other chronic pain | CPT/HCPCS: 99212 ==

== ENCOUNTER 2024-10-24 09:45 | Outpatient (REF) | payer OTHER, SELFPAY ==
--- NOTE | ~2024-10-24 | MR_ITS ---
CLINICAL HISTORY: M54.16 - Radiculopathy, lumbar region MR lumbar spine without gadolinium Comparison: None Findings: Normal alignment without acute fracture or marrow infiltration. Multilevel disc dehydration. Hewsvlzt-[id number]-[id number] disc narrowing and mild Modic type 2 changes at L5/S1. Conus terminates at L1/L2. Visualized cord, conus medullaris, and cauda equina are unremarkable. Unremarkable paravertebral soft tissues and visualized abdomen. L5/S1: Up to 2 mm (AP dimension) disc bulge and facet arthropathy associated with mild bilateral neural foraminal stenosis. L4/L5: Mild disc bulge and facet hypertrophy. L3/L4: Up to 5 mm (AP dimension) disc herniation in the inferior aspect of the left neural foramen associated with severe stenosis of the inferior aspect of the left neural foramen and flattening/mild posterior displacement (please refer to series 8 image 18) of the exiting left L3 nerve root/dorsal root ganglion. T12/L1 to L2/L3: No evidence of significant central canal, lateral recess, or neural foraminal stenosis. IMPRESSION: L3/L4: Up to 5 mm (AP dimension) disc herniation in the inferior aspect of the left neural foramen associated with severe stenosis of the inferior aspect of the left neural foramen and flattening/mild posterior displacement of the exiting left L3 nerve root/dorsal root ganglion. This document has been electronically signed by: Sulema Zambrano MD on 10/24/2024 12:48:04
--- OUTSIDE RECORDS SUMMARY | 2024-10-24 10:37 | XMS_ITS | Encounter Summary ---
Author Organization [facility] Address [address] [place] [address] Care Team Providers Care Packing And Stamping Machine Operator Name Role Phone Gurpreet Busch MD Primary Care Provider Unavail [facility] Liss Valdez MD Primary Care Provider [phone] Encounter Details Date Type Department Care Team Description 11/27/2017 Telephone Adult [address] [id number] Gurpreet Busch MD Social History Tobacco Use Types Packs/Day Years Used Date Smoking Tobacco: Former Cigarettes 1 0 09/04/1980 - 09/04/2008 Smokeless Tobacco: Former Comments:stopped 7 yrs ago Alcohol Use Standard Drinks/Week Comments No 0 (1 standard drink = 0.6 oz pur e alcohol) Sex Assigned at Date Recorded Not on file Job Start Date Occupation Industry Not on file Not on file Not on file documented as of this encounter Miscellaneous Notes * Telephone Encounter - Gurpreet Busch MD - 11/27/2017 1:29 PM EDT Documentation regarding my concern for patient non compliance. No showed office visit with me today She was recently diagnosed with cirrhosis of the liver and was referred to hematology for low platelets but she no showed the appointment. Has no showed 4 times since September. Reached out to non compliance for assistance, letters sent by both myself and Dr. Schafer. GURPREET WALSH MD 1:33 PM documented in this encounter Plan of Treatment Not on file documented as of this encounter Visit Diagnoses Not on filedocumented in this encounter Care Teams Packing And Stamping Machine Operator Relationship Specialty Start Date End Date Gurpreet Busch MD PCP - General Internal Medicine 08/15/16 08/16/21 Liss Valdez MD [address] [place] [address] [id number] PCP - General Internal Medicine 08/17/21 documented as of this encounter
--- OUTSIDE RECORDS SUMMARY | 2024-10-24 10:37 | XMS_ITS | Encounter Summary ---
Author Organization [facility] Address [address] [place] [address] Care Team Providers Care Biology Specialist Name Role Phone Shanta Busch MD Primary Care Provider Unavail able Liss Valdez MD Primary Care Provider [phone] Reason for Referral * EXTERNAL (Priority) - Authorized/Booked Specialty Diagnoses / Procedures Referred By Contac t Referred To Contact Neurosurgery Procedures REFERRAL TO NEUROSURGERY (IN NETWORK) Camila Alcantar PA-C [address] [place] [id number] Rocael Duong MD, PHD [address] [place] [address] [place] [address] Referral ID Status Reason Start Date Expiration Date V isits Requested Visits Authorized SEE NOTE Authorized/B ooked 06/07/2019 09/11/2019 1 1 Encounter Details Date Type Department Care Team Description 06/07/2019 Orders Only Adult Medicine [address] [address] Camila Alcantar PA-C Social History Tobacco Use Types Packs/Day Years Used Date Smoking Tobacco: Former Cigarettes 1 28 0 09/04/1980 - 09/04/2008 Smokeless Tobacco: Never Comments:stopped 10 yrs ago Alcohol Use Standard Drinks/Week Comments No 0 (1 standard drink = 0.6 oz pur e alcohol) Sex Assigned at Date Recorded Not on file Job Start Date Occupation Industry Not on file Not on file Not on file documented as of this encounter Plan of Treatment Not on file documented as of this encounter Visit Diagnoses Not on filedocumented in this encounter Care Teams Biology Specialist Relationship Specialty Start Date End Date Shanta Busch MD PCP - General Internal Medicine 08/15/16 08/16/21 Liss Valdez MD [address] [place], [place] [id number] PCP - General Internal Medicine 08/17/21 documented as of this encounter
--- OUTSIDE RECORDS SUMMARY | 2024-10-24 10:37 | XMS_ITS | Clinical Summary ---
Author Organization [facility] Address [address] [place] [address] Care Team Providers Care Urban Designer Name Role Phone Unavailable Primary Care Provider Unavailabl e Active Problems Problem Noted Date Diagnosed Date Lumbar radiculopathy 10/14/2021 Social History Tobacco Use Types Packs/Day Years Used Date Smoking Tobacco: Never Smokeless Tobacco: Never Alcohol Use Standard Drinks/Week Comments Never 0 (1 standard drink = 0.6 oz pur e alcohol) Sex and Gender Information Value Date Recorded Sex Assigned at Female 12/15/2021 11:18 AM EDT Gender Identity Not on file Sexual Orientation Not on file Job Start Date Occupation Industry Not on file Not on file Not on file Last Filed Vital Signs Vital Sign Reading Time Taken Comments Blood Pressure 142/88 10/14/2021 2:18 PM EST Pulse 84 10/14/2021 2:18 PM EST Temperature 36.5 ??C (97.7 ??F) 10/14/2021 2:18 PM ES T Respiratory Rate - - Oxygen Saturation 98% 10/14/2021 2:18 PM EST Inhaled Oxygen Concentration - - Weight - - Height - - Body Mass Index - - Plan of Treatment Health Maintenance Due Date Last Done Comments Hepatitis B Vaccines (1 of 3 - 3-dose series) 1965 Hepatitis C Screening 1966 COVID-19 Vaccine (#1) 05/09/1967 Depression Screening 1978 Preventative Health Evaluation 1984 Cervical Cancer Screening (P ap Smear) 11/07/1987 Colon Cancer Screening (Colonoscopy) 11/07/2011 Breast Cancer Screening (Mammogram) 2016 Shingrix-Zoster Vaccine (1 of 2) 2016 DTap / Tdap / Td (2 - Td or Tdap) 10/12/2021 012 Influenza Vaccine (#1) 2024 Pneumococcal Vaccine Aged Out 09/13/2011 No long er eligible based on patient's age to complete this topic RSV Ped < 20 months Aged Out No longe r eligible based on patient's age to complete this topic Anastasia Dhaliwal Personal/Family Self [address] [address]
--- OUTSIDE RECORDS SUMMARY | 2024-10-24 10:37 | XMS_ITS | Encounter Summary ---
Author Organization [facility] Address [address] [place] [address] Care Team Providers Care Weigher And Grader Name Role Phone Shanta Busch MD Primary Care Provider Unavail able Liss Valdez MD Primary Care Provider [phone] Encounter Details Date Type Department Care Team Description 10/20/2017 Transfer Records Medical Records [address] [place] [address] Abstract, Provider Social History Tobacco Use Types Packs/Day Years [...] on filedocumented in this encounter Care Teams Weigher And Grader Relationship Specialty Start Date End Date Shanta Busch MD PCP - General Internal Medicine 08/15/16 08/16/21 Liss Valdez MD [address] [place] [address] [id number] PCP - General Internal Medicine 08/17/21 documented as of this encounter
--- OUTSIDE RECORDS SUMMARY | 2024-10-24 10:37 | XMS_ITS | Encounter Summary ---
Author Organization [facility] Address [address] [place] [address] Care Team Providers Care Top Executive Name Role Phone Shanta Busch MD Primary Care Provider Unavail able Liss Valdez MD Primary Care Provider [phone] Encounter Details Date Type Department Care Team Description 05/20/2019 Orders Only Adult Medicine [address] [id number] Camila Alcantar PA-C Social History Tobacco Use Types Packs/Day Years Used Date Smoking Tobacco: Former Cigarettes 1 28 0 09/04/1980 - 09/04/2008 Smokeless Tobacco: Never Comments:stopped 9 yrs ago Alcohol Use Standard Drinks/Week Comments [...] on filedocumented in this encounter Care Teams Top Executive Relationship Specialty Start Date End Date Shanta Busch MD PCP - General Internal Medicine 08/15/16 08/16/21 Liss Valdez MD [address] [place] [address] [id number] PCP - General Internal Medicine 08/17/21 documented as of this encounter
--- OUTSIDE RECORDS SUMMARY | 2024-10-24 10:37 | XMS_ITS | Encounter Summary ---
Author Organization [facility] Address [address] [place] [address] Care Team Providers Care Manager Telemarketing Name Role Phone Shanta Busch MD Primary Care Provider Unavail able Liss Valdez MD Primary Care Provider [phone] Encounter Details Date Type Department Care Team Description 08/10/2018 Orders Only Adult Medicine [address] [phone] Camila Alcantar PA-C Social History Tobacco Use Types Packs/Day Years Used Date Smoking Tobacco: Former Cigarettes 1 0 09/04/1980 - 09/04/2008 Smokeless Tobacco: Never Comments:stopped 7 yrs ago Alcohol Use Standard [...] on filedocumented in this encounter Care Teams Manager Telemarketing Relationship Specialty Start Date End Date Shanta Busch MD PCP - General Internal Medicine 08/15/16 08/16/21 Liss Valdez MD [address] [place] [address] [id number] PCP - General Internal Medicine 08/17/21 documented as of this encounter
--- OUTSIDE RECORDS SUMMARY | 2024-10-24 10:37 | XMS_ITS | Encounter Summary ---
Author Organization [facility] Address [address] [place] [address] Care Team Providers Care Microbiology Lab Technician Name Role Phone Shanta Busch MD Primary Care Provider Unavail able Liss Valdez MD Primary Care Provider [phone] Encounter Details Date Type Department Care Team Description 08/21/2018 [facility] Medical Records [address] [place] [id number] Abstract, Provider Social History Tobacco Use Types [...] on filedocumented in this encounter Care Teams Microbiology Lab Technician Relationship Specialty Start Date End Date Shanta Busch MD PCP - General Internal Medicine 08/15/16 08/16/21 Liss Valdez MD [address] [place] [address] [id number] PCP - General Internal Medicine 08/17/21 documented as of this encounter
--- OUTSIDE RECORDS SUMMARY | 2024-10-24 10:37 | XMS_ITS | Encounter Summary ---
Author Organization [facility] Address [address] [place] [address] Care Team Providers Care Quality Assurance Practice Manager Name Role Phone Shanta Busch MD Primary Care Provider Unavail able Liss Valdez MD Primary Care Provider [phone] Encounter Details Date Type Department Care Team Description 01/07/2019 Power Mule Operator Report Medical Records [address] [place] [id number] Bruno Freedman Social History Tobacco Use Types Packs/Day Years [...] on filedocumented in this encounter Care Teams Quality Assurance Practice Manager Relationship Specialty Start Date End Date Shanta Busch MD PCP - General Internal Medicine 08/15/16 08/16/21 Liss Valdez MD [address] [place] [address] [id number] PCP - General Internal Medicine 08/17/21 documented as of this encounter
--- OUTSIDE RECORDS SUMMARY | 2024-10-24 10:37 | XMS_ITS | Encounter Summary ---
Author Organization [facility] Address [address] [place] [address] Care Team Providers Care Candy Forming Machine Operator Name Role Phone Gurpreet Busch MD Primary Care Provider Unavail [facility] Liss Valdez MD Primary Care Provider [phone] Reason for Visit * Reason Onset Date Comments medication problems 12/26/2017 Encounter Details Date Type Department Care Team Description 12/26/2017 Telephone Adult [address] [phone] Gurpreet Busch MD medication problems Social History Tobacco Use Types Packs/Day Years [...] encounter Miscellaneous Notes * Telephone Encounter - Delphine Mclean - 12/26/2017 3:46 PM EDT Spoke with Pt (primarily upper sorbian speaking) who gives consent to speak with her brother Phu. Per Phu and Pt, Pt has taken Amitriptyline in the past and it does not give her any relief. Explained to Pt and brother that this is the only medication GURPREET WALSH will prescribe. Verbalized understanding and agreed with plan. Forward to GURPREET WALSH . * Telephone Encounter - Jac Thomas - 12/26/2017 1:52 PM EDT Patient's brother calling and would like to speak to the nurse about the amitriptyline (ELAVIL) 25 MG tablet that she picked up at the pharmacy. Patient has tried this in the past and says it does not work * Telephone Encounter - Gurpreet Busch MD - 12/26/2017 12:15 PM EDT Has h/o CSC violation not willing to do anything above cymbalta or gabapentin. Will send through amitriptyline ( I see she tolerated this in the past). * Telephone Encounter - Delphine Mclean - 12/26/2017 11:51 AM EDT Forward to GURPREET WALSH * Telephone Encounter - Jac Thomas - 12/26/2017 11:32 AM EDT What is the name of the medication patient is having a problem with?: duloxetine (CYMBALTA) 20 MG capsule What is the problem? Patient is still vomiting with this medication and still has back pain. Patient needs something else prescribed. Is the patient calling about the problem? NO If the patient is not the caller who is? Phu Is this a NEW medication?: YES How long has the patient been taking this medication? Who prescribed this medication for the patient? GURPREET WALSH Who is patients PCP?: GURPREET WALSH [place] / [place] / Product Type: MEDICARE [id number] documented in this encounter Plan of Treatment Not on file documented as of this encounter Visit Diagnoses Not on filedocumented in this encounter Care Teams Candy Forming Machine Operator Relationship Specialty Start Date End Date Gurpreet Busch MD PCP - General Internal Medicine 08/15/16 08/16/21 Liss Valdez MD [address] [place] [id number] PCP - General Internal Medicine 08/17/21 documented as of this encounter
--- OUTSIDE RECORDS SUMMARY | 2024-10-24 10:37 | XMS_ITS | Encounter Summary ---
Author Organization [facility] Address [address] [place] [address] Care Team Providers Care Ingot Passer Name Role Phone Shanta Busch MD Primary Care Provider [facility] able Liss Valdez MD Primary Care Provider [phone] Encounter Details Date Type Department Care Team Description 10/25/2018 Gymnasium Teacher Report Medical Records [address] [place] [id number] Jose Sterling MD Social History Tobacco Use Types Packs/Day [...] on filedocumented in this encounter Care Teams Ingot Passer Relationship Specialty Start Date End Date Shanta Busch MD PCP - General Internal Medicine 08/15/16 08/16/21 Liss Valdez MD [address] [place] [address] [id number] PCP - General Internal Medicine 08/17/21 documented as of this encounter
--- OUTSIDE RECORDS SUMMARY | 2024-10-24 10:37 | XMS_ITS | Encounter Summary ---
Author Organization [facility] Address [address] [place] [address] Care Team Providers Care Cellar Worker Name Role Phone Shree Armendariz MD Primary Care Provider Roger Paulino, Pcp Primary Care Provider Shanta Downs MD Primary Care Provider Unavail able Liss Valdez MD Primary Care Provider [phone] Encounter Details Date Type Department Care Team Description 06/13/2013 Transfer Records Medical Records [address] [place] [id number] Abstract, Provider Social History Tobacco Use Types Packs/Day Years Used Date Smoking Tobacco: Never Alcohol Use Standard Drinks/Week Comments Not Asked 0 (1 standard drink = 0.6 oz pur e alcohol) Sex Assigned at Date Recorded Not on file Job Start Date Occupation Industry Not on file Not on file Not on file documented as of this encounter Plan of Treatment Not on file documented as of this encounter Visit Diagnoses Not on filedocumented in this encounter Care Teams Cellar Worker Relationship Specialty Start Date End Date Shree Armendariz MD PCP - General Internal Medicine 05/27/13 09/22/13 Roderick, Aimee PCP - General Internal Medicine 09/23/13 08/14/16 Shanta Busch MD PCP - General Internal Medicine 08/15/16 08/16/21 Liss Valdez MD [address] [place] [address] [id number] PCP - General Internal Medicine 08/17/21 documented as of this encounter
--- OUTSIDE RECORDS SUMMARY | 2024-10-24 10:37 | XMS_ITS | Clinical Summary ---
Author Organization [facility] Address [address] [place] [address] Care Team Providers Care Shirt Line Operator Name Role Phone Liss Valdez MD Primary Care Provider [phone] Allergies No known active allergies Medications Medication Sig Dispensed Refills Start Date End Date Status Diclofenac Sodium (VOLTAREN) 1 % GelIndications:Shamika thomas Place 1 Applicator onto the skin daily. 1 Tube 0 07/24/2019 Active albuterol (PROVENTIL) (2.5 MG/3ML) 0.083% nebulizer solution Take 1 Vial by nebulization every 4 hours as needed for Wheezing for up to 180 days. 50 Vial 0 10/29/2019 Active fluticasone-salmet jennifer (ADVAIR HFA) 45-21 MCG/ACT inhaler Inhale 2 Puffs into the lungs 2 times daily for 360 days. 1 Inhaler 0 10/29/2019 Active ALBUTEROL SULFATE 108 (90 Base) MCG/ACT Aero Soln Inhale 2 Puffs into the lungs every 4 hours as needed for Cough, Wheezing or Shortness of Breath. 1 Inhaler 0 05/20/2020 Active hydrOXYzine (ATARAX) 25 MG tablet TAKE 1 TABLET BY MOUTH AT BEDTIME NEEDED FOR ANXIETY 7 Tab 0 12/02/2020 Active methocarbamol (ROBAXIN) 500 MG tablet Take 1 tablet by mouth 2 times daily as needed (back pain) for up to 10 days. 40 tablet 0 02/08/2021 Active nystatin (MYCOSTATIN) powder Apply topically to affected area daily as needed for rash 7-10 days 15 g 0 02/08/2021 Active mirtazapine (REMERON) 7.5 MG tablet TAKE 1 TABLET BY MOUTH AT BEDTIME 28 tablet 0 11/03/2021 Active omeprazole (PRILOSEC) 20 MG capsule Take 1 Capsule by mouth daily. Take in am on empty stomach, wait 30 mins and then eat to activate the medication 60 Capsule 11 12/15/2022 Active azathioprine (IMURAN) 50 MG tablet Take 1 Tablet by mouth daily. 90 Tablet 3 12/15/2022 Active Active Problems Problem Noted Date Cervical radiculopathy 03/10/2021 Sacroiliitis 03/10/2021 COVID-19 virus infection 09/11/2020 Gastric varices 10/30/2019 Depression with anxiety 06/03/2019 Liver lesion 07/11/2018 Obesity (BMI 30-39.9) 12/21/2017 Cirrhosis 10/13/2017 Overview: H/o autoimmune hepatitis but most recent blood was not markedly elevated. Most likely secondary to fatty liver disease. Follows with GI H/O splenomegaly 10/13/2017 Thrombocytopenia 02/23/2017 Overview: Secondary to cirrhosis and splenomegaly Fibromyalgia 02/22/2017 Chronic GERD 09/20/2016 Overview: S/p EGD 10/2019 shows gastric varices without bleeding Asthma 09/16/2016 Autoimmune hepatitis 08/25/2016 Lumbar radiculopathy 08/25/2016 Overview: Normal Xray 02/2017. MRI 11/2017 with mild disc herniation L5-S1. No nerve root compression. Follows with [facility] and getting good relief with corticosteroid injection. Resolved Problems Problem Noted Date Resolved Date PTSD (post-traumatic stress disorder) 09/12/2016 02/22/2017 Abnormal LFTs 09/12/2016 10/28/2016 Inflammatory polyarthropathy 09/12/201610/2019 SLE (systemic lupus erythematosus) 09/12/2016 12/05/2019 Chronic low back pain 08/25/2016 12/05/2019 Anemia 12/05/2019 Overview: Mild Immunizations Name Administration Dates Next Due Hepatitis B > 19yrs 12/12/2011,10/26/2011 Hepatitis-A (>19YRS) 10/26/2011 MMR (Adjjujs-Ahjtg-Jghdmiv) 10/12/2011 Pneumoccoccal(Adult) Polysaccharide PPSV23 09/13 Tdap 10/12/2011 Family History Medical History Relation Name Comments CA Lung Mother Relation Name Status Comments Father Mother Social History Tobacco Use Types Packs/Day Years [...] Sign Reading Time Taken Comments Blood Pressure 132/66 12/15/2022 9:02 AM EDT Pulse 78 12/15/2022 9:02 AM EDT Temperature 36.3 ??C (97.4 ??F) 02/08/2021 1:09 PM ED T Respiratory Rate 16 02/08/2021 1:09 PM EDT Oxygen Saturation 98% 06/21/2022 8:19 AM EDT Inhaled Oxygen Concentration - - Weight 74.8 kg (164 lb 14.4 oz) 12/15/2022 9:02 AM EDT Height 149.9 cm (4' 11 ) 12/15/2022 9:02 AM EDT Body Mass Index 33.31 12/15/2022 9:02 AM EDT Plan of Treatment Health Maintenance Due Date Last Done Comments Covid-19 Vaccine (#1) 05/09/1966 SHINGLES VACCINE (1 of 2) 2016 CERVICAL CANCER SCREENING 03/10/20202014 (External Completion), 03/09/2015 DEPRESSION SCREEN 04/11/2020 04/11/2019 (Co mpleted), 12/21/2017, 12/21/2017, Additional history exists MAMMOGRAM 10/03/2020 10/03/2019, 05/06 (External Completion), 06/02/2016, Additional history exists BASELINE HEALTH EXAM 40-64 06/03/202106/03 (Completed), 06/03/2019, 10/28/2016, Additional history exists CHOLESTEROL SCREENING 09/20/2021 09/20/2016 DTAP/TDAP/TD (2 - Td or Tdap) 10/12/2021 10/12/2011 INFLUENZA (#1) 2024 08/12/2019 (Exte rnal Completion of Vaccination per patient), 06/27/2016 (External Completion of Vaccination per patient) BMI CHECK/ADVISE 09/04/2024 02/08/2021, 03/2021, 09/10/2020, Additional history exists COLON CANCER SCREENING 10/30/2029 0 (Completed), 10/30/2019 PNEUMOCOCCAL VACCINE FOR HIG H RISK PATIENTS (#2) 11/07/2031 09/13/2011 HEPATITIS C SCREENING Completed 12/15/2022 , 01/22/2018 (External Completion) Advance Directives For more information, please contact: [phone] Latest Code Status on File Code Status Date Activated Date Inactivated Comments Full Code 10/03/2016 2:19 PM Per [facility] order filled out by Dr. Karolina Can MD 07/24/15 Care Teams Shirt Line Operator Relationship Specialty Start Date End Date Liss Valdez MD [address] [place] [address] [id number] PCP - General Internal Medicine 08/17/21
--- OUTSIDE RECORDS SUMMARY | 2024-10-24 10:37 | XMS_ITS | Encounter Summary ---
Author Organization [facility] Address [address] [place] [address] Care Team Providers Care Supervisor Alteration Workroom Name Role Phone Shanta Busch MD Primary Care Provider Unavail able Liss Valdez MD Primary Care Provider [phone] Encounter Details Date Type Department Care Team Description 04/12/2019 Telephone Adult Medicine [address] [id number] Camila Alcantar PA-C Social History Tobacco Use [...] encounter Miscellaneous Notes * Telephone Encounter - Alexus Marie M.A. - 04/15/2019 11:35 AM EDT Ext [phone] * Telephone Encounter - Alexus Marie M.A. - 04/12/2019 2:49 PM EDT Lm for return call * Telephone Encounter - Alexus Marie M.A. - 04/12/2019 2:48 PM EDT Objective findings are consistent with subjective complaint. Patient is given a letter to remain out of work. She is asked to schedule follow up with the orthopedist who evaluated her for return to work as I do not think she has the capacity to return to her current job without further injury. MRI is still pending and is necessary for further evaluation of progressive symptoms. Continue followingwith chiropractic. Perform georgette exercises for shoulder pain. Continue naproxen and baclofen as needed. Follow up in the office in 1 month. ? * Telephone Encounter - Cadence Martinez - 04/12/2019 2:37 PM EDT Deepak from [facility] [place] calling about patients last office notes. He is questioning why patient a couple weeks ago was light duty and now all of a sudden is completley disabled. He is asking for acall back to clarify this. documented in this encounter Plan of Treatment Not on file documented as of this encounter Visit Diagnoses Not on filedocumented in this encounter Care Teams Supervisor Alteration Workroom Relationship Specialty Start Date End Date Shanta Busch MD PCP - General Internal Medicine 08/15/16 08/16/21 Liss Valdez MD [address] [place] [id number] PCP - General Internal Medicine 08/17/21 documented as of this encounter
--- OUTSIDE RECORDS SUMMARY | 2024-10-24 10:38 | XMS_ITS | Encounter Summary ---
Author Organization [facility] Address [address] [place] [address] Care Team Providers Care Ehs Teacher Name Role Phone Shanta Busch MD Primary Care Provider Unavail able Liss Valdez MD Primary Care Provider [phone] Encounter Details Date Type Department Care Team Description 11/01/2016 Business Doc Medical Records [address] [place] [id number] Abstract, Provider Social History Tobacco Use Types [...] on filedocumented in this encounter Care Teams Ehs Teacher Relationship Specialty Start Date End Date Shanta Busch MD PCP - General Internal Medicine 08/15/16 08/16/21 Liss Valdez MD [address] [place] [address] [phone] PCP - General Internal Medicine 08/17/21 documented as of this encounter
--- OUTSIDE RECORDS SUMMARY | 2024-10-24 10:38 | XMS_ITS | Encounter Summary ---
Author Organization [facility] Address [address] [place] [address] Care Team Providers Care Channel Machine Operator Name Role Phone Shanta Busch MD Primary Care Provider Unavail able Liss Valdez MD Primary Care Provider [phone] Encounter Details Date Type Department Care Team Description 09/24/2017 Hospital Medical Records [address] [place] [address] Racquel Enriquez, BOB Social History Tobacco Use Types Packs/Day Years [...] on filedocumented in this encounter Care Teams Channel Machine Operator Relationship Specialty Start Date End Date Shanta Busch MD PCP - General Internal Medicine 08/15/16 08/16/21 Liss Valdez MD [address] [place] [id number] PCP - General Internal Medicine 08/17/21 documented as of this encounter
--- OUTSIDE RECORDS SUMMARY | 2024-10-24 10:38 | XMS_ITS | Encounter Summary ---
Author Organization [facility] Address [address] [place] [address] Care Team Providers Care Wash Barrel Leader Name Role Phone Shanta Busch MD Primary Care Provider Unavail able Liss Valdez MD Primary Care Provider [phone] Reason for Visit * Reason Comments E-prescribe Rx Request Encounter Details Date Type Department Care Team Description 07/06/2020 Refill Gastroenterology - [address] [place] [address] Alem Bobby MD E-prescribe Rx Request Social History Tobacco Use Types Packs/Day Years [...] encounter Miscellaneous Notes * Telephone Encounter - Maryanne Boateng M.A. - 07/06/2020 9:24 AM EST Sandra 07/16/2019 documented in this encounter Plan of Treatment Not on file documented as of this encounter Visit Diagnoses Not on filedocumented in this encounter Care Teams Wash Barrel Leader Relationship Specialty Start Date End Date Shanta Busch MD PCP - General Internal Medicine 08/15/16 08/16/21 Liss Valdez MD [address] [place] [address] [phone] PCP - General Internal Medicine 08/17/21 documented as of this encounter
--- OUTSIDE RECORDS SUMMARY | 2024-10-24 10:38 | XMS_ITS | Clinical Summary ---
Demographics Address [address] [facility] [address] [place] [address] Home Phone Mobile Phone Email Address Preferred Language Emirati Marital Status Unknown Jainism Affiliation Unknown Race Unknown Ethnic Group Unknown Author Organization [facility] Address [address] [place] [address] Care Team Providers Care Freelance Director Name Role Phone Fritz Irby RD Primary Care Provider [phone] Source Comments PLEASE NOTE, if this patient is a minor, it may be UNLAWFUL to discuss sensitive information that is contained in these records (such as FAMILY PLANNING, MENTAL HEALTH or SUBSTANCE ABUSE) with the minor patient's parent or other person without the patient's specific authorization.[facility] Social History Tobacco Use Types Packs/Day Years Used Date Smoking Tobacco: Never Assessed Social Connections Answer Date Recorded Social Connections and Isolation 0 04/29/2019 Financial Resource Strain Answer Date R ecorded Financial Resource Strain 0 2018 Stress Answer Date Recorded Stress 0 04/29/2019 Physical Activity Answer Date Recorded Physical Activity 0 04/29/2019 Food Insecurity Answer Date Recorded Food 0 04/29/2019 Transportation Needs Answer Date Record ed Transportation 0 04/29/2019 Housing Stability Answer Date Recorded Housing 0 04/29/2019 Safety and Environment Answer Date Sidney rded Safety 0 04/29/2019 Utilities Answer Date Recorded Utilities 0 04/29/2019 Employment Answer Date Recorded Employment 0 04/29/2019 Comments Unknown Sex and Gender Information Value Date Recorded Sex Assigned at Female 11/27/2017 7:49 AM PDT Legal Sex Female 10:13 AM PST Gender Identity Female 11/27/2017 7:49 AM PDT Sexual Orientation Straight 11/27/2017 7: 49 AM PDT Last Filed Vital Signs Vital Sign Reading Time Taken Comments Blood Pressure - - Pulse - - Temperature - - Respiratory Rate - - Oxygen Saturation - - Inhaled Oxygen Concentration - - Weight 79.4 kg (175 lb) 11/27/2017 10:48 AM EDT Height 149.9 cm (4' 11 ) 11/27/2017 10:48 AM EDT Body Mass Index 35.35 11/27/2017 10:48 AM EDT Plan of Treatment Not on file [place] Care Teams Freelance Director Relationship Specialty Start Date End Date Fritz Irby RD [address] [place] [address] PCP - General Nutrition 11/03/17
--- OUTSIDE RECORDS SUMMARY | 2024-10-24 10:38 | XMS_ITS | Encounter Summary ---
Author Organization [facility] Address [address] [place] [address] Care Team Providers Care Applications Specialist Name Role Phone Shanta Busch MD Primary Care Provider Unavail able Liss Valdez MD Primary Care Provider [phone] Reason for Referral * Non FLORIN (Routine) - Authorized/Booked Specialty Diagnoses / Procedures Referred By Contac t Referred To Contact Oncology/Hematology Procedures REFERRAL TO ONCOLOGY/HEMATOLOGY Shanta Busch MD [address] [place] [address] Onc/[facility] [address] [place] [address] Referral ID Status Reason Start Date Expiration Date V isits Requested Visits Authorized [id number] Authorized/B ooked 02/23/2017 02/23/2018 1 1 Encounter Details Date Type Department Care Team Description 02/23/2017 Orders Only Adult Medicine [address] [address] Shanta Busch MD Thrombocytopenia (HCC) (Primary Dx) Social History Tobacco Use Types Packs/Day Years [...] documented as of this encounter Visit Diagnoses Diagnosis Thrombocytopenia (HCC)- Primary Thrombocytopenia, unspecified documented in this encounter Care Teams Applications Specialist Relationship Specialty Start Date End Date Shanta Busch MD PCP - General Internal Medicine 08/15/16 08/16/21 Liss Valdez MD [address] [place] [id number] PCP - General Internal Medicine 08/17/21 documented as of this encounter
--- OUTSIDE RECORDS SUMMARY | 2024-10-24 10:38 | XMS_ITS | Encounter Summary ---
Author Organization [facility] Address [address] [place] [address] Care Team Providers Care Runner Man Name Role Phone Shanta Busch MD Primary Care Provider [facility] Liss Valdez MD Primary Care Provider [phone] Encounter Details Date Type Department Care Team Description 02/14/2017 Telephone Gastroenterology - [address] [id number] Milan King MD Social History Tobacco Use Types Packs/Day [...] on filedocumented in this encounter Care Teams Runner Man Relationship Specialty Start Date End Date Shanta Busch MD PCP - General Internal Medicine 08/15/16 08/16/21 Liss Valdez MD [address] [place] [phone] PCP - General Internal Medicine 08/17/21 documented as of this encounter
--- OUTSIDE RECORDS SUMMARY | 2024-10-24 10:38 | XMS_ITS | Encounter Summary ---
Author Organization [facility] Address [address] [place] [address] Care Team Providers Care Park Ranger Name Role Phone Shanta Busch MD Primary Care Provider Unavail able Liss Valdez MD Primary Care Provider [phone] Reason for Visit * Reason Onset Date Comments hospital follow up 10/05/2017 need to [facility] fu 10-06-[address] Olivier Encounter Details Date Type Department Care Team Description 10/05/[address] [address] Shanta Busch MD hospital follow up (need to reschedule hosp fu 10-06-[address] Olivier ) Social History Tobacco Use Types Packs/Day Years [...] encounter Miscellaneous Notes * Telephone Encounter - Shirin Oleary R.N. - 10/05/2017 2:51 PM EST Pt rescheded 10/13 at 1:30 * Telephone Encounter - Virginie Corley - 10/05/2017 2:41 PM EST Pt returning call. * Telephone Encounter - Shirin Oleary R.N. - 10/05/2017 2:35 PM EST I left a message for the patient to return my call. * Telephone Encounter - Capri Centeno - 10/05/2017 2:22 PM EST Patient needs to reschedule hospital follow up of 10-06-[address] Olivier, please call and advise, thanks documented in this encounter Plan of Treatment Not on file documented as of this encounter Visit Diagnoses Not on filedocumented in this encounter Care Teams Park Ranger Relationship Specialty Start Date End Date Shanta Busch MD PCP - General Internal Medicine 08/15/16 08/16/21 Liss Valdez MD [address] [place] [id number] PCP - General Internal Medicine 08/17/21 documented as of this encounter
--- OUTSIDE RECORDS SUMMARY | 2024-10-24 10:38 | XMS_ITS | Encounter Summary ---
Author Organization [facility] Address [address] [place] [address] Care Team Providers Care Chipper Feeder Name Role Phone Shanta Busch MD Primary Care Provider Unavail able Liss Valdez MD Primary Care Provider [phone] Reason for Visit * Reason Comments E-prescribe Rx Request Encounter Details Date Type Department Care Team Description 05/01/2020 Refill Gastroenterology - [address] [place] [address] Alem Bobby MD E-prescribe Rx [...] encounter Miscellaneous Notes * Telephone Encounter - Alem Bobby MD - 05/01/2020 5:05 PM EDT Need routine follow up with me * Telephone Encounter - Maryanne Boateng M.A. - 05/01/2020 11:26 AM EDT Sandra 07/16/2019 documented in this encounter Plan of Treatment Not on file documented as of this encounter Visit Diagnoses Not on filedocumented in this encounter Care Teams Chipper Feeder Relationship Specialty Start Date End Date Shanta Busch MD PCP - General Internal Medicine 08/15/16 08/16/21 Liss Valdez MD [address] [place] [id number] PCP - General Internal Medicine 08/17/21 documented as of this encounter
--- OUTSIDE RECORDS SUMMARY | 2024-10-24 10:38 | XMS_ITS | Encounter Summary ---
Author Organization [facility] Address [address] [place] [address] Care Team Providers Care Day Haul Or Farm Charter Bus Driver Name Role Phone Shanta Bsuch MD Primary Care Provider Unavail able Liss Valdez MD Primary Care Provider [phone] Encounter Details Date Type Department Care Team Description 09/28/2017 Hospital Medical Records [address] [place] [address] Social History Tobacco Use Types Packs/Day Years [...] on filedocumented in this encounter Care Teams Day Haul Or Farm Charter Bus Driver Relationship Specialty Start Date End Date Shanta Busch MD PCP - General Internal Medicine 08/15/16 08/16/21 Liss Valdez MD [address] [place] [id number] PCP - General Internal Medicine 08/17/21 documented as of this encounter
--- OUTSIDE RECORDS SUMMARY | 2024-10-24 10:38 | XMS_ITS | Encounter Summary ---
Author Organization [facility] Address [address] [place] [address] Care Team Providers Care Gas Station Attendant Name Role Phone Shanta Busch MD Primary Care Provider Unavail able Liss Valdez MD Primary Care Provider [phone] Reason for Visit * Reason Onset Date Comments Testing 07/11/2019 DX mammo INCL CA D BI Encounter Details Date Type Department Care Team Description 07/11/2019 Telephone Adult Medicine [address] [phone] Camila Alcantar PA-C Testing (DX mammo INCL CAD BI) Social History Tobacco Use Types Packs/Day Years [...] encounter Miscellaneous Notes * Telephone Encounter - Emmanuelle Bills M.A. - 07/22/2019 5:57 PM EST Letter mailed to patient. * Telephone Encounter - Camila Alcantar PA-C - 07/12/2019 12:50 PM EST Why hasn't this been scheduled? Did she not respond? It was ordered over 1 month ago for a breast lump. Yes, I would like this completed. Thank you Camila Alcantar PA-C * Telephone Encounter - Emmanuelle Bills M.A. - 07/11/2019 5:50 PM EST DX mammo INCL CAD BI was ordered on 06/03/19, do you want to complete the order or cancel it? Pleaseroute message back to me. documented in this encounter Plan of Treatment Not on file documented as of this encounter Visit Diagnoses Not on filedocumented in this encounter Care Teams Gas Station Attendant Relationship Specialty Start Date End Date Shanta Busch MD PCP - General Internal Medicine 08/15/16 08/16/21 Liss Valdez MD [address] [place] [address] PCP - General Internal Medicine 08/17/21 documented as of this encounter
--- OUTSIDE RECORDS SUMMARY | 2024-10-24 10:38 | XMS_ITS | Encounter Summary ---
Author Organization [facility] Address [address] [place] [address] Care Team Providers Care Software Business Analyst Name Role Phone Shanta Busch MD Primary Care Provider Unavail able Liss Valdez MD Primary Care Provider [phone] Encounter Details Date Type Department Care Team Description 10/17/2019 Release of Information Medical Records [address] [place] [address] Abstract, Provider Social History Tobacco Use Types [...] on filedocumented in this encounter Care Teams Software Business Analyst Relationship Specialty Start Date End Date Shanta Busch MD PCP - General Internal Medicine 08/15/16 08/16/21 Liss Valdez MD [address] [place] [id number] PCP - General Internal Medicine 08/17/21 documented as of this encounter
== END 2024-10-24 09:46 | disposition home or self-care (01) ==
LOC: HO.MRI 09:45
PROVIDERS: PCP Internal Medicine; Visit Provider Nurse Practitioner Family
DX: M54.16 Radiculopathy, lumbar region (principal); M51.369 Other intervertebral disc degeneration, lumbar region without mention of lumbar back pain or lower extremity pain; M43.06 Spondylolysis, lumbar region; M47.817 Spondylosis without myelopathy or radiculopathy, lumbosacral region
CPT/HCPCS: 72148

== ENCOUNTER → 2024-10-24 09:59 | Outpatient (BNV) | payer OTHER, SELFPAY | PROVIDERS: PCP Internal Medicine; Visit Provider Radiology Diagnostic Radiology | DX: M54.16 Radiculopathy, lumbar region (principal) | CPT/HCPCS: 72148 ==

== ENCOUNTER 2024-11-01 09:05 | Outpatient (AMB) | payer OTHER, SELFPAY ==
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
--- OUTSIDE RECORDS SUMMARY | 2024-11-01 09:38 | XMS_ITS | Clinical Summary ---
Author Organization [facility] Address [address] [place] [address] Care Team Providers Care Access Nurse Name Role Phone Unavailable Primary Care Provider [...] this topic Anastasia Dhaliwal Personal/Family Self [address] [address]
--- OUTSIDE RECORDS SUMMARY | 2024-11-01 09:38 | XMS_ITS | Clinical Summary ---
Demographics Address [address] [facility] [address] [place] [id number] Home Phone Mobile Phone Email Address Preferred Language Russian Marital Status Unknown Taoism Affiliation Unknown Race Unknown Ethnic Group Unknown Author Organization [facility] Address [address] [place] [address] Care Team Providers Care Mechanical Engineering Coop Name Role Phone Fritz Irby RD Primary Care Provider [phone] Source Comments PLEASE NOTE, if this patient [...] Treatment Not on file Insurance MEDIC[place] Care Teams Mechanical Engineering Coop Relationship Specialty Start Date End Date Fritz Irby RD [address] [place] [address] PCP - General Nutrition 11/03/17
[2024-11-01 09:42] VITALS: BMI 33.3
== END 2024-11-01 10:38 | disposition home or self-care (01) ==
PROVIDERS: PCP Internal Medicine; Referring Provider Nurse Practitioner Family; Visit Provider Physician Assistant
DX: M43.06 Spondylolysis, lumbar region (principal)
CPT/HCPCS: 99204

== ENCOUNTER → 2024-11-01 09:05 | Outpatient (BNVA) | payer OTHER, SELFPAY | PROVIDERS: PCP Internal Medicine; Referring Provider Nurse Practitioner Family; Visit Provider Physician Assistant | DX: M43.06 Spondylolysis, lumbar region (principal) | CPT/HCPCS: 99202 ==

== ENCOUNTER 2025-01-02 08:37 | Outpatient (AMB) | payer OTHER, SELFPAY ==
--- NOTE | 2025-01-02 08:43 | A.OFFPC_ITS ---
Vital Signs 01/02/25 08:44 Height 4 ft 11 in Weight 165 lb BMI 33.3 BP 112/72 Blood Pressure Location Lt brachial Position Sitting Intake Visit Reasons: annual exam Intake Note: Patient here for a physical exam Dietary Service Aide Required: No Accompanied by: Self / Same As Patient Allergies trazodone Allergy (Unknown, Verified 01/02/25 09:04) Abdominal Pain Medication List - Last Reconciled 01/02/25 by Geraldine Linn MD albuterol sulfate 90 mcg/actuation 2 puffs inhalation Q6H PRN amitriptyline 50 mg PO BEDTIME 30 days azathioprine 100 mg (2 x 50 mg) PO DAILY 90 days baclofen 10 mg PO TID 30 days furosemide 20 mg PO DAILY 90 days gabapentin 300 mg PO TID 30 days nebulizers (AeroEclipse II Nebulizer) As directed omeprazole 20 mg PO BID 60 days prednisone 7.5 mg (1.5 x 5 mg) PO DAILY 30 days umeclidinium-vilanterol 62.5-25 mcg/actuation (Anoro Ellipta) 1 inh inhalation DAILY 30 days Tobacco use date assessed: 01/02/25 Dental Screening Dental Screen Date: 01/02/25 Did you have a dental visit in the last 12 months?: Yes Did you have a dental problem in the last 6 months where you did not have access to dental care?: No Was dental information given to patient?: Patient has dentist HPI HPI Comments History of Present Illness Details The patient is a 59-year-old female presenting for a physical exam and to receive a tetanus vaccine. She has not been vaccinated for tetanus in the last decade and was agreeable to updating this vaccine during the visit. Her recent laboratory workup showed normal cholesterol and glucose levels. Current medical issues include autoimmune hepatitis with cirrhosis, managed under the c are of a seed sales manager, details of future appointments are unclear. Screening tests such as mammography in August were unremarkable, and a Pap smear last year was negative for HPV. Complains of allergic rhinitis. The patient?s history includes a thyroid disorder and minimal depression with recent PHQ-9 assessment yielding a score of 3, alongside mild anxiety symptoms. Furthermore, she has GERD, which is controlled with omeprazole. Past medical interventions include cervical surgery and management of her herniated disc with medications like gabapentin. She reports trazodone allergy, with prior use causing notable abdominal pain. Maternal history indicates lung cancer as the cause of . - Tetanus vaccine to be administered dur ing the visit - Regular follow-up with gastroenterolog ist for autoimmune hepatitis - Mammogram in August: normal findings - Pap smear last year: negative for HPV COUNT INCLUDES THE [facility] Medical History (Updated 01/02/25 @ 10:36 by Geraldine Linn MD) Gallstone pancreatitis GERD (gastroesophageal reflux disease) Cirrhosis of liver without ascites Jaundice Anxiety and depression Chronic low back pain Asthma Surgical History S/P cholecystectomy Hx of tubal ligation Family History Mother Lung cancer Father No problems noted. Social History Household Members: Spouse Housing: Apartment Do you presently have visiting nurse or other home services: Yes Alcohol intake: former Patient Tobacco Use Status: Former Tobacco user Tobacco use type: Cigarette e-Cigarette/Vaping Use: Never Used Second Hand Smoke Exposure: No service: No Current occupational status: disabled Current occupational exposures/hazards: No Sexual orientation: Straight/Heterosexual Gender identity: Female Cognitive needs: No Hearing needs: No Vision needs: Yes Questionnaire PHQ-9 Over the last 2 weeks, how often have you been bothered by any of the following problems? 1. Little interest or pleasure in doing things: not at all 2. Feeling down, depressed, or hopeless: not at all 3. Trouble falling or staying asleep, or sleeping too much: more than half the days 4. Feeling tired or having little energy: several days 5. Poor appetite or overeating: not at all 6. Feeling bad about yourself - or that you are a failure or have let yourself or your family down: not at all 7. Trouble concentrating on things, such as reading the newspaper or watching television: not at all 8. Moving or speaking so slowly that other people could have noticed. Or the opposite - being so fidgety or restless that you have been moving around a lot more than usual: not at all 9. Thoughts that you would be better off or of hurting yourself in some way: not at all Total score: 3 Depression Screening Interpretation: Positive Depression Screening Follow-up: Existing condition and Follow-up Visit Requested Depression Screening Done: Yes 84539 - PHQ-9 Billing: Yes Source: Developed by Drs. Gary Luke, Sabina House, Jack Sprague and colleagues, with an educational sinan from [employer]. Thrive Questionnaire Date Thrive assessed: 01/02/25 I am a: Patient What is your living situation today?: I have a steady place to live Within the past 12 months, did the food you bought not last and you didn't have the money to get more?: Never true Within the past 12 months, did you worry whether your food would run out before you got money to buy more?: Never true Do you have trouble paying for medicines?: No Do you have trouble getting transportation to medical appointments?: No Do you have trouble paying your heating and electricity bill?: No Do you have trouble taking care of your child, family member or friend?: I choose not to answer this question Do you have trouble with day-to-day activities such as bathing, preparing meals, shopping, managing finances, etc.?: Yes Are you currently unemployed and looking for a job?: I choose not to answer this question Are you interested in more education?: I choose not to answer this question Please select the resources that you would like help with: None Currently or been in a relationship where the following occur: I choose not to answer THRIVE Score: 0 AUDIT C Alcohol Use Questionnaire (AUDIT-C) 1. How often do you have a drink containing alcohol?: Never Total Score: 0 Score Reviewed/Action Taken: No RUDI-7 AMB Questionnaire RUDI-7 Date RUDI - 7 assessed: 01/02/25 Feeling nervous, anxious, or on edge: 1 = Several days Not being able to stop or control worryin = Several days Worrying too much about different things: 1 = Several days Trouble relaxin = Not at all Being so restless that it is hard to sit still: 1 = Several days Becoming easily annoyed or irritable: 0 = Not at all Feeling afraid as if something awful might happen: 0 = Not at all Total RUDI-7 score (0-4 normal; 5-9 mild; 10-14 moderate; 15-21 severe): 4 Source: Developed by Drs. Gary Luke, Sabina House, Jack Sprague and colleagues, with an educational sinan from [employer]. RUDI-7 Assessment Billing RUDI-7 Assessment Tool: RUDI-7 Assessment 74897 Review of Systems Const All systems reviewed & are unremarkable except as noted in HPI and below Card Denies chest pain at rest, Denies chest pain with activity, Denies edema, Denies irregular heart rhythm, Denies claudication, Denies dyspnea, Denies dyspnea on exertion, Denies orthopnea, Denies paroxysmal nocturnal dyspnea and Denies slow heart rate Resp Denies cough, Denies dyspnea and Denies dyspnea on exertion GI Denies abdominal pain, Denies change in bowel habits, Denies excessive flatus, Denies nausea and Denies vomiting Physical exam (Primary Care) Vital Signs: Last Vital Signs BP 112/72 01/02/25 08:44 BMI result Body Mass Index 33.3 Tobacco/Smoking Status: Tobacco use Status Tobacco use date assessed 01/02/25 01/02/25 08:51 Patient Tobacco Use Status Former Tobacco user 01/02/25 08:51 Tobacco use type Cigarette 01/02/25 08:51 e-Cigarette/Vaping Use Never Used 01/02/25 08:51 PHQ-9: PHQ-9 Score PHQ-9: Total score 3 01/02/25 09:20 Depression Screening Interpretation: Positive Depression Screening Follow-up: Existing condition and Follow-up Visit Requested Thrive Assessment: Date of Thrive Assessment Date Thrive assessed 01/02/25 01/02/25 08:51 Currently or been in a relationship where the following occur: I choose not to answer [facility] Head: Yes normal to inspection, Yes normocephalic and Yes atraumatic Ears: external ears normal Eyes General: appearance normal, both eyes and all related structures Eyelids: Yes eyelids normal Conjunctivae: conjunctivae normal Neck Neck: Yes normal visual inspection and Yes supple Resp Effort & Inspection: normal respiratory effort Auscultation: clear to auscultation bilaterally Cardio Jugular venous distension: no JVD Rate: regular rate Rhythm: regular rhythm Heart sounds: S1 normal heart sound present and S2 normal heart sound present GI Inspection: Yes normal to inspection Palpation (GI): Soft to palpation and nontender Auscultation: normal bowel sounds Skin General skin exam: no rashes or lesions noted Neuro General: no focal motor deficits Extrem General: Yes full ROM Psych Appearance: grossly normal Immunizations Boostrix Tdap 2.5 Lf unit-8 mcg-5 Lf/0.5 mL intramuscular syringe Performing Provider: Geraldine Linn MD [facility] Administered by: AYO Duckworth on 01/02/25 09:21 Dose Route Admin Location Dispensed Lot Number Expiration Date [facility] Obgyn Specialist 0.5 mL IM Right Deltoid 0.5 mL [id number] 04/29/27 16729-708-56 [employer] VIS Given Date VIS Provided VIS Publication Date 01/02/25 Single Vaccine 24 Eligibility Eligibility Date Funding Source Not [facility] Eligible 01/02/25 Private Coding Level of Care Code Est Pt Level 3 (90827) Est Pt Prev Care 40-64y(76890) Diagnoses Physical exam Z00.00 Mild major depression F32.0 Autoimmune hepatitis K75.4 Cirrhosis of liver without ascites, unspecified hepatic cirrhosis type K74.60 Hepatic cirrhosis type: unspecified hepatic cirrhosis Seasonal allergic rhinitis due to pollen J30.1 Additional Codes RUDI-7 Assessment Billing - RUDI-7 Assessment Tool: RUDI-7 Assessment 42495 ([id number]) PHQ-9 - 17459 - PHQ-9 Billing: Yes ([id number]) Time Spent (min) 31 Assessment & Plan Assessment & Plan (1) Physical exam: Code(s): Z00.00 - Encounter for general adult medical examination without abnormal findings Category: Medical (2) Mild major depression: Code(s): F32.0 - Major depressive disorder, single episode, mild Category: Medical (3) Autoimmune hepatitis: Code(s): K75.4 - Autoimmune hepatitis Category: Medical (4) Cirrhosis of liver without ascites: Code(s): K74.60 - Unspecified cirrhosis of liver Category: Medical Qualifiers: Hepatic cirrhosis type: unspecified hepatic cirrhosis Qualified Code(s): K74.60 - Unspecified cirrhosis of liver (5) Seasonal allergic rhinitis due to pollen: Code(s): J30.1 - Allergic rhinitis due to pollen Category: Medical Plan Today, I will provide a tetanus vaccine to bring the patient up-to-date with her vaccinations. For her autoimmune hepatitis, she should maintain follow-ups with her gastroenterology practitioner. Recent laboratory results indicate stable cholesterol and glucose levels, thus no changes to these aspects of care are needed. GERD management will continue with the current medication regimen of omeprazole. I have noted a history of trazodone allergy, and her current polypharmacy status requiring ongoing review and adjustment of her medications as necessary. Patient was informed and verbally consented to the use of an ambient scribe for clinic note documentation during this visit. I explained to the patient the importance of updating her tetanus vaccination, to which she agreed. We reviewed her last laboratory results for cholesterol and glucose, confirming their acceptability. I emphasized maintaining regular contact with her seed sales manager for autoimmune hepatitis monitoring and reaffirmed ongoing management for GERD. We discussed her trazodone sensitivity and the importance of monitoring medication side effects. I provided reassurance about the stable state of her minor depression and anxiety while encouraging her follow-up for any psychological concerns. She was advised to proceed as per the current management plan, with any concerns to be addressed promptly in subsequent consultations. Orders: Orders TDaP Immunization Today Z23 - Encounter for immunization Medications: New cetirizine (All Day Allergy (cetirizine)) 10 mg PO DAILY PRN 90 tabs 1RF allergy symptoms 90 days Patient Instructions: - Receive tetanus vaccine today - Follow up with gastroenterology for autoimmune hepatitis - Continue medication as prescribed - Monitor for any new or worsening symptoms - Call us if experiencing any side effects from medications
[2025-01-02 08:44] VITALS: BP 112/72; BMI 33.3
--- OUTSIDE RECORDS SUMMARY | 2025-01-02 08:54 | XMS_ITS | Clinical Summary ---
Author Organization [facility] Address [address] [place] [address] Care Team Providers Care Auto Accessories Installer Name Role Phone Unavailable Primary Care Provider [...] this topic Anastasia Dhaliwal Personal/Family Self [address] [place] [address]
--- OUTSIDE RECORDS SUMMARY | 2025-01-02 08:54 | XMS_ITS | Clinical Summary ---
Author Organization [facility] Address [address] [address] Care Team Providers Care Warp Yarn Sorter Name Role Phone Geraldine Maria MD Primary Care Provider [phone] Allergies Active Allergy Reactions Criticality Noted Date Comments Trazodone 11/26/2024 Abdominal pain Medications albuterol (2.5 MG/3ML) 0.083% nebulizer solution Inhale 2.5 mg 0 Active azaTHIOprine (IMURAN) 50 MG tablet Take 1 tablet by mouth 1 (one) time each day 3 Active Diclofenac Sodium (Voltaren) 1 % gel Place 1 applicator on the skin 9 Active fluticasone-janelle meterol (ADVAIR HFA) 45-21 MCG/ACT inhaler Inhale 2 puffs 0 Active hydrOXYzine (ATARAX) 25 MG tablet TAKE 1 TABLET BY MOUTH AT BEDTIME NEEDED FOR ANXIETY 1 Active methocarbamol (ROBAXIN) 500 MG tablet Take 500 mg by mouth 1 Active AMITRIPTYLINE HCL PO Take by mouth Active GABAPENTIN PO Take by mouth Ac tive Active Problems Problem Noted Date Diagnosed Date Cervical radiculopathy 03/10/2021 Sacroiliitis 03/10/2021 COVID-19 09/11/2020 Gastric varix 10/30/2019 Mixed anxiety and depressive disorder 06/03/2019 Lesion of liver 07/11/2018 Body mass index 30+ - obesity 12/21/2017 Cirrhosis 10/13/2017 Overview (11/26/2024): H/o autoimmune hepatitis but most recent blood was not markedly elevated. Most likely secondary to fatty liver disease. Follows with GI History of splenomegaly 10/13/2017 Thrombocytopenia 02/23/2017 Overview (11/26/2024): Secondary to cirrhosis and splenomegaly Fibromyalgia 02/22/2017 Gastroesophageal reflux disease 09/20/2016 Overview (11/26/2024): S/p EGD 10/2019 shows gastric varices without bleeding Asthma 09/16/2016 Autoimmune hepatitis 08/25/2016 Lumbar radiculopathy 08/25/2016 Overview (11/26/2024): Normal Xray 02/2017. MRI 11/2017 with mild disc herniation L5-S1. No nerve root compression. Follows with [facility] and getting good relief with corticosteroid injection. Encounters Date Type Department Care Team Description 11/28/2024 2:30 PM EDT Office Visit [facility] [address] [place] [address] [place] [address] Neo Mcdonnell MD Degeneration of lumbar intervertebral disc <With discogenic back pain and lower extremity pain> (Primary Dx) from Last 3 Months Social History Tobacco Use Types Packs/Day Years Used Date Smoking Tobacco: Never Assessed Comments Unknown Sex and Gender Information Value Date Recorded Sex Assigned at Not on file Legal Sex Female 3:41 PM EST Gender Identity Not on file Sexual Orientation Not on file Plan of Treatment Upcoming Encounters Date Type Department Care Team (Late st Contact Info) Description 02/05/2025 7:30 AM EDT Scheduled Only [facility] [place] [address] [address] Neo Mcdonnell MD [address] [place] [address] [place] [id number] Health Maintenance Due Date Last Done Comments Breast Cancer Screening 1965 Hepatitis B Vaccine (1 of 3 - 19+ 3-dose series) 1985 12/12/2011, 10/26/2011 Colorectal Cancer Screening: Annual FOBT 11/07/2015 Colorectal Cancer Screening: Colonoscopy 11/07/2015 Colorectal Cancer Screening: Sigmoidoscopy 11/07/2015 Pneumococcal Vaccine: 50+ Ye ars (2 of 2 - PCV) 2016 09/13/2011 Influenza Vaccine (Season Ended) 2025 Pneumococcal Vaccine: Peds ( 0 to 5 Years) and At-Risk Patients (6 to 49 Years) Discontinued 09/13/[address] [facility] ([id number]) Care Teams Warp Yarn Sorter Relationship Specialty Start Date End Date Geraldine Maria MD [address] [place], [place] PCP - General Internal Medicine 11/12/24
--- OUTSIDE RECORDS SUMMARY | 2025-01-02 08:54 | XMS_ITS | Clinical Summary ---
Demographics Address [address] [facility] [address] [place] [id number] Home Phone Mobile Phone Email Address Preferred Language Guatemalan Marital Status Unknown Latter-Day Affiliation Unknown Race Unknown Ethnic Group Unknown Author Organization [facility] Address [address] [place] [address] Care Team Providers Care Air Dispatcher Name Role Phone Fritz Irby RD Primary Care Provider [phone] Source Comments PLEASE NOTE, if this patient [...] Treatment Not on file Insurance MEDIC[place] - [place] Care Teams Air Dispatcher Relationship Specialty Start Date End Date Fritz Irby RD [address] [place] [address] PCP - General Nutrition 11/03/17
== END 2025-01-02 09:21 | disposition home or self-care (01) ==
LOC: HO.HMCH 08:37
PROVIDERS: PCP Internal Medicine; Visit Provider Internal Medicine
DX: Z00.00 Encounter for general adult medical examination without abnormal findings (principal); K75.4 Autoimmune hepatitis; K74.60 Unspecified cirrhosis of liver; F32.0 Major depressive disorder, single episode, mild; J30.1 Allergic rhinitis due to pollen; Z23 Encounter for immunization

== ENCOUNTER → 2025-01-02 08:37 | Outpatient (BNVA) | payer OTHER, SELFPAY | PROVIDERS: PCP Internal Medicine; Visit Provider Internal Medicine | DX: Z00.01 Encounter for general adult medical examination with abnormal findings (principal); K75.4 Autoimmune hepatitis; K74.60 Unspecified cirrhosis of liver; K21.9 Gastro-esophageal reflux disease without esophagitis; F32.0 Major depressive disorder, single episode, mild; J30.1 Allergic rhinitis due to pollen; Z23 Encounter for immunization | CPT/HCPCS: 90471; 90715; 96127; 99212; 99396 ==

== ENCOUNTER 2025-03-12 | Outpatient (REF) | payer OTHER, SELFPAY ==
--- NOTE | 2025-03-12 | ECG_ITS ---
Test Reason : preop Blood Pressure : */* mmHG Vent. Rate : 79 BPM Atrial Rate : 79 BPM P-R Int : 136 ms QRS Dur : 76 ms QT Int : 396 ms P-R-T Axes : 47 18 24 degrees QTcB Int : 454 ms Normal sinus rhythm Normal ECG When compared with ECG of 20-Jun-2023 21:42, Vent. rate has decreased by 41 bpm Referred By: Therese Ruth Electronically Signed By: Jeff Piña
[2025-03-12 10:11] VITALS: BP 130/61; PULSE 77; RESP 17; O2SAT 97; BMI 35.1
--- NOTE | 2025-03-12 10:25 | HO.ANESPROP2 ---
HPI - Anesthesia Eval Consult details Narrative: Cxl'd by surgeon d/t platelets <100 59yo F for L5-S1 Ant Lumbar Interbody Fusion (Possible TLIF), 03/18/25 No recent illness No CP/SOB with activity limited to pain Cirrhosis d/t auto immune hepatitis. Prednisone daily. Follows [facility]. Will obtain labs and rec's Asthma: Sched inhaler daily, does not require albuterol GERD: ppi controls PMFSH Active Problems Active Problems: All Active Problems Seasonal allergic rhinitis due to pollen (Acute) Physical exam (Acute) Lumbar spinal stenosis (Acute) Lumbar spondylolysis (Acute) Abscess of right axilla (Acute) Lumbosacral spondylosis (Acute) Lumbar degenerative disc disease (Acute) Sacroiliac joint pain (Acute) Lumbar radiculopathy, chronic (Acute) Bilateral sciatica (Acute) Axillary abscess (Acute) Carbuncle and furuncle of trunk (Acute) Carbuncle and furuncle of upper arm and forearm (Acute) Status post incision and drainage (Acute) Abscess of multiple sites of perineum (Acute) Abscess (Acute) Labial abscess (Acute) Physical exam (Acute) Sebaceous cyst (Acute) Endometrial polyp (Acute) Postcoital bleeding (Acute) Mild major depression (Acute) Hypertension (Acute) Insomnia (Acute) Obese (Acute) DUB (dysfunctional uterine bleeding) (Acute) Elevated liver enzymes (Acute) Autoimmune hepatitis (Acute) Head lump (Acute) Screening for hypothyroidism (Acute) Sleeping difficulty (Acute) Liver disorder (Acute) Hyperglycemia (Acute) Candidiasis of breast (Acute) Intermittent asthma (Acute) Encounter to establish care (Acute ~09/17/21) Asthma (Acute) Gallstone pancreatitis (Acute) GERD (gastroesophageal reflux disease) (Acute) Cirrhosis of liver without ascites (Acute) Chronic low back pain (Acute) Anxiety and depression (Acute) Past Medical History Medical History (Updated 03/12/25 @ 10:04 by Dionne Osuna RN) History of MRSA infection Thrombocytopenia Gallstone pancreatitis GERD (gastroesophageal reflux disease) Cirrhosis of liver without ascites Jaundice Anxiety and depression Chronic low back pain Asthma Family History Family History Mother Lung cancer Father No problems noted. 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) Alcohol intake: former Patient Tobacco Use Status: Former Tobacco user Tobacco use type: Cigarette e-Cigarette/Vaping Use: Never Used Second Hand Smoke Exposure: No service: No Current occupational status: disabled Current occupational exposures/hazards: No Sexual orientation: Straight/Heterosexual Gender identity: Female Cognitive needs: No Hearing needs: No Vision needs: Yes Meds Allergies Allergy/AdvReac Type Severity Reaction Status Date / Time trazodone Allergy Unknown Abdominal Verified 01/02/25 09:04 Pain Exam Height,Weight and Vital Signs: Height 4 ft 11 in Weight 78.925 kg Last Vital Signs Pulse 77 03/12/25 10:11 Resp 17 03/12/25 10:11 BP 130/61 03/12/25 10:11 Pulse Ox 97 03/12/25 10:11 O2 Del Method Room Air 03/12/25 10:11 Pertinent Lab Results Pertinent Lab Results: Laboratory Tests 03/12/25 11:22 WBC 3.4 L Hgb 11.5 L Hct 32.8 L Plt Count 73 L D PT 14.0 H INR 1.2 H Sodium 142 Potassium 3.7 Chloride 110 H Carbon Dioxide 29 BUN 6 L Creatinine 0.57 Estimated GFR > 60 Calcium 8.4 D Total Bilirubin 0.9 AST 56 H ALT 21 Alkaline Phosphatase 127 H Total Protein 6.9 Albumin 3.3 L Airway Mallampati Class: II TM Dist: >3cm Neck ROM: Full Denture: Upper Partial: Lower Heart: RRR Lungs: CTAB Assessment and Plan Assessment Anesthesia Assessment: Anesthesia Plan Discussed and PAT Visit Final Anesthetic Review Family History of Problems with Anesthesia: No History of Problems with Anesthesia: No
[2025-03-12 11:43] LABS: Hematocrit 32.8 % (37.0-47.0); Hemoglobin 11.5 g/dl (12.0-16.0); Mean Corpuscular HGB Conc 35.1 g/dl (31.0-35.0); Mean Corpuscular Hemoglobin 31.4 pg (27.0-33.0); Mean Corpuscular Volume 89.6 fL (80.0-98.0); NRBC Abs Auto 0.000 X10*3/uL (0.0-0.012); NRBC Pct Auto 0.0 /100WBC (0.0-0.2); Red Blood Count 3.66 X10*6/uL (4.20-5.50); White Blood Count 3.4 X10*3/uL (4.8-10.8)
[2025-03-12 11:48] LABS: INTERNATIONAL NORM RATIO 1.2 (0.9-1.1); Prothrombin Time 14.0 SEC (10.9-12.4)
[2025-03-12 11:59] LABS: Platelet Count 73 X10*3/uL (160-400)
[2025-03-12 12:08] LABS: Alanine Aminotransferase 21 U/L (0-31); Albumin Level 3.3 g/dL (3.5-5.0); Alkaline Phosphatase 127 U/L (39-117); Anion Gap 7 (12-20); Aspartate Amino Transferase 56 U/L (5-31); Blood Urea Nitrogen 6 mg/dL (9-16); Calcium 8.4 mg/dL (8.4-10.2); Carbon Dioxide 29 mmol/L (22-29); Chloride 110 mmol/L (96-108); Creatinine Clr Calc Pharmacy 97.6; Estimated Glomerular Filt Rate > 60; Potassium 3.7 mmol/L (3.3-5.1); Sodium 142 mmol/L (135-145); Total Protein 6.9 g/dL (6.5-8.0)
--- OUTSIDE RECORDS SUMMARY | 2025-05-07 12:23 | XMS_ITS | Clinical Summary ---
Author Organization [facility] Facility Address [address] [address] Care Team Providers Care Clothespin Drier Operator Name Role Phone Geraldine Maria MD Primary Care Provider [phone] Allergies Active Allergy Reactions Criticality Noted Date [...] No nerve root compression. Follows with [facility] orthopedics and getting good relief with corticosteroid [...] Care Team (Late st Contact Info) Description 07/01/2025 7:30 AM EDT Scheduled Only [facility] - [facility] Center [address] [place] [phone] Neo Mcdonnell MD [address] [place] [phone] Health Maintenance Due Date Last Done Comments [...] (6 to 49 Years) Discontinued 09/13/2011 Insurance [facility] ([id number]) Care Teams Clothespin Drier Operator Relationship Specialty Start Date End Date Geraldine Maria MD [address] [place], [place] PCP - General Internal Medicine 11/12/24
--- OUTSIDE RECORDS SUMMARY | 2025-05-07 12:23 | XMS_ITS | Clinical Summary ---
Author Organization [facility] Address [address] [place] [address] Care Team Providers Care Road Equipment Operator Name Role Phone Unavailable Primary Care Provider [...] this topic Anastasia Dhaliwal Personal/Family Self [address] [place] [address]
--- OUTSIDE RECORDS SUMMARY | 2025-05-07 12:23 | XMS_ITS | Clinical Summary ---
Demographics Address [address] [facility] [address] [place] [address] Home Phone Mobile Phone Email Address Preferred Language Gibraltarian Marital Status Unknown Alevism Affiliation Unknown Race Unknown Ethnic Group Unknown Author Organization [facility] Address [address] [place] [address] Care Team Providers Care Food Expeditor Name Role Phone Fritz Irby RD Primary Care Provider [phone] Source Comments PLEASE NOTE, if this patient [...] MEDICARE - [place] MEDICAID Care Teams Food Expeditor Relationship Specialty Start Date End Date Fritz Irby RD [address] [place] [address] PCP - General Nutrition 11/03/17
== END 2025-03-12 00:01 | disposition home or self-care (01) ==
LOC: HO.PAT
PROVIDERS: Nurse Practitioner; PCP Internal Medicine; Visit Provider Neurological Surgery
DX: M43.06 Spondylolysis, lumbar region (principal)
CPT/HCPCS: 36415; 80053; 85027; 85610; 86850; 86900; 86901; 93005

== ENCOUNTER → 2025-03-12 10:47 | Outpatient (BNV) | payer OTHER, SELFPAY | PROVIDERS: Admitting Provider Neurological Surgery; PCP Internal Medicine; Visit Provider Internal Medicine Cardiovascular Disease | DX: Z01.810 Encounter for preprocedural cardiovascular examination (principal) | CPT/HCPCS: 93010 ==

== ENCOUNTER 2025-04-11 07:15 | Outpatient (AMB) | payer OTHER, SELFPAY ==
--- NOTE | 2025-04-11 07:18 | MHC.OFFVIS ---
Vital Signs 04/11/25 07:22 Height 4 ft 11 in Weight 172 lb BMI 34.7 BP 133/68 Blood Pressure Location Lt brachial Position Sitting Pulse 81 Pulse Oximetry (%) 96 Oxygen Delivery Method Room Air Intake Visit Reasons: Cirrhosis Intake Note: Patient yearly follow up for Cirrhosis. Patient cc: abnormal lab results/back surgery was cancel, denies any other GI issues. Cage Fighter Required: Yes Cage Fighter Name: Keri [id number] Accompanied by: Self / Same As Patient Allergies trazodone Allergy (Unknown, Verified 04/11/25 07:20) Abdominal Pain Medication List - Last Reconciled 04/11/25 by Kaylene Prabhakar MD albuterol sulfate 90 mcg/actuation 2 puffs inhalation Q6H PRN amitriptyline 50 mg PO BEDTIME 30 days azathioprine 100 mg (2 x 50 mg) PO DAILY 90 days baclofen 10 mg PO TID 30 days cetirizine (All Day Allergy (cetirizine)) 10 mg PO DAILY PRN 90 days gabapentin 300 mg PO TID 30 days nebulizers (AeroEclipse II Nebulizer) As directed omeprazole 20 mg PO BID 60 days prednisone 7.5 mg (1.5 x 5 mg) PO DAILY 30 days HPI HPI Cirrhosis: Details: GI clinic visit for this 57 year old German speaking female for follow-up of autoimmune hepatitis with compensated cirrhosis TODAY'S VISIT: Telephone wanigan clerkKeri # [id number] CC: Patient cc: abnormal lab results/back surgery was cancel, Pt was scheduled for back surgery with Rocael Duong MD,PhD and surgery was cancelled dur to cirrhosis Denies abdominal pain, heartburn or dysphagia, diarrhea or constipation Pt states she has been compliant with her medications for AIH. Patient 3 month follow up for Autoimmune hepatitis and lab results. Lab results were reviewed with the patient Pt had recent I & D of abscesses of multiple sites - axilla, labia and buttock PAST VISITS: Patient cc: acid reflex on and off. Denies any other GI issues. Patient went to the ED last week due an abscess. Pt is tearful due to pain in the vulvar area (labial abscess) Unable to sleep due to pain. Has been taking Tylenol, motrin and Ibuprofen without relief Has been taking Prednisone 10 mg and azathioprine 100 mg daily. Taking Omerpazole 20 mg daily and continues to have burning pain in the retrosternal area. Advised to increase to twice a day. Intermittent heartburn when she forgets to take Omeprazole - denies dysphagia Patient denies change in appetite and has gained weight due to prednisone Denies recent change in bowel habits, constipation, diarrhea, black stools or rectal bleeding. Patient denies major cardiac or pulmonary problems, loud snoring or sleep apnea Denies problems with anesthesia in the past. Denies being on chronic anticoagulation. Patient denies known family history of colon polyps, colon cancer or other GI malignancies. PAST EGD/COLONOSCOPY: Pt had an EGD and a colonoscopy [place] [facility] in the past - will obtain records Pt reports she was diagnosed with Autoimmune Hepatitis and was followed by Dr Bobby and now sees DANICA Holley at [facility] Her last visit was in December, She being treated with Azathioprine 50 mg daily and reports she has been compliant in taking the medication. She was also taking prednisone which she discontinued in December, after she ran out of the prescription. Patient denies family history of liver disease, colon polyps or colon cancer. Her mom and maternal grandfather with lung cancer and a maternal aunt has stomach cancer. [facility] Reviewed IMAGING STUDIES: 06/21/[address] SCAN SHOWED: 1. Mild stranding adjacent to the pancreas, which could reflectpancreatitis in the proper clinical setting. 2. Thick-walled appearance of the gallbladder, similar to 04/05/2023.This could be secondary to chronic liver disease, though acutecholecystitis would be difficult to entirely exclude in the proper clinical setting. 3. Cirrhotic liver with sequela of portal hypertension includingborderline splenomegaly and prominent varices. 4. Prominent uterus with suggestion of underlying fibroids, whichcould be further assessed with pelvic ultrasound. 06/21 23 ABD US SHOWED: 1. Cirrhotic appearing liver. 2. Abnormal gallbladder with gallstones and thickened wall containingfluid. Question of a stone lodged in the cystic duct. Although similarfindings have been seen on prior studies, the correct clinical setting findings would be suspicious for cholecystitis. HIDA scan may be useful for further evaluation. 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 PAST GI HISTORY BY REVIEW OF MEDICAL RECORDS: 06/06/23 PT WAS SEEN BY DR LIND: AIH related compensated cirrhosis - MELD-Na 11 - Child Abarca Class B Prefers [place] [facility] Prev under care of Dr Bobby through [facility]. From documentation appears to have been in remission prior to admission in March, which in turn seems to have been a combination of nonadherence to tx (as pt ran out of meds) as well as biliary pancreatitis both contributing to elevated LFTs. Currently undergoing eval for lap phi through [facility] surgery. Plan: - Check MELD labs and IgG - Resume Azathiopurine 50mg PO - If transaminases and IgG cont to improve, can complete taper as per schedule in 2 weeks - Since LFTs being confounded by gallstone disease, will recheck this after her surgery as well with low threshold to proceed with liver bx to monitor for any active inflammation. Limited role of continuing Azathiopurine if no active inflammation. - She is also due for an EGD. Will get records from [facility] to see if needs colo alongside it. - Next US due in Oct 2022. - No indication for referral to transplant center for now since low MELD and not decompensated. Follow up in 8 week COUNT INCLUDES THE [facility] Medical History (Updated 04/11/25 @ 07:21 by Kaylene Prabhakar MD) History of MRSA infection Thrombocytopenia Gallstone pancreatitis GERD (gastroesophageal reflux disease) Cirrhosis of liver without ascites Jaundice Anxiety and depression Chronic low back pain Asthma Surgical History H/O colonoscopy S/P cholecystectomy Hx of tubal ligation Family History Mother Lung cancer Father No problems noted. 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) Alcohol intake: former Patient Tobacco Use Status: Former Tobacco user Tobacco use type: Cigarette e-Cigarette/Vaping Use: Never Used Second Hand Smoke Exposure: No service: No Current occupational status: disabled Current occupational exposures/hazards: No Sexual orientation: Straight/Heterosexual Gender identity: Female Cognitive needs: No Hearing needs: No Vision needs: Yes Review of Systems Const Denies fever(s), Denies headache(s) and Reports weight loss (of 5 lbs) Eyes Denies eye discharge and Denies irritation ENT Reports Normal hearing present, Denies dysphagia, Denies dizziness and Denies headache(s) Card Denies chest pain, Denies leg edema and Denies dyspnea on exertion Resp Denies cough, Denies dyspnea on exertion and Denies wheezing GI Denies abdominal pain, Denies change in bowel habits, Denies dysphagia and Denies heartburn Denies difficulty voiding and Denies dysuria Musc Reports back pain and Denies arthralgias Skin/Breast Denies pruritus, Denies rash and Denies jaundice Neuro Reports Normal hearing present, Denies Abnormal speech present, Denies dizziness, Denies headache(s) and Denies seizure-like activity Psych Denies anxiety, Denies depression and Denies panic attacks Endo Denies cold intolerance, Denies flushing and Denies heat intolerance Obi/Lymph Denies easy bleeding and Denies easy bruising Aller/Immun Denies wheezing Physical Exam Vital Signs: Last Vital Signs Pulse 81 04/11/25 07:22 BP 133/68 04/11/25 07:22 Pulse Ox 96 04/11/25 07:22 Oxygen Delivery Method Room Air 04/11/25 07:22 BMI result Body Mass Index 34.7 Const General: healthy appearing and no acute distress Nutritional Appearance: obese Orientation/consciousness: patient oriented x3 Limitations: language barrier and physical limitations (due to back pain) HEENT Head: Yes normal to inspection Ears: hearing grossly normal bilaterally Eyes Sclerae: sclerae normal Pupils: Equal, round and reactive pupils present Neck Neck: Yes normal visual inspection Chest Chest palpation & inspection: normal inspection of the chest Resp Effort & Inspection: normal respiratory effort Auscultation: clear to auscultation bilaterally Cardio Palpation: normal PMI Rate: regular rate Rhythm: regular rhythm Heart sounds: S1 normal heart sound present, S2 normal heart sound present and no murmurs GI Palpation (GI): Soft to palpation, nontender and No hepatosplenomegaly present Auscultation: normal bowel sounds Rectal Exam - Female: deferred Skin General skin exam: no rashes or lesions noted and spider nevi (a few spider nevi on neck and anterior chest) Neuro General: patient oriented x3, gait normal and moves all extremities Cranial nerves: Yes Equal, round and reactive pupils present and Yes Normal hearing present Speech: No Abnormal speech present Psych Appearance: grossly normal Mental Status: mental status grossly normal Immunizations Engerix-B (PF) 20 mcg/mL intramuscular suspension Performing Provider: Kaylene Prabhakar MD Performing Location[place] [facility] Administered by: Jossie Enriquez RN on 04/11/25 07:58 Dose Route Admin Location Dispensed Lot Number Expiration Date [facility] Administrative Supervisor 1 mL IM Left Deltoid 1 mL [id number] 05/09/27 47766-567-45 [employer] Total Dispensed Waste 1 mL 0 % VIS Given Date VIS Provided VIS Publication Date 04/11/25 Single Vaccine 23 Eligibility Eligibility Date Funding Source Not [facility] Eligible 04/11/25 Private Assessment & Plan Assessment & Plan (1) GERD (gastroesophageal reflux disease): Code(s): K21.9 - Gastro-esophageal reflux disease without esophagitis Category: Medical (2) Autoimmune hepatitis: Code(s): K75.4 - Autoimmune hepatitis Category: Medical (3) Cirrhosis of liver without ascites: Code(s): K74.60 - Unspecified cirrhosis of liver Category: Medical Qualifiers: Hepatic cirrhosis type: unspecified hepatic cirrhosis Qualified Code(s): K74.60 - Unspecified cirrhosis of liver (4) Gallstone pancreatitis: Comment: s/p cholocystectomy 07/13/2023 Code(s): K85.10 - Biliary acute pancreatitis without necrosis or infection Category: Medical Plan 59 year old German-speaking female (understands and speaks some Serbian) with autoimmune hepatitis (diagnosed in 2015), mood disorder, gastroesophageal reflux disease seen for FU of autoimmune hepatitis. [place] [facility] [place] for autoimmune hepatitis and was discharged on Prednisone taper. Pt was [place] [facility] [place] with severe epigastric pain, Jaundice and elevated LFTs and acute cholecystitis by CT and US finding, acute gallstone pancreatitis with Lipase > 3000.? Pt reports she was diagnosed with Autoimmune Hepatitis in 2016 and treated with Azathioprine and Prednisone)-? followed by Dr Bobby ([facility]) in the past and now sees DANICA Holley at [facility] (last visit was in December,).? Pt was diagnosed with Cirrhosis in 2018 - attributed to a combination of AIH and RAMIREZ). She being treated with Azathioprine 50 mg daily and reports she had been compliant in taking the medication. From documentation appears to have been in remission prior to admission in March, which in turn seems to have been a combination of non-adherence to tx (as pt ran out of meds) as well as biliary pancreatitis both contributing to elevated LFTs. Thiopurine metabolites did not reveal azathioprine toxicity Pt switched her Hepatology care to Dr Lind [facility] [place]. Pt had a lap phi on 07/13/[address] Alcala ([facility]). Plan: - Check MELD labs and IgG - Increase Azathiopurine to 100 mg and continue Prednisone 10 mg daily - She is also due for an EGD. Will get records from [facility] to see if needs a same day colonoscopy. - Next US due in Oct 2022. - Referral to Liver transplant is not indicated since patient has a low MELD of 8 and is not decompensated. 03/21/24 Has been taking Prednisone 10 mg and azathioprine 100 mg daily. Taking Omerpazole 20 mg daily and continues to have burning pain in the retrosternal area. Advised to increase to twice a day. 06/20/24 Pt advised to decrease prednisone to 7.5 mg daily and continue azathioprine at 100 mg daily If pt remains in remission, prednisone will be tapered off slowly. 04/11/25 Pt sent for surgical risk stratification prior to back surgery Based on recent labs, Pt's MELD Na score is 8 Thirty-day mortality can range from 5.7% (MELD score,<8) to more than 50% (MELD score,>20) Hep B immunization (1st injection today) Schedule Abd US - HCC surveillance Follow up in 4 weeks with repeat labs Post Operative Mortality Risk in this patient with compensated cirrhosis is calculated to be: 7 days 30 days 90 days 1 year 5 years 1.55 % 6.22 % 9.86 % 22.7 % 51 % ? Orders: Orders US abdomen limited Today K74.60 - Unspecified cirrhosis of liver Vitamin D 25-OH Total Today K74.60 - Unspecified cirrhosis of liver Vitamin B12 and Folate Today K74.60 - Unspecified cirrhosis of liver Prom Thiopurine Metabolites Today K74.60 - Unspecified cirrhosis of liver Immunoglobulin G Today K74.60 - Unspecified cirrhosis of liver Liver Panel Today K74.60 - Unspecified cirrhosis of liver Creatinine Today K74.60 - Unspecified cirrhosis of liver Hepatitis B Adult Immunization Today Z23 - Encounter for immunization Medications: Refilled prednisone Stop taking Prednisone 10 mg daily and take 7.5 mg daily instead 7.5 mg (1.5 x 5 mg) PO DAILY 45 tabs 3RF 30 days K75.4 - Autoimmune hepatitis azathioprine 100 mg (2 x 50 mg) PO DAILY 180 tabs 1RF 90 days K75.4 - Autoimmune hepatitis Coding Level of Care Code Est Pt Level 4 (77076) Diagnoses GERD (gastroesophageal reflux disease) K21.9 Autoimmune hepatitis K75.4 Cirrhosis of liver without ascites, unspecified hepatic cirrhosis type K74.60 Hepatic cirrhosis type: unspecified hepatic cirrhosis Gallstone pancreatitis K85.10 Time Spent (min) 25
--- OUTSIDE RECORDS SUMMARY | 2025-04-11 07:18 | XMS_ITS | Clinical Summary ---
Author Organization [facility] Address [address] [place] [address] Care Team Providers Care Hardware Test Engineer Name Role Phone Unavailable Primary Care Provider [...] 84 10/14/2021 2:18 PM EST Temperature 36.5 C (97.7 F) 10/14/2021 2:18 PM EST Respiratory Rate - - Oxygen Saturation 98% [...] or Tdap) 10/12/2021 012 Influenza Vaccine (#1) 2025 Pneumococcal Vaccine Aged Out 09/13/2011 No long er eligible based on patient's age to complete this topic RSV Ped < 20 months Aged Out No longe r eligible based on patient's age to complete this topic Anastasia Dhaliwal Personal/Family Self [address] [place] [address]
--- OUTSIDE RECORDS SUMMARY | 2025-04-11 07:18 | XMS_ITS ---
Author Name [facility] Organization Unknown Encounters Encounter Type Encounter Reason Primary Diagnosis Location Date Ambulatory [facility] 06/14/2024 Care Team Organization Name Specialty Phone Email Start Date End Da te [facility] 2024
--- OUTSIDE RECORDS SUMMARY | 2025-04-11 07:18 | XMS_ITS | Clinical Summary ---
Author Organization [facility] Address [address] [address] Care Team Providers Care Hemmer Automatic Name Role Phone Geraldine Maria MD Primary Care Provider [phone] Allergies Active Allergy Reactions Criticality Noted Date [...] L5-S1. No nerve root compression. Follows with [facility] and getting good relief with corticosteroid injection. Social History Tobacco Use Types Packs/Day Years Used Date Smoking Tobacco: Never Assessed Comments Unknown Sex and Gender Information Value Date Recorded Sex Assigned at Not on file Legal Sex Female 3:41 PM EST Gender Identity Not on file Sexual Orientation Not on file Plan of Treatment Health Maintenance Due Date Last Done Comments Breast Cancer Screening 1965 Hepatitis B Vaccine (1 of 3 - 19+ 3-dose series) 1985 12/12/2011, 10/26/2011 Colorectal Cancer Screening: Annual FOBT 11/07/2015 Colorectal Cancer Screening: Colonoscopy 11/07/2015 Colorectal Cancer Screening: Sigmoidoscopy 11/07/2015 Pneumococcal Vaccine: 50+ Ye ars (2 of 2 - PCV) 2016 09/13/2011 Influenza Vaccine (#1) 2025 Pneumococcal Vaccine: Peds ( 0 to 5 Years) and At-Risk Patients (6 to 49 Years) Discontinued 09/13/2011 Insurance [facility] ([id number]) DANICA COLLADO [id number] Care Teams Hemmer Automatic Relationship Specialty Start Date End Date Geraldine Maria MD [address] [place] [address] PCP - General Internal Medicine 11/12/24
[2025-04-11 07:22] VITALS: BP 133/68; PULSE 81; O2SAT 96; BMI 34.7
== END 2025-04-11 07:57 | disposition home or self-care (01) ==
LOC: HO.HGI 07:15
PROVIDERS: PCP Internal Medicine; Visit Provider Internal Medicine Gastroenterology
DX: K21.9 Gastro-esophageal reflux disease without esophagitis (principal); K75.4 Autoimmune hepatitis; K74.60 Unspecified cirrhosis of liver; K85.10 Biliary acute pancreatitis without necrosis or infection; Z23 Encounter for immunization
CPT/HCPCS: 99214

== ENCOUNTER → 2025-04-11 07:15 | Outpatient (BNVA) | payer OTHER, SELFPAY | PROVIDERS: PCP Internal Medicine; Visit Provider Internal Medicine Gastroenterology | DX: K21.9 Gastro-esophageal reflux disease without esophagitis (principal); Z23 Encounter for immunization; K74.60 Unspecified cirrhosis of liver; K75.4 Autoimmune hepatitis; K85.10 Biliary acute pancreatitis without necrosis or infection | CPT/HCPCS: 90471; 90746; 99212 ==

== ENCOUNTER 2025-04-14 10:51 | Emergency (ER) | payer OTHER, SELFPAY ==
--- NOTE | ~2025-04-14 | XR_ITS ---
EXAMINATION: XR LUMBOSACRAL SPINE CLINICAL INFORMATION: acute on chronic pain COMPARISON: July 15, 2024. TECHNIQUE: AP and lateral views. FINDINGS: Rudimentary ribs at L1. Endplate sclerosis marginal osteophyte formation and decreased intervertebral disc height at L5-S1. No gross malalignment. Small marginal osteophyte formation and endplate sclerosis throughout the axial skeleton. No lytic or blastic lesions. Degenerative changes in the symphysis pelvis. Vascular clips in the upper abdomen seen on the lateral projection. XR/XR lumbar spine 2-3V IMPRESSION: Multilevel thoracolumbar spondylosis moderate to severe at L5-S1. Electronically signed by: Conor Hdez MD 04/14/2025 01:02 PM EDT
[2025-04-14 11:50] VITALS: BP 159/75; PULSE 75; RESP 16; TEMP 36.8; O2SAT 98; BMI 34.9
--- NOTE | 2025-04-14 11:54 | ED.GENADULT ---
HPI - General Adult General Chief complaint: Back Pain/Injury Stated complaint: Lower Back Pain, R foot pain Time Seen by Provider: 04/14/25 17:01 History of Present Illness ED Provider: Ryan Bullard MD HPI narrative: 51-year-old female with chronic low back pain previously scheduled for lumbar surgery here at [place] however this was canceled due to liver and platelet issues she says. She has acute on chronic low back pain with no incontinence numbness tingling or weakness in the lower extremities. Pain is lumbosacral left greater than right. Related Data Previous Rx's ?Medication ?Instructions ?Recorded omeprazole 20 mg capsule,delayed 20 mg PO BID 60 days #120 caps 06/13/24 release gabapentin 300 mg capsule 300 mg PO TID 30 days #90 caps 07/04/24 nebulizers (AeroEclipse II #1 ea 07/04/24 Nebulizer) amitriptyline 50 mg tablet 50 mg PO BEDTIME 30 days #30 tabs 07/15/24 albuterol sulfate 90 mcg/actuation 2 puff inhalation Q6H PRN for 10/30/24 aerosol inhaler wheezing #8.5 ea baclofen 10 mg tablet 10 mg PO TID 30 days #90 tabs 12/28/24 cetirizine 10 mg tablet (All Day 10 mg PO DAILY PRN allergy 01/02/25 Allergy (cetirizine)) symptoms 90 days #90 tabs azathioprine 50 mg tablet 100 mg (2 x 50 mg) PO DAILY 90 04/11/25 days #180 tabs prednisone 5 mg tablet 7.5 mg (1.5 x 5 mg) PO DAILY 30 04/11/25 days #45 tabs cyclobenzaprine 5 mg tablet 5 mg PO BEDTIME PRN muscle spasm 04/14/25 #7 tabs oxycodone 5 mg tablet 5 mg PO BID PRN pain #7 tabs 04/14/25 Allergies Allergy/AdvReac Type Severity Reaction Status Date / Time trazodone Allergy Unknown Abdominal Verified 04/14/25 11:54 Pain PMFSH Past Medical History Medical History (Updated 04/15/25 @ 00:02 by Donaldo Edwards) History of MRSA infection Thrombocytopenia Gallstone pancreatitis GERD (gastroesophageal reflux disease) Cirrhosis of liver without ascites Jaundice Anxiety and depression Chronic low back pain Asthma Surgical History H/O colonoscopy S/P cholecystectomy Hx of tubal ligation Family History Family History Mother Lung cancer Father No problems noted. 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 Head: Atraumatic Eyes: Anicteric, Normal conjunctiva. ENT: Moist mucosa, no pallor. ? Neck: Supple. Skin: ?No observable rash or bruising on exposed or examined skin Respiratory: Breathing comfortably, No distress.Clear to auscultation bilaterally, symmetric chest expansion, No wheeze, rales, ronchi. Cardiovascular: Regular rate and rhythm. No murmurs or rub. Well perfused periphery, warm extremities. No edema. ? Abdominal: No focal tenderness. Soft, no objective distension. No palpable masses or obvious organomegaly. ?No guarding, no rebound tenderness or other peritoneal findings. : No flank tenderness. Neuro: Alert. Gross movement of all extremities intact. ? Psych: Calm. Cooperative. MSK: No grossly visible deformity. Midline low back tenderness lumbosacral tenderness no bruising no step-off Vital signs: See flowsheet Vital Signs: Vital Signs - 24 hr 04/14/25 11:50 04/14/25 19:01 04/14/25 22:44 Temperature 98.2 F 97.1 F 97.1 F Pulse Rate 75 67 67 Respiratory Rate 16 18 18 Blood Pressure 159/75 H 159/80 H 159/80 H Pulse Oximetry 98 96 96 Oxygen Delivery Method Room Air Room Air Room Air BMI result Body Mass Index 34.9 Course Course Course Narrative: This is a rapid medical exam performed by Bree Rebollar NP: Additional HPI, ROS, PE not included below will be deferred to primary provider. Patient is a 59-year-old female with history of lumbar spinal stenosis, spondylosis, degenerative disc disease, sacroiliac joint pain, chronic lumbar radiculopathy presenting to the emergency department with complaint of 2 weeks of acute on chronic low back pain radiating to right foot. Reports difficulty sleeping and with ambulation due to pain. States pain is a 06/13. Denies saddle anesthesia, b/b incontinence. Taking gabapentin without relief. Plan: UA, xray Medications Administered Discontinued Medications Generic Name Dose Route Start Last Admin Trade Name Freq PRN Reason Stop Dose Admin Cyclobenzaprine HCl 5 mg 04/14/25 22:10 04/14/25 22:28 Cyclobenzaprine Hcl 5 Mg Tablet PO 04/14/25 22:11 5 mg ONCE ONE Administration Oxycodone HCl 5 mg 04/14/25 22:10 04/14/25 22:28 Oxycodone Hcl Immed Release 5 Mg Tablet PO 04/14/25 22:11 5 mg ONCE ONE Administration Medical Decision Making Medical Decision Making MDM Narrative: Medical Decision Makin-year-old female with chronic low back pain. No red flag signs or symptoms to suggest acute cauda equina syndrome or cord compression. No IV drug use fever to suggest spinal epidural abscess. Patient was previously scheduled for spine surgery this is canceled due to medical issues. Pain seems acute on chronic she can ambulate and has strong legs no sensory changes. Doubt acute fracture as there was no traumatic history. Pain control analgesics for home close follow up with PCP Preliminary Favored Differential Diagnosis: Lumbar DJD, acute on chronic back pain, lumbar strain among additional considered etiologies Testing Interpreted Independently: Not Applicable Radiology or Lab testing Results Reviewed: Not Applicable Consults: Not Applicable Independent Historians/External Chart Reviews: Not Applicable Social Determinants of Health Impacting MDM/Planning: Not Applicable Discharge Plan Discharge Clinical Impression: Degeneration of lumbar intervertebral disc Patient Disposition: Home, Self-Care Instructions: Degenerative Disc Disease (ED) Additional Instructions: DISCHARGE DIAGNOSES: Low back pain chronic HISTORY OF PRESENTATION: ?Chronic low back pain EMERGENCY DEPARTMENT COURSE,TESTS, TREATMENTS: While in the ED today you had an x-ray and were evaluated you had no neurologic deficits and were given oxycodone and cyclobenzaprine DISCHARGE MEDICATIONS: ?[We have made no changes to your regular medication regimen] we have added oxycodone and cyclobenzaprine only be taken for severe pain do not operate vehicle or walk around much when you take these he should rest at home on the couch FOLLOW-UP: ?Call your primary or general physician soon as possible to discuss your symptoms, your ED visit and to discuss follow up plans Call your primary doctor on your spine surgeon INSTRUCTIONS ?& RETURN PRECAUTIONS: If any symptoms change first call your primary physician, if it is after-hours your primary doctors office should have a provider documentation analyst you can speak with. If the symptoms are severe or very concerning to you then call 911 or return to the ED. Ryan Bullard MD Emergency Physician [facility] Prescriptions: New oxycodone 5 mg tablet 5 mg PO BID PRN (Reason: pain) Qty: 7 0RF Rx Instructions: Partial Fill upon patient request. cyclobenzaprine 5 mg tablet 5 mg PO BEDTIME PRN (Reason: muscle spasm) Qty: 7 0RF No Action omeprazole 20 mg capsule,delayed release(DR/EC) 20 mg PO BID 60 Days Qty: 120 1RF amitriptyline 50 mg tablet 50 mg PO BEDTIME 30 Days Qty: 30 0RF albuterol sulfate 90 mcg/actuation HFA aerosol inhaler 2 puff inhalation Q6H PRN (Reason: for wheezing) Qty: 8.5 1RF baclofen 10 mg tablet 10 mg PO TID 30 Days Qty: 90 6RF azathioprine 50 mg tablet 100 mg PO DAILY 90 Days Qty: 180 1RF prednisone 5 mg tablet 7.5 mg PO DAILY 30 Days Qty: 45 3RF Rx Instructions: Stop taking Prednisone 10 mg daily and take 7.5 mg daily instead cetirizine [All Day Allergy (cetirizine)] 10 mg tablet 10 mg PO DAILY PRN (Reason: allergy symptoms) 90 Days Qty: 90 1RF gabapentin 300 mg capsule 300 mg PO TID 30 Days Qty: 90 1RF (DME) nebulizers [AeroEclipse II Nebulizer] Misc See Rx Instructions .Route Qty: 1 0RF Rx Instructions: As directed Interventions: ED Discharge Assessment Last Done: 04/14/25 22:44 Discharge Date/Time: 04/14/25 22:44 Print Language: Italian
[2025-04-14 19:01] VITALS: BP 159/80; PULSE 67; RESP 18; TEMP 36.2; O2SAT 96
[2025-04-14] MEDS: oxyCODONE HCl Immed Release 5 MG TABLET PO (22:28)
[2025-04-14 22:44] VITALS: BP 159/80; PULSE 67; RESP 18; TEMP 36.2; O2SAT 96
== END 2025-04-14 22:44 | disposition home or self-care (01) ==
PROVIDERS: Emergency Provider Emergency Medicine; PCP Internal Medicine
DX: M54.59 Other low back pain (principal); G89.29 Other chronic pain; M48.061 Spinal stenosis, lumbar region without neurogenic claudication; Z79.899 Other long term (current) drug therapy
CPT/HCPCS: 72100; 99283

== ENCOUNTER → 2025-04-14 11:56 | Outpatient (BNV) | payer OTHER, SELFPAY | PROVIDERS: PCP Internal Medicine; Visit Provider Radiology Diagnostic Radiology | DX: M47.817 Spondylosis without myelopathy or radiculopathy, lumbosacral region (principal) | CPT/HCPCS: 72100 ==

== ENCOUNTER 2025-04-18 21:59 | Emergency (ER) | payer OTHER, SELFPAY ==
--- NOTE | ~2025-04-18 | XR_ITS ---
CLINICAL HISTORY: Heel Pain 3 view right foot Comparison: None provided Findings: No fractures or dislocations. No significant loss of joint space, osteophytes, or erosions. Subtalar articulations are normally aligned. There is a small amount of calcaneal plantar and dorsal calcaneal enthesopathy. No ankle effusion. No radiopaque foreign body. IMPRESSION: 1. No acute fracture, subluxation, or dislocation. 2. Calcaneal plantar enthesopathy. No avulsion fragment. This document has been electronically signed by: Los Sow III, MD PHD on 04/19/2025 01:56:41
[2025-04-18 22:07] VITALS: BP 131/63; PULSE 90; RESP 18; TEMP 36.6; O2SAT 95; BMI 34.7
--- NOTE | 2025-04-19 00:11 | ED.GENADULT ---
HPI - General Adult General Chief complaint: Extremity Problem Stated complaint: R foot pain Time Seen by Provider: 04/19/25 00:09 Source: patient Mode of arrival: ambulatory Limitations: language barrier (Central Processing Tech services utilized) History of Present Illness ED Provider: Husam MISHRA HPI narrative: The patient is a 59-year-old female presenting to the emergency department for evaluation of 1 month of right heel pain which is worse with ambulating. Patient reports pain began increasing 1 week ago and making it painful to walk. The patient denies any injury or recent trauma. The patient denies associated fever/chills, nausea, vomiting, erythema, or warmth. The patient has been taking ibuprofen and Tylenol without relief. Related Data Previous Rx's ?Medication ?Instructions ?Recorded omeprazole 20 mg capsule,delayed 20 mg PO BID 60 days #120 caps 06/13/24 release gabapentin 300 mg capsule 300 mg PO TID 30 days #90 caps 07/04/24 nebulizers (AeroEclipse II #1 ea 07/04/24 Nebulizer) amitriptyline 50 mg tablet 50 mg PO BEDTIME 30 days #30 tabs 07/15/24 albuterol sulfate 90 mcg/actuation 2 puff inhalation Q6H PRN for 10/30/24 aerosol inhaler wheezing #8.5 ea baclofen 10 mg tablet 10 mg PO TID 30 days #90 tabs 12/28/24 cetirizine 10 mg tablet (All Day 10 mg PO DAILY PRN allergy 01/02/25 Allergy (cetirizine)) symptoms 90 days #90 tabs azathioprine 50 mg tablet 100 mg (2 x 50 mg) PO DAILY 90 04/11/25 days #180 tabs prednisone 5 mg tablet 7.5 mg (1.5 x 5 mg) PO DAILY 30 04/11/25 days #45 tabs cyclobenzaprine 5 mg tablet 5 mg PO BEDTIME PRN muscle spasm 04/14/25 #7 tabs oxycodone 5 mg tablet 5 mg PO BID PRN pain #7 tabs 04/14/25 acetaminophen 500 mg capsule 1,000 mg (2 x 500 mg) PO .q8 PRN 04/19/25 fever or pain #30 caps ibuprofen 600 mg tablet 600 mg PO Q8H PRN fever or pain 04/19/25 #30 tabs Allergies Allergy/AdvReac Type Severity Reaction Status Date / Time trazodone Allergy Unknown Abdominal Verified 04/18/25 22:09 Pain Review of Systems Review of Systems: Yes all other systems are reviewed and are negative [facility] Past Medical History Medical History (Updated 04/19/25 @ 01:21 by Husam Boo PA-C) History of MRSA infection Thrombocytopenia Gallstone pancreatitis GERD (gastroesophageal reflux disease) Cirrhosis of liver without ascites Jaundice Anxiety and depression Chronic low back pain Asthma Surgical History H/O colonoscopy S/P cholecystectomy Hx of tubal ligation Family History Family History Mother Lung cancer Father No problems noted. 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) Alcohol intake: former Patient Tobacco Use Status: Former Tobacco user Tobacco use type: Cigarette e-Cigarette/Vaping Use: Never Used Second Hand Smoke Exposure: No Advance Directives: No Advance Directives Information Provided: No service: No Current occupational status: disabled Current occupational exposures/hazards: No Sexual orientation: Straight/Heterosexual Gender identity: Female Cognitive needs: No Hearing needs: No Vision needs: Yes Physical Exam ED Vital Signs: Vital Signs - 24 hr 04/18/25 22:07 Temperature 97.9 F Pulse Rate 90 Respiratory Rate 18 Blood Pressure 131/63 Pulse Oximetry 95 Oxygen Delivery Method Room Air BMI result Body Mass Index 34.7 CONSTITUTIONAL: The patient appears non-toxic, well nourished and in no acute distress. Vital signs as documented. HEAD: Atraumatic, normocephalic. EYES: EOMs grossly intact, pupils equal, conjunctiva clear, no exudate. ENT: Nares patent, no discharge. Airway patent, no audible stridor, visible mucosa is pink and moist without noted lesions. NECK: trachea is midline, no obvious masses or gross abnormalities. CHEST: Symmetric movement, normal appearance. LUNGS: Non-labored work of breathing. CARDIAC: No evidence of hypoperfusion. ABDOMEN: Nondistended, no obvious injury. : Deferred. EXTREMITIES: There is tenderness to palpation of the insertion of the plantar fascia into the right calcaneus, no overlying erythema, induration, warmth, or fluctuance. Distal CSM intact, 2+ DP/PT pulses noted. Moves all extremities spontaneously without reported pain. No obvious injury or deformity noted. NEURO: Alert and oriented x3, CN II-XII appear grossly intact. Cerebellar Functioning grossly intact. Speech clear and appropriate. SKIN: Warm, dry, color appropriate. No rashes or lesions noted. Medical Decision Making Medical Decision Making [facility] Narrative: 1:18 AM 04/19/2025 (Mike MISHRA): The patient is a 59-year-old female presenting to the ED for evaluation of 1 month of right heel pain without known fall or trauma. The patient reports symptoms increased 1 week ago, and have not responded to ibuprofen or Tylenol. The patient denies history of similar symptoms, denies symptoms on the left. The patient's exam shows point tenderness at the insertion of the plantar fascia to the calcaneus, no crepitus, no overlying erythema. Patient will be sent for x-ray to confirm no avulsion fracture, if no evidence of fracture we will discharge with instructions to continue ibuprofen and Tylenol, obtain plantar fasciitis shoe inserts, and regularly apply ice. The patient will be discharged to follow up with PCP for referral to Podiatry. 3:01 AM 04/19/2025 (Mike MISHRA): The patient's x-ray shows no avulsion fracture, there is evidence of calcaneal plantar enthesopathy consistent with plantar fasciitis and consistent with the patient's exam. Patient will be discharged with instructions as outlined above. Radiology Impression Discussion of test interpretation with radiology: I have reviewed the radiologist's reading. Radiologist Impression: CLINICAL HISTORY: Heel Pain 3 view right foot Comparison: None provided Findings: No fractures or dislocations. No significant loss of joint space, osteophytes, or erosions. Subtalar articulations are normally aligned. There is a small amount of calcaneal plantar and dorsal calcaneal enthesopathy. No ankle effusion. No radiopaque foreign body. IMPRESSION: 1. No acute fracture, subluxation, or dislocation. 2. Calcaneal plantar enthesopathy. No avulsion fragment. This document has been electronically signed by: Los Sow III, MD PHD on 04/19/2025 01:56:41 Discharge Plan Discharge Clinical Impression: Plantar fasciitis of right foot Patient Disposition: Home, Self-Care Instructions: Plantar Fasciitis (ED), Plantar Fasciitis Exercises (ED) Additional Instructions: Thank you for choosing [facility]'s Emergency Department for your care today. Thankfully your x-ray today showed no evidence of acute fracture. It did show evidence of inflammation of the plantar fascia where it inserts into your calcaneus bone. Your symptoms are likely secondary to this inflammation of the plantar fascia, a condition known as plantar fasciitis. At this time there is no indication for admission to the hospital or continued ED observation, and it is safe to discharge you home. Please follow up with your primary care provider for referral to a ingot header. You should take alternating (staggered) doses of ibuprofen 600mg and Tylenol 1000mg every 4 hours as needed for any additional pain. Please rest the injured area, and apply ice for 20 minutes every hour. Please purchase [id number] plantar fasciitis shoe inserts with arch support. Please avoid wearing sandals or other unsupportive footwear. Please stay well hydrated and get plenty of rest. We have treated you with a lidocaine patch, if you find this provides you significant relief additional patches can be purchased at any local pharmacy without a prescription. Please follow up with your primary care physician for re-evaluation, additional management of your symptoms, and continued preventative care. If you do not have a primary care physician, please call the [facility] at [phone] to establish a new primary care physician. While waiting to establish your new primary care physician, you can call our Walk[facility]in [facility] at [phone] for non-emergency needs. Please return to the emergency department if you develop a severe or sudden change in your symptoms, a fever over 100.4 that does not improve with Tylenol or Ibuprofen, recurrent vomiting, or any other new or worsening symptoms or concerns. Prescriptions: New ibuprofen 600 mg tablet 600 mg PO Q8H PRN (Reason: fever or pain) Qty: 30 0RF acetaminophen 500 mg capsule 1,000 mg PO .q8 PRN (Reason: fever or pain) Qty: 30 0RF No Action omeprazole 20 mg capsule,delayed release(DR/EC) 20 mg PO BID 60 Days Qty: 120 1RF amitriptyline 50 mg tablet 50 mg PO BEDTIME 30 Days Qty: 30 0RF albuterol sulfate 90 mcg/actuation HFA aerosol inhaler 2 puff inhalation Q6H PRN (Reason: for wheezing) Qty: 8.5 1RF baclofen 10 mg tablet 10 mg PO TID 30 Days Qty: 90 6RF oxycodone 5 mg tablet 5 mg PO BID PRN (Reason: pain) Qty: 7 0RF Rx Instructions: Partial Fill upon patient request. cyclobenzaprine 5 mg tablet 5 mg PO BEDTIME PRN (Reason: muscle spasm) Qty: 7 0RF azathioprine 50 mg tablet 100 mg PO DAILY 90 Days Qty: 180 1RF prednisone 5 mg tablet 7.5 mg PO DAILY 30 Days Qty: 45 3RF Rx Instructions: Stop taking Prednisone 10 mg daily and take 7.5 mg daily instead cetirizine [All Day Allergy (cetirizine)] 10 mg tablet 10 mg PO DAILY PRN (Reason: allergy symptoms) 90 Days Qty: 90 1RF gabapentin 300 mg capsule 300 mg PO TID 30 Days Qty: 90 1RF (DME) nebulizers [AeroEclipse II Nebulizer] Misc See Rx Instructions .Route Qty: 1 0RF Rx Instructions: As directed Referrals: Geraldine Maria MD [Primary Care Provider, Internal Medicine] Clinical Impression: Plantar fasciitis of right foot Print Language: Azeri
[2025-04-19 03:07] VITALS: BP 126/80; PULSE 82; RESP 18; TEMP 36.8; O2SAT 96
== END 2025-04-19 03:20 | disposition home or self-care (01) ==
PROVIDERS: Emergency Provider Emergency Medicine; PCP Internal Medicine
DX: M72.2 Plantar fascial fibromatosis (principal); G89.29 Other chronic pain; Z79.899 Other long term (current) drug therapy
CPT/HCPCS: 73630; 99282; 99283

== ENCOUNTER → 2025-04-19 01:15 | Outpatient (BNV) | payer OTHER, SELFPAY | PROVIDERS: Emergency Provider Emergency Medicine; PCP Internal Medicine; Visit Provider Radiology Diagnostic Radiology | DX: M77.51 Other enthesopathy of right foot and ankle (principal) | CPT/HCPCS: 73630 ==

== ENCOUNTER 2025-04-22 14:10 | Outpatient (AMB) | payer OTHER, SELFPAY ==
[2025-04-22 14:18] VITALS: BP 140/62; PULSE 54; O2SAT 98; BMI 35.3
--- NOTE | 2025-04-22 14:18 | A.OFFPC_ITS ---
Vital Signs 04/22/25 14:18 Height 4 ft 11 in Weight 175 lb BMI 35.3 BP 140/62 H Blood Pressure Location Lt brachial Position Sitting Pulse 54 Pulse Source Pulse Oximeter Pulse Oximetry (%) 98 Intake Visit Reasons: [facility] [place]14 back/heel pain Tax Expert Required: No Accompanied by: Self / Same As Patient Allergies trazodone Allergy (Unknown, Verified 04/22/25 14:25) Abdominal Pain Medication List - Last Reconciled 04/22/25 by Geraldine Linn MD albuterol sulfate 90 mcg/actuation 2 puffs inhalation Q6H PRN azathioprine 100 mg (2 x 50 mg) PO DAILY 90 days baclofen 10 mg PO TID 30 days cetirizine (All Day Allergy (cetirizine)) 10 mg PO DAILY PRN 90 days gabapentin 300 mg PO TID 30 days nebulizers (AeroEclipse II Nebulizer) As directed omeprazole 20 mg PO BID 60 days prednisone 7.5 mg (1.5 x 5 mg) PO DAILY 30 days prednisone 10 mg PO DAILY Tobacco use date assessed: 04/22/25 Dental Screening Dental Screen Date: 04/22/25 Did you have a dental visit in the last 12 months?: Yes Did you have a dental problem in the last 6 months where you did not have access to dental care?: No Was dental information given to patient?: Patient has dentist HPI HPI Comments History of Present Illness Details The patient is a 59-year-old female presenting with right foot tendinopathy and lumbar spondylosis. She visited the emergency department for her right foot, where imaging showed tendinopathy without fracture or dislocation. Exercises were recommended to alleviate symptoms, including using a cylindrical object for massage. Her lumbar spondylosis involves multilevel thoracic lumbar regions with moderate to severe spondylosis at L5-S1, causing significant pain. Surgery was planned but postponed due to liver condition and blood count concerns. The patient has liver cirrhosis, managed with azathioprine, and stable liver enzymes, though her white blood cell and hemoglobin levels have fluctuated. [facility] Medical History (Updated 04/22/25 @ 15:09 by Geraldine Linn MD) History of MRSA infection Thrombocytopenia Gallstone pancreatitis GERD (gastroesophageal reflux disease) Cirrhosis of liver without ascites Jaundice Anxiety and depression Chronic low back pain Asthma Surgical History H/O colonoscopy S/P cholecystectomy Hx of tubal ligation Family History Mother Lung cancer Father No problems noted. Social History Household Members: Spouse Housing: Apartment Are you a primary career based intervention coordinator to a significant other at home: No Do you presently have visiting nurse or other home services: Yes ([employer]) Alcohol intake: former Patient Tobacco Use Status: Former Tobacco user Tobacco use type: Cigarette e-Cigarette/Vaping Use: Never Used Second Hand Smoke Exposure: No service: No Current occupational status: disabled Current occupational exposures/hazards: No Sexual orientation: Straight/Heterosexual Gender identity: Female Cognitive needs: No Hearing needs: No Vision needs: Yes Questionnaire Thrive Questionnaire Date Thrive assessed: 04/22/25 I am a: Patient What is your living situation today?: I have a steady place to live Within the past 12 months, did the food you bought not last and you didn't have the money to get more?: Never true Within the past 12 months, did you worry whether your food would run out before you got money to buy more?: Never true Do you have trouble paying for medicines?: No Do you have trouble getting transportation to medical appointments?: No Do you have trouble paying your heating and electricity bill?: No Do you have trouble taking care of your child, family member or friend?: I choose not to answer this question Do you have trouble with day-to-day activities such as bathing, preparing meals, shopping, managing finances, etc.?: Yes Are you currently unemployed and looking for a job?: I choose not to answer this question Are you interested in more education?: I choose not to answer this question Please select the resources that you would like help with: None Currently or been in a relationship where the following occur: I choose not to answer THRIVE Score: 0 RUDI-7 AMB Questionnaire RUDI-7 Date RUDI - 7 assessed: 04/22/25 Source: Developed by Drs. Gary Luke, Sabina House, aJck Sprague and colleagues, with an educational sinan from [employer]. Review of Systems Const All systems reviewed & are unremarkable except as noted in HPI and below Card Denies chest pain at rest, Denies chest pain with activity, Denies edema, Denies irregular heart rhythm, Denies claudication, Denies dyspnea, Denies dyspnea on exertion, Denies orthopnea, Denies paroxysmal nocturnal dyspnea and Denies slow heart rate Resp Denies cough, Denies dyspnea and Denies dyspnea on exertion Physical exam (Primary Care) BMI result Body Mass Index 35.3 Tobacco/Smoking Status: Tobacco use Status Tobacco use date assessed 01/02/25 03/14/25 13:22 Patient Tobacco Use Status Former Tobacco user 03/14/25 13:22 Tobacco use type Cigarette 03/14/25 13:22 e-Cigarette/Vaping Use Never Used 03/14/25 13:22 Thrive Assessment: Date of Thrive Assessment Date Thrive assessed 01/02/25 03/14/25 13:22 Currently or been in a relationship where the following occur: I choose not to answer Resp Effort & Inspection: normal respiratory effort Auscultation: clear to auscultation bilaterally Cardio Jugular venous distension: no JVD Rate: regular rate Rhythm: regular rhythm Heart sounds: S1 normal heart sound present and S2 normal heart sound present Extrem General: Yes full ROM Coding Level of Care Code Est Pt Level 4 (72705) Complex EM visit Add On G2211 Diagnoses Autoimmune hepatitis K75.4 Cirrhosis of liver without ascites, unspecified hepatic cirrhosis type K74.60 Hepatic cirrhosis type: unspecified hepatic cirrhosis Lumbar spondylolysis M43.06 Plantar fasciitis M72.2 Time Spent (min) 22 Assessment & Plan Assessment & Plan (1) Autoimmune hepatitis: Code(s): K75.4 - Autoimmune hepatitis Category: Medical (2) Cirrhosis of liver without ascites: Code(s): K74.60 - Unspecified cirrhosis of liver Category: Medical Qualifiers: Hepatic cirrhosis type: unspecified hepatic cirrhosis Qualified Code(s): K74.60 - Unspecified cirrhosis of liver (3) Lumbar spondylolysis: Code(s): M43.06 - Spondylolysis, lumbar region Category: Medical (4) Plantar fasciitis: Code(s): M72.2 - Plantar fascial fibromatosis Category: Medical Plan The patient should continue with exercises for right foot tendinopathy, including using a cylindrical object for massage. Surgery for lumbar spondylosis was postponed due to liver condition and blood count concerns, and she should continue monitoring these parameters. She should maintain her current medication regimen for liver cirrhosis and regularly monitor liver enzymes and blood counts. Patient was informed and verbally consented to the use of an ambient scribe for clinic note documentation during this visit. Medications: New gabapentin 400 mg PO TID 90 caps 0RF 30 days Discontinued gabapentin Discontinued Reason: Patient Completed Course 300 mg PO TID 30 days 90 caps 1RF
--- OUTSIDE RECORDS SUMMARY | 2025-04-22 15:33 | XMS_ITS | Clinical Summary ---
Demographics Address [address] [facility] [address] [place] [address] Home Phone Mobile Phone Email Address Preferred Language Jamaican Marital Status Unknown Mandaen Affiliation Unknown Race Unknown Ethnic Group Unknown Author Organization [facility] Address [address] [place] [address] Care Team Providers Care Insurance Claims Examiner Name Role Phone Fritz Irby RD Primary Care Provider [phone] Source Comments PLEASE NOTE, if this patient [...] Treatment Not on file Insurance MEDICARE [place] Care Teams Insurance Claims Examiner Relationship Specialty Start Date End Date Fritz Irby RD [address] [place] [address] PCP - General Nutrition 11/03/17
--- OUTSIDE RECORDS SUMMARY | 2025-04-22 15:33 | XMS_ITS | Clinical Summary ---
Author Organization [facility] Address [address] [place] [address] Care Team Providers Care Ring Conductor Name Role Phone Unavailable Primary Care Provider [...] this topic Anastasia Dhaliwal Personal/Family Self [address] [place] [address]
--- OUTSIDE RECORDS SUMMARY | 2025-04-22 15:33 | XMS_ITS | Clinical Summary ---
Author Organization [facility] Facility Address [address] [address] Care Team Providers Care Spar Cap Beveler Name Role Phone Geraldine Maria MD Primary Care Provider [phone] Allergies Active Allergy Reactions Criticality Noted Date [...] L5-S1. No nerve root compression. Follows with [facility] orthopedics and getting good relief with [...] (6 to 49 Years) Discontinued 09/13/2011 Insurance [facility] ([id number]) DANICA COLLADO [id number] Care Teams Spar Cap Beveler Relationship Specialty Start Date End Date Geraldine Maria MD [address] [place] [address] PCP - General Internal Medicine 11/12/24
== END 2025-04-22 14:39 | disposition home or self-care (01) ==
LOC: HO.HMCH 14:11
PROVIDERS: PCP Internal Medicine; Visit Provider Internal Medicine
DX: K75.4 Autoimmune hepatitis (principal); K74.60 Unspecified cirrhosis of liver; M43.06 Spondylolysis, lumbar region; M72.2 Plantar fascial fibromatosis

== ENCOUNTER → 2025-04-22 14:10 | Outpatient (BNVA) | payer OTHER, SELFPAY | PROVIDERS: PCP Internal Medicine; Visit Provider Internal Medicine | DX: K75.4 Autoimmune hepatitis (principal); K74.60 Unspecified cirrhosis of liver; M43.06 Spondylolysis, lumbar region; M72.2 Plantar fascial fibromatosis | CPT/HCPCS: 96127; 99212 ==

== ENCOUNTER 2025-05-09 07:11 | Outpatient (AMB) | payer OTHER, SELFPAY ==
--- OUTSIDE RECORDS SUMMARY | 2025-05-09 07:14 | XMS_ITS | Encounter Summary ---
Author Organization [facility] Address [address] [place] [address] Care Team Providers Care Senior Software Architect Name Role Phone Shree Armendariz MD Primary Care Provider Roger Paulino, Pcp Primary Care Provider Shanta Downs MD Primary Care Provider Unavail able Liss Valdez MD Primary Care Provider [phone] Encounter Details Date Type Department Care Team Description 06/13/2013 Transfer Records Medical Records [address] [place] [address] Abstract, Provider Social History Tobacco Use Types [...] on filedocumented in this encounter Care Teams Senior Software Architect Relationship Specialty Start Date End Date Shree Armendariz MD PCP - General Internal Medicine 05/27/13 09/22/13 Roderick, Aimee PCP - General Internal Medicine 09/23/13 08/14/16 Shanta Busch MD PCP - General Internal Medicine 08/15/16 08/16/21 Liss Valdez MD [address] [place] [address] [phone] PCP - General Internal Medicine 08/17/21 documented as of this encounter
--- OUTSIDE RECORDS SUMMARY | 2025-05-09 07:15 | XMS_ITS | Encounter Summary ---
Author Organization [facility] Address [address] [place] [address] Care Team Providers Care Pot Puller Name Role Phone Shanta Busch MD Primary Care Provider [facility] Liss Valdez MD Primary Care Provider [phone] Encounter Details Date Type Department Care Team Description 07/07/2018 Hospital Medical Records [address] [place] [id number] Hank Toribio MD Social History Tobacco Use Types Packs/Day [...] on filedocumented in this encounter Care Teams Pot Puller Relationship Specialty Start Date End Date Shanta Busch MD PCP - General Internal Medicine 08/15/16 08/16/21 Liss Valdez MD [address] [place] [address] [id number] PCP - General Internal Medicine 08/17/21 documented as of this encounter
--- OUTSIDE RECORDS SUMMARY | 2025-05-09 07:15 | XMS_ITS | Clinical Summary ---
Author Organization [facility] Facility Address [address] [address] Care Team Providers Care Soldering Machine Setter Name Role Phone Geraldine Maria MD Primary Care Provider [phone] Allergies Active Allergy Reactions Criticality Noted Date [...] L5-S1. No nerve root compression. Follows with [facility] orthopedics and getting good relief [...] Only [facility] - [facility] Center [address] [place] [phone] Neo Mcdonnell MD [address] [place] [phone] Health Maintenance Due Date Last Done Comments [...] (6 to 49 Years) Discontinued 09/13/2011 Insurance [facility] ([id number]) Care Teams Soldering Machine Setter Relationship Specialty Start Date End Date Geraldine Maria MD [address] [place], [place] PCP - General Internal Medicine 11/12/24
--- OUTSIDE RECORDS SUMMARY | 2025-05-09 07:15 | XMS_ITS | Encounter Summary ---
Author Organization [facility] Address [address] [place] [address] Care Team Providers Care Automobile Body Repairer Name Role Phone Shanta Busch MD Primary Care Provider Unavail able Liss Valdez MD Primary Care Provider Encounter Details Date Type Department Care Team Description 10/17/2019 Release of Information Medical Records [address] [place] [address] Abstract, Provider Social History Tobacco Use Types [...] on filedocumented in this encounter Care Teams Automobile Body Repairer Relationship Specialty Start Date End Date Shanta Busch MD PCP - General Internal Medicine 08/15/16 08/16/21 Liss Valdez MD [address] [place] [phone] PCP - General Internal Medicine 08/17/21 documented as of this encounter
--- OUTSIDE RECORDS SUMMARY | 2025-05-09 07:15 | XMS_ITS | Encounter Summary ---
Author Organization [facility] [employer] [facility] Address [address] [place] [address] Care Team Providers Care Roll Panner Name Role Phone Shanta Busch MD Primary Care Provider Unavail able Liss Valdez MD Primary Care Provider [phone] Encounter Details Date Type Department Care Team Description 11/01/2016 Business Doc Medical Records [address] [place] [address] Abstract, Provider Social History Tobacco Use Types [...] on filedocumented in this encounter Care Teams Roll Panner Relationship Specialty Start Date End Date Shanta Busch MD PCP - General Internal Medicine 08/15/16 08/16/21 Liss Valdez MD [address] [place] [address] [phone] PCP - General Internal Medicine 08/17/21 documented as of this encounter
--- OUTSIDE RECORDS SUMMARY | 2025-05-09 07:15 | XMS_ITS | Clinical Summary ---
Demographics Address [address] [facility] [address] [place] [address] Home Phone Mobile Phone Email Address Preferred Language Citizen Of [place] Marital Status Unknown Synagogue Affiliation Unknown Race Unknown Ethnic Group Unknown Author Organization [facility] Address [address] [place] [address] Care Team Providers Care Chief Electrician Name Role Phone Fritz Irby RD Primary Care Provider [phone] Source Comments PLEASE NOTE, if this patient [...] Treatment Not on file Insurance [place] Care Teams Chief Electrician Relationship Specialty Start Date End Date Fritz Irby RD [address] [place] [address] PCP - General Nutrition 11/03/17
--- OUTSIDE RECORDS SUMMARY | 2025-05-09 07:15 | XMS_ITS | Encounter Summary ---
Author Organization [facility] Address [address] [place] [address] Care Team Providers Care Shipping Team Leader Name Role Phone Shanta Busch MD Primary Care Provider [facility] Liss Valdez MD Primary Care Provider [phone] Encounter Details Date Type Department Care Team Description 02/14/2017 Telephone Gastroenterology - [address] [id number] Milan King MD Social History Tobacco Use [...] on filedocumented in this encounter Care Teams Shipping Team Leader Relationship Specialty Start Date End Date Shanta Busch MD PCP - General Internal Medicine 08/15/16 08/16/21 Liss Valdez MD [address] [place] [phone] PCP - General Internal Medicine 08/17/21 documented as of this encounter
--- OUTSIDE RECORDS SUMMARY | 2025-05-09 07:15 | XMS_ITS | Encounter Summary ---
Author Organization [facility] Address [address] [place] [address] Care Team Providers Care Heater Helper Name Role Phone Shanta Busch MD Primary Care Provider Unavail able Liss Valdez MD Primary Care Provider [phone] Encounter Details Date Type Department Care Team Description 09/24/2017 Hospital Medical Records [address] [place] [address] Racquel Enriquez, BOB Social History Tobacco Use [...] on filedocumented in this encounter Care Teams Heater Helper Relationship Specialty Start Date End Date Shanta Busch MD PCP - General Internal Medicine 08/15/16 08/16/21 Liss Valdez MD [address] [place] [phone] PCP - General Internal Medicine 08/17/21 documented as of this encounter
--- OUTSIDE RECORDS SUMMARY | 2025-05-09 07:15 | XMS_ITS | Encounter Summary ---
Author Organization [facility] Address [address] [place] [address] Care Team Providers Care Bods Developer Name Role Phone Shanta Busch MD Primary Care Provider Unavail able Liss Valdez MD Primary Care Provider [phone] Encounter Details Date Type Department Care Team Description 10/30/2019 Hospital Medical Records [address] [place] [address] Alem Bobby MD Social History Tobacco Use Types Packs/Day [...] on filedocumented in this encounter Care Teams Bods Developer Relationship Specialty Start Date End Date Shanta Busch MD PCP - General Internal Medicine 08/15/16 08/16/21 Liss Valdez MD [address] [place] [address] [phone] PCP - General Internal Medicine 08/17/21 documented as of this encounter
--- OUTSIDE RECORDS SUMMARY | 2025-05-09 07:15 | XMS_ITS | Encounter Summary ---
Author Organization [facility] Address [address] [place] [address] Care Team Providers Care Rn Radiation Oncology Name Role Phone Shanta Busch MD Primary Care Provider Unavail able Liss Valdez MD Primary Care Provider [phone] Encounter Details Date Type Department Care Team Description 08/31/2016 [facility] Medical Records [address] [place] [address] Abstract, Provider Social History Tobacco Use Types Packs/Day Years Used Date Smoking Tobacco: Former Cigarettes 1 0 09/04/1980 - 09/04/2008 Comments:stopped 7 yrs ago Alcohol Use Standard [...] on filedocumented in this encounter Care Teams Rn Radiation Oncology Relationship Specialty Start Date End Date Shanta Busch MD PCP - General Internal Medicine 08/15/16 08/16/21 Liss Valdez MD [address] [place] [address] [id number] PCP - General Internal Medicine 08/17/21 documented as of this encounter
--- OUTSIDE RECORDS SUMMARY | 2025-05-09 07:15 | XMS_ITS | Encounter Summary ---
Author Organization [facility] Address [address] [place] [address] Care Team Providers Care Unified Communications Architect Name Role Phone Shanta Busch MD Primary Care Provider [facility] Liss Valdez MD Primary Care Provider [phone] Encounter Details Date Type Department Care Team Description 01/17/2019 Commanding Officer Homicide Squad Report Medical Records [address] [place] [address] [place] [address] [place] [address] [id number] Social History Tobacco Use Types Packs/Day Years [...] on filedocumented in this encounter Care Teams Unified Communications Architect Relationship Specialty Start Date End Date Shanta Busch MD PCP - General Internal Medicine 08/15/16 08/16/21 Liss Valdez MD [address] [place] [address] [phone] PCP - General Internal Medicine 08/17/21 documented as of this encounter
--- OUTSIDE RECORDS SUMMARY | 2025-05-09 07:15 | XMS_ITS | Encounter Summary ---
Author Organization [facility] Address [address] [place] [address] Care Team Providers Care Mobile Device Engineer Name Role Phone Liss Valdez MD Primary Care Provider [phone] Encounter Details Date Type Department Care Team Description 03/27/2023 Telephone Gastroenterology - [place] [address] [facility] [address] [place] [address] Yogi Lilly PA-C Social History Tobacco Use Types Packs/Day [...] on filedocumented in this encounter Care Teams Mobile Device Engineer Relationship Specialty Start Date End Date Liss Valdez MD [address] [place] [address] [phone] PCP - General Internal Medicine 08/17/21 documented as of this encounter
--- OUTSIDE RECORDS SUMMARY | 2025-05-09 07:15 | XMS_ITS | Encounter Summary ---
Author Organization [facility] Address [address] [place] [address] Care Team Providers Care Tube Puller Name Role Phone Shanta Busch MD Primary Care Provider [facility] Liss Valdez MD Primary Care Provider Encounter Details Date Type Department Care Team Description 07/07/2018 Hospital Medical Records [address] [place] [address] Hank Toribio MD Social History Tobacco Use [...] on filedocumented in this encounter Care Teams Tube Puller Relationship Specialty Start Date End Date Shanta Busch MD PCP - General Internal Medicine 08/15/16 08/16/21 Liss Valdez MD [address] [place] [address] [phone] PCP - General Internal Medicine 08/17/21 documented as of this encounter
--- OUTSIDE RECORDS SUMMARY | 2025-05-09 07:15 | XMS_ITS | Encounter Summary ---
Author Organization [facility] Address [address] [place] [address] Care Team Providers Care Senior Net Web Developer Name Role Phone Liss Valdez MD Primary Care Provider [phone] Reason for Visit * Reason Onset Date Comments APPOINTMENT 12/15/2022 Encounter Details Date Type Department Care Team Description 12/15/2022 Telephone Gastroenterology - [place] [address] [place] [address] Yogi Lilly PA-C APPOINTMENT Social History Tobacco Use Types Packs/Day Years [...] file Not on file Not on file COVID-19 Exposure Response Date Recorded In the last 10 days, have yo u been in contact with someone who was confirmed or suspected to have Coronavirus/COVID-19? No / Unsure 12/15/2022 8:56 AM EDT documented as of this encounter Miscellaneous Notes * Telephone Encounter - Nicolette Arechiga - 12/15/2022 9:04 AM EDT Patient had an appointment today, need to update pcp for [employer] insurance, patient will call back withinformation, important to let me know. Ext. [phone] documented in this encounter Plan of Treatment Not on file documented as of this encounter Visit Diagnoses Not on filedocumented in this encounter Care Teams Senior Net Web Developer Relationship Specialty Start Date End Date Liss Valdez MD [address] [place] [address] [phone] PCP - General Internal Medicine 08/17/21 documented as of this encounter
--- OUTSIDE RECORDS SUMMARY | 2025-05-09 07:15 | XMS_ITS | Encounter Summary ---
Author Organization [facility] Address [address] [place] [address] Care Team Providers Care Military Cook Name Role Phone Shanta Busch MD Primary Care Provider Unavail able Liss Valdez MD Primary Care Provider [phone] Encounter Details Date Type Department Care Team Description 09/27/2017 Hospital Medical Records [address] [place] [id number] Andressa Christianson MD Social History Tobacco Use Types Packs/Day [...] on filedocumented in this encounter Care Teams Military Cook Relationship Specialty Start Date End Date Shanta Busch MD PCP - General Internal Medicine 08/15/16 08/16/21 Liss Valdez MD [address] [place] [id number] PCP - General Internal Medicine 08/17/21 documented as of this encounter
--- OUTSIDE RECORDS SUMMARY | 2025-05-09 07:15 | XMS_ITS | Encounter Summary ---
Author Organization [employer] [facility] Address [address] [place] [address] Care Team Providers Care Computer Operations Supervisor Name Role Phone Shanta Busch MD Primary Care Provider Unavail able Liss Valdez MD Primary Care Provider [phone] Encounter Details Date Type Department Care Team Description 09/25/2017 Hospital Medical Records [address] [place] [id number] Gary Yip MD Social History Tobacco Use Types Packs/Day [...] on filedocumented in this encounter Care Teams Computer Operations Supervisor Relationship Specialty Start Date End Date Shanta Busch MD PCP - General Internal Medicine 08/15/16 08/16/21 Liss Valdez MD [address] [place] [phone] PCP - General Internal Medicine 08/17/21 documented as of this encounter
--- OUTSIDE RECORDS SUMMARY | 2025-05-09 07:15 | XMS_ITS | Encounter Summary ---
Author Organization [facility] Address [address] [place] [address] Care Team Providers Care Sleeve Setter Safety Stitch Name Role Phone Shanta Busch MD Primary Care Provider Unavail able Liss Valdez MD Primary Care Provider [phone] Reason for Visit * Reason Onset Date Comments REFERRAL 07/12/2018 Hospital Notes Received 07/17/2018 MRI & U/ S Encounter Details Date Type Department Care Team Description 07/12/2018 Telephone Gastroenterology - [address] [address] Alem Bobby MD REFERRAL; Hospital Notes Received (MRI & U/S) Social History Tobacco Use Types Packs/Day Years [...] encounter Miscellaneous Notes * Telephone Encounter - Pebbles Lepe - 07/17/2018 9:37 AM EST MRI and Ultrasound notes received from [facility], placed in GI Nurses office for appointment 07-19-18 at 9:40am with Dr. Bobby. * Telephone Encounter - Angelique Michael M.A. - 07/16/2018 10:38 AM EST Yes * Telephone Encounter - Nicolettepaola XieEmelina - 07/16/2018 10:29 [address] her in a 9:40am slot somewhere with Dr. Bobby? * Telephone Encounter - Angelique Michael M.A. - 07/16/2018 8:34 AM EST Faxed record release to [facility] per Dr. Bobby. Forward to GI schedulers to make appointment/map * Telephone Encounter - Alem Bobby MD - 07/13/2018 8:09 PM EST Office visit soon please, cancellation list. Need xray report from [place]. * Telephone Encounter - Diana Willis - 07/12/2018 11:28 AM EST This is a patient of Dr Bobby. Patient was given an urgent referral for Needs fu w/ GI (Dr. Bobby) w/in 1-2 weeks of recent hospitalization Reason for referral: autoimmune hepatitis, recent hosp. New liver lesion concerning for malignancy Please review if urgent or routine? documented in this encounter Plan of Treatment Not on file documented as of this encounter Visit Diagnoses Not on filedocumented in this encounter Care Teams Sleeve Setter Safety Stitch Relationship Specialty Start Date End Date Shanta Busch MD PCP - General Internal Medicine 08/15/16 08/16/21 Liss Valdez MD [address] [place] [phone] PCP - General Internal Medicine 08/17/21 documented as of this encounter
--- OUTSIDE RECORDS SUMMARY | 2025-05-09 07:15 | XMS_ITS | Encounter Summary ---
Author Organization [facility] Address [address] [place] [address] Care Team Providers Care Mortar Man Name Role Phone Shanta Busch MD Primary Care Provider Unavail able Liss Valdez MD Primary Care Provider [phone] Reason for Visit * Reason Onset Date Comments hospital follow up 10/05/2017 need to [facility] fu 10-06-[address] Olivier Encounter Details Date Type Department Care Team Description 10/05/[address] [address] Shanta Busch MD hospital follow up (need [...] on filedocumented in this encounter Care Teams Mortar Man Relationship Specialty Start Date End Date Shanta Busch MD PCP - General Internal Medicine 08/15/16 08/16/21 Liss Valdez MD [address] [place] [phone] PCP - General Internal Medicine 08/17/21 documented as of this encounter
--- OUTSIDE RECORDS SUMMARY | 2025-05-09 07:15 | XMS_ITS | Encounter Summary ---
Author Organization [facility] Address [address] [place] [address] Care Team Providers Care Technician Plant And Maintenance Name Role Phone Shanta Busch MD Primary Care Provider Unavail able Liss Valdez MD Primary Care Provider [phone] Reason for Visit * Reason Comments E-prescribe Rx Request Encounter Details Date Type Department Care Team Description 07/01/2021 Refill Gastroenterology - [address] [place] [address] Alem Bobby MD E-prescribe Rx [...] on filedocumented in this encounter Care Teams Technician Plant And Maintenance Relationship Specialty Start Date End Date Shanta Busch MD PCP - General Internal Medicine 08/15/16 08/16/21 Liss Valdez MD [address] [place] [address] [phone] PCP - General Internal Medicine 08/17/21 documented as of this encounter
--- OUTSIDE RECORDS SUMMARY | 2025-05-09 07:15 | XMS_ITS | Clinical Summary ---
Author Organization [facility] Address [address] [place] [address] Care Team Providers Care Kettle Cook Name Role Phone Unavailable Primary Care Provider [...] this topic Anastasia Dhaliwal Personal/Family Self [address] [address]
--- OUTSIDE RECORDS SUMMARY | 2025-05-09 07:15 | XMS_ITS | Encounter Summary ---
Author Organization [facility] Address [address] [place] [address] Care Team Providers Care Policy Value Calculator Name Role Phone Shanta Busch MD Primary Care Provider Unavail able Liss Valdez MD Primary Care Provider [phone] Encounter Details Date Type Department Care Team Description 04/12/2019 Telephone Adult Medicine [address] [id number] Camila Alcantar PA-C Social History Tobacco Use [...] - 04/12/2019 2:37 PM EDT Deepak from [facility] calling about patients last office notes. He is questioning why patient a couple weeks ago was light duty and now all of a sudden is completley disabled. He is asking for acall back to clarify this. documented in this encounter Plan of Treatment Not on file documented as of this encounter Visit Diagnoses Not on filedocumented in this encounter Care Teams Policy Value Calculator Relationship Specialty Start Date End Date Shanta Busch MD PCP - General Internal Medicine 08/15/16 08/16/21 Liss Valdez MD [address] [place] [id number] PCP - General Internal Medicine 08/17/21 documented as of this encounter
--- OUTSIDE RECORDS SUMMARY | 2025-05-09 07:15 | XMS_ITS | Encounter Summary ---
Author Organization [facility] Address [address] [place] [address] Care Team Providers Care Examiner Rating Clerk Name Role Phone Gurpreet Busch MD Primary Care Provider Unavail [facility] Liss Valdez MD Primary Care Provider Encounter Details Date Type Department Care Team Description 11/27/2017 Telephone Adult [address] [id number] Gurpreet Busch MD Social History Tobacco Use [...] on filedocumented in this encounter Care Teams Examiner Rating Clerk Relationship Specialty Start Date End Date Gurpreet Busch MD PCP - General Internal Medicine 08/15/16 08/16/21 Liss Valdez MD [address] [place] [address] [phone] PCP - General Internal Medicine 08/17/21 documented as of this encounter
--- OUTSIDE RECORDS SUMMARY | 2025-05-09 07:15 | XMS_ITS | Encounter Summary ---
Author Organization [employer] [facility] Address [address] [place] [address] Care Team Providers Care Embedded Case Manager Name Role Phone Shanta Busch MD Primary Care Provider Unavail able Liss Valdez MD Primary Care Provider [phone] Encounter Details Date Type Department Care Team Description 08/30/2016 Release of Information Medical Records [address] [place] [id number] Abstract, Provider Social History Tobacco Use Types [...] on filedocumented in this encounter Care Teams Embedded Case Manager Relationship Specialty Start Date End Date Shanta Busch MD PCP - General Internal Medicine 08/15/16 08/16/21 Liss Valdez MD [address] [place] [phone] PCP - General Internal Medicine 08/17/21 documented as of this encounter
--- NOTE | 2025-05-09 07:20 | MHC.OFFVIS ---
Vital Signs 05/09/25 07:22 Height 4 ft 11 in Weight 173 lb BMI 34.9 BP 123/77 Blood Pressure Location Lt brachial Position Sitting Pulse 88 Pulse Oximetry (%) 97 Oxygen Delivery Method Room Air Intake Visit Reasons: Cirrhosis Intake Note: Patient follow up for Cirrhosis and Autoimmune hepatitis, lab results. Patient cc: acid reflux, and denies any other GI issues for today visit. Workers Compensation Analyst Required: Yes Workers Compensation Analyst Name: Alexx [id number] Accompanied by: Self / Same As Patient Allergies trazodone Allergy (Unknown, Verified 05/09/25 07:21) Abdominal Pain Medication List - Last Reconciled 05/09/25 by Kaylene Prabhakar MD albuterol sulfate 90 mcg/actuation 2 puffs inhalation Q6H PRN azathioprine 100 mg (2 x 50 mg) PO DAILY 90 days baclofen 10 mg PO TID 30 days cetirizine (All Day Allergy (cetirizine)) 10 mg PO DAILY PRN 90 days gabapentin 400 mg PO TID 30 days nebulizers (AeroEclipse II Nebulizer) As directed omeprazole 20 mg PO BID prednisone 7.5 mg (1.5 x 5 mg) PO DAILY 30 days prednisone 10 mg PO DAILY HPI HPI Cirrhosis: Details: GI clinic visit for this 57 year old Australian speaking female for follow-up of autoimmune hepatitis with compensated cirrhosis TODAY'S VISIT: Telephone language interpreter, Alexx CC: Patient cc: acid reflux, and denies any other GI issues for today visit. Scheduled for back surgery on Pt was scheduled for back surgery with Rocael Duong MD,PhD and surgery was cancelled due to cirrhosis Denies abdominal pain, heartburn or dysphagia, diarrhea or constipation Pt states she has been compliant with her medications for AIH. Patient 3 month follow up for Autoimmune hepatitis and lab results. Lab results were reviewed with the patient Pt had recent I & D of abscesses of multiple sites - axilla, labia and buttock PAST VISITS: Patient cc: acid reflex on and off. Denies any other GI issues. Patient went to the ED last week due an abscess. Pt is tearful due to pain in the vulvar area (labial abscess) Unable to sleep due to pain. Has been taking Tylenol, motrin and Ibuprofen without relief Has been taking Prednisone 10 mg and azathioprine 100 mg daily. Taking Omerpazole 20 mg daily and continues to have burning pain in the retrosternal area. Advised to increase to twice a day. Intermittent heartburn when she forgets to take Omeprazole - denies dysphagia Patient denies change in appetite and has gained weight due to prednisone Denies recent change in bowel habits, constipation, diarrhea, black stools or rectal bleeding. Patient denies major cardiac or pulmonary problems, loud snoring or sleep apnea Denies problems with anesthesia in the past. Denies being on chronic anticoagulation. Patient denies known family history of colon polyps, colon cancer or other GI malignancies. PAST EGD/COLONOSCOPY: Pt had an EGD and a colonoscopy at [facility] in the past - will obtain records Pt reports she was diagnosed with Autoimmune Hepatitis and was followed by Dr Bobby and now sees DANICA Holley at [facility] Her last visit was in December, She being treated with Azathioprine 50 mg daily and reports she has been compliant in taking the medication. She was also taking prednisone which she discontinued in December, after she ran out of the prescription. Patient denies family history of liver disease, colon polyps or colon cancer. Her mom and maternal grandfather with lung cancer and a maternal aunt has stomach cancer. LABS IN [facility] : Reviewed IMAGING STUDIES: 06/21/[address] SCAN SHOWED: 1. Mild stranding adjacent to the pancreas, which could reflectpancreatitis in the proper clinical setting. 2. Thick-walled appearance of the gallbladder, similar to 04/05/2023.This could be secondary to chronic liver disease, though acutecholecystitis would be difficult to entirely exclude in the proper clinical setting. 3. Cirrhotic liver with sequela of portal hypertension includingborderline splenomegaly and prominent varices. 4. Prominent uterus with suggestion of underlying fibroids, whichcould be further assessed with pelvic ultrasound. 06/21 23 ABD US SHOWED: 1. Cirrhotic appearing liver. 2. Abnormal gallbladder with gallstones and thickened wall containingfluid. Question of a stone lodged in the cystic duct. Although similarfindings have been seen on prior studies, the correct clinical setting findings would be suspicious for cholecystitis. HIDA scan may be useful for further evaluation. 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 PAST GI HISTORY BY REVIEW OF MEDICAL RECORDS: 06/06/23 PT WAS SEEN BY DR LIND: AIH related compensated cirrhosis - MELD-Na 11 - Child Abarca Class B Prefers to switch Hepatology care to [facility]. Prev under care of Dr Bobby through [facility]. From documentation appears to have been in remission prior to admission in March, which in turn seems to have been a combination of nonadherence to tx (as pt ran out of meds) as well as biliary pancreatitis both contributing to elevated LFTs. Currently undergoing eval for lap phi through [facility] surgery. Plan: - Check MELD labs and IgG - Resume Azathiopurine 50mg PO - If transaminases and IgG cont to improve, can complete taper as per schedule in 2 weeks - Since LFTs being confounded by gallstone disease, will recheck this after her surgery as well with low threshold to proceed with liver bx to monitor for any active inflammation. Limited role of continuing Azathiopurine if no active inflammation. - She is also due for an EGD. Will get records from [facility] to see if needs colo alongside it. - Next US due in Oct 2022. - No indication for referral to transplant center for now since low MELD and not decompensated. Follow up in 8 weeks [facility] Medical History (Updated 05/09/25 @ 08:05 by Kaylene Prabhakar MD) History of MRSA infection Thrombocytopenia Gallstone pancreatitis GERD (gastroesophageal reflux disease) Cirrhosis of liver without ascites Jaundice Anxiety and depression Chronic low back pain Asthma Surgical History H/O colonoscopy S/P cholecystectomy Hx of tubal ligation Family History Mother Lung cancer Father No problems noted. Social History Household Members: Spouse Housing: Apartment Are you a primary career portals teacher to a significant other at home: No Do you presently have visiting nurse or other home services: Yes (SCIENTIFIC SYSTEMS ANALYST) Alcohol intake: former Patient Tobacco Use Status: Former Tobacco user Tobacco use type: Cigarette e-Cigarette/Vaping Use: Never Used Second Hand Smoke Exposure: No service: No Current occupational status: disabled Current occupational exposures/hazards: No Sexual orientation: Straight/Heterosexual Gender identity: Female Cognitive needs: No Hearing needs: No Vision needs: Yes Review of Systems Const All systems reviewed & are unremarkable except as noted in HPI and below ENT Reports Normal hearing present Neuro Reports Normal hearing present and Denies Abnormal speech present Physical Exam Vital Signs: Last Vital Signs Pulse 88 05/09/25 07:22 BP 123/77 05/09/25 07:22 Pulse Ox 97 05/09/25 07:22 Oxygen Delivery Method Room Air 05/09/25 07:22 BMI result Body Mass Index 34.9 Const General: healthy appearing and no acute distress Nutritional Appearance: obese Orientation/consciousness: patient oriented x3 Limitations: language barrier and physical limitations (due to back pain) HEENT Head: Yes normal to inspection Ears: hearing grossly normal bilaterally Eyes Sclerae: sclerae normal Pupils: Equal, round and reactive pupils present Neck Neck: Yes normal visual inspection Chest Chest palpation & inspection: normal inspection of the chest Resp Effort & Inspection: normal respiratory effort Auscultation: clear to auscultation bilaterally Cardio Palpation: normal PMI Rate: regular rate Rhythm: regular rhythm Heart sounds: S1 normal heart sound present, S2 normal heart sound present and no murmurs GI Palpation (GI): Soft to palpation, nontender and No hepatosplenomegaly present Auscultation: normal bowel sounds Rectal Exam - Female: deferred Skin General skin exam: no rashes or lesions noted and spider nevi (a few spider nevi on neck and anterior chest) Neuro General: patient oriented x3, gait normal and moves all extremities Cranial nerves: Yes Equal, round and reactive pupils present and Yes Normal hearing present Speech: No Abnormal speech present Psych Appearance: grossly normal Mental Status: mental status grossly normal Immunizations Engerix-B (PF) 20 mcg/mL intramuscular suspension Performing Provider: Kaylene Prabhakar MD Performing Location: [facility] Administered by: Terry Gonzalez RN on 05/09/25 14:24 Dose Route Admin Location Dispensed Lot Number Expiration Date [facility] Data Keyer 1 mL IM Left Deltoid 1 mL [id number] 05/09/27 [id number] [employer] Total Dispensed Waste 1 mL 0 % VIS Given Date VIS Provided VIS Publication Date 05/09/25 Single Vaccine 23 Eligibility Eligibility Date Funding Source Not [facility] Eligible 05/09/25 Private Assessment & Plan Assessment & Plan (1) GERD (gastroesophageal reflux disease): Code(s): K21.9 - Gastro-esophageal reflux disease without esophagitis Category: Medical (2) Autoimmune hepatitis: Code(s): K75.4 - Autoimmune hepatitis Category: Medical (3) Cirrhosis of liver without ascites: Code(s): K74.60 - Unspecified cirrhosis of liver Category: Medical Qualifiers: Hepatic cirrhosis type: unspecified hepatic cirrhosis Qualified Code(s): K74.60 - Unspecified cirrhosis of liver (4) Gallstone pancreatitis: Comment: s/p cholocystectomy 07/13/2023 Code(s): K85.10 - Biliary acute pancreatitis without necrosis or infection Category: Medical (5) Colon cancer screening: Code(s): Z12.11 - Encounter for screening for malignant neoplasm of colon Category: Medical Plan 59 year old Australian-speaking female (understands and speaks some Finnish) with autoimmune hepatitis (diagnosed in 2015), mood disorder, gastroesophageal reflux disease seen for FU of autoimmune hepatitis. Pt was hospitalized at [facility] from 03/26 to 03/29/23 for autoimmune hepatitis and was discharged on Prednisone taper. Pt was admitted to [facility] 04/05/23 with severe epigastric pain, Jaundice and elevated LFTs and acute cholecystitis by CT and US finding, acute gallstone pancreatitis with Lipase > 3000.? Pt reports she was diagnosed with Autoimmune Hepatitis in 2015 and treated with Azathioprine and Prednisone)-? followed by Dr Bobby ([facility]) in the past and now sees DANICA Holley at [facility] (last visit was in December,).? Pt was diagnosed with Cirrhosis in 2018 - attributed to a combination of AIH and RAMIREZ). She being treated with Azathioprine 50 mg daily and reports she had been compliant in taking the medication. From documentation appears to have been in remission prior to admission in March, which in turn seems to have been a combination of non-adherence to tx (as pt ran out of meds) as well as biliary pancreatitis both contributing to elevated LFTs. Thiopurine metabolites did not reveal azathioprine toxicity Pt switched her Hepatology care to Dr Lind [facility] since 06/2023. Pt had a lap phi on 07/13/[address] Alcala ([facility] surgery). Plan: - Check MELD labs and IgG - Increase Azathiopurine to 100 mg and continue Prednisone 10 mg daily - She is also due for an EGD. Will get records from [facility] to see if needs a same day colonoscopy. - Next US due in Oct 2022. - Referral to Liver transplant is not indicated since patient has a low MELD of 8 and is not decompensated. 03/21/24 Has been taking Prednisone 10 mg and azathioprine 100 mg daily. Taking Omerpazole 20 mg daily and continues to have burning pain in the retrosternal area. Advised to increase to twice a day. 06/20/24 Pt advised to decrease prednisone to 7.5 mg daily and continue azathioprine at 100 mg daily If pt remains in remission, prednisone will be tapered off slowly. 04/11/25 Pt sent for surgical risk stratification prior to back surgery Based on recent labs, Pt's MELD Na score is 8 Thirty-day mortality can range from 5.7% (MELD score,<8) to more than 50% (MELD score,>20) Hep B immunization (1st injection today) Schedule [facility] - HCC surveillance Follow up in 4 weeks with repeat labs Post Operative Mortality Risk in this patient with compensated cirrhosis is calculated to be: 7 days 30 days 90 days 1 year 5 years 1.55 % 6.22 % 9.86 % 22.7 % 51 % 05/09/25 Continue Omeprazole 20 mg twice daily for GERD Hep B 2nd injection today Schedule EGD (FU of esophageal varices & GERD) and Colonoscopy Has FU appt on 06/26/25 Orders: Orders Hepatitis B Adult Immunization Today K74.60 - Unspecified cirrhosis of liver Referrals GI Procedure Notification K21.9 - Gastro-esophageal reflux disease without esophagitis, K74.60 - Unspecified cirrhosis of liver, Z12.11 - Encounter for screening for malignant neoplasm of colon Medications: New hepatitis B virus vacc.rec(PF) (Engerix-B (PF)) 2nd dose 1 mL IM ONCE 1 mL 0RF 1 day Coding Level of Care Code Est Pt Level 4 (57158) Diagnoses GERD (gastroesophageal reflux disease) K21.9 Autoimmune hepatitis K75.4 Cirrhosis of liver without ascites, unspecified hepatic cirrhosis type K74.60 Hepatic cirrhosis type: unspecified hepatic cirrhosis Gallstone pancreatitis K85.10 Colon cancer screening Z12.11 Time Spent (min) 20
[2025-05-09 07:22] VITALS: BP 123/77; PULSE 88; O2SAT 97; BMI 34.9
== END 2025-05-09 08:19 | disposition home or self-care (01) ==
LOC: HO.HGI 07:12
PROVIDERS: PCP Internal Medicine; Visit Provider Internal Medicine Gastroenterology
DX: K74.60 Unspecified cirrhosis of liver (principal)

== ENCOUNTER → 2025-05-09 07:11 | Outpatient (BNVA) | payer OTHER, SELFPAY | PROVIDERS: PCP Internal Medicine; Visit Provider Internal Medicine Gastroenterology | DX: Z01.818 Encounter for other preprocedural examination (principal); K74.60 Unspecified cirrhosis of liver; K21.9 Gastro-esophageal reflux disease without esophagitis; K75.4 Autoimmune hepatitis; K85.10 Biliary acute pancreatitis without necrosis or infection; Z23 Encounter for immunization | CPT/HCPCS: 90471; 90746 ==

== ENCOUNTER 2025-06-02 08:02 | Outpatient (AMB) | payer OTHER, SELFPAY ==
--- NOTE | 2025-06-02 08:04 | A.OFFVIS_ITS ---
Vital Signs 06/02/25 08:09 Height 4 ft 11 in Weight 169 lb BMI 34.1 BP 120/68 Intake Visit Reasons: annual/DO NOT RS Bilingual Call Center Representative Required: Yes Bilingual Call Center Representative Language: Laborer Filter Plant Services: Bilingual Call Center Representative Present (in person) Bilingual Call Center Representative Name: Priyanka ROLLINS Information Interpreted: non-clinical & clinical Wafer Polisher: Wafer Polisher Present (Priyanka ROLLINS) Accompanied by: Self / Same As Patient Allergies trazodone Allergy (Unknown, Verified 06/02/25 08:11) Abdominal Pain Post menopausal: Yes HPI Comments Details: Presenting for annual exam. No complaints. Last Pap/HPV was in 12/26 was negative Last Mammogram was in 08/27, BI-RADS 1 No previous screening colonoscopy PFSH Medical History History of MRSA infection Thrombocytopenia Gallstone pancreatitis GERD (gastroesophageal reflux disease) Cirrhosis of liver without ascites Jaundice Anxiety and depression Chronic low back pain Asthma Surgical History H/O colonoscopy S/P cholecystectomy Hx of tubal ligation Family History Mother Lung cancer Father No problems noted. Social History Household Members: Spouse Housing: Apartment Are you a primary progressive care unit registered nurse to a significant other at home: No Do you presently have visiting nurse or other home services: Yes (TYPEWRITER ASSEMBLER) Alcohol intake: former Patient Tobacco Use Status: Former Tobacco user Tobacco use type: Cigarette e-Cigarette/Vaping Use: Never Used Second Hand Smoke Exposure: No service: No Current occupational status: disabled Current occupational exposures/hazards: No Sexual orientation: Straight/Heterosexual Gender identity: Female Cognitive needs: No Hearing needs: No Vision needs: Yes Female Reproductive History Menstrual Menopause type: natural Date of last pap smear: 12/12/23 Date of Mammogram: 08/20/24 Review of Systems Const All systems reviewed & are unremarkable except as noted in HPI and below Card Reports as per HPI Resp Reports as per HPI GI Reports as per HPI and Reports no additional complaints Reports as per HPI Physical Exam Vital Signs: BMI result Body Mass Index 34.1 Const General: cooperative, healthy appearing and comfortable Chest Chest palpation & inspection: normal inspection of the chest and normal palpation of entire chest wall Breast/axilla inspection: normal inspection of the breasts and normal inspection of the axillae Breast/axilla palpation: normal palpation of the breasts, normal palpation of the axillae and no axillary lymphadenopathy Resp Effort & Inspection: normal respiratory effort Auscultation: clear to auscultation bilaterally Percussion: percussion normal Cardio Palpation: normal PMI Rate: regular rate Rhythm: regular rhythm Heart sounds: no murmurs and no rubs Peripheral pulses: Peripheral pulses 2+ throughout GI Inspection: Yes normal to inspection Palpation (GI): Soft to palpation, nontender, no guarding, not rigid and No hepatosplenomegaly present Percussion: Yes normal to percussion Auscultation: normal bowel sounds Rectal Exam - Female: deferred General: Yes bladder normal to palpation External Female Exam: No lesion Speculum Exam - Vagina: normal appearance of the vagina, normal palpation, normal vaginal discharge and not erythematous Speculum Exam - Cervix: normal appearance of the cervix and normal palpation Bimanual exam- vagina & uterus: normal bimanual exam, normal palpation, uterine size normal, bladder normal to palpation, consistency normal and normal palpation Bimanual Exam- Adnexa, other: normal adnexae, no masses and no tenderness Assessment & Plan Assessment & Plan (1) Well woman exam: Code(s): Z01.419 - Encounter for gynecological examination (general) (routine) without abnormal findings Category: Medical Plan: Cotesting not indicated this year. Instructions given the patient to schedule next screening Mammogram in 08/28. Counseled the patient about the recommended dietary allowance of 1000 mg of Calcium & 600 IU of vitamin D. The patient was instructed to perform monthly self-breast exams and to schedule an annual exam in a year; All questions answered and the patient verbalized understanding. Instructed the patient to schedule annual exam in a year Orders: Orders MM tomosynthesis screening BI Today Z12.31 - Encounter for screening mammogram for malignant neoplasm of breast Coding Level of Care Code Est Pt Prev Care 40-64y(81075) Diagnoses Well woman exam Z01.419
[2025-06-02 08:09] VITALS: BP 120/68; BMI 34.1
== END 2025-06-02 08:26 | disposition home or self-care (01) ==
LOC: HO.HWS 08:02
PROVIDERS: PCP Internal Medicine; Visit Provider Obstetrics & Gynecology
DX: Z01.419 Encounter for gynecological examination (general) (routine) without abnormal findings (principal)
CPT/HCPCS: 99396; 99459

== ENCOUNTER → 2025-06-02 08:02 | Outpatient (BNVA) | payer OTHER, SELFPAY | PROVIDERS: PCP Internal Medicine; Visit Provider Obstetrics & Gynecology | DX: Z01.419 Encounter for gynecological examination (general) (routine) without abnormal findings (principal) | CPT/HCPCS: 99396 ==

== ENCOUNTER 2025-06-10 08:09 | Outpatient (REF) | payer OTHER, SELFPAY ==
--- NOTE | ~2025-06-10 | US_ITS ---
CLINICAL HISTORY: K74.60 - Unspecified cirrhosis of liver --- Additional Notes or Special Instructions: screen for HCC US abdomen limited with duplex and color Doppler Comparison: US/IA/SR - US ABDOMEN LIMITED - 06/21/23 07:21 EDT Findings: Visualized pancreas is normal. Tail obscured by bowel gas. Liver is normal in size with heterogeneous echotexture and nodular contour possible cirrhosis. Right lobe length 13.0 cm. No focal hepatic masses. Common duct 5.0 mm diameter. Post cholecystectomy. No sonographic Shea sign. Main portal vein antegrade. Right kidney measures, 10.9 cm in length. Normal cortical width and echotexture. No hydronephrosis calculus or mass. Renovascular calcifications. Impression: 1. Cirrhotic appearing liver. No focal hepatic lesions. 2. Post cholecystectomy. No biliary dilatation. No sonographic Shea's sign. 3. Hepatopetal flow in a patent portal vein. This document has been electronically signed by: Mike Chapin MD on 06/10/2025 13:00:42
--- OUTSIDE RECORDS SUMMARY | 2025-06-10 08:24 | XMS_ITS | Encounter Summary ---
Author Organization [facility] Address [address] [place] [address] Care Team Providers Care Strike Operations Officer Name Role Phone Shanta Busch MD Primary Care Provider Unavail able Liss Valdez MD Primary Care Provider [phone] Encounter Details Date Type Department Care Team Description 05/20/2019 Orders Only Adult Medicine [address] [id number] Camila Alcantar PA-C Social History Tobacco Use [...] on filedocumented in this encounter Care Teams Strike Operations Officer Relationship Specialty Start Date End Date Shanta Busch MD PCP - General Internal Medicine 08/15/16 08/16/21 Liss Valdez MD [address] [place] [address] [id number] PCP - General Internal Medicine 08/17/21 documented as of this encounter
--- OUTSIDE RECORDS SUMMARY | 2025-06-10 08:24 | XMS_ITS | Encounter Summary ---
Author Organization [facility] Address [address] [place] [address] Care Team Providers Care Summer Law Clerk Name Role Phone Shanta Busch MD Primary Care Provider Unavail able Liss Valdez MD Primary Care Provider [phone] Encounter Details Date Type Department Care Team Description 01/07/2019 Oil Spreader Operator Report Medical Records [address] [place] [id number] Bruno Freedman Social History Tobacco Use Types [...] on filedocumented in this encounter Care Teams Summer Law Clerk Relationship Specialty Start Date End Date Shanta Busch MD PCP - General Internal Medicine 08/15/16 08/16/21 Liss Valdez MD [address] [place] [address] [id number] PCP - General Internal Medicine 08/17/21 documented as of this encounter
--- OUTSIDE RECORDS SUMMARY | 2025-06-10 08:24 | XMS_ITS | Encounter Summary ---
Author Organization [facility] [employer] [facility] Address [address] [place] [address] Care Team Providers Care Finish Remover Name Role Phone Shree Armendariz MD Primary Care Provider Roger Paulino Pcp Primary Care Provider Shanta Downs MD Primary Care Provider Unavail able Liss Valdez MD Primary Care Provider [phone] Encounter Details Date Type Department Care Team Description 06/14/2013 Home Health Certification Medical Records [address] [place] [address] Vna Social History Tobacco Use Types Packs/Day Years [...] on filedocumented in this encounter Care Teams Finish Remover Relationship Specialty Start Date End Date Shree Armendariz MD PCP - General Internal Medicine 05/27/13 09/22/13 Roderick, Aimee PCP - General Internal Medicine 09/23/13 08/14/16 Shanta Busch MD PCP - General Internal Medicine 08/15/16 08/16/21 Liss Valdez MD [address] [place], [place] [phone] PCP - General Internal Medicine 08/17/21 documented as of this encounter
--- OUTSIDE RECORDS SUMMARY | 2025-06-10 08:25 | XMS_ITS | Encounter Summary ---
Author Organization [facility] Address [address] [place] [address] Care Team Providers Care Curtain Cleaner Name Role Phone Shanta Busch MD Primary Care Provider Unavail able Liss Valdez MD Primary Care Provider [phone] Encounter Details Date Type Department Care Team Description 03/09/2018 [facility] Medical Records [address] [place] [id number] Abstract, Provider Social History Tobacco Use Types [...] on filedocumented in this encounter Care Teams Curtain Cleaner Relationship Specialty Start Date End Date Shanta Busch MD PCP - General Internal Medicine 08/15/16 08/16/21 Liss Valdez MD [address] [place] [address] [phone] PCP - General Internal Medicine 08/17/21 documented as of this encounter
--- OUTSIDE RECORDS SUMMARY | 2025-06-10 08:25 | XMS_ITS | Encounter Summary ---
Author Organization [facility] [facility] Address [address] [place] [address] Care Team Providers Care Pulp House Supervisor Name Role Phone Shanta Busch MD Primary Care Provider Unavail able Liss Valdez MD Primary Care Provider [phone] Encounter Details Date Type Department Care Team Description 07/04/2018 [facility] Medical Records [address] [place] [id number] Gary Yip MD Social History Tobacco Use [...] on filedocumented in this encounter Care Teams Pulp House Supervisor Relationship Specialty Start Date End Date Shanta Busch MD PCP - General Internal Medicine 08/15/16 08/16/21 Liss Valdez MD [address] [place] [id number] PCP - General Internal Medicine 08/17/21 documented as of this encounter
--- OUTSIDE RECORDS SUMMARY | 2025-06-10 08:25 | XMS_ITS | Encounter Summary ---
Author Organization [facility] [employer] [facility] Address [address] [place] [address] Care Team Providers Care Gamma Facilities Operator Name Role Phone Liss Valdez MD Primary Care Provider [phone] Encounter Details Date Type Department Care Team Description 12/19/2022 Release of Information Medical Records [address] [place] [id number] Abstract, Provider Social History Tobacco Use Types [...] AM EDT documented as of this encounter Plan of Treatment Not on file documented as of this encounter Visit Diagnoses Not on filedocumented in this encounter Care Teams Gamma Facilities Operator Relationship Specialty Start Date End Date Liss Valdez MD [address] [place] [address] [phone] PCP - General Internal Medicine 08/17/21 documented as of this encounter
--- OUTSIDE RECORDS SUMMARY | 2025-06-10 08:25 | XMS_ITS | Clinical Summary ---
Author Organization [facility] Address [address] [place] [address] Care Team Providers Care Fitness Professional Name Role Phone Unavailable Primary Care Provider [...] this topic Anastasia Dhaliwal Personal/Family Self [address] [place] [address]
--- OUTSIDE RECORDS SUMMARY | 2025-06-10 08:25 | XMS_ITS | Clinical Summary ---
Author Organization [facility] Address [address] [place] [address] Care Team Providers Care Senior Clinical Research Associate Name Role Phone Liss Valdez MD Primary Care Provider [phone] Allergies No known active allergies Medications Medication [...] L5-S1. No nerve root compression. Follows with [facility] orthopedics and getting good relief with corticosteroid injection. Resolved Problems Problem Noted Date Resolved Date PTSD (post-traumatic stress disorder) 09/12/2016 02/22/2017 Abnormal LFTs 09/12/2016 10/28/2016 Inflammatory polyarthropathy 09/12/201610/2019 SLE (systemic lupus erythematosus) 09/12/2016 12/05/2019 Chronic low back pain 08/25/2016 12/05/2019 Anemia 12/05/2019 Overview: Mild Immunizations Name Administration Dates Next Due Hepatitis B > 19yrs 12/12/2011,10/26/2011 Hepatitis-A (>19YRS) 10/26/2011 MMR (Xslyyqw-Gbobw-Ixxpbhn) 10/12/2011 Pneumoccoccal(Adult) Polysaccharide PPSV23 09/13 Tdap 10/12/2011 [...] 78 12/15/2022 9:02 AM EDT Temperature 36.3 C (97.4 F) 02/08/2021 1:09 PM EDT Respiratory Rate 16 02/08/2021 1:09 PM EDT [...] (2 - Td or Tdap) 10/12/2021 10/12/2011 BMI CHECK/ADVISE 09/04/2024 02/08/2021, 03/2021, 09/10/2020, Additional history exists INFLUENZA (#1) 2025 08/12/2019 (Exte rnal Completion of Vaccination per patient), 06/27/2016 (External Completion of Vaccination per patient) COLON CANCER SCREENING 10/30/2029 0 (Completed), 10/30/2019 PNEUMOCOCCAL VACCINE FOR HIG H RISK PATIENTS (#2) 11/07/2031 09/13/2011 HEPATITIS C SCREENING Completed 12/15/2022 , 01/22/2018 (External Completion) Advance Directives For more information, please contact: [phone] Latest Code Status on File Code Status Date Activated Date Inactivated Comments Full Code 10/03/2016 2:19 PM Per [facility] order filled out by Dr. Karolina Can MD 07/24/15 Care Teams Senior Clinical Research Associate Relationship Specialty Start Date End Date Liss Valdez MD [address] [place] [address] [id number] PCP - General Internal Medicine 08/17/21
--- OUTSIDE RECORDS SUMMARY | 2025-06-10 08:25 | XMS_ITS | Encounter Summary ---
Author Organization [employer] [facility] Address [address] [place] [address] Care Team Providers Care Manager Wholesale Name Role Phone Shanta Busch MD Primary Care Provider Unavail able Liss Valdez MD Primary Care Provider [phone] Encounter Details Date Type Department Care Team Description 08/21/2018 [facility] Medical Records [address] [place] [address] Abstract, Provider Social History Tobacco Use Types [...] filedocumented in this encounter Care Teams Manager Wholesale Relationship Specialty Start Date End Date Shanta Busch MD PCP - General Internal Medicine 08/15/16 08/16/21 Liss Valdez MD [address] [place] [address] [phone] PCP - General Internal Medicine 08/17/21 documented as of this encounter
--- OUTSIDE RECORDS SUMMARY | 2025-06-10 08:25 | XMS_ITS | Encounter Summary ---
Author Organization [facility] Address [address] [place] [address] Care Team Providers Care Brewery Technician Name Role Phone Shanta Busch MD Primary Care Provider Unavail Liss Figueroa MD Primary Care Provider [phone] Reason for Referral * EXTERNAL (Routine) - Authorized/Booked Specialty Diagnoses / Procedures Referred By Yamileth gandhi Referred To Contact Physical Therapy Procedures REFERRAL TO PHYSICAL THERAPY Camila Alcantar PA-C [address] [place] [id number] External Phys Thrpy Referral ID Status Reason Start Date Expiration Date V isits Requested Visits Authorized SEE NOTE Authorized/B ooked 08/10/2018 11/08/2018 1 1 Reason for Visit * Reason Onset Date Comments REFERRAL 08/10/2018 Encounter Details Date Type Department Care Team Description 08/10/2018 Telephone Adult Medicine [address] [address] Camila Alcantar PA-C REFERRAL Social History Tobacco Use Types Packs/Day Years [...] encounter Miscellaneous Notes * Telephone Encounter - Jenny Warner C.M.A. - 08/10/2018 3:03 PM EST Referral has been placed. * Telephone Encounter - Camila Alcantar PA-C - 08/10/2018 1:59 PM EST Signed order. Thank you, Camila Alcantar PA-C * Telephone Encounter - Gavi Nichole M.A. - 08/10/2018 1:16 PM EST New ref to PT pended * Telephone Encounter - Beba Hodge M.A. - 08/10/2018 1:15 PM EST Camila, Will you change referral to provider listed below? * Telephone Encounter - Kathryn Gonzales - 08/10/2018 12:34 PM EST Pt is requesting a referral to Alexx Hodge @ [address] [place] [address] 2nd Floor [facility] [phone] For arm pain instead of [facility] pt saw Camilaarcelia Alcantar on 08/06/18 documented in this encounter Plan of Treatment Not on file documented as of this encounter Visit Diagnoses Not on filedocumented in this encounter Care Teams Brewery Technician Relationship Specialty Start Date End Date Shanta Busch MD PCP - General Internal Medicine 08/15/16 08/16/21 Liss Valdez MD [address] [place] [id number] PCP - General Internal Medicine 08/17/21 documented as of this encounter
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
--- OUTSIDE RECORDS SUMMARY | 2025-06-10 08:25 | XMS_ITS | Clinical Summary ---
Author Organization [facility] Address [address] [address] Care Team Providers Care Grout Pump Operator Name Role Phone Geraldine Maria MD Primary Care Provider [phone] Allergies Active Allergy Reactions Criticality Noted Date [...] L5-S1. No nerve root compression. Follows with [facility] orthopedics and getting good relief with [...] Only [facility] - [facility] [address] [place] [phone] Neo Mcdonnell MD [address] [place] [phone] Health Maintenance Due Date Last Done Comments [...] (6 to 49 Years) Discontinued 09/13/2011 Insurance [facility] ([id number]) Care Teams Grout Pump Operator Relationship Specialty Start Date End Date Geraldine Maria MD [address] [place], [place] PCP - General Internal Medicine 11/12/24
--- OUTSIDE RECORDS SUMMARY | 2025-06-10 08:26 | XMS_ITS | Encounter Summary ---
Author Organization [email or web address] [facility] Address [address] [place] [address] Care Team Providers Care Duct Layer Helper Name Role Phone Shanta Busch MD Primary Care Provider Unavail able Liss Valdez MD Primary Care Provider [phone] Encounter Details Date Type Department Care Team Description 10/20/2017 Transfer Records Medical Records [address] [place] [address] Abstract, Provider Social History Tobacco Use Types [...] on filedocumented in this encounter Care Teams Duct Layer Helper Relationship Specialty Start Date End Date Shanta Busch MD PCP - General Internal Medicine 08/15/16 08/16/21 Liss Valdez MD [address] [place] [address] [id number] PCP - General Internal Medicine 08/17/21 documented as of this encounter
--- OUTSIDE RECORDS SUMMARY | 2025-06-10 08:26 | XMS_ITS | Encounter Summary ---
Author Organization [facility] Address [address] [place] [address] Care Team Providers Care Rock Wool Applicator Name Role Phone Shanta Busch MD Primary Care Provider Unavail able Liss Valdez MD Primary Care Provider [phone] Reason for Visit * Reason Comments E-prescribe Rx Request Encounter Details Date Type Department Care Team Description 07/06/2020 Refill Gastroenterology - [address] [place] [address] Alem Bobby MD E-prescribe Rx [...] on filedocumented in this encounter Care Teams Rock Wool Applicator Relationship Specialty Start Date End Date Shanta Busch MD PCP - General Internal Medicine 08/15/16 08/16/21 Liss Valdez MD [address] [place] [address] [id number] PCP - General Internal Medicine 08/17/21 documented as of this encounter
--- OUTSIDE RECORDS SUMMARY | 2025-06-10 08:26 | XMS_ITS | Encounter Summary ---
Author Organization [facility] Address [address] [place] [address] Care Team Providers Care Enforcement Officer Name Role Phone Shanta Busch MD Primary Care Provider [facility] able Liss Valdez MD Primary Care Provider [phone] Encounter Details Date Type Department Care Team Description 04/18/2018 Import/Export Clerk Report Medical Records [address] [place] [address] Jose Sterling MD Social History Tobacco Use [...] on filedocumented in this encounter Care Teams Enforcement Officer Relationship Specialty Start Date End Date Shanta Busch MD PCP - General Internal Medicine 08/15/16 08/16/21 Liss Valdez MD [address] [place] [address] [phone] PCP - General Internal Medicine 08/17/21 documented as of this encounter
--- OUTSIDE RECORDS SUMMARY | 2025-06-10 08:26 | XMS_ITS | Encounter Summary ---
Author Organization [facility] Address [address] [place] [address] Care Team Providers Care Criminal Justice Teacher Name Role Phone Shanta Busch MD Primary Care Provider Unavail able Liss Valdez MD Primary Care Provider [phone] Encounter Details Date Type Department Care Team Description 07/04/2018 Hospital Medical Records [address] [place] [address] Shae Oliva Social History Tobacco Use Types Packs/Day Years [...] on filedocumented in this encounter Care Teams Criminal Justice Teacher Relationship Specialty Start Date End Date Shanta Busch MD PCP - General Internal Medicine 08/15/16 08/16/21 Liss Valdez MD [address] [place] [id number] PCP - General Internal Medicine 08/17/21 documented as of this encounter
--- OUTSIDE RECORDS SUMMARY | 2025-06-10 08:26 | XMS_ITS | Encounter Summary ---
Author Organization [facility] Address [address] [place] [address] Care Team Providers Care Burner Operator Name Role Phone Shanta Busch MD Primary Care Provider [facility] Liss Valdez MD Primary Care Provider [phone] Encounter Details Date Type Department Care Team Description 03/24/2020 Career Discovery Teacher Report Medical Records [address] [place] [address] [facility] [address] [place] [address] [id number] Social History Tobacco Use Types Packs/Day Years [...] on filedocumented in this encounter Care Teams Burner Operator Relationship Specialty Start Date End Date Shanta Busch MD PCP - General Internal Medicine 08/15/16 08/16/21 Liss Valdez MD [address] [place] [address] [phone] PCP - General Internal Medicine 08/17/21 documented as of this encounter
--- OUTSIDE RECORDS SUMMARY | 2025-06-10 08:26 | XMS_ITS | Encounter Summary ---
Author Organization [facility] Address [address] [place] [address] Care Team Providers Care Waterproofing Supervisor Name Role Phone Gurpreet Busch MD Primary Care Provider Unavail [facility] Liss Valdez MD Primary Care Provider [phone] Reason for Visit * Reason Onset Date Comments medication problems 12/26/2017 Encounter Details Date Type Department Care Team Description 12/26/2017 Telephone Adult [address] [id number] Gurpreet Busch MD medication problems Social History [...] 3:46 PM EDT Spoke with Pt (primarily indian speaking) who gives consent to speak with [...] / Plan: [place] / Product Type: MEDICARE [id number] documented in this encounter Plan of Treatment Not on file documented as of this encounter Visit Diagnoses Not on filedocumented in this encounter Care Teams Waterproofing Supervisor Relationship Specialty Start Date End Date Gurpreet Busch MD PCP - General Internal Medicine 08/15/16 08/16/21 Liss Valdez MD [address] [place] [id number] PCP - General Internal Medicine 08/17/21 documented as of this encounter
--- OUTSIDE RECORDS SUMMARY | 2025-06-10 08:26 | XMS_ITS | Encounter Summary ---
Author Organization [facility] Address [address] [place] [address] Care Team Providers Care Manager Business Intelligence Name Role Phone Shanta Busch MD Primary Care Provider Unavail able Liss Valdez MD Primary Care Provider [phone] Encounter Details Date Type Department Care Team Description 09/27/2017 Hospital Medical Records [address] [place] [address] Andressa Christianson MD Social History Tobacco Use [...] filedocumented in this encounter Care Teams Manager Business Intelligence Relationship Specialty Start Date End Date Shanta Busch MD PCP - General Internal Medicine 08/15/16 08/16/21 Liss Valdez MD [address] [place] [id number] PCP - General Internal Medicine 08/17/21 documented as of this encounter
--- OUTSIDE RECORDS SUMMARY | 2025-06-10 08:26 | XMS_ITS | Clinical Summary ---
Demographics Address [address] [facility] [address] [place] [address] Home Phone Mobile Phone Email Address Preferred Language Estonian Marital Status Unknown Congregation Affiliation Unknown Race Unknown Ethnic Group Unknown Author Organization [facility] Address [address] [place] [address] Care Team Providers Care Capacity Manager Name Role Phone Fritz Irby RD Primary Care Provider [phone] Source Comments PLEASE NOTE, if this patient [...] Treatment Not on file [place] Care Teams Capacity Manager Relationship Specialty Start Date End Date Fritz Irby [address] [place] [address] PCP - General Nutrition 11/03/17
--- OUTSIDE RECORDS SUMMARY | 2025-06-10 08:26 | XMS_ITS | Encounter Summary ---
Author Organization [employer] [facility] Address [address] [place] [address] Care Team Providers Care Medical Interpreter Name Role Phone Shanta Busch MD Primary Care Provider Unavail able Liss Valdez MD Primary Care Provider [phone] Encounter Details Date Type Department Care Team Description 11/01/2016 Business Doc Medical Records [address] [place] [address] Abstract, Provider Social History Tobacco Use Types [...] on filedocumented in this encounter Care Teams Medical Interpreter Relationship Specialty Start Date End Date Shanta Busch MD PCP - General Internal Medicine 08/15/16 08/16/21 Liss Valdez MD [address] [place] [address] [id number] PCP - General Internal Medicine 08/17/21 documented as of this encounter
--- OUTSIDE RECORDS SUMMARY | 2025-06-10 08:26 | XMS_ITS | Encounter Summary ---
Author Organization [facility] Address [address] [place] [address] Care Team Providers Care Water Filterer Name Role Phone Shanta Busch MD Primary Care Provider Unavail able Liss Valdez MD Primary Care Provider [phone] Encounter Details Date Type Department Care Team Description 10/30/2019 Hospital Medical Records [address] [place] [address] Alem Bobby MD Social History Tobacco Use [...] on filedocumented in this encounter Care Teams Water Filterer Relationship Specialty Start Date End Date Shanta Busch MD PCP - General Internal Medicine 08/15/16 08/16/21 Liss Valdez MD [address] [place] [address] [phone] PCP - General Internal Medicine 08/17/21 documented as of this encounter
--- OUTSIDE RECORDS SUMMARY | 2025-06-10 08:27 | XMS_ITS | Encounter Summary ---
Author Organization [facility] Address [address] [place] [address] Care Team Providers Care Sales Support Coordinator Name Role Phone Shanta Busch MD Primary Care Provider Unavail [facility] Liss Valdez MD Primary Care Provider [phone] Reason for Visit * Reason Onset Date Comments REFERRAL 06/20/2019 claims adjuster Encounter Details Date Type Department Care Team Description 06/20/2019 Telephone OBGYN - [address] [id number] Shanta Busch MD REFERRAL (claims adjuster) Social History Tobacco Use Types Packs/Day Years [...] encounter Miscellaneous Notes * Telephone Encounter - Alondra Valenzuela - 06/20/2019 12:44 PM EDT We have attempted to contact this patient for the order to see POWER ELECTRONICS RESEARCH ENGINEER for a routine exam. However, the patient has not responded to any of our phone calls. A letter has also been sent. For this reason, the order will be closed. If the patient changes her mind, please have her contact POWER ELECT[employer] RESEARCH ENGINEER for an appointment. Thank you. documented in this encounter Plan of Treatment Not on file documented as of this encounter Visit Diagnoses Not on filedocumented in this encounter Care Teams Sales Support Coordinator Relationship Specialty Start Date End Date Shanta Busch MD PCP - General Internal Medicine 08/15/16 08/16/21 Liss Valdez MD [address] [place] [id number] PCP - General Internal Medicine 08/17/21 documented as of this encounter
--- OUTSIDE RECORDS SUMMARY | 2025-06-10 08:27 | XMS_ITS | Encounter Summary ---
Author Organization [employer] [facility] Address [address] [place] [address] Care Team Providers Care Automotive Parts Counter Associate Name Role Phone Shanta Busch MD Primary Care Provider Unavail able Liss Valdez MD Primary Care Provider [phone] Encounter Details Date Type Department Care Team Description 08/31/2016 [facility] Medical Records [address] [place] [address] Abstract, Provider Social History Tobacco Use Types [...] on filedocumented in this encounter Care Teams Automotive Parts Counter Associate Relationship Specialty Start Date End Date Shanta Busch MD PCP - General Internal Medicine 08/15/16 08/16/21 Liss Valdez MD [address] [place] [address] [phone] PCP - General Internal Medicine 08/17/21 documented as of this encounter
== END 2025-06-10 08:10 | disposition home or self-care (01) ==
LOC: HO.US 08:09
PROVIDERS: PCP Internal Medicine; Visit Provider Internal Medicine Gastroenterology
DX: K74.60 Unspecified cirrhosis of liver (principal)
CPT/HCPCS: 76705

== ENCOUNTER → 2025-06-10 08:13 | Outpatient (BNV) | payer OTHER, SELFPAY | PROVIDERS: PCP Internal Medicine; Visit Provider Radiology Diagnostic Radiology | DX: K74.60 Unspecified cirrhosis of liver (principal) | CPT/HCPCS: 76705 ==

== ENCOUNTER 2025-06-20 09:48 | Outpatient (REF) | payer OTHER, SELFPAY ==
[2025-06-20 10:21] LABS: Hematocrit 37.8 % (37.0-47.0); Hemoglobin 13.0 g/dl (12.0-16.0); Mean Corpuscular HGB Conc 34.4 g/dl (31.0-35.0); Mean Corpuscular Hemoglobin 31.2 pg (27.0-33.0); Mean Corpuscular Volume 90.6 fL (80.0-98.0); NRBC Abs Auto 0.000 X10*3/uL (0.0-0.012); NRBC Pct Auto 0.0 /100WBC (0.0-0.2); Platelet Count 101 X10*3/uL (160-400); Red Blood Count 4.17 X10*6/uL (4.20-5.50); White Blood Count 5.5 X10*3/uL (4.8-10.8)
--- OUTSIDE RECORDS SUMMARY | 2025-06-20 11:29 | XMS_ITS | Clinical Summary ---
Author Organization [facility] Address [address] [place] [address] Care Team Providers Care Manager Customs Name Role Phone Unavailable Primary Care Provider [...] this topic Anastasia Dhaliwal Personal/Family Self [address] [address]
--- OUTSIDE RECORDS SUMMARY | 2025-06-20 11:29 | XMS_ITS | Clinical Summary ---
Author Organization [facility] Facility Address [address] [address] Care Team Providers Care Hospital Monitor Name Role Phone Geraldine Maria MD Primary Care Provider [phone] Allergies Active Allergy Reactions Criticality Noted Date [...] L5-S1. No nerve root compression. Follows with [facility] orthopedics and getting good relief [...] Only [facility] [place] - Vascular Access Center [address] [place] [phone] Neo Mcdonnell MD [address] [place] [phone] Health Maintenance Due Date Last Done Comments [...] (6 to 49 Years) Discontinued 09/13/2011 Insurance [facility] ([id number]) Care Teams Hospital Monitor Relationship Specialty Start Date End Date Geraldine Maria MD [address] [place], [place] PCP - General Internal Medicine 11/12/24
--- OUTSIDE RECORDS SUMMARY | 2025-06-20 11:29 | XMS_ITS | Clinical Summary ---
Demographics Address [address] [facility] [address] [place] [address] Home Phone Mobile Phone Email Address Preferred Language Cameroonian Marital Status Unknown Worship Affiliation Unknown Race Unknown Ethnic Group Unknown Author Organization [facility] Address [address] [place] [address] Care Team Providers Care Swing Manager Name Role Phone Fritz Irby RD Primary Care Provider [phone] Source Comments PLEASE NOTE, if this patient [...] [place] Care Teams Swing Manager Relationship Specialty Start Date End Date Fritz Irby RD [address] [place] [address] PCP - General Nutrition 11/03/17
[2025-06-20 13:29] LABS: Alanine Aminotransferase 13 U/L (0-31); Albumin Level 3.5 g/dL (3.5-5.0); Alkaline Phosphatase 119 U/L (39-117); Aspartate Amino Transferase 37 U/L (5-31); Estimated Glomerular Filt Rate > 60; Total Protein 7.5 g/dL (6.5-8.0)
[2025-06-20 14:24] LABS: Folate 8.3 ng/mL (> or = 4.0); Vitamin B12 321 pg/mL (200-900)
[2025-06-21 06:13] LABS: Immunoglobulin G 2175 mg/dL (600-1640)
== END 2025-06-20 09:49 | disposition home or self-care (01) ==
LOC: HO.LAB 09:48
PROVIDERS: Physician Assistant; PCP Internal Medicine; Visit Provider Internal Medicine Gastroenterology
DX: K74.60 Unspecified cirrhosis of liver (principal); D69.6 Thrombocytopenia, unspecified
CPT/HCPCS: 36415; 80076; 80299; 82306; 82565; 82607; 82746; 82784; 85027

== ENCOUNTER 2025-06-26 10:38 | Outpatient (AMB) | payer OTHER, SELFPAY ==
--- NOTE | 2025-06-26 11:02 | A.OFFVIS_ITS ---
Vital Signs 06/26/25 11:05 Height 4 ft 11 in Weight 164 lb BMI 33.1 BP 131/74 Blood Pressure Location Lt brachial Position Sitting Pulse 79 Pulse Oximetry (%) 80 L Oxygen Delivery Method Room Air Intake Visit Reasons: f/u cirrhosis Intake Note: Patient follow up for Autoimmune hepatitis and US results, EGD/Colonoscopy was cancel. Patient denies any GI issues. Die Forger Required: Yes Die Forger Name: GISELA Uriostegui Accompanied by: Self / Same As Patient Allergies trazodone Allergy (Unknown, Verified 07/22/25 13:24) Abdominal Pain Medication List - Last Reconciled 06/26/25 by Kaylene Prabhakar MD albuterol sulfate 90 mcg/actuation 2 puffs inhalation Q6H PRN azathioprine 100 mg (2 x 50 mg) PO DAILY 90 days baclofen 10 mg PO BEDTIME cetirizine (All Day Allergy (cetirizine)) 10 mg PO DAILY PRN 90 days gabapentin 400 mg PO TID 30 days multivitamin-calcium carb 1 tab PO DAILY nebulizers (AeroEclipse II Nebulizer) As directed omeprazole 20 mg PO BID prednisone 10 mg PO DAILY 60 days umeclidinium-vilanterol 62.5-25 mcg/actuation (Anoro Ellipta) 1 ea inhalation DAILY HPI HPI f/u cirrhosis: Details: GI clinic visit for this 59 year old Amharic speaking female for 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 Denies abdominal pain, heartburn or dysphagia, diarrhea or constipation Pt states she has been compliant with her medications for AIH. Scheduled for back surgery on 07/01/25 PAST VISITS: Pt was scheduled for back surgery with Rocael Duong MD,PhD and surgery was cancelled due to cirrhosis Pt had recent I & D of abscesses of multiple sites - axilla, labia and buttock Patient cc: acid reflex on and off. Denies any other GI issues. Patient went to the ED last week due an abscess. Pt is tearful due to pain in the vulvar area (labial abscess) Unable to sleep due to pain. Has been taking Tylenol, motrin and Ibuprofen without relief Has been taking Prednisone 10 mg and azathioprine 100 mg daily. Taking Omerpazole 20 mg daily and continues to have burning pain in the retrosternal area. Advised to increase to twice a day. Intermittent heartburn when she forgets to take Omeprazole - denies dysphagia Patient denies change in appetite and has gained weight due to prednisone Denies recent change in bowel habits, constipation, diarrhea, black stools or rectal bleeding. Patient denies major cardiac or pulmonary problems, loud snoring or sleep apnea Denies problems with anesthesia in the past. Denies being on chronic anticoagulation. Patient denies known family history of colon polyps, colon cancer or other GI malignancies. PAST EGD/COLONOSCOPY: Pt had an EGD and a colonoscopy at [facility] in the past - will obtain records Pt reports she was diagnosed with Autoimmune Hepatitis and was followed by Dr Bobby and now sees DANICA Holley at [facility] Her last visit was in December, She being treated with Azathioprine 50 mg daily and reports she has been compliant in taking the medication. She was also taking prednisone which she discontinued in December, after she ran out of the prescription. Patient denies family history of liver disease, colon polyps or colon cancer. Her mom and maternal grandfather with lung cancer and a maternal aunt has stomach cancer. [facility] Reviewed IMAGING STUDIES: 06/21/[address] SCAN SHOWED: 1. Mild stranding adjacent to the pancreas, which could reflectpancreatitis in the proper clinical setting. 2. Thick-walled appearance of the gallbladder, similar to 04/05/2023.This could be secondary to chronic liver disease, though acutecholecystitis would be difficult to entirely exclude in the proper clinical setting. 3. Cirrhotic liver with sequela of portal hypertension includingborderline splenomegaly and prominent varices. 4. Prominent uterus with suggestion of underlying fibroids, whichcould be further assessed with pelvic ultrasound. 06/21 23 ABD US SHOWED: 1. Cirrhotic appearing liver. 2. Abnormal gallbladder with gallstones and thickened wall containingfluid. Question of a stone lodged in the cystic duct. Although similarfindings have been seen on prior studies, the correct clinical setting findings would be suspicious for cholecystitis. HIDA scan may be useful for further evaluation. 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 PAST GI HISTORY BY REVIEW OF MEDICAL RECORDS: 06/06/23 PT WAS SEEN BY DR LIND: AIH related compensated cirrhosis - MELD-Na 11 - Child Abarca Class B Prefers to switch Hepatology care to [facility]. Prev under care of Dr Bobby through [place]. From documentation appears to have been in remission prior to admission in March, which in turn seems to have been a combination of nonadherence to tx (as pt ran out of meds) as well as biliary pancreatitis both contributing to elevated LFTs. Currently undergoing eval for lap phi through [facility] surgery. Plan: - Check MELD labs and IgG - Resume Azathiopurine 50mg PO - If transaminases and IgG cont to improve, can complete taper as per schedule in 2 weeks - Since LFTs being confounded by gallstone disease, will recheck this after her surgery as well with low threshold to proceed with liver bx to monitor for any active inflammation. Limited role of continuing Azathiopurine if no active inflammation. - She is also due for an EGD. Will get records from [place] to see if needs colo alongside it. - Next US due in Oct 2022. - No indication for referral to transplant center for now since low MELD and not decompensated. Follow up in 8 weeks [facility] Medical History History of MRSA infection Thrombocytopenia Gallstone pancreatitis GERD (gastroesophageal reflux disease) Cirrhosis of liver without ascites Jaundice Anxiety and depression Chronic low back pain Asthma Surgical History H/O colonoscopy S/P cholecystectomy Hx of tubal ligation Family History Mother Lung cancer Father No problems noted. Social History Household Members: None Housing: Apartment Are you a primary child day care provider to a significant other at home: No Do you presently have visiting nurse or other home services: Yes Alcohol intake: former Patient Tobacco Use Status: Former Tobacco user Tobacco use type: Cigarette e-Cigarette/Vaping Use: Never Used Second Hand Smoke Exposure: No service: No Current occupational status: disabled Current occupational exposures/hazards: No Sexual orientation: Straight/Heterosexual Gender identity: Female Cognitive needs: No Hearing needs: No Vision needs: Yes Review of Systems Const All systems reviewed & are unremarkable except as noted in HPI and below Physical Exam Vital Signs: Last Vital Signs Pulse 79 06/26/25 11:05 BP 131/74 06/26/25 11:05 Pulse Ox 80 L 06/26/25 11:05 Oxygen Delivery Method Room Air 06/26/25 11:05 BMI result Body Mass Index 33.1 Const General: no acute distress Nutritional Appearance: obese Orientation/consciousness: patient oriented x3 Limitations: language barrier HEENT Head: Yes normal to inspection Ears: hearing grossly normal bilaterally Eyes Sclerae: sclerae normal Pupils: Equal, round and reactive pupils present Neck Neck: Yes normal visual inspection Chest Chest palpation & inspection: normal inspection of the chest Resp Effort & Inspection: normal respiratory effort Auscultation: clear to auscultation bilaterally Cardio Palpation: normal PMI Rate: regular rate Rhythm: regular rhythm Heart sounds: S1 normal heart sound present, S2 normal heart sound present and no murmurs GI Palpation (GI): Soft to palpation, nontender and No hepatosplenomegaly present Auscultation: normal bowel sounds Rectal Exam - Female: deferred Skin General skin exam: no rashes or lesions noted Neuro General: patient oriented x3, gait normal and moves all extremities Cranial nerves: Yes Equal, round and reactive pupils present Psych Appearance: grossly normal Mental Status: mental status grossly normal Assessment & Plan Assessment & Plan (1) GERD (gastroesophageal reflux disease): Code(s): K21.9 - Gastro-esophageal reflux disease without esophagitis Category: Medical (2) Gallstone pancreatitis: Comment: s/p cholocystectomy 07/13/2023 Code(s): K85.10 - Biliary acute pancreatitis without necrosis or infection Category: Medical (3) Autoimmune hepatitis: Code(s): K75.4 - Autoimmune hepatitis Category: Medical (4) Cirrhosis of liver without ascites: Code(s): K74.60 - Unspecified cirrhosis of liver Category: Medical Qualifiers: Hepatic cirrhosis type: unspecified hepatic cirrhosis Qualified Code(s): K74.60 - Unspecified cirrhosis of liver (5) Colon cancer screening: Code(s): Z12.11 - Encounter for screening for malignant neoplasm of colon Category: Medical Plan 59 year old Amharic-speaking female (understands and speaks some Romansh) with autoimmune hepatitis (diagnosed in 2015), mood disorder, gastroesophageal reflux disease seen for FU of autoimmune hepatitis. Pt was hospitalized at [facility] from 03/26 to 03/29/23 for autoimmune hepatitis and was discharged on Prednisone taper. Pt was admitted to [facility] 04/05/23 with severe epigastric pain, Jaundice and elevated LFTs and acute cholecystitis by CT and US finding, acute gallstone pancreatitis with Lipase > 3000.? Pt reports she was diagnosed with Autoimmune Hepatitis in 2015 and treated with Azathioprine and Prednisone)-? followed by Dr Bobby ([facility] in the past and now sees DANICA Holley at [facility] (last visit was in December,).? Pt was diagnosed with Cirrhosis in 2018 - attributed to a combination of AIH and RAMIREZ). She being treated with Azathioprine 50 mg daily and reports she had been compliant in taking the medication. From documentation appears to have been in remission prior to admission in March, which in turn seems to have been a combination of non-adherence to tx (as pt ran out of meds) as well as biliary pancreatitis both contributing to elevated LFTs. Thiopurine metabolites did not reveal azathioprine toxicity Pt switched her Hepatology care to Dr Lind [facility] since 06/2023. Pt had a lap phi on 07/13/[address] Alcala ([facility] surgery). Plan: - Check MELD labs and IgG - Increase Azathiopurine to 100 mg and continue Prednisone 10 mg daily - She is also due for an EGD. Will get records from [place] to see if needs a same day colonoscopy. - Next US due in Oct 2022. - Referral to Liver transplant is not indicated since patient has a low MELD of 8 and is not decompensated. 03/21/24 Has been taking Prednisone 10 mg and azathioprine 100 mg daily. Taking Omerpazole 20 mg daily and continues to have burning pain in the retrosternal area. Advised to increase to twice a day. 06/20/24 Pt advised to decrease prednisone to 7.5 mg daily and continue azathioprine at 100 mg daily If pt remains in remission, prednisone will be tapered off slowly. 04/11/25 Pt sent for surgical risk stratification prior to back surgery Based on recent labs, Pt's MELD Na score is 8 Thirty-day mortality can range from 5.7% (MELD score,<8) to more than 50% (MELD score,>20) Hep B immunization (1st injection today) 06/10/25 ABD US SHOWED: 1. Cirrhotic appearing liver. No focal hepatic lesions. 2. Post cholecystectomy. No biliary dilatation. No sonographic Shea's sign. 3. Hepatopetal flow in a patent portal vein. 05/09/25 Continue Omeprazole 20 mg twice daily for GERD Hep B 2nd injection today Schedule EGD (FU of esophageal varices & GERD) and Colonoscopy - scheduled 09/08/25 FU in 4 months Orders: Orders Complete Blood Count Auto Diff 09/18/25 Kaylene Prabhakar MD K75.4 - Autoimmune hepatitis Prothrombin Time INR 09/18/25 Kaylene Prabhakar MD K75.4 - Autoimmune hepatitis Immunoglobulin G 09/18/25 Kaylene Prabhakar MD K75.4 - Autoimmune hepatitis Comprehensive Met. Panel 09/18/25 Kaylene Prabhakar MD K75.4 - Autoimmune hepatitis Medications: New bisacodyl (Dulcolax (bisacodyl)) Take 4 tablets at 12 pm the day before colonoscopy appointment 20 mg (4 x 5 mg) PO ONCE 4 tabs 0RF colon prep 1 day Kaylene Prabhakar MD polyethylene glycol 3350 (Miralax) Mix Miralax with 64 oz(8 cups) of Crystal light. Take 2 tablets of Dulcolax qt 12 pm. Wait to have your 1st bowel movement, then begin drinking Miralax. Drink a glass of Miralax every 10-15 minutes until you are finished. You will drink at least another 4 cups of clear liquid of your choice over the next 2 hours. Please drink as many clear liquids as possible You may have clear liquids up to four hours before your procedure 17 grams PO DAILY 238 grams 0RF colon prep 1 day Kaylene Prabhakar MD cholecalciferol (vitamin D3) 25 mcg PO DAILY 90 caps 1RF 90 days Kaylene Prabhakar MD E55.9 - Vitamin D deficiency, unspecified On Hold prednisone Hold Comment: Resume on 07/02/25. 10 mg PO DAILY 60 days 60 tabs 2RF DANICA Arroyo K75.4 - Autoimmune hepatitis azathioprine Hold Comment: Resume on 07/03/25. Call and speak with your prescriber to restart this medication; it is an immunosuppressant medication that will likely need to be held for a period of time after surgery. Duration to hold depends on indication for this prescription. 100 mg (2 x 50 mg) PO DAILY 90 days 180 tabs 1RF DANICA Arroyo K75.4 - Autoimmune hepatitis Coding Level of Care Code Est Pt Level 3 (67041) Diagnoses GERD (gastroesophageal reflux disease) K21.9 Gallstone pancreatitis K85.10 Autoimmune hepatitis K75.4 Cirrhosis of liver without ascites, unspecified hepatic cirrhosis type K74.60 Hepatic cirrhosis type: unspecified hepatic cirrhosis Colon cancer screening Z12.11 Time Spent (min) 18
[2025-06-26 11:05] VITALS: BP 131/74; PULSE 79; O2SAT 80; BMI 33.1
--- OUTSIDE RECORDS SUMMARY | 2025-06-26 12:57 | XMS_ITS | Clinical Summary ---
Demographics Address [address] [facility] [address] [place] [address] Home Phone Mobile Phone Email Address Preferred Language Gibraltarian Marital Status Unknown Sabianist Affiliation Unknown Race Unknown Ethnic Group Unknown Author Organization [facility] Address [address] [place] [address] Care Team Providers Care Multimedia Editor Name Role Phone Fritz Irby RD Primary Care Provider [phone] Source Comments PLEASE NOTE, if this patient [...] Treatment Not on file [place] Care Teams Multimedia Editor Relationship Specialty Start Date End Date Fritz Irby RD [address] [place] [address] PCP - General Nutrition 11/03/17
--- OUTSIDE RECORDS SUMMARY | 2025-06-26 12:57 | XMS_ITS | Clinical Summary ---
Author Organization [facility] Address [address] [place] [address] Care Team Providers Care Solar Energy Advisor Name Role Phone Unavailable Primary Care Provider [...] this topic Anastasia Dhaliwal Personal/Family Self [address] [place] [address]
--- OUTSIDE RECORDS SUMMARY | 2025-06-26 12:57 | XMS_ITS | Clinical Summary ---
Author Organization [facility] Facility Address [address] [address] Care Team Providers Care Liquid Natural Gas Plant Operator Name Role Phone Geraldine Maria MD Primary Care Provider [phone] Allergies Active Allergy Reactions Criticality Noted Date [...] No nerve root compression. Follows with [facility] and getting good relief [...] Only [facility] - [facility] [address] [place] [id number] Neo Mcdonnell MD [address] [place] [address] [place] [address] Health Maintenance Due Date Last Done Comments [...] 09/13/2011 Insurance [facility] ([id number]) DANICA COLLADO [id number] Care Teams Liquid Natural Gas Plant Operator Relationship Specialty Start Date End Date Geraldine Maria MD [address] [place], [place] PCP - General Internal Medicine 11/12/24
== END 2025-06-26 18:38 | disposition home or self-care (01) ==
LOC: HO.HGI 10:38
PROVIDERS: PCP Internal Medicine; Visit Provider Internal Medicine Gastroenterology
DX: K75.4 Autoimmune hepatitis (principal); K74.60 Unspecified cirrhosis of liver; K21.9 Gastro-esophageal reflux disease without esophagitis; K85.10 Biliary acute pancreatitis without necrosis or infection
CPT/HCPCS: 99213

== ENCOUNTER → 2025-06-26 10:38 | Outpatient (BNVA) | payer OTHER, SELFPAY | PROVIDERS: PCP Internal Medicine; Visit Provider Internal Medicine Gastroenterology | DX: K75.4 Autoimmune hepatitis (principal); K74.60 Unspecified cirrhosis of liver; K21.9 Gastro-esophageal reflux disease without esophagitis; K85.10 Biliary acute pancreatitis without necrosis or infection; Z90.49 Acquired absence of other specified parts of digestive tract | CPT/HCPCS: 99212 ==

== ENCOUNTER 2025-07-01 05:56 | Inpatient (IN) | payer OTHER, SELFPAY ==
[2025-06-24 10:39] VITALS: BP 133/67; PULSE 81; RESP 17; O2SAT 95; BMI 34.1
[2025-06-24 12:26] LABS: INTERNATIONAL NORM RATIO 1.2 (0.9-1.1); Prothrombin Time 13.4 SEC (10.9-12.4)
[2025-06-24 12:28] LABS: Hematocrit 38.1 % (37.0-47.0); Hemoglobin 13.3 g/dl (12.0-16.0); Mean Corpuscular HGB Conc 34.9 g/dl (31.0-35.0); Mean Corpuscular Hemoglobin 31.7 pg (27.0-33.0); Mean Corpuscular Volume 90.7 fL (80.0-98.0); NRBC Abs Auto 0.000 X10*3/uL (0.0-0.012); NRBC Pct Auto 0.0 /100WBC (0.0-0.2); Platelet Count 104 X10*3/uL (160-400); Red Blood Count 4.20 X10*6/uL (4.20-5.50); White Blood Count 4.1 X10*3/uL (4.8-10.8)
[2025-07-01] VITALS (17 sets, daily range): BP systolic 93–145; BP diastolic 52–91; PULSE 78–108; RESP 9–20; TEMP 36.2–36.7; O2SAT 95–99; BMI 34.7; BMI 37.0
--- NOTE | ~2025-07-01 | XR_ITS ---
EXAMINATION: XR ABDOMEN 1 VIEW (KUB) HISTORY: s/p ALIF COMPARISON: There are no prior studies available for comparison. FINDINGS: A single supine supine view the abdomen performed at 9:12 AM is submitted. The tip of a nasogastric tube is noted in the left upper quadrant. The bowel gas pattern is unremarkable, without evidence of mechanical obstruction. There is a moderate amount of stool throughout the colon. There are surgical clips in the left lower quadrant. There are no abnormal soft tissue masses. A disc prosthesis is noted at the L5-S1 level which is not well evaluated on this single AP view. XR/XR abdomen 1V IMPRESSION: Unremarkable bowel gas pattern. Electronically signed by: Gary Chris MD 07/01/2025 09:33 AM EDT
--- NOTE | ~2025-07-01 | FL_ITS ---
EXAMINATION: FL GUIDANCE ONLY HISTORY: L5-S1 ALIF COMPARISON: Correlation is made with plain films of the lumbar spine dated 04/14/2025. TECHNIQUE: Fluoroscopy time: 67.5 seconds. Cumulative Dose: 43.073 mGy. DAP: 15.054 Gycm2 Images: 6. FINDINGS: Fluoroscopic spot films of the lumbar spine demonstrate posterior fusion of L5 and S1 with pedicle screws, spinal stabilization rods, and an intervertebral spacer. FL/FL guidance in OR IMPRESSION: Fluoroscopy during procedure. Please see procedure report for additional information. Electronically signed by: Gary Chris MD 07/01/2025 11:28 AM EDT
[2025-07-01] MEDS: Lactated Ringers 1,000 ML 100 ML IVCONT (06:17)
--- OUTSIDE RECORDS SUMMARY | 2025-07-01 06:42 | XMS_ITS | Clinical Summary ---
Author Organization [facility] Address [address] [place] [address] Care Team Providers Care Chief Nurse Anesthetist Name Role Phone Unavailable Primary Care Provider [...] this topic Anastasia Dhaliwal Personal/Family Self [address] [address]
--- OUTSIDE RECORDS SUMMARY | 2025-07-01 06:42 | XMS_ITS | Clinical Summary ---
Demographics Address [address] [facility] [address] [place] [address] Home Phone Mobile Phone Email Address Preferred Language Wallisian Marital Status Unknown Pentecostalism Affiliation Unknown Race Unknown Ethnic Group Unknown Author Organization [facility] Address [address] [place] [address] Care Team Providers Care Botany Laboratory Assistant Name Role Phone Fritz Irby RD Primary Care Provider [phone] Source Comments PLEASE NOTE, if this patient [...] Treatment Not on file [place] Care Teams Botany Laboratory Assistant Relationship Specialty Start Date End Date Fritz Irby RD [address] [place] [address] PCP - General Nutrition 11/03/17
--- NOTE | 2025-07-01 07:02 | MHC.SHP ---
Pre-Procedural Eval Section A - 24 Hr Update-Section A only Date of Service: 07/01/25 The patient is an INPATIENT: No Changes since office visit: No Cold of Flu in the past 2 weeks, No New Medical Problems, No Changes in Medication and No Patient answered all questions The patient has been examined within 24 hours of the surgical procedure. The History & Physical has been completed within 30 days and I have reviewed it.: No Section B - Complete if H&P > 30 days Chief Complaint: s/p L5-S1 ALIF Allergies: Allergies Allergy/AdvReac Type Severity Reaction Status Date / Time trazodone Allergy Unknown Abdominal Verified 07/01/25 06:16 Pain Review of Systems Sugical H&P ROS: Negative: Constitution, Cardiovascular, Respiratory, Neurological, Psychiatric, Hem-Onc, Allergic/Immunologic, Gastrointestinal, Genitourinary, Musculoskeletal, Integumentary, Endocrine and Eyes/Ears/Nose/Throat Exam Surgical H&P Exam: Normal: HEENT, Normal: Heart, Normal: Lungs, Normal: Extremities, Normal: Abdomen, Normal: Skin and Normal: Neurological (awake, alert,oriented x 3 ) Plan Diagnosis/Plan: Unchanged L5-S1 anterior lumbar interbody fusion Time Spent With Patient Time: Total time managing care of this patient today __5__ minutes.
--- NOTE | 2025-07-01 07:25 | HO.ANESPROP2 ---
Documented by User: Madelin Lawrence NP 06/26/25 12:38 HPI - Anesthesia Eval Consult details Narrative: 59 yr old female for L5-S1 Anterior lumbar interbody fusion, possible TLIF scheduled for 07/01/25, seen in PAT 06/24/25 with spanish medical interpreter. *On chronic prednisone, will require stress dose of steroids prior to surgery. Previously Cxl'd by surgeon d/t platelets <100 No recent illness No CP/SOB with minimal activity 2/2 to pain Cirrhosis d/t auto immune hepatitis. On daily azathioprine. Currently on Prednisone 10 mg daily. Follows [facility]. Last seen 05/09/25, next appt 06/26/25. MELD labs updated at 05/09 visit, now MELD 8, platelets 101 on 06/20/25, will repeat 06/24/[address] Prabhakar 03/23/25, 05/09/25 note Pts MELD is 8 as of recent labs. Patients with a MELD (or MELD-Na) score below 10 can undergo elective surgery. Since pt is on Prednisone, she will need to be treated with stress dose of steroids before surgery. Asthma: Well controlled. Sched inhaler daily, does not require albuterol GERD: ppi controls PMFSH Active Problems Active Problems: All Active Problems (Updated 06/02/25 @ 08:12 by Kameron Shipman MD) Well woman exam (Acute) Colon cancer screening (Acute) Thrombocytopenia (Acute) Plantar fasciitis (Acute) Seasonal allergic rhinitis due to pollen (Acute) Physical exam (Acute) Lumbar spinal stenosis (Acute) Lumbar spondylolysis (Acute) Abscess of right axilla (Acute) Lumbosacral spondylosis (Acute) Lumbar degenerative disc disease (Acute) Sacroiliac joint pain (Acute) Lumbar radiculopathy, chronic (Acute) Bilateral sciatica (Acute) Axillary abscess (Acute) Carbuncle and furuncle of trunk (Acute) Carbuncle and furuncle of upper arm and forearm (Acute) Status post incision and drainage (Acute) Abscess of multiple sites of perineum (Acute) Abscess (Acute) Labial abscess (Acute) Physical exam (Acute) Sebaceous cyst (Acute) Endometrial polyp (Acute) Postcoital bleeding (Acute) Mild major depression (Acute) Hypertension (Acute) Insomnia (Acute) Obese (Acute) DUB (dysfunctional uterine bleeding) (Acute) Autoimmune hepatitis (Acute) Head lump (Acute) Screening for hypothyroidism (Acute) Sleeping difficulty (Acute) Hyperglycemia (Acute) Candidiasis of breast (Acute) Intermittent asthma (Acute) Encounter to establish care (Acute ~09/17/21) Asthma (Acute) Gallstone pancreatitis (Acute) GERD (gastroesophageal reflux disease) (Acute) Cirrhosis of liver without ascites (Acute) Chronic low back pain (Acute) Anxiety and depression (Acute) Past Medical History Medical History History of MRSA infection Thrombocytopenia Gallstone pancreatitis GERD (gastroesophageal reflux disease) Cirrhosis of liver without ascites Jaundice Anxiety and depression Chronic low back pain Asthma Family History Family History Mother Lung cancer Father No problems noted. 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 If so, by whom?: No Are you DNR?: No Advance Directives: No Advance Directives Information Provided: Yes Advance Directives on File: No Patient : No : No Poor oral hygiene: Yes service: No Current occupational status: disabled Current occupational exposures/hazards: No Sexual orientation: Straight/Heterosexual Gender identity: Female Cognitive needs: No Hearing needs: No Vision needs: Yes Meds Allergies Allergy/AdvReac Type Severity Reaction Status Date / Time trazodone Allergy Unknown Abdominal Verified 07/01/25 06:16 Pain Home Medications ?Medication ?Instructions ?Recorded ?Confirmed ?Last Taken ?Type baclofen 10 mg tablet 10 mg PO BEDTIME 06/24/25 07/01/25 Unknown History multivitamin-calcium carb chewable 1 tab PO DAILY 06/24/25 07/01/25 Unknown History tablet umeclidinium 62.5 mcg-vilanterol 1 ea inhalation DAILY 06/24/25 07/01/25 Unknown History 25 mcg/actuation powdr for inhalation (Anoro Ellipta) Exam Pertinent Lab Results Pertinent Lab Results: Laboratory Tests 03/12/25 06/20/25 06/24/25 11:22 10:00 11:22 WBC 4.1 L RBC 4.20 Hgb 13.3 Hct 38.1 Plt Count 104 L Sodium 142 Potassium 3.7 Chloride 110 H BUN 6 L Creatinine 0.58 Narrative Narrative: EKG 03/2025 Vent. Rate : 79 BPM Atrial Rate : 79 BPM P-R Int : 136 ms QRS Dur : 76 ms QT Int : 396 ms P-R-T Axes : 47 18 24 degrees QTcB Int : 454 ms Normal sinus rhythm Normal ECG When compared with ECG of 20-Jun-2023 21:42, Vent. rate has decreased by 41 bpm Airway Mallampati Class: II TM Dist: >3cm Neck ROM: Full Partial: Upper (full) Loose/Missing/Broken Teeth: Lower (bridge) Heart: RRR Lungs: CTAB Assessment and Plan Final Anesthetic Review Family History of Problems with Anesthesia: No History of Problems with Anesthesia: No Documented by User: Roula Humphries DO 07/01/25 07:36 [facility] Past Medical History Medical History History of MRSA infection Thrombocytopenia Gallstone pancreatitis GERD (gastroesophageal reflux disease) Cirrhosis of liver without ascites Jaundice Anxiety and depression Chronic low back pain Asthma Family History Family History Mother Lung cancer Father No problems noted. 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 If so, by whom?: No Are you DNR?: No Advance Directives: No Advance Directives Information Provided: Yes Advance Directives on File: No Patient : No : No Poor oral hygiene: Yes service: No Current occupational status: disabled Current occupational exposures/hazards: No Sexual orientation: Straight/Heterosexual Gender identity: Female Cognitive needs: No Hearing needs: No Vision needs: Yes Meds Allergies Allergy/AdvReac Type Severity Reaction Status Date / Time trazodone Allergy Unknown Abdominal Verified 07/01/25 06:16 Pain Home Medications ?Medication ?Instructions ?Recorded ?Confirmed ?Last Taken ?Type baclofen 10 mg tablet 10 mg PO BEDTIME 06/24/25 07/01/25 Unknown History multivitamin-calcium carb chewable 1 tab PO DAILY 06/24/25 07/01/25 Unknown History tablet umeclidinium 62.5 mcg-vilanterol 1 ea inhalation DAILY 06/24/25 07/01/25 Unknown History 25 mcg/actuation powdr for inhalation (Anoro Ellipta) Exam Exam Date and Time: 07/01/25 07 Pertinent Lab Results Pertinent Lab Results: Laboratory Tests 03/12/25 06/20/25 06/24/25 11:22 10:00 11:22 WBC 4.1 L RBC 4.20 Hgb 13.3 Hct 38.1 Plt Count 104 L Sodium 142 Potassium 3.7 Chloride 110 H BUN 6 L Creatinine 0.58 Vital Signs Pulse Rate 81 06/24/25 10:39 Respiratory Rate 17 06/24/25 10:39 Blood Pressure 133/67 06/24/25 10:39 Pulse Oximetry 95 06/24/25 10:39 Oxygen Delivery Method Room Air 06/24/25 10:39 Temperature 97.7 F 07/01/25 06:39 Pulse Rate 82 07/01/25 06:39 Respiratory Rate 17 07/01/25 06:39 Blood Pressure 145/82 H 07/01/25 06:39 Pulse Oximetry 98 07/01/25 06:39 Oxygen Delivery Method Room Air 07/01/25 06:39 Airway Mallampati Class: II TM Dist: >3cm Neck ROM: Full Partial: Upper Loose/Missing/Broken Teeth: Lower (bridge) Heart: S1S2 Assessment and Plan Assessment Anesthesia Assessment: Anesthesia Plan Discussed and Chart Reviewed Final Anesthetic Review Family History of Problems with Anesthesia: No History of Problems with Anesthesia: No NPO: Yes ASA Class: III Final Preanesthetic Review: No Changes in Pt Med Stat, Meds/Allgs Chart Reviewed, Consent Obtained/Reviewed (spanish medical interpreter at bedside for translation) and Anes Risks/Benef Reviewed Patient Risk: Intermediate Procedure Risk: Intermediate Anesthetic Plan Anesthetic Plan: GA and Agree w/ Assess. and Plan Disposition: Standard PACU
--- NOTE | 2025-07-01 09:40 | P.OP_ITS ---
Operative Note Operative Note Date of Service: 07/01/25 Narrative: Pre -op diagnosis: Degenerative Lumbar spine with collapse and radiculopathy L5- S1 Post-op diagnosis: the same Procedure: Anterior exposure for Diskectomy and inter-body fusion L5-S1 Dr. Duong was co-surgeon for fusion The patient was brought to the operating room, positioned on the table supine and general anesthesia was administered. The abdomen was prepped and draped in the usual sterile fashion. After timeout was done, incision was made in the infra-umbilical area just to the left of the midline 6 cm long. It was brought through subcutaneous tissue and the left anterior rectus sheath in line with the skin incision . The pre- peritoneal plane was entered,There was considerabele scarring at the lower midline from the previous surgery, peritoneum was bluntly dissected off and iliac artery pulse was felt. Epigastric vessels were preserved.Self-retaining retractor with two deep blades was inserted and peritoneum protected with moist gauzes. Round ligament was transected between the clips. Left internal iliac vein was identified and dissection was carried along the medial surface of the iliac vein up to the bifurcation. The middle sacral vessels were transected and L5-S1 disc space was bluntly and sharply dissected using bipolar cautery staying directly on the surface of the spine. There was a small tear in the peritoneum near the pelvis which was repaired with 3-0 Vicryl stitch. The midline of the disk space was marked with C-arm image guide. Dr. Duong then proceeded with the diskectomy and fusion, which will be dictated separately by him. After this was done, hemostasis was checked and was excellent. Left ureter was examined prior to closure and was intact. There was good left external iliac artery pulse. Diluted 0.5% Marcaine and Lidocaine was injected in the fascia and subcutaneous tissue. The incision was irrigated and closed by layers using a , 0 Maxone for the midline, 3-0 Vicryl for subcutaneous tissue and 4-0 Monocryl for skin. Exo-fin glue was then applied.
--- NOTE | 2025-07-01 10:09 | P.OP_ITS ---
Operative Note Operative Note Date of Service: 07/01/25 Narrative: Preoperative Diagnosis: 1.) Lumbar degenerative disc disease L5-S1; lumbar radiculopathy and back pain Procedure: L5-S1 discectomy, arthrodesis and implantation cage through an anterior lumbar approach (ALIF) ; posterior instrumented fusion L5-S1; allograft Indication for Surgery Lumbar degenerative disc disease Consent Informed Consent was obtained for this operation. I have explained the nature, purpose and benefits of the operation. I have discussed the risks and benefit of the operation including possible complications or adverse events with patient/family. Alternative(s) were discussed with the patient with their relative benefits and risks as well as the consequences of not accepting the operation were included in obtaining consent. Surgeon: MONSE TELLEZ MD, PHD Co-surgeon:CHEPE MCDONNELL Procedure Assisted By: DANICA Arthur Description of Procedure This 59-year-old female suffering from back pain and bilateral leg pain due to degenerative disc disease L5-S1 with bilateral foraminal stenosis.. The patient was offered an anterior lumbar interbody fusion with a posterior instrumented L5-S1 fusion. The procedure complications were explained. The patient was consented. The patient was brought to the operating room and endotracheally intubated. The patient was put in a supine position. Prep and drape was done followed by timeout. Dr. Mcdonnell, co-surgeon, provided the access to the L5-S1 disc space through an anterior approach. He was assisted by physician plumber's assistant who performed manual retraction. He will dictate the approach in a separate operative note. When the L5-S1 disc space was exposed I took over the procedure. An annulotomy was done followed by a partial discectomy. Sequential trial implants were inserted and advanced towards the posterior wall of the disc space. I completed the discectomy and prepare the endplates. Then a 34 x 26 x 13 and 15 degree lordosis Astura cage filled with allograft was inserted into the disc space. The implant was secured with a 1 nail 25 mm into the S1 vertebral body. The retractor was removed and hemostasis was done by Dr. Barrios who closed the incision. This marked first part of the procedure. Accordingly the patient was turned prone on the Nir spine table and 2 C arms were installed for fluoroscopy. Prep and drape was done followed by a second timeout. 2 paramedian incisions were made lateral from the L5-S1 pedicles. The muscle fascia was opened and the musculature was split bluntly to expose the posterolateral gutter. The following steps were taken for pedicle screw placement: The pediguard tap was used to create a transpedicular trajectory into the vertebral body. A K wire was advanced. A specially designed instrument was advanced over the K wire to decorticate the posterolateral gutter. Pedicle screw was advanced after which the K wire was removed. Following the steps pedicle screws were placed in the bilateral L5 and S1 pedicles. Total of 4 screws were placed with the following measurements: 6.5 x 40 mm. A 45 mm jony was tunneled bilaterally and locked down with locking caps. The extension towers were removed. The posterolateral fusion was completed by laying down allograft in the posterolateral gutter. Hemostasis was done. The paramedian incisions were closed with an 0 Vicryl to fascia and 3-0 Vicryl to subdermal layer. Steri-Strips were used to approximate the incision. An OpSite with Tegaderm was used to cover the incisions. All sponge and needle counts were correct. The patient was extubated and transported in stable condition to recovery room. The physician plumber's assistant was critical for the following aspects of surgery : Assisting during initial anterior opening., placement of pedicle screws, closure of anterior incision and paramedian incisions. Anesthesia: General Estimated Blood Loss (ml): 30 Duration of Surgery: 2 hours 15 minutes Complications: None Postoperative Plan: Admit to inpatient for clinical observation
--- NOTE | 2025-07-01 11:47 | PHA.MEDREC ---
Pharmacy Consult ? Medication Reconciliation Pharmacy has completed the medication reconciliation.Med rec completed by nursing, reviewed by pharmacist
--- NOTE | 2025-07-01 15:53 | PC.NURSE ---
pt oob to chair using incentive spirometer voided , ambulated with PT
[2025-07-02 01:01] VITALS: BP 127/72; PULSE 100; RESP 18; TEMP 36.8; O2SAT 96
[2025-07-02 03:29] VITALS: BP 118/62; PULSE 101; RESP 18; TEMP 37.1; O2SAT 96
[2025-07-02] MEDS: oxyCODONE HCl Immed Release 5 MG TABLET 10 MG PO ×2 (07:00→10:48)
[2025-07-02 07:37] VITALS: BP 127/66; PULSE 93; RESP 12; TEMP 36.2; O2SAT 97
--- NOTE | 2025-07-02 07:39 | PM.DS ---
DS: Providers Provider Date of Service: 07/02/25 Date of admission: 07/01/25 05:56 Date of discharge: 07/02/25 Primary care physician: Geraldine Linn MD DS: Summary Time Attestation Discharge Coordination Time (in mins): 12 Quality: Safe Use of Opioids Does Pt have an Active Cancer Diagnosis on the Problem List?: No Quality: Stroke Does the patient have a stroke diagnosis?: No Physical Exam Vital Signs: Vital Signs: Last Vital Signs Temp 97.1 F 07/02/25 07:37 Pulse 93 07/02/25 07:37 Resp 12 07/02/25 07:37 BP 127/66 07/02/25 07:37 Pulse Ox 97 07/02/25 07:37 O2 Del Method Room Air 07/02/25 07:37 O2 Flow Rate 2 07/01/25 12:15 BMI result Body Mass Index 37.0 Discharge Plan Discharge Anticipated Discharge Date/Time: 07/02/25 07:40 Patient Disposition: Home, Self-Care Discharge Diagnosis: s/p L5-S1 ALIF Referrals: Geraldine Maria MD [Primary Care Provider, Internal Medicine] - 1 Week Discharge Medications: New oxycodone 5 mg tablet See Rx Instructions .ROUTE .COMPLEX PRN (Reason: pain) Qty: 30 0RF Rx Instructions: Take 1-2 tablets by mouth every 4 hours; Partial Fill upon patient request. Continued albuterol sulfate 90 mcg/actuation HFA aerosol inhaler 2 puff inhalation Q6H PRN (Reason: for wheezing) Qty: 8.5 1RF omeprazole 20 mg capsule,delayed release(DR/EC) 20 mg PO BID Qty: 120 1RF gabapentin 400 mg capsule 400 mg PO TID 30 Days Qty: 90 0RF cetirizine [All Day Allergy (cetirizine)] 10 mg tablet 10 mg PO DAILY PRN (Reason: allergy symptoms) 90 Days Qty: 90 1RF baclofen 10 mg tablet 10 mg PO BEDTIME multivitamin-calcium carb Tablet,Chewable 1 tab PO DAILY umeclidinium-vilanterol [Anoro Ellipta] 62.5-25 mcg/actuation blister with device 1 ea INHALATION DAILY bisacodyl [Dulcolax (bisacodyl)] 5 mg tablet,delayed release (DR/EC) 20 mg PO ONCE 1 Days Qty: 4 0RF Patient Comments: this medication is for upcoming colonoscopy in September 2025 Rx Instructions: Take 4 tablets at 12 pm the day before colonoscopy appointment polyethylene glycol 3350 [Miralax] 17 gram/dose powder 17 g PO DAILY 1 Days Qty: 238 0RF Patient Comments: this medication is for upcoming colonoscopy in September 2025 Rx Instructions: Mix Miralax with 64 oz(8 cups) of Crystal light. Take 2 tablets of Dulcolax qt 12 pm. Wait to have your 1st bowel movement, then begin drinking Miralax. Drink a glass of Miralax every 10-15 minutes until you are finished. You will drink at least another 4 cups of clear liquid of your choice over the next 2 hours. Please drink as many clear liquids as possible You may have clear liquids up to four hours before your procedure cholecalciferol (vitamin D3) 25 mcg (1,000 unit) capsule 25 mcg PO DAILY 90 Days Qty: 90 1RF (DME) nebulizers [AeroEclipse II Nebulizer] Misc See Rx Instructions .Route Qty: 1 0RF Rx Instructions: As directed Held prednisone 10 mg tablet 10 mg PO DAILY 60 Days Qty: 60 2RF Hold Instructions: Resume on 07/02/25. azathioprine 50 mg tablet 100 mg PO DAILY 90 Days Qty: 180 1RF Hold Instructions: Resume on 07/03/25. Call and speak with your prescriber to restart this medication; it is an immunosuppressant medication that will likely need to be held for a period of time after surgery. Duration to hold depends on indication for this prescription. Discharge Orders: Discharge Order (Routine); Ordered 07/02/25 Ordered By: Brian Santos Diet: Advance to usual diet Activity on Discharge: As tolerated Stand Alone Forms: Patient Portal Discharge page Print Language: Bermudian Activity Restrictions/Additional Instructions: After your spinal surgery we ask you to observe the following restrictions/guidelines: Activity: It is normal to feel some discomfort as you increase your activity, but that will improve with time. We ask you avoid heavy lifting or acitivities that cause pain. As a general rule, 8lbs is a safe limit for lifting right after surgery. Walk as much as you feel comfortable but not to exhaustion. You will feel extra tired the first few days after surgery. Stay well hydrated. It is OK to walk up and down stairs You may return to driving when you are off narcotics (such as vicodin, oxycodone, dilaudid, etc), and you are back to normal functional capacity. If you have any concerns please check with office before driving. Return to work is specific to each patient and each surgery, so please speak with your doctor/PA at first follow up. Please bring paperwork such as FMLA at that time if you need it filled out. Medications: Please call and discuss your Azathioprine prescription with your prescriber. It should be held for a period of time after surgery that they should decide based on indication for this prescription. We recommend you take 500mg Tylenol every 4 hours for the first week after surgery, if you do not have any liver issues and can tolerate this medication. Do not exceed 4,000mg daily. We also recommend you take Ibuprofen 600mg every 8 hours for the first week after surgery starting on post op day 1, ?if you do not have any kidney or sugar control issues and can tolerate this medication. Do not exceed 2,000mg daily. We will give you a short supply of narcotics after surgery (usually one weeks worth). If you need more please call the office but do not use more than prescribed. You will need to give our office 48 hours notice if you need narcotics refilled and we do not fill narcotics on weekends or evenings. If you are on a narcotic, it is a good idea to take a stool softener such as colace or senna to avoid constipation If you take blood thinner such as aspirin, Plavix, Coumadin, Effient, Eliquis etc for conditions such as Afib, DVT, Pulmonary embolus, coronary disease, stents etc please speak with your surgeon about specific details as to when you can resume these medications. You can resume NSAIDs on post op day 1 (eg: Motrin, Naproxen, etc). Follow up: Please call the office, , after surgery to arrange a 3 week follow up for wound check. Wound Care: You may remove your dressing on the first day after surgery. ?You may ?leave open to air. Please do not remove the steri strips underneath. they will fall off on their own in one week. IT IS NORMAL FOR THE WOUND TO OOZE OR BE BLOODY FOR A FEW DAYS AFTER SURGERY. ?IF THIS HAPPENS JUST PLACE NEW DRESSING OVER IT TO AVOID STAINING CLOTHES. You may shower on post op day # 1 We ask that you do not let the water soak the wound. If it does get wet, just towel dry lightly. Please do not scrub your incision or place any type of chemical/ointment on the wound. No tub baths, pools or jacuzzis for one month. If you have any leaking or redness from your wound, or fevers, please call the office. Care Plan Goals: Return to normal activity as tolerated Health Concerns: None Plan of Treatment: Follow-up in clinic in 2-3 weeks Assessment: POD: 1 Procedure: L5-S1 ALIF Lyndsey is a pleasant 56 y/o female who underwent L5-S1 ALIF with Dr. Duong yesterday. She reports that overall she is doing very well since her surgery. She reports she is up walking around is otherwise doing well. She feels her symptoms are overall better than pre-operatively. She still reports pain in her low back, with good relief with pain medication regimen. She has been up OOB and is voiding well, tolerating diet. Afebrile, vital signs stable. Full strength 5/5 in bilateral lower extremities. Back dressings are dry without signs of hematoma. No active sanguineous drainage. Plan: Patient meets criteria to be medically discharged home. She was seen at bedside with Dr. Duong. I will send in a prescription for oxycodone to the pharmacy here at [facility]. She will need to call her prescribe her for her immunosuppressant medication Azathioprine to determine how long she should remain off this medication after surgery. Brian Duong MD,PhD [facility]
--- NOTE | 2025-07-02 07:47 | HO.NEURO.PN ---
Neurosurgery Operative Note Date of Service: 07/02/25 Narrative: POD: 1 Procedure: L5-S1 ALIF Lyndsey is a pleasant 56 y/o female who underwent L5-S1 ALIF with Dr. Duong yesterday. She reports that overall she is doing very well since her surgery. She reports she is up walking around is otherwise doing well. She feels her symptoms are overall better than pre-operatively. She still reports pain in her low back, with good relief with pain medication regimen. She has been up OOB and is voiding well, tolerating diet. Afebrile, vital signs stable. Full strength 5/5 in bilateral lower extremities. Back dressings are dry without signs of hematoma. No active sanguineous drainage. Plan: Patient meets criteria to be medically discharged home. She was seen at bedside with Dr. Duong. I will send in a prescription for oxycodone to the pharmacy here at [facility]. She will need to call her prescribe her for her immunosuppressant medication Azathioprine to determine how long she should remain off this medication after surgery. Brian Duong MD,PhD [facility]
--- NOTE | 2025-07-02 08:25 | HO.POSTANES ---
Post Anesthesia Evaluation Post Anesthesia Evaluation Date of Service: 07/02/25 Vital Signs: Vital Signs Temp Pulse Resp BP Pulse Ox O2 Del Method 07/02/25 07:37 97.1 F 93 12 127/66 97 Room Air 07/02/25 03:29 98.8 F 101 H 18 118/62 96 Room Air 07/02/25 01:01 98.3 F 100 18 127/72 96 Room Air Anesthesia: General Mental Status: Awake Pain Control: Satisfactory Nausea/Vomiting: None Hydration: Adequate Anesthesia-Related Issues: No Anes. Related Issues
[2025-07-02 08:31] VITALS: PULSE 100; RESP 12; O2SAT 96
[2025-07-02] MEDS: Umeclidinium/Vilanterol 62.5/25 BLST.W.DEV 1 PUFF INHALE (08:31)
--- NOTE | 2025-07-02 08:51 | MHC.CM.PN ---
pt dcd home self care prior to being seen by cm
== END 2025-07-02 11:49 | disposition home or self-care (01) | DRG 451 ==
LOC: HO.SSSA 06:39 → HO.S3 11:20
PROVIDERS: Neurological Surgery; Nurse Practitioner; Admitting Provider Physician Assistant; PCP Internal Medicine; Visit Provider Physician Assistant
PROC: 0SG30A0 Fusion of Lumbosacral Joint with Interbody Fusion Device, Anterior Approach, Anterior Column, Open Approach (ICD-10-PCS; principal; 2025-07-01 07:30)
DX: M43.06 Spondylolysis, lumbar region (principal); M51.370 Other intervertebral disc degeneration, lumbosacral region with discogenic back pain only; Z87.891 Personal history of nicotine dependence; Z79.52 Long term (current) use of systemic steroids; Z79.899 Other long term (current) drug therapy
CPT/HCPCS: 36415; 74018; 85027; 85610; 86850; 86900; 86901; 97161; 97530; C1713; J0690; J1171; J1885; J2003; J2371; J2704; J3010; L8699

== ENCOUNTER 2025-07-01 05:56 | Outpatient (BNV) | payer OTHER, SELFPAY | END 2025-07-01 08:52 | PROVIDERS: Admitting Provider Physician Assistant; PCP Internal Medicine; Visit Provider Radiology Diagnostic Radiology | DX: Z43.1 Encounter for attention to gastrostomy (principal) | CPT/HCPCS: 74018 ==

== ENCOUNTER → 2025-07-01 05:56 | Outpatient (BNV) | payer OTHER, SELFPAY | PROVIDERS: Admitting Provider Physician Assistant; PCP Internal Medicine; Visit Provider Surgery | DX: Z48.89 Encounter for other specified surgical aftercare (principal) | CPT/HCPCS: 20930; 22558; 22612; 22840; 22853; 64450; 99024; 99499 ==

== ENCOUNTER 2025-07-22 13:15 | Outpatient (AMB) | payer OTHER, SELFPAY ==
--- NOTE | 2025-07-22 13:18 | HO.SPINEOV ---
Intake Visit Reasons: 1st post op Intake Note: Ms. Hilton Silverio is here today for her 1st post op. Set And Exhibit Designer Required: Yes Set And Exhibit Designer Language: Soft Sugar Supervisor Services: Set And Exhibit Designer Present Set And Exhibit Designer Name: Nelly Nye LM Allergies trazodone Allergy (Unknown, Verified 07/22/25 13:24) Abdominal Pain Assessment & Plan Assessment & Plan (1) S/P lumbar fusion: Code(s): Z98.1 - Arthrodesis status Category: Medical Plan Lyndsey is a pleasant 56 y/o female who underwent L5-S1 ALIF with Dr. Duong on 07/01/25. She comes in today for her 1st postoperative visit. She reports that overall she has been doing well since her surgery, and her preoperative pain complaints of largely resolved. Unfortunately she states that she has had a fairly significant pain well localized near her right posterior buttocks. When describing exactly where the pain is she points her finger directly to the location we typically associate with a (+) Caroline finger test. 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 I encouraged her to give this some time and see if it self resolves. No new neurological deficits. The patient ambulates well and rises from a seated position without difficulty. Her anterior and posterior incision sites are closed and well healing. I remove a small piece of Steri-Strip that still remained on her anterior abdominal incision. I would like to follow up with Lyndsey again in 6 weeks for his 2nd postoperative visit with a set of x-rays. If her right posterior buttocks pain does not resolve we may need to consider sending her for SI joint injection. Brian Duong MD,PhD [facility] Coding Level of Care Code Global (25866) Diagnoses S/P lumbar fusion Z98.1
--- OUTSIDE RECORDS SUMMARY | 2025-07-23 05:50 | XMS_ITS | Clinical Summary ---
Author Organization [facility] Facility Address [address] [address] Care Team Providers Care Manager Medical Name Role Phone Geraldine Maria MD Primary Care Provider [phone] Allergies Active Allergy Reactions Criticality Noted Date [...] L5-S1. No nerve root compression. Follows with [facility] orthopedics and getting good relief with [...] (6 to 49 Years) Discontinued 09/13/[place] [address] [facility] ([id number]) [place] [phone] Care Teams Manager Medical Relationship Specialty Start Date End Date Geraldine Maria MD [address] [place] [address] PCP - General Internal Medicine 11/12/24
--- OUTSIDE RECORDS SUMMARY | 2025-07-23 05:50 | XMS_ITS | Clinical Summary ---
Author Organization [facility] Address [address] [place] [address] Care Team Providers Care Attic Fans Mechanic Name Role Phone Unavailable Primary Care Provider [...] this topic Anastasia Dhaliwal Personal/Family Self [address] [place] [address]
== END 2025-07-22 13:44 | disposition home or self-care (01) ==
LOC: HO.HNS 13:16
PROVIDERS: PCP Internal Medicine; Visit Provider Physician Assistant
DX: Z98.1 Arthrodesis status (principal)
CPT/HCPCS: 99024

== ENCOUNTER → 2025-07-22 13:15 | Outpatient (BNVA) | payer OTHER, SELFPAY | PROVIDERS: PCP Internal Medicine; Visit Provider Physician Assistant | DX: Z47.89 Encounter for other orthopedic aftercare (principal); Z98.1 Arthrodesis status | CPT/HCPCS: 99212 ==

== ENCOUNTER 2025-08-22 07:47 | Outpatient (REF) | payer OTHER, SELFPAY ==
--- NOTE | ~2025-08-22 | MM_ITS ---
EXAMINATION: MM SCREENING DIGITAL BREAST TOMOSYNTHESIS, BILATERAL CLINICAL INFORMATION: Screening. Asymptomatic. COMPARISON: Mammography: Comparison is made with available priors TECHNIQUE: Digital breast mammography with tomosynthesis is performed in both the craniocaudal and mediolateral oblique views along with computer-aided detection (CAD). FINDINGS: The breasts are heterogeneously dense, which may obscure small masses. There are no significant masses, abnormal calcifications, or other abnormalities. MM/MM tomosynthesis screening BI IMPRESSION: No mammographic evidence of malignancy. ASSESSMENT: BI-RADS Category 1: Negative RECOMMENDATION: Routine annual mammography screening. 1 year F/U This examination should not preclude the clinical evaluation of a suspicious palpable abnormality. This patient's information was entered into a reminder system with a target due date for their next mammogram. Electronically signed by: Kandis Watts DO 08/25/2025 04:14 PM [facility]
--- OUTSIDE RECORDS SUMMARY | 2025-08-22 07:50 | XMS_ITS | Clinical Summary ---
Author Organization [facility] Prior to 02/01/25 Address [address] [place] [address] Care Team Providers Care Position Classification Manager Name Role Phone Unavailable Primary Care Provider [...] this topic Anastasia Dhaliwal Personal/Family Self 1965 [address] [place] [id number]
--- OUTSIDE RECORDS SUMMARY | 2025-08-22 07:50 | XMS_ITS | Clinical Summary ---
Author Organization [facility] Facility Address [address] [address] Care Team Providers Care Grid Inspector Name Role Phone Geraldine Maria MD Primary Care Provider [phone] Allergies Active Allergy Reactions Criticality Noted Date [...] L5-S1. No nerve root compression. Follows with [facility] orthopedics and getting good relief [...] to 49 Years) Discontinued 09/13/[place] [address] [facility] ([id number]) [place] [phone] Care Teams Grid Inspector Relationship Specialty Start Date End Date Geraldine Maria MD [address] [place] [address] PCP - General Internal Medicine 11/12/24
== END 2025-08-22 07:48 | disposition home or self-care (01) ==
LOC: HO.MAMMO 07:47
PROVIDERS: PCP Internal Medicine; Visit Provider Obstetrics & Gynecology
DX: Z12.31 Encounter for screening mammogram for malignant neoplasm of breast (principal)
CPT/HCPCS: 77063; 77067

== ENCOUNTER → 2025-08-22 08:00 | Outpatient (BNV) | payer OTHER, SELFPAY | PROVIDERS: PCP Internal Medicine; Visit Provider Internal Medicine | DX: Z12.31 Encounter for screening mammogram for malignant neoplasm of breast (principal) | CPT/HCPCS: 77063; 77067 ==

== ENCOUNTER 2025-09-02 08:36 | Outpatient (REF) | payer OTHER, SELFPAY ==
--- NOTE | ~2025-09-02 | XR_ITS ---
EXAMINATION: Lumbar spine 4 views. CLINICAL INDICATION: L5-S1 fusion. COMPARISON: Lumbar spine 04/14/2025. FINDINGS: There is normal lumbar lordosis. There is new L5-S1 disc prostheses and posterior pedicular screws for posterior fusion. On flexion-extension views there is there is normal flexion and extension spine of entire spine. No listhesis seen at L5-S1 disc level. Rest of the disc levels from T12-L1 through L4-5 disc levels are unremarkable. No visible acute fracture, dislocation or lytic process seen. The soft tissues are normal. SI joints are normal. No aggressive lytic or sclerotic process seen. The paravertebral soft tissues are normal. XR/XR lumbar spine 4V min IMPRESSION: L5-S1 disc prostheses and posterior hardware for fusion. There is no movement seen at the fused disc levels on flexion-extension views. Rest of the spine has normal movement. Electronically signed by: Thomas Evans MD 09/02/2025 02:44 PM EST
--- OUTSIDE RECORDS SUMMARY | 2025-09-05 08:43 | XMS_ITS | Clinical Summary ---
Author Organization [facility] Prior to 02/01/25 Address [address] [place] [address] Care Team Providers Care Auto Self Service Station Attendant Name Role Phone Unavailable Primary Care Provider [...] this topic Anastasia Dhaliwal Personal/Family Self [address] [place] [address]
--- OUTSIDE RECORDS SUMMARY | 2025-09-05 08:43 | XMS_ITS | Clinical Summary ---
Author Organization [facility] Facility Address [address] [address] Care Team Providers Care Rooms Director Name Role Phone Geraldine Maria MD Primary Care Provider [phone] Allergies Active Allergy Reactions Criticality Noted Date [...] L5-S1. No nerve root compression. Follows with [facility] orthopedics and getting good relief with [...] to 49 Years) Discontinued 09/13/2011 [place] [address] [facility] ([id number]) [place] [phone] Care Teams Rooms Director Relationship Specialty Start Date End Date Geraldine Maria MD [address] [place] [address] PCP - General Internal Medicine 11/12/24
== END 2025-09-02 08:37 | disposition home or self-care (01) ==
LOC: HO.HOSX 08:36
PROVIDERS: Visit Provider Physician Assistant
DX: G89.29 Other chronic pain (principal); M54.16 Radiculopathy, lumbar region; Z98.1 Arthrodesis status
CPT/HCPCS: 72110; 99212

== ENCOUNTER 2025-09-02 13:15 | Outpatient (AMB) | payer OTHER, SELFPAY ==
--- NOTE | 2025-09-02 13:36 | A.SPINEOV_ITS ---
Intake Visit Reasons: 2nd post op with xrays Intake Note: Ms. Hilton Silverio is here today for her 2nd post op with x-rays. Stitching Machine Feeder Or Offbearer Required: Yes Stitching Machine Feeder Or Offbearer Services: Stitching Machine Feeder Or Offbearer Present Stitching Machine Feeder Or Offbearer Name: Nelly Zimmer GISELA Allergies trazodone Allergy (Unknown, Verified 07/22/25 13:24) Abdominal Pain Assessment & Plan Assessment & Plan (1) Chronic low back pain: Code(s): M54.50 - Low back pain, unspecified; G89.29 - Other chronic pain Category: Medical (2) Lumbar radiculopathy, chronic: Code(s): M54.16 - Radiculopathy, lumbar region Category: Medical Plan Mrs Hilton Silverio is 2 months out from her anterior lumbar interbody fusion. This visit was done with the help of remnant sorter Nelly Gunderson. The preoperative leg pain that she had is gone, but she has been dealing with the pain along the right side of her low back almost over the SI joint region. She has a very hard time bending and doing housework. Very hard time rolling over in bed at night. She has been taking baclofen in the evenings without much help. She also takes anti-inflammatories as well. On exam she is able to stand up and walk around the room with no obvious distress. Strength is normal. Her x-rays look excellent. I suspect what she is dealing with is muscular tightness and lack of range of motion making it difficult bending forward. I am going to send her to physical therapy just have them help her become slightly more functional around the house. Obviously she still can not do bending, heavy lifting and twisting but just simple things like being more mobile would probably help her pain level. I would like to see her back in 2 months. Alexx Duong MD, PhD [facility] Orders: Orders XR lumbar spine 4V min Today Z98.1 - Arthrodesis status PT Evaluation and Treatment Today G89.29 - Other chronic pain, M54.50 - Low back pain, unspecified Medications: New methocarbamol 500 mg PO Q6H 30 tabs 1RF Coding Level of Care Code Global (71887) Diagnoses Chronic low back pain M54.50; G89.29 Lumbar radiculopathy, chronic M54.16
--- OUTSIDE RECORDS SUMMARY | 2025-09-02 17:09 | XMS_ITS | Clinical Summary ---
Author Organization [facility] Prior to 02/01/25 Address [address] [place] [address] Care Team Providers Care Sodder Name Role Phone Unavailable Primary Care Provider [...] this topic Anastasia Dhaliwal Personal/Family Self [address] [place] [id number]
--- OUTSIDE RECORDS SUMMARY | 2025-09-02 17:09 | XMS_ITS | Clinical Summary ---
Author Organization [facility] Facility Address [address] [address] Care Team Providers Care Director Of Email Marketing Name Role Phone Geraldine Maria MD Primary Care Provider [phone] Allergies Active Allergy Reactions Criticality Noted Date [...] L5-S1. No nerve root compression. Follows with [facility] orthopedics and getting good relief with corticosteroid [...] to 49 Years) Discontinued 09/13/[place] [address] [facility] ([id number]) [place] [phone] Care Teams Director Of Email Marketing Relationship Specialty Start Date End Date Geraldine Maria MD [address] [place] [address] PCP - General Internal Medicine 11/12/24
== END 2025-09-02 14:06 | disposition home or self-care (01) ==
LOC: HO.HNS 13:16
PROVIDERS: PCP Internal Medicine; Visit Provider Physician Assistant
DX: M54.50 Low back pain, unspecified (principal); G89.29 Other chronic pain; M54.16 Radiculopathy, lumbar region
CPT/HCPCS: 99024

== ENCOUNTER → 2025-09-02 13:18 | Outpatient (BNV) | payer OTHER, SELFPAY | PROVIDERS: Visit Provider Radiology Diagnostic Radiology | DX: Z98.1 Arthrodesis status (principal) | CPT/HCPCS: 72110 ==